=== PATIENT | male | born 1945 | race Two or more races ===

== ENCOUNTER → 2019-11-25 | Outpatient (CLI) | payer MEDICARE ==
[2019-11-25 12:03] LABS: Appearance,Urine Clear (Clear); Basophils # (A) 0.1 k/uL (0-0.2); Basophils % (A) 1 %; Bilirubin,Urine Negative (Negative); Blood,Urine Negative (Negative); Color,Urine Yellow; Eosinophils # (A) 0.3 k/uL (0-0.7); Eosinophils % (A) 5 %; Glucose,Urine (UA) Negative (Negative); HCT 39.4 % (39.0-53.0); HGB 12.6 gm/dL (13.0-17.5); Ketones,Urine Negative (Negative); Leukocyte Esterase,Urine Negative (Negative); Lymphocytes # (A) 1.3 k/uL (1.0-4.8); Lymphocytes % (A) 19 %; MCH 31.3 pg (25.0-35.0); MCHC 32.1 g/dL (31.0-37.0); MCV 97.6 fL (80.0-100.0); Mean Platelet Volume 8.1; Monocytes # (A) 0.5 k/uL (0-1.0); Monocytes % (A) 7 %; Neutrophils # (A) 4.5 k/uL (1.3-7.7); Neutrophils % (A) 66 %; Nitrite,Urine Negative (Negative); PH, Urine 6.5 (5.0-8.0); Platelet Count 372 k/uL (150-450); Protein,Urine Trace (Negative); RBC 4.03 m/uL (4.30-5.90); RDW 13.2 % (11.5-15.5); Specific Gravity,Urine 1.016 (1.001-1.035); Urobilinogen,Urine <2.0 mg/dL (<2.0); WBC 6.8 k/uL (3.8-10.6)
[2019-11-25 12:23] LABS: Calcium 10.6 mg/dL (8.4-10.2); Potassium 4.6 mmol/L (3.5-5.1)
--- NOTE | 2019-11-25 13:36 | XR ---
EXAMINATION TYPE: XR chest 2V DATE OF EXAM: 11/25/2019 COMPARISON: NONE HISTORY: Preoperative evaluation. TECHNIQUE: Frontal and lateral views of the chest are obtained. FINDINGS: There is no focal air space opacity, pleural effusion, or pneumothorax seen. The cardiac silhouette size is within normal limits. The osseous structures are intact. Mild multilevel degener ative change of the spine. IMPRESSION: No acute cardiopulmonary process.
== END | disposition home or self-care (01) ==
LOC: LABWHC1 11:18
PROVIDERS: ATTEND Urology
DX: Z01.818 Encounter for other preprocedural examination (principal); Z01.812 Encounter for preprocedural laboratory examination; C64.9 Malignant neoplasm of unspecified kidney, except renal pelvis
CPT/HCPCS: 36415; 71046; 80048; 81003; 85025

== ENCOUNTER 2019-12-02 06:09 | Inpatient (IN) | payer MEDICARE ==
--- NOTE | 2019-12-01 20:03 | P.HPIHPCON ---
History of Present Illness H&P Date: 12/02/19 Chief Complaint: right sided renal mass Mr Arenas is 74 yo male with hx of 6.5 cm right sided renal mass. I Discussed with him the option of robotic radical nephrectomy and robotic partial nephrectomy. He wanted to proceed with robotic partial nephrectomy. He understood the risk of benefit of each approach. Discussed with him with robotic partial nephrectomy there is risk of bleeding, infection and injury to nearby organs. Discussed with him risk of injury to the liver, bowel, blood vessels. Discussed with him risk from anesthesia including heart attack, stroke, blood clot and even . I also discussed with him given the tumor size there is a risk of conversion to radical nephrectoomy. I discussed with him given his CKD there is potential he would require dialysis if we do convert to radical nephrecttomy. He understood all risks and agreed to proceed with surgery Consent for Procedure: I have explained the operation/procedure to the patient, including the risks, benefits, side effects, alternative therapies (including not receiving the proposed treatment or service), the likelihood of the patient achieving his/her goals, and potential recuperation problems for the procedure/sedation/analgesia, as well as any blood products, if indicated. I also explained to the patient the risks, benefits and side effects of the alternatives, as well as the risks related to not receiving the proposed procedure, care, treatment, or services. - Constitutional Constitutional: Denies chills, Denies fever - Cardiovascular Cardiovascular: Denies chest pain - Respiratory Respiratory: Denies cough, Denies dyspnea - Genitourinary (Female) Genitourinary: Denies flank pain, Denies hematuria Past Medical History Past Medical History: Coronary Artery Disease (CAD), Chest Pain / Angina, COPD, Diabetes Mellitus, Hearing Disorder / Deafness, Hyperlipidemia, Hypertension, Liver Disease, Musculoskeletal Disorder, Renal Disease Additional Past Medical History / Comment(s): hx migraine, vertigo, varicose vei ns, neuropathy, gout, "damaged kidneys-stage 3-from diabetes." Hx old injury Rt calf. Pos Rt kidney mass. History of Any Multi-Drug Resistant Organisms: None Reported Past Surgical History: Heart Catheterization With Stent, Tonsillectomy Additional Past Surgical History / Comment(s): Stent to LAD 06/07/16. Colonoscopies Past Anesthesia/Blood Transfusion Reactions: No Reported Reaction Date of Last Stent Placement:: 06/07/16 Smoking Status: Former smoker - Past Family History Father Family Medical History: Cancer Additional Family Medical History / Comment(s): Lung Medications and Allergies Home Medications Medication Instructions Recorded Confirmed Type Allopurinol [Zyloprim] 100 mg PO DAILY@1200,1800 05/19/16 11/26/19 History Aspirin [Adult Low Dose Aspirin EC] 81 mg PO HS 05/19/16 11/26/19 History Carvedilol [Coreg*] 12.5 mg PO 0800,1800 05/19/16 11/26/19 History Cholecalciferol [Vitamin D3 (25 1,000 unit PO DAILY 05/19/16 11/26/19 History Mcg = 1000 Iu)] Fenofibrate,Micronized 200 mg PO HS 05/19/16 11/26/19 History [Fenofibrate] Gabapentin [Neurontin] 300 mg PO BID 05/19/16 11/26/19 History Glimepiride [Amaryl] 1 mg PO AC-BRKFST 05/19/16 11/26/19 History Hydrochlorothiazide [Hydrodiuril] 50 mg PO DAILY 05/19/16 11/26/19 History Lisinopril [Prinivil] 30 mg PO 1200 05/19/16 11/26/19 History Simvastatin [Zocor] 20 mg PO PC-SUPPER 05/19/16 11/26/19 History Spironolactone [Aldactone] 50 mg PO DAILY 11/26/19 11/26/19 History Ubidecarenone [Co Q-10] 1,000 mg PO DAILY 11/26/19 11/26/19 History amLODIPine BESYLATE 10 mg PO DAILY 11/26/19 11/26/19 History metFORMIN HCL [Glucophage] 1,000 mg PO BID 11/26/19 11/26/19 History Allergies Allergy/AdvReac Type Severity Reaction Status Date / Time No Known Allergies Allergy Verified 11/26/19 15:47 Assessment and Plan Assessment: mr Arenas is 74 yo male with hx of right sided renal mass -OR for robotic partial nephrectomy possible radical nephrectomy
[~2019-12-02 06:09] MED LIST: HEPARIN SODIUM,PORCINE 5,000 UNIT/ML 1 ML VIAL SQ ONE
[2019-12-02] MEDS ORDERED: MIDAZOLAM 2 MG/2 ML VIAL IV PRN (06:16)
[2019-12-02] MEDS ORDERED: LACTATED RINGERS 1,000 ML IV SCH (06:16)
[2019-12-02] MEDS ORDERED: ONDANSETRON 4 MG/2 ML VIAL IVP ONE (06:16)
[2019-12-02] MEDS ORDERED: DEXAMETHASONE SOD PHOSPHATE 10 MG/ML 1 ML VIAL IV ONE (06:16)
[2019-12-02 06:41] LABS: Glucose,Whole Blood 188 mg/dL (75-99)
[2019-12-02] MEDS ORDERED: LIDOCAINE 1% (10MG/ML) FOR IV START INTRADERMA ONE (06:58)
[2019-12-02] MEDS ORDERED: MIDAZOLAM 2 MG/2 ML VIAL ONE (07:40)
[2019-12-02] MEDS ORDERED: PROPOFOL 10 MG/ML 20 ML VIAL IV ONE (07:40)
[2019-12-02] MEDS ORDERED: LIDOCAINE 1% INJ 10MG/ML (20 ML MDV) ONE (07:40)
[2019-12-02] MEDS ORDERED: ROCURONIUM BROMIDE 10 MG/ML 5 ML VIAL IV ONE (07:40)
[2019-12-02] MEDS ORDERED: fentaNYL (PF) 50 MCG/ML 2 ML AMP ONE (07:40)
[2019-12-02] MEDS ORDERED: GLYCOPYRROLATE 0.2 MG/ML 2 ML VIAL ONE (07:40)
[2019-12-02] MEDS ORDERED: NEOSTIGMINE 1 MG/ML 10 ML VIAL ONE (07:40)
[2019-12-02] MEDS ORDERED: SUCCINYLCHOLINE CHLORIDE 100 MG/5 ML SYR IV ONE (07:40)
[2019-12-02] MEDS ORDERED: ROPIVACAINE 5 MG/ML 30 ML VIAL ONE (07:40)
[2019-12-02] MEDS ORDERED: BUPIVACAINE (PF) 0.5% 30 ML VIAL SQ ONE ×2 (08:50)
--- NOTE | 2019-12-02 10:06 | P.ANPRN ---
Procedure Note - Anesthesia - Nerve Block Performed Right Transversus Abdominis Single Date of Procedure: 12/02/19 Procedure Start Time: 07:41 Procedure Stop Time: 07:50 Location of Patient: PreOp Indication: Acute Post-Operative Pain Specifically requested for management of pain by DrAugusta: Bao Jean Sedation Type: Sedate with meaningful contact maintained Preparation: Sterile Prep Position: Supine Catheter: None Needle Types: Pajunk Needle Gauge: 20 Ultrasound used to visualize needle placement: Yes Ultrasound used to observe medication spread: Yes Injectate: 0.5% Ropivacaine (see comment for volume) (30cc) Blood Aspirated: No Pain Paresthesia on Injection Noted: No Resistance on Injection: Normal Image Stored and Saved: Yes Events: Uneventful and Well Tolerated
[2019-12-02] MEDS ORDERED: LACTATED RINGERS 1,000 ML IV ONE (10:36)
[2019-12-02] MEDS: HYDROmorphone 0.5 MG/0.5 ML SYRINGE IVP PRN ×4 (11:09→12:02)
--- NOTE | 2019-12-02 11:27 | P.NPCON ---
History of Present Illness - Reason for Consult chronic renal failure - History of Present Illness Reason for consultation: Chronic kidney disease History of present illness: Patient is a 74-year-old male seen in renal consultation for chronic kidney disease. Patient has chronic kidney disease stage III with baseline creatinine in the range of 1.4-1.8 secondary to diabetic kidney disease. Patient was diagnosed to renal mass and underwent right radical nephrectomy this morning. Patient is still recovering from anesthesia and is currently quite sleepy. Nurse present at bedside. Patient had about 150 mL of urine output so far today. No major bleeding couple occasions. Hemodynamically stable. Blood pressure is on the higher side at this time. No fever or chills. No edema. Currently has a Flores catheter. Vital signs are stable. General: The patient appeared well nourished and normally developed. HEENT: Head exam is unremarkable. Neck is without jugular venous distension. LUNGS: Lungs are clear to auscultation and percussion. Breath sounds decreased. HEART: Rate and Rhythm are regular. First and second heart sounds normal. No murmurs, rubs or gallops. ABDOMEN: Abdominal exam reveals normal bowel sounds. Non-tender and non- distended. No evidence of peritonitis. EXTREMITITES: No clubbing, cyanosis, or edema. 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 Pos Rt kidney mass. History of Any Multi-Drug Resistant Organisms: None Reported Past Surgical History: Heart Catheterization With Stent, Tonsillectomy Additional Past Surgical History / Comment(s): Stent to LAD 06/07/16. Colon oscopies Past Anesthesia/Blood Transfusion Reactions: No Reported Reaction Date of Last Stent Placement:: 06/07/16 Smoking Status: Former smoker - Past Family History Father Family Medical History: Cancer Additional Family Medical History / Comment(s): Lung Medications and Allergies Home Medications Medication Instructions Recorded Confirmed Type Allopurinol [Zyloprim] 100 mg PO DAILY@1200,1800 05/19/16 11/26/19 History Aspirin [Adult Low Dose Aspirin EC] 81 mg PO HS 05/19/16 11/26/19 History Carvedilol [Coreg*] 12.5 mg PO 0800,1800 05/19/16 11/26/19 History Cholecalciferol [Vitamin D3 (25 1,000 unit PO DAILY 05/19/16 11/26/19 History Mcg = 1000 Iu)] Fenofibrate,Micronized 200 mg PO HS 05/19/16 11/26/19 History [Fenofibrate] Gabapentin [Neurontin] 300 mg PO BID 05/19/16 11/26/19 History Glimepiride [Amaryl] 1 mg PO AC-BRKFST 05/19/16 11/26/19 History Hydrochlorothiazide [Hydrodiuril] 50 mg PO DAILY 05/19/16 11/26/19 History Lisinopril [Prinivil] 30 mg PO 1200 05/19/16 11/26/19 History Simvastatin [Zocor] 20 mg PO PC-SUPPER 05/19/16 11/26/19 History Spironolactone [Aldactone] 50 mg PO DAILY 11/26/19 11/26/19 History Ubidecarenone [Co Q-10] 1,000 mg PO DAILY 11/26/19 11/26/19 History amLODIPine BESYLATE 10 mg PO DAILY 11/26/19 11/26/19 History metFORMIN HCL [Glucophage] 1,000 mg PO BID 11/26/19 11/26/19 History Allergies Allergy/AdvReac Type Severity Reaction Status Date / Time No Known Allergies Allergy Verified 11/26/19 15:47 Physical Exam Vitals: Vital Signs Temp Pulse Resp BP Pulse Ox 12/02/19 11:15 78 16 178/81 93 L 12/02/19 11:00 80 16 182/78 100 12/02/19 10:58 98.5 F 82 17 194/88 98 12/02/19 07:41 69 18 158/79 98 12/02/19 06:25 97.8 F 69 18 173/64 98 Intake and Output 12/01/19 12/02/19 12/02/19 22:59 06:59 14:59 Intake Total 300 950 Output Total 350 Balance 300 600 Intake: IV 300 950 Output: Urine 150 Estimated Blood Loss 200 Other: Weight 103.6 kg Assessment and Plan Plan: Assessment: 1. Chronic kidney disease stage III secondary to diabetic kidney disease with baseline creatinine in the range of 1.4-1.8. GFR near baseline from November 25. 2. Diabetes mellitus. 3. Hypertension with chronic kidney disease. 4. Right renal mass status post right radical nephrectomy this morning. Plan: Start normal saline at 50 mL an hour. Continue to monitor renal function and urine output. Home blood pressure medications to be resumed today. Repeat electrolytes in the morning. Thank you for the consultation. I will continue to follow the patient with you during his hospital stay.
[2019-12-02] MEDS ORDERED: INSULIN ASPART (NovoLOG) 100 UNIT/ML VIAL SQ ONE (11:37)
[2019-12-02 11:39] LABS: Glucose,Whole Blood 295 mg/dL (75-99)
[2019-12-02] MEDS ORDERED: SODIUM CHLORIDE 0.9% 1,000 ML IV SCH (12:15)
[2019-12-02] MEDS: CARVEDILOL 12.5 MG TAB PO SCH ×2 (13:03→18:16)
[2019-12-02] MEDS: DEXTROSE 5%-0.45% NACL 1,000 ML IV SCH ×2 (13:03→14:57)
[2019-12-02] MEDS: CHOLECALCIFEROL 1,000 UNIT TAB PO SCH (13:29)
[2019-12-02] MEDS: METHOCARBAMOL 750 MG TAB PO SCH ×3 (13:29→21:00)
[2019-12-02] MEDS: SPIRONOLACTONE 25 MG TAB PO SCH (13:29)
[2019-12-02] MEDS: ALLOPURINOL 100 MG TAB PO SCH ×2 (13:29→18:16)
--- NOTE | 2019-12-02 14:57 | P.OP ---
Date of Procedure: 12/02/19 Preoperative Diagnosis: Right renal mass Postoperative Diagnosis: same Procedure(s) Performed: Robotic radical nephrectomy Anesthesia: DANIELA Surgeon: Desmond Bhatt Estimated Blood Loss (ml): 200 Pathology: other (right kidney) Condition: stable Disposition: PACU Indications for Procedure: Mr Arenas is 74 yo male with hx of 6.5 cm right sided renal mass. I Discussed with him the option of robotic radical nephrectomy and robotic partial nephrectomy. He wanted to proceed with robotic partial nephrectomy. He understood the risk of benefit of each approach. Discussed with him with robotic partial nephrectomy there is risk of bleeding, infection and injury to nearby organs. Discussed with him risk of injury to the liver, bowel, blood vessels. Discussed with him risk from anesthesia including heart attack, stroke, blood clot and even . I also discussed with him given the tumor size there is a risk of conversion to radical nephrectoomy. I discussed with him given his CKD there is potential he would require dialysis if we do convert to radical nephrecttomy. 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 General anesthesia was induced. He was prepped and draped in sterile fashion, and was placed in modified flank position . All pressure points were padded. The abdominal insufflation was achieved with the Veress needle. A 8 mm camera port was placed. Robotic trocars and undertaker assistant ports were placed under direct vision. a 5 mm liver retractor was placed. . The robot was docked into place. The patient had adhesions along the liver which were taken down robotically to exposed the upper edge of gerotas. Of note the gallbladder was not visualized, and appeared to be surgically absent/ The colon was mobilized medially by incising along the white line of Toldt. of note patient gerota was edematous and adhered to the mesentric fat. Next the duodenum was kocherized. At this time the vena cava was exposed. At this point tumor was visualized a long the lower pole of the kidney. Next the ureter was retracted anteriorly off the psoas muscle. Dissection proceeded cranially towards the renal hilum. The upper pole attachments were dissected. Care was taken to safely mobilize the kidney free of all visceral structures.The renal vessels were dissected. At this point the renal vessels were exposed. At this point attention was taken to dissect the tumor and prepare for partial nephrectomy. At this point the tumor was visualized along the upper pole. of note patient tumor was adhered to gerotas fat and there was no plane between the tumor and gerotas fat. 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 Additionally patient had significant parasitic vessel surrounding the tumor. When we attempted to mobilize the fat off of the kidney the parasitic vessels were encountered and there was significant difficulty controlling those vessels using cautery. Given the risk of significant blood loss and possibility of T3 disease decision was made to proceed with nephrectomy. The hilum was ligated using the vascular stapler. The adrenal gland was mobilized. Lateral and remaining kidney attachments were released. Of note the dissection was more challenging given the parasitic vessels. The ureter was dissected further distally. The ureter was ligated using the vascular stapler. The kidney was placed in an Endo Catch bag. The robot was then de-docked and the specimen was then removed by extending the undertaker assistant port. Fascia was closed with 2 layers using #1 Stratafix. Skin was closed with subcu ticular sutures and dermabond. The patient was awoken from general anesthesia in stable condition. Please refer to the final pathology report for final diagnosis
[2019-12-02] MEDS: ONDANSETRON 4 MG/2 ML VIAL IVP PRN (15:47)
[2019-12-02] MEDS: HEPARIN SODIUM,PORCINE 5,000 UNIT/ML 1 ML VIAL SQ SCH (15:48)
[2019-12-02 15:56] LABS: Glucose,Whole Blood 244 mg/dL (75-99)
[2019-12-02] MEDS: ATORVASTATIN 10 MG TAB PO SCH (18:16)
[2019-12-02] MEDS: HYDROmorphone 1 MG/ML 1 ML SYRINGE IVP PRN (20:47)
[2019-12-02] MEDS: GABAPENTIN 300 MG CAP PO SCH (20:49)
[2019-12-02] MEDS: metFORMIN 500 MG TAB PO SCH (20:49)
[2019-12-02 21:11] LABS: Glucose,Whole Blood 190 mg/dL (75-99)
[2019-12-02 21:52] LABS: Basophils # (A) 0.1 k/uL (0-0.2); Basophils % (A) 1 %; Eosinophils % (A) 0 %; HCT 35.8 % (39.0-53.0); HGB 11.5 gm/dL (13.0-17.5); Lymphocytes # (A) 0.4 k/uL (1.0-4.8); Lymphocytes % (A) 5 %; MCH 31.4 pg (25.0-35.0); MCHC 32.2 g/dL (31.0-37.0); MCV 97.6 fL (80.0-100.0); Mean Platelet Volume 8.4; Monocytes # (A) 0.7 k/uL (0-1.0); Monocytes % (A) 7 %; Neutrophils % (A) 87 %; Platelet Count 251 k/uL (150-450); RBC 3.67 m/uL (4.30-5.90); WBC 9.3 k/uL (3.8-10.6)
[2019-12-02 21:53] LABS: Calcium 9.7 mg/dL (8.4-10.2); Potassium 4.3 mmol/L (3.5-5.1)
[2019-12-02] MEDS: SODIUM CHLORIDE 0.9% 1,000 ML IV SCH (23:20)
[2019-12-03] MEDS: HEPARIN SODIUM,PORCINE 5,000 UNIT/ML 1 ML VIAL SQ SCH ×3 (01:41→15:02)
[2019-12-03] MEDS: HYDROmorphone 1 MG/ML 1 ML SYRINGE IVP PRN ×2 (02:09→07:05)
[2019-12-03 06:48] LABS: Glucose,Whole Blood 200 mg/dL (75-99)
[2019-12-03] MEDS: GLIMEPIRIDE 1 MG TAB PO SCH (07:05)
[2019-12-03 07:44] LABS: Calcium 9.3 mg/dL (8.4-10.2); Magnesium 1.5 mg/dL (1.6-2.3); Potassium 4.1 mmol/L (3.5-5.1)
[2019-12-03] MEDS: metFORMIN 500 MG TAB PO SCH (08:19)
[2019-12-03] MEDS: CARVEDILOL 12.5 MG TAB PO SCH ×2 (08:19→17:00)
[2019-12-03] MEDS: CHOLECALCIFEROL 1,000 UNIT TAB PO SCH (08:19)
[2019-12-03] MEDS: GABAPENTIN 300 MG CAP PO SCH ×2 (08:19→21:10)
[2019-12-03] MEDS: SPIRONOLACTONE 25 MG TAB PO SCH (08:19)
[2019-12-03] MEDS: METHOCARBAMOL 750 MG TAB PO SCH ×4 (08:20→21:10)
--- NOTE | 2019-12-03 09:51 | P.PN ---
Subjective Patient is seen in follow-up for acute kidney injury on chronic kidney disease. Patient has chronic kidney disease stage III with baseline creatinine in the range of 1.4-1.8 secondary to diabetic kidney disease. Patient underwent right radical nephrectomy on 12/02/2019. Currently awake and alert. No chest pain or shortness of breath. Nonoliguric. Has a Flores catheter. Vital signs are stable. General: The patient appeared well nourished and normally developed. HEENT: Head exam is unremarkable. Neck is without jugular venous distension. LUNGS: Lungs are clear to auscultation and percussion. Breath sounds decreased. HEART: Rate and Rhythm are regular. First and second heart sounds normal. No murmurs, rubs or gallops. ABDOMEN: Abdominal exam reveals normal bowel sounds. Non-tender and non- distended. No evidence of peritonitis. EXTREMITITES: No clubbing, cyanosis, or edema. Objective - Vital Signs Vital signs: Vital Signs Temp 98.2 F 12/03/19 07:00 Pulse 75 12/03/19 07:00 Resp 18 12/03/19 07:00 BP 139/77 12/03/19 07:00 Pulse Ox 91 L 12/03/19 07:00 Intake & Output 12/02/19 12/03/19 12/03/19 18:59 06:59 18:59 Intake Total 950 470 Output Total 350 600 Balance 600 -130 Weight 103.6 kg Intake: IV 950 Intake, IV Titration 350 Amount Sodium Chloride 0.9% 1, 350 000 ml @ 50 mls/hr IV . Q20H [facility] Rx#:[id number] Oral 120 Output: Urine 150 600 Estimated Blood Loss 200 Other: Voiding Method Indwelling Catheter Indwelling Catheter Indwelling Catheter - Labs CBC & Chem 7: 12/02/19 20:58 12/03/19 07:08 Labs: Abnormal Lab Results - Last 24 Hours (Table) 12/02/19 12/02/19 12/02/19 Range/Units 11:33 15:53 20:58 RBC 3.67 L (4.30-5.90) m/uL Hgb 11.5 L (13.0-17.5) gm/dL Hct 35.8 L (39.0-53.0) % Neutrophils # 8.0 H (1.3-7.7) k/uL Lymphocytes # 0.4 L (1.0-4.8) k/uL BUN (9-20) mg/dL Creatinine (0.66-1.25) mg/dL Glucose (74-99) mg/dL POC Glucose (mg/dL) 295 H 244 H (75-99) mg/dL Magnesium (1.6-2.3) mg/dL 12/02/19 12/02/19 12/03/19 Range/Units 20:58 21:09 06:46 RBC (4.30-5.90) m/uL Hgb (13.0-17.5) gm/dL Hct (39.0-53.0) % Neutrophils # (1.3-7.7) k/uL Lymphocytes # (1.0-4.8) k/uL BUN 33 H (9-20) mg/dL Creatinine 2.21 H (0.66-1.25) mg/dL Glucose 185 H (74-99) mg/dL POC Glucose (mg/dL) 190 H 200 H (75-99) mg/dL Magnesium (1.6-2.3) mg/dL 12/03/19 Range/Units 07:08 RBC (4.30-5.90) m/uL Hgb (13.0-17.5) gm/dL Hct (39.0-53.0) % Neutrophils # (1.3-7.7) k/uL Lymphocytes # (1.0-4.8) k/uL BUN 32 H (9-20) mg/dL Creatinine 2.50 H (0.66-1.25) mg/dL Glucose 195 H (74-99) mg/dL POC Glucose (mg/dL) (75-99) mg/dL Magnesium 1.5 L (1.6-2.3) mg/dL Assessment and Plan Plan: Assessment: 1. Chronic kidney disease stage III secondary to diabetic kidney disease with baseline creatinine in the range of 1.4-1.8. GFR near baseline from November 25. However need to establish new baseline renal function as patient underwent right-sided nephrectomy on December 02. 2. Diabetes mellitus. 3. Hypertension with chronic kidney disease. Controlled. 4. Right renal mass status post right radical nephrectomy. 5. Hypomagnesemia from poor oral intake. Plan: Maintain normal saline at 50 mL an hour. Replace magnesium. 2 g IV today. Continue to monitor renal function and urine output.
[2019-12-03] MEDS: MAGNESIUM SULFATE-D5W PMX 1 GM in DEXTROSE/WATER 1 100ML.BAG IVPB SCH ×2 (10:01→11:34)
[2019-12-03 11:20] LABS: Amorphous Sediment,Urine Rare /hpf; Appearance,Urine Cloudy (Clear); Bacteria,Urine Occasional /hpf; Bilirubin,Urine Negative (Negative); Blood,Urine Moderate (Negative); Color,Urine Yellow; Glucose,Urine (UA) 2+ (Negative); Ketones,Urine Negative (Negative); Leukocyte Esterase,Urine Moderate (Negative); Mucus,Urine Rare /hpf; Nitrite,Urine Negative (Negative); PH, Urine 5.5 (5.0-8.0); Protein,Urine 1+ (Negative); RBC,Urine 4 /hpf (0-5); Specific Gravity,Urine 1.017 (1.001-1.035); Squamous Epithelial Cell,Urine <1 /hpf (0-4); Urobilinogen,Urine <2.0 mg/dL (<2.0); WBC,Urine 23 /hpf (0-5)
[2019-12-03 11:23] LABS: Glucose,Whole Blood 243 mg/dL (75-99)
[2019-12-03] MEDS: INSULIN ASPART (NovoLOG) 100 UNIT/ML VIAL SQ SCH ×3 (11:34→21:10)
[2019-12-03] MEDS: ALLOPURINOL 100 MG TAB PO SCH ×2 (12:44→17:00)
[2019-12-03] MEDS: traMADol 50 MG TAB PO PRN (15:02)
[2019-12-03] MEDS: SODIUM CHLORIDE 0.9% 1,000 ML IV SCH (15:03)
[2019-12-03 16:52] LABS: Glucose,Whole Blood 173 mg/dL (75-99)
[2019-12-03] MEDS: ATORVASTATIN 10 MG TAB PO SCH (17:00)
[2019-12-03] MEDS: ACETAMINOPHEN TAB 325 MG TAB PO PRN (17:00)
[2019-12-03 21:02] LABS: Glucose,Whole Blood 200 mg/dL (75-99)
--- NOTE | 2019-12-03 22:33 | P.PN ---
Subjective Progress Note Date: 12/03/19 Principal diagnosis: right sided renal mass POD #1 S/P right sided radical nephrectomy No acute overnight event, has not ambulated yet. Still having some pain Objective - Vital Signs Vital signs: Vital Signs Temp 98.9 F 12/03/19 19:12 Pulse 80 12/03/19 19:12 Resp 17 12/03/19 19:12 BP 136/71 12/03/19 19:12 Pulse Ox 92 L 12/03/19 19:12 Intake & Output 12/03/19 12/03/19 12/04/19 06:59 18:59 06:59 Intake Total 470 540 Output Total 600 Balance -130 540 Intake: Intake, IV Titration 350 Amount Sodium Chloride 0.9% 1, 350 000 ml @ 50 mls/hr IV . Q20H [facility] Rx#:[id number] Oral 120 540 Output: Urine 600 Other: Voiding Method Indwelling Catheter Indwelling Catheter Indwelling Catheter - Constitutional General appearance: Present: no acute distress - Gastrointestinal General gastrointestinal: Present: soft. Absent: distended - Integumentary Integumentary Comment(s): Incision; CDI - Labs CBC & Chem 7: 12/02/19 20:58 12/03/19 07:08 Labs: Abnormal Lab Results - Last 24 Hours (Table) 12/03/19 12/03/19 12/03/19 Range/Units 06:46 07:08 10:40 BUN 32 H (9-20) mg/dL Creatinine 2.50 H (0.66-1.25) mg/dL Glucose 195 H (74-99) mg/dL POC Glucose (mg/dL) 200 H (75-99) mg/dL Magnesium 1.5 L (1.6-2.3) mg/dL Urine Protein 1+ H (Negative) Urine Glucose (UA) 2+ H (Negative) Urine Blood Moderate H (Negative) Ur Leukocyte Esterase Moderate H (Negative) Urine WBC 23 H (0-5) /hpf Amorphous Sediment Rare H (None) /hpf Urine Bacteria Occasional H (None) /hpf Urine Mucus Rare H (None) /hpf 12/03/19 12/03/19 12/03/19 Range/Units 11:21 16:50 21:00 BUN (9-20) mg/dL Creatinine (0.66-1.25) mg/dL Glucose (74-99) mg/dL POC Glucose (mg/dL) 243 H 173 H 200 H (75-99) mg/dL Magnesium (1.6-2.3) mg/dL Urine Protein (Negative) Urine Glucose (UA) (Negative) Urine Blood (Negative) Ur Leukocyte Esterase (Negative) Urine WBC (0-5) /hpf Amorphous Sediment (None) /hpf Urine Bacteria (None) /hpf Urine Mucus (None) /hpf Assessment and Plan Assessment: S/P right sided radical nephrectomy Plan: -ambulate -Pain control -Repeat am labs -Potential discharge home tomorrow
[2019-12-04] MEDS: traMADol 50 MG TAB PO PRN ×2 (00:05→14:26)
[2019-12-04] MEDS: HEPARIN SODIUM,PORCINE 5,000 UNIT/ML 1 ML VIAL SQ SCH ×3 (00:05→18:17)
[2019-12-04] MEDS: HYDROmorphone 1 MG/ML 1 ML SYRINGE IVP PRN (01:00)
[2019-12-04] MEDS: ONDANSETRON 4 MG/2 ML VIAL IVP PRN ×2 (06:19→22:46)
[2019-12-04 06:52] LABS: Glucose,Whole Blood 213 mg/dL (75-99)
[2019-12-04 07:51] LABS: Potassium 4.2 mmol/L (3.5-5.1)
[2019-12-04] MEDS: GLIMEPIRIDE 1 MG TAB PO SCH (08:03)
[2019-12-04] MEDS: METHOCARBAMOL 750 MG TAB PO SCH ×4 (08:03→21:08)
[2019-12-04] MEDS: GABAPENTIN 300 MG CAP PO SCH ×2 (08:05→21:08)
[2019-12-04] MEDS: CHOLECALCIFEROL 1,000 UNIT TAB PO SCH (08:05)
[2019-12-04] MEDS: SPIRONOLACTONE 25 MG TAB PO SCH (08:05)
[2019-12-04] MEDS: CARVEDILOL 12.5 MG TAB PO SCH ×2 (08:06→18:18)
[2019-12-04] MEDS: INSULIN ASPART (NovoLOG) 100 UNIT/ML VIAL SQ SCH ×4 (08:06→21:08)
--- NOTE | 2019-12-04 09:46 | P.PN ---
Subjective Patient is seen in follow-up for acute kidney injury on chronic kidney disease. Patient has chronic kidney disease stage III with baseline creatinine in the range of 1.4-1.8 secondary to diabetic kidney disease. Patient underwent right radical nephrectomy on 12/02/2019. Currently awake and alert. No chest pain or shortness of breath. Nonoliguric. Has a Flores catheter. Feels nauseated. No vomiting but has been dry heaving. Vital signs are stable. General: The patient appeared well nourished and normally developed. HEENT: Head exam is unremarkable. Neck is without jugular venous distension. LUNGS: Lungs are clear to auscultation and percussion. Breath sounds decreased. HEART: Rate and Rhythm are regular. First and second heart sounds normal. No murmurs, rubs or gallops. ABDOMEN: Abdominal exam reveals normal bowel sounds. Non-tender and non- distended. No evidence of peritonitis. EXTREMITITES: No clubbing, cyanosis, or edema. Objective - Vital Signs Vital signs: Vital Signs Temp 98.4 F 12/04/19 07:00 Pulse 115 H 12/04/19 07:00 Resp 17 12/04/19 07:00 BP 131/77 12/04/19 07:00 Pulse Ox 91 L 12/04/19 07:00 Intake & Output 12/03/19 12/04/19 12/04/19 18:59 06:59 18:59 Intake Total 540 400 Output Total 350 Balance 540 50 Intake: Intake, IV Titration 400 Amount Sodium Chloride 0.9% 1, 400 000 ml @ 50 mls/hr IV . Q20H [facility] Rx#:[id number] Oral 540 Output: Urine 350 Other: Voiding Method Indwelling Catheter Indwelling Catheter Indwelling Catheter - Labs CBC & Chem 7: 12/02/19 20:58 12/04/19 07:12 Labs: Abnormal Lab Results - Last 24 Hours (Table) 12/03/19 12/03/19 12/03/19 Range/Units 10:40 11:21 16:50 BUN (9-20) mg/dL Creatinine (0.66-1.25) mg/dL Glucose (74-99) mg/dL POC Glucose (mg/dL) 243 H 173 H (75-99) mg/dL Urine Protein 1+ H (Negative) Urine Glucose (UA) 2+ H (Negative) Urine Blood Moderate H (Negative) Ur Leukocyte Esterase Moderate H (Negative) Urine WBC 23 H (0-5) /hpf Amorphous Sediment Rare H (None) /hpf Urine Bacteria Occasional H (None) /hpf Urine Mucus Rare H (None) /hpf 12/03/19 12/04/19 12/04/19 Range/Units 21:00 06:50 07:12 BUN 39 H (9-20) mg/dL Creatinine 3.20 H (0.66-1.25) mg/dL Glucose 208 H (74-99) mg/dL POC Glucose (mg/dL) 200 H 213 H (75-99) mg/dL Urine Protein (Negative) Urine Glucose (UA) (Negative) Urine Blood (Negative) Ur Leukocyte Esterase (Negative) Urine WBC (0-5) /hpf Amorphous Sediment (None) /hpf Urine Bacteria (None) /hpf Urine Mucus (None) /hpf Assessment and Plan Plan: Assessment: 1. Chronic kidney disease stage III secondary to diabetic kidney disease with baseline creatinine in the range of 1.4-1.8. GFR near baseline from November 25. However need to establish new baseline renal function as patient underwent right-sided nephrectomy on December 02. Creatinine 3.2 today. 2. Diabetes mellitus. 3. Hypertension with chronic kidney disease. Controlled. 4. Right renal mass status post right radical nephrectomy. 5. Hypomagnesemia from poor oral intake. Better post replacement. Plan: Maintain normal saline at 50 mL an hour. Continue to monitor renal function and urine output.
[2019-12-04 11:43] LABS: Glucose,Whole Blood 176 mg/dL (75-99)
[2019-12-04 14:23] LABS: Glucose,Whole Blood 191 mg/dL (75-99)
[2019-12-04] MEDS: SENNOSIDES 8.6 MG TAB PO SCH ×2 (14:25→21:08)
[2019-12-04] MEDS: ALLOPURINOL 100 MG TAB PO SCH ×2 (14:25→18:18)
--- NOTE | 2019-12-04 17:12 | P.PN ---
Subjective Progress Note Date: 12/04/19 Principal diagnosis: right sided renal mass POD #2 S/P right sided radical nephrectomy No acute overnight event,has ambulated . Still having some pain. Creat continues to trend up Objective - Vital Signs Vital signs: Vital Signs Temp 98.6 F 12/04/19 15:00 Pulse 73 12/04/19 15:00 Resp 17 12/04/19 15:00 BP 120/73 12/04/19 15:00 Pulse Ox 90 L 12/04/19 15:00 Intake & Output 12/03/19 12/04/19 12/04/19 18:59 06:59 18:59 Intake Total 540 400 Output Total 350 Balance 540 50 Intake: Intake, IV Titration 400 Amount Sodium Chloride 0.9% 1, 400 000 ml @ 50 mls/hr IV . Q20H [facility] Rx#:[id number] Oral 540 Output: Urine 350 Other: Voiding Method Indwelling Catheter Indwelling Catheter Indwelling Catheter - Constitutional General appearance: Present: no acute distress - Gastrointestinal General gastrointestinal: Present: soft. Absent: distended, rigid - Psychiatric Psychiatric: Present: A&O x's 3 - Labs CBC & Chem 7: 12/02/19 20:58 12/04/19 07:12 Labs: Abnormal Lab Results - Last 24 Hours (Table) 12/03/19 12/04/19 12/04/19 Range/Units 21:00 06:50 07:12 BUN 39 H (9-20) mg/dL Creatinine 3.20 H (0.66-1.25) mg/dL Glucose 208 H (74-99) mg/dL POC Glucose (mg/dL) 200 H 213 H (75-99) mg/dL 12/04/19 12/04/19 Range/Units 11:41 14:21 BUN (9-20) mg/dL Creatinine (0.66-1.25) mg/dL Glucose (74-99) mg/dL POC Glucose (mg/dL) 176 H 191 H (75-99) mg/dL Assessment and Plan Assessment: S/P right sided radical nephrectomy Plan: -ambulate -Bowel regimen -Pain control -Repeat am labs -Potential discharge home tomorrow
[2019-12-04 17:34] LABS: Glucose,Whole Blood 177 mg/dL (75-99)
[2019-12-04] MEDS: ATORVASTATIN 10 MG TAB PO SCH (18:18)
[2019-12-04] MEDS: SODIUM CHLORIDE 0.9% 1,000 ML IV SCH (18:26)
[2019-12-04 20:57] LABS: Glucose,Whole Blood 150 mg/dL (75-99)
[2019-12-05] MEDS: HEPARIN SODIUM,PORCINE 5,000 UNIT/ML 1 ML VIAL SQ SCH ×4 (01:05→23:28)
[2019-12-05] MEDS: traMADol 50 MG TAB PO PRN ×2 (01:26→09:59)
[2019-12-05] MEDS: ACETAMINOPHEN TAB 325 MG TAB PO PRN ×2 (06:04→17:30)
[2019-12-05 07:40] LABS: Glucose,Whole Blood 211 mg/dL (75-99)
[2019-12-05 09:03] LABS: Calcium 9.4 mg/dL (8.4-10.2); Magnesium 2.2 mg/dL (1.6-2.3); Potassium 4.8 mmol/L (3.5-5.1)
[2019-12-05] MEDS: INSULIN ASPART (NovoLOG) 100 UNIT/ML VIAL SQ SCH ×4 (09:52→21:40)
[2019-12-05] MEDS: SPIRONOLACTONE 25 MG TAB PO SCH (09:52)
[2019-12-05] MEDS: GABAPENTIN 300 MG CAP PO SCH ×2 (09:52→21:40)
[2019-12-05] MEDS: CHOLECALCIFEROL 1,000 UNIT TAB PO SCH (09:52)
[2019-12-05] MEDS: CARVEDILOL 12.5 MG TAB PO SCH ×2 (09:52→17:31)
[2019-12-05] MEDS: GLIMEPIRIDE 1 MG TAB PO SCH (09:52)
[2019-12-05] MEDS: METHOCARBAMOL 750 MG TAB PO SCH ×2 (09:53→14:21)
[2019-12-05] MEDS: SENNOSIDES 8.6 MG TAB PO SCH ×2 (09:53→21:40)
[2019-12-05 11:33] LABS: Glucose,Whole Blood 215 mg/dL (75-99)
--- NOTE | 2019-12-05 11:47 | P.PN ---
Subjective Patient is seen in follow-up for acute kidney injury on chronic kidney disease. Patient has chronic kidney disease stage III with baseline creatinine in the range of 1.4-1.8 secondary to diabetic kidney disease. Patient underwent right radical nephrectomy on 12/02/2019. Currently awake and alert. No chest pain or shortness of breath. Urine output 300 mL overnight. Has a Flores catheter. Her renal function is significantly worse. Creatinine 4.86 today. Vital signs are stable. General: The patient appeared well nourished and normally developed. HEENT: Head exam is unremarkable. Neck is without jugular venous distension. LUNGS: Lungs are clear to auscultation and percussion. Breath sounds decreased. HEART: Rate and Rhythm are regular. First and second heart sounds normal. No murmurs, rubs or gallops. ABDOMEN: Abdominal exam reveals normal bowel sounds. Non-tender and non- distended. No evidence of peritonitis. EXTREMITITES: No clubbing, cyanosis, or edema. Objective - Vital Signs Vital signs: Vital Signs Temp 97.8 F 12/05/19 07:48 Pulse 70 12/05/19 07:48 Resp 20 12/05/19 07:48 BP 124/74 12/05/19 07:48 Pulse Ox 93 L 12/05/19 07:48 Intake & Output 12/04/19 12/05/19 12/05/19 18:59 06:59 18:59 Intake Total 400 Output Total 300 Balance 100 Intake: Intake, IV Titration 400 Amount Sodium Chloride 0.9% 1, 400 000 ml @ 50 mls/hr IV . Q20H [facility] Rx#:[id number] Output: Urine 300 Other: Voiding Method Indwelling Catheter Indwelling Catheter Indwelling Catheter # Voids 200 - Labs CBC & Chem 7: 12/02/19 20:58 12/05/19 07:36 Labs: Abnormal Lab Results - Last 24 Hours (Table) 12/04/19 12/04/19 12/04/19 Range/Units 11:41 14:21 17:33 Carbon Dioxide (22-30) mmol/L BUN (9-20) mg/dL Creatinine (0.66-1.25) mg/dL Glucose (74-99) mg/dL POC Glucose (mg/dL) 176 H 191 H 177 H (75-99) mg/dL 12/04/19 12/05/1920 Range/Units 20:55 07:36 07:38 Carbon Dioxide 19 L (22-30) mmol/L BUN 52 H (9-20) mg/dL Creatinine 4.86 H (0.66-1.25) mg/dL Glucose 190 H (74-99) mg/dL POC Glucose (mg/dL) 150 H 211 H (75-99) mg/dL 12/05/19 Range/Units 11:32 Carbon Dioxide (22-30) mmol/L BUN (9-20) mg/dL Creatinine (0.66-1.25) mg/dL Glucose (74-99) mg/dL POC Glucose (mg/dL) 215 H (75-99) mg/dL Assessment and Plan Plan: Assessment: 1. Chronic kidney disease stage III secondary to diabetic kidney disease with baseline creatinine in the range of 1.4-1.8. GFR near baseline from November 25. However need to establish new baseline renal function as patient underwent right-sided nephrectomy on December 02. Creatinine 4.86 today. 2. Diabetes mellitus. 3. Hypertension with chronic kidney disease. Controlled. 4. Right renal mass status post right radical nephrectomy. 5. Hypomagnesemia from poor oral intake. Better post replacement. 6. Metabolic acidosis secondary to acute kidney injury. Plan: Maintain normal saline at 50 mL an hour. Add oral sodium bicarbonate. I discussed with the patient and his family present at bedside in detail that after the nephrectomy his renal function is expected to decline and possibly req uire renal replacement therapy. I discussed with him that his renal function has significantly dropped and dialysis may need to be started this admission. Patient states he wants to wait another day and will then decide. I spoke with the family caseworker to set him up for hemodialysis at [facility] if dialysis is started this admission. Patient and family are agreeable.
[2019-12-05] MEDS: ONDANSETRON 4 MG/2 ML VIAL IVP PRN ×2 (12:42→21:40)
[2019-12-05] MEDS: ALLOPURINOL 100 MG TAB PO SCH ×2 (13:18→17:31)
[2019-12-05] MEDS: SODIUM BICARBONATE TAB 650 MG TAB PO SCH ×2 (13:19→21:40)
--- NOTE | 2019-12-05 15:36 | US ---
EXAMINATION TYPE: US kidneys/renal and bladder DATE OF EXAM: 12/05/2019 COMPARISON: NONE CLINICAL HISTORY: Hematuria. EXAM MEASUREMENTS: Right Kidney: nephrectomy 12/02/19 Left Kidney: 10.4 x 5.5 x 6.7 cm Right Kidney: Surgically absent Left Kidney: No hydronephrosis, cyst measuring 2.4 x 1.8 x 1.9cm Bladder: swanson, non distended IMPRESSION: 1. Right renal bed appears unremarkable. 2. Left kidney as a simple cyst on the cortex but is otherwise unremarkable.
--- NOTE | 2019-12-05 16:16 | P.PN ---
Subjective Progress Note Date: 12/05/19 Principal diagnosis: right sided renal mass POD #3 S/P right sided radical nephrectomy No acute overnight event,has ambulated . Still having pain . Creat continues to trend up Objective - Vital Signs Vital signs: Vital Signs Temp 97.8 F 12/05/19 07:48 Pulse 70 12/05/19 07:48 Resp 20 12/05/19 07:48 BP 124/74 12/05/19 07:48 Pulse Ox 93 L 12/05/19 07:48 Intake & Output 12/04/19 12/05/19 12/05/19 18:59 06:59 18:59 Intake Total 400 Output Total 300 Balance 100 Intake: Intake, IV Titration 400 Amount Sodium Chloride 0.9% 1, 400 000 ml @ 50 mls/hr IV . Q20H [facility] Rx#:[id number] Output: Urine 300 Other: Voiding Method Indwelling Catheter Indwelling Catheter Indwelling Catheter # Voids 200 - Constitutional General appearance: Present: mild distress - Gastrointestinal General gastrointestinal: Present: distended, soft. Absent: tenderness - Psychiatric Psychiatric: Present: A&O x's 3 - Labs CBC & Chem 7: 12/02/19 20:58 12/05/19 07:36 Labs: Abnormal Lab Results - Last 24 Hours (Table) 12/04/19 12/04/19 12/05/19 Range/Units 17:33 20:55 07:36 Carbon Dioxide 19 L (22-30) mmol/L BUN 52 H (9-20) mg/dL Creatinine 4.86 H (0.66-1.25) mg/dL Glucose 190 H (74-99) mg/dL POC Glucose (mg/dL) 177 H 150 H (75-99) mg/dL 12/05/19 12/05/19 Range/Units 07:38 11:32 Carbon Dioxide (22-30) mmol/L BUN (9-20) mg/dL Creatinine (0.66-1.25) mg/dL Glucose (74-99) mg/dL POC Glucose (mg/dL) 211 H 215 H (75-99) mg/dL Assessment and Plan Assessment: S/P right sided radical nephrectomy Plan: -ambulate -Bowel regimen -Pain control -Repeat am labs
[2019-12-05] MEDS ORDERED: BISACODYL 10 MG SUPP RECTAL STA (16:17)
[2019-12-05] MEDS ORDERED: SODIUM CHLORIDE 0.9% 500 ML 500 ML IV ONE (16:33)
[2019-12-05] MEDS ORDERED: PANTOPRAZOLE 40 MG TABLET PO STA (16:35)
[2019-12-05] MEDS: SODIUM CHLORIDE 0.9% 1,000 ML IV SCH (16:41)
[2019-12-05 16:44] LABS: Glucose,Whole Blood 175 mg/dL (75-99)
[2019-12-05] MEDS: ATORVASTATIN 10 MG TAB PO SCH (17:31)
[2019-12-05 20:37] LABS: Glucose,Whole Blood 205 mg/dL (75-99)
[2019-12-06] MEDS: SODIUM CHLORIDE 0.9% 1,000 ML IV SCH (05:46)
[2019-12-06 06:56] LABS: Glucose,Whole Blood 147 mg/dL (75-99)
[2019-12-06] MEDS: HEPARIN SODIUM,PORCINE 5,000 UNIT/ML 1 ML VIAL SQ SCH ×2 (08:32→17:59)
[2019-12-06] MEDS: INSULIN ASPART (NovoLOG) 100 UNIT/ML VIAL SQ SCH ×4 (08:32→22:10)
[2019-12-06] MEDS: SODIUM BICARBONATE TAB 650 MG TAB PO SCH ×2 (08:33→22:09)
[2019-12-06] MEDS: GLIMEPIRIDE 1 MG TAB PO SCH (08:33)
[2019-12-06] MEDS: GABAPENTIN 300 MG CAP PO SCH ×2 (08:34→22:08)
[2019-12-06] MEDS: CARVEDILOL 12.5 MG TAB PO SCH ×2 (08:34→17:59)
[2019-12-06] MEDS: SPIRONOLACTONE 25 MG TAB PO SCH (08:34)
[2019-12-06] MEDS: CHOLECALCIFEROL 1,000 UNIT TAB PO SCH (08:34)
[2019-12-06] MEDS: SENNOSIDES 8.6 MG TAB PO SCH ×2 (08:34→22:09)
[2019-12-06] MEDS: ACETAMINOPHEN TAB 325 MG TAB PO PRN ×3 (11:00→22:08)
[2019-12-06] MEDS ORDERED: BISACODYL 10 MG SUPP RECTAL STA (11:41)
[2019-12-06 12:03] LABS: Glucose,Whole Blood 161 mg/dL (75-99)
--- NOTE | 2019-12-06 12:08 | P.PN ---
Subjective Progress Note Date: 12/06/19 Follow-up for acute kidney injury. Still oliguric. No nausea vomiting diarrhea. Decreased urine output. No labs today. Objective - Vital Signs Vital signs: Vital Signs Temp 97.4 F L 12/06/19 07:00 Pulse 75 12/06/19 07:00 Resp 16 12/06/19 07:00 BP 160/80 12/06/19 07:00 Pulse Ox 90 L 12/06/19 07:00 Intake & Output 12/05/19 12/06/19 12/06/19 18:59 06:59 18:59 Intake Total 2500 1490 Output Total 200 Balance 2500 1290 Intake: IV 2500 800 Sodium Chloride 0.9% 1, 2500 800 000 ml @ 50 mls/hr IV . Q20H [facility] Rx#:[id number] Oral 690 Output: Urine 200 Other: Voiding Method Indwelling Catheter Indwelling Catheter Indwelling Catheter # Bowel Movements 1 - Exam No acute distress S1-S2 heard Lungs clear Abdomen distended Flores catheter Edema - Labs CBC & Chem 7: 12/02/19 20:58 12/05/19 07:36 Labs: Abnormal Lab Results - Last 24 Hours (Table) 12/05/19 12/05/19 12/06/19 Range/Units 16:43 20:35 06:54 POC Glucose (mg/dL) 175 H 205 H 147 H (75-99) mg/dL 12/06/19 Range/Units 12:02 POC Glucose (mg/dL) 161 H (75-99) mg/dL Assessment and Plan Assessment: #1 oliguric acute kidney injury suspect ischemic ATN. Creatinine rising but no labs today. #2 chronic kidney disease stage III secondary to diabetic nephropathy with a baseline creatinine of 1.4-1.8 MG per DL. #3 right nephrectomy secondary to renal mass #4 hypertension with chronic kidney disease #5 metabolic acidosis #6 volume overload Plan: #1 stop Aldactone and IV fluids #2 start Lasix 60 mg IV twice a day #3 follow-up on the labs #4 based on the labs plan dialysis today or tomorrow, no uremic signs and symptoms at this time.
[2019-12-06 12:17] LABS: Calcium 8.8 mg/dL (8.4-10.2); Potassium 4.5 mmol/L (3.5-5.1)
[2019-12-06] MEDS: FUROSEMIDE 10 MG/ML 10 ML VIAL IV SCH ×2 (12:25→22:09)
[2019-12-06] MEDS: ALLOPURINOL 100 MG TAB PO SCH ×2 (12:36→17:59)
[2019-12-06] MEDS: PANTOPRAZOLE 40 MG TABLET PO SCH (12:37)
--- NOTE | 2019-12-06 12:53 | P.PN ---
Subjective Progress Note Date: 12/06/19 Principal diagnosis: right sided renal mass POD #4 S/P right sided radical nephrectomy No acute overnight event. Is passing flatus. Tolerating diet W/O N/V. Still having abdominal distension. Objective - Vital Signs Vital signs: Vital Signs Temp 97.4 F L 12/06/19 07:00 Pulse 75 12/06/19 07:00 Resp 16 12/06/19 07:00 BP 160/80 12/06/19 07:00 Pulse Ox 90 L 12/06/19 07:00 Intake & Output 12/05/19 12/06/19 12/06/19 18:59 06:59 18:59 Intake Total 2500 1490 Output Total 200 Balance 2500 1290 Intake: IV 2500 800 Sodium Chloride 0.9% 1, 2500 800 000 ml @ 50 mls/hr IV . Q20H [facility] Rx#:[id number] Oral 690 Output: Urine 200 Other: Voiding Method Indwelling Catheter Indwelling Catheter Indwelling Catheter # Bowel Movements 1 - Constitutional General appearance: Present: no acute distress - Gastrointestinal General gastrointestinal: Present: distended, soft, tenderness (Diffuse ). Absent: rigid - Psychiatric Psychiatric: Present: A&O x's 3 - Labs CBC & Chem 7: 12/02/19 20:58 12/06/19 11:51 Labs: Abnormal Lab Results - Last 24 Hours (Table) 12/05/19 12/05/19 12/06/19 Range/Units 16:43 20:35 06:54 Sodium (137-145) mmol/L Carbon Dioxide (22-30) mmol/L BUN (9-20) mg/dL Creatinine (0.66-1.25) mg/dL Glucose (74-99) mg/dL POC Glucose (mg/dL) 175 H 205 H 147 H (75-99) mg/dL 12/06/19 12/06/19 Range/Units 11:51 12:02 Sodium 134 L (137-145) mmol/L Carbon Dioxide 20 L (22-30) mmol/L BUN 68 H (9-20) mg/dL Creatinine 6.47 H (0.66-1.25) mg/dL Glucose 160 H (74-99) mg/dL POC Glucose (mg/dL) 161 H (75-99) mg/dL Assessment and Plan Assessment: S/P right sided radical nephrectomy Plan: -ambulate -Bowel regimen -Pain control -Repeat am labs -F/U on Nephrology Recs for HD
[2019-12-06 16:55] LABS: Glucose,Whole Blood 155 mg/dL (75-99)
[2019-12-06] MEDS: ATORVASTATIN 10 MG TAB PO SCH (18:00)
[2019-12-06 22:08] LABS: Glucose,Whole Blood 117 mg/dL (75-99)
[2019-12-07] MEDS: HEPARIN SODIUM,PORCINE 5,000 UNIT/ML 1 ML VIAL SQ SCH ×3 (01:47→15:56)
[2019-12-07 07:00] LABS: Glucose,Whole Blood 109 mg/dL (75-99)
[2019-12-07 08:07] LABS: Calcium 9.4 mg/dL (8.4-10.2); Potassium 4.6 mmol/L (3.5-5.1)
[2019-12-07] MEDS: FUROSEMIDE 10 MG/ML 10 ML VIAL IV SCH ×2 (09:13→22:46)
[2019-12-07] MEDS: GLIMEPIRIDE 1 MG TAB PO SCH (09:14)
[2019-12-07] MEDS: SENNOSIDES 8.6 MG TAB PO SCH ×2 (09:14→22:46)
[2019-12-07] MEDS: CARVEDILOL 12.5 MG TAB PO SCH ×2 (09:14→18:43)
[2019-12-07] MEDS: GABAPENTIN 300 MG CAP PO SCH ×2 (09:14→22:46)
[2019-12-07] MEDS: SODIUM BICARBONATE TAB 650 MG TAB PO SCH ×2 (09:14→22:46)
[2019-12-07] MEDS: PANTOPRAZOLE 40 MG TABLET PO SCH (09:14)
[2019-12-07] MEDS: INSULIN ASPART (NovoLOG) 100 UNIT/ML VIAL SQ SCH ×4 (09:15→22:48)
[2019-12-07] MEDS: BISACODYL 10 MG SUPP RECTAL SCH (11:23)
--- NOTE | 2019-12-07 11:30 | P.PN ---
Subjective Progress Note Date: 12/07/19 Follow-up for acute kidney injury. Still oliguric. Renal function worsening and not feeling good today. Objective - Vital Signs Vital signs: Vital Signs Temp 98.1 F 12/07/19 07:00 Pulse 68 12/07/19 07:00 Resp 16 12/07/19 07:00 BP 147/79 12/07/19 07:00 Pulse Ox 90 L 12/07/19 07:00 Intake & Output 12/06/19 12/07/19 12/07/19 18:59 06:59 18:59 Intake Total 200 220 Output Total 210 350 Balance -210 -150 220 Intake: IV 200 Sodium Chloride 0.9% 1, 200 000 ml @ 50 mls/hr IV . Q20H [facility] Rx#:[id number] Oral 220 Output: Urine 210 350 Other: Voiding Method Indwelling Catheter Toilet Indwelling Catheter # Voids 1 - Exam No acute distress S1-S2 heard Lungs clear Abdomen distended Flores catheter Edema - Labs CBC & Chem 7: 12/02/19 20:58 12/07/19 07:11 Labs: Abnormal Lab Results - Last 24 Hours (Table) 12/06/19 12/06/19 12/06/19 Range/Units 11:51 12:02 16:50 Sodium 134 L (137-145) mmol/L Carbon Dioxide 20 L (22-30) mmol/L BUN 68 H (9-20) mg/dL Creatinine 6.47 H (0.66-1.25) mg/dL Glucose 160 H (74-99) mg/dL POC Glucose (mg/dL) 161 H 155 H (75-99) mg/dL 12/06/19 12/07/19 12/07/19 Range/Units 22:06 06:58 07:11 Sodium 135 L (137-145) mmol/L Carbon Dioxide 19 L (22-30) mmol/L BUN 79 H (9-20) mg/dL Creatinine 8.43 H* (0.66-1.25) mg/dL Glucose 114 H (74-99) mg/dL POC Glucose (mg/dL) 117 H 109 H (75-99) mg/dL Assessment and Plan Assessment: #1 oliguric acute kidney injury suspect ischemic ATN. Creatinine rising. #2 chronic kidney disease stage III secondary to diabetic nephropathy with a baseline creatinine of 1.4-1.8 MG per DL. #3 right nephrectomy secondary to renal mass #4 hypertension with chronic kidney disease #5 metabolic acidosis #6 volume overload Plan: #1 vascular surgery consult for a Thomas catheter and start hemodialysis today. #2 continue with Lasix 60 mg IV twice a day #3 discussed with the family agreeable for dialysis. #4 avoid nephrotoxic agents and hypotensive episodes
[2019-12-07 11:46] LABS: Glucose,Whole Blood 179 mg/dL (75-99)
--- NOTE | 2019-12-07 12:41 | P.PN ---
Subjective Progress Note Date: 12/07/19 Principal diagnosis: right sided renal mass POD #5 S/P right sided radical nephrectomy This am complaining of discomfort from the swanson catheter and dysuria . Is passing flatus. Tolerating diet W/O N/V. Still having abdominal distension. Objective - Vital Signs Vital signs: Vital Signs Temp 98.1 F 12/07/19 07:00 Pulse 68 12/07/19 07:00 Resp 16 12/07/19 07:00 BP 147/79 12/07/19 07:00 Pulse Ox 90 L 12/07/19 07:00 Intake & Output 12/06/19 12/07/19 12/07/19 18:59 06:59 18:59 Intake Total 200 220 Output Total 210 350 Balance -210 -150 220 Intake: IV 200 Sodium Chloride 0.9% 1, 200 000 ml @ 50 mls/hr IV . Q20H [facility] Rx#:[id number] Oral 220 Output: Urine 210 350 Other: Voiding Method Indwelling Catheter Toilet Indwelling Catheter # Voids 1 - Constitutional General appearance: Present: no acute distress - Gastrointestinal General gastrointestinal: Present: distended, soft, tenderness (LQ) - Psychiatric Psychiatric: Present: A&O x's 3 - Labs CBC & Chem 7: 12/02/19 20:58 12/07/19 07:11 Labs: Abnormal Lab Results - Last 24 Hours (Table) 12/06/19 12/06/19 12/07/19 Range/Units 16:50 22:06 06:58 Sodium (137-145) mmol/L Carbon Dioxide (22-30) mmol/L BUN (9-20) mg/dL Creatinine (0.66-1.25) mg/dL Glucose (74-99) mg/dL POC Glucose (mg/dL) 155 H 117 H 109 H (75-99) mg/dL 12/07/19 12/07/19 Range/Units 07:11 11:44 Sodium 135 L (137-145) mmol/L Carbon Dioxide 19 L (22-30) mmol/L BUN 79 H (9-20) mg/dL Creatinine 8.43 H* (0.66-1.25) mg/dL Glucose 114 H (74-99) mg/dL POC Glucose (mg/dL) 179 H (75-99) mg/dL Assessment and Plan Assessment: S/P right sided radical nephrectomy Plan: -ambulate -Bowel regimen -Pain control -Repeat am labs -F/U on Nephrology Recs for HD -Remove swanson, will obtain a UA given his dysuria
[2019-12-07] MEDS ORDERED: LIDOCAINE 1% INJ 10MG/ML (20 ML MDV) SQ ONE (14:40)
[2019-12-07] MEDS ORDERED: MIDAZOLAM 2 MG/2 ML VIAL IV ONE (14:55)
[2019-12-07] MEDS ORDERED: SODIUM CHLORIDE 0.9% 250 ML IV ONE (14:55)
[2019-12-07] MEDS: CHOLECALCIFEROL 1,000 UNIT TAB PO SCH (15:11)
[2019-12-07] MEDS: ALLOPURINOL 100 MG TAB PO SCH ×2 (15:11→18:43)
[2019-12-07] MEDS ORDERED: HEPARIN SODIUM 1,000 UN/ML (10ML VL) MISCELLANE ONE (15:14)
--- NOTE | 2019-12-07 15:54 | XR ---
EXAMINATION TYPE: XR chest 1V portable DATE OF EXAM: 12/07/2019 COMPARISON: 11/25/2019 HISTORY: Dialysis port placement TECHNIQUE: Single frontal view of the chest is obtained. FINDINGS: Right-sided hemodialysis port has been placed terminating in the cavoatrial junction. Ther e is strand-like bibasilar atelectasis. No pleural effusion or pneumothorax seen. The cardiac silhou ette size is within normal limits. The osseous structures are intact. IMPRESSION: Right-sided dual-lumen hemodialysis catheter appropriately placed in the cavoatrial junc tion. No postprocedural pneumothorax. Strand-like bibasilar atelectasis.
[2019-12-07 16:57] LABS: Glucose,Whole Blood 110 mg/dL (75-99)
[2019-12-07] MEDS: ATORVASTATIN 10 MG TAB PO SCH (18:43)
[2019-12-07 20:03] LABS: Amorphous Sediment,Urine Occasional /hpf; Appearance,Urine Cloudy (Clear); Bacteria,Urine Occasional /hpf; Bilirubin,Urine Negative (Negative); Blood,Urine Large (Negative); Color,Urine Light Red; Glucose,Urine (UA) Negative (Negative); Ketones,Urine Negative (Negative); Leukocyte Esterase,Urine Small (Negative); Nitrite,Urine Negative (Negative); Protein,Urine 1+ (Negative); RBC,Urine >182 /hpf (0-5); Specific Gravity,Urine 1.013 (1.001-1.035); Squamous Epithelial Cell,Urine 1 /hpf (0-4); Urobilinogen,Urine <2.0 mg/dL (<2.0); WBC,Urine 38 /hpf (0-5)
[2019-12-07 22:03] LABS: Glucose,Whole Blood 137 mg/dL (75-99)
--- NOTE | 2019-12-07 23:16 | CONS ---
DATE OF CONSULTATION: 12-07-2019 The patient is a 74-year-old gentleman I was consulted for placement of urgent dialysis catheter. The patient's kidney function is deteriorating. His BUN is 68, creatinine 6.47 with oliguria. PAST MEDICAL HISTORY: Coronary artery disease, history of COPD, history of diabetes mellitus, history of hypertension, history of liver disease. The patient had a right renal mass and had a radical nephrectomy done. PHYSICAL EXAMINATION: Patient was seen in his room. The patient's head exam is unremarkable. Neck: No bruit appreciated. Lungs: Crackles bilateral. Regular rhythm. Abdomen is distended. Femoral pulses are present. PLAN: Placement of the dialysis catheter. Risks and complications of bleeding, infection, thrombosis has been discussed. MMODL / IJN: [id number] / MTDD
[2019-12-08] MEDS: HEPARIN SODIUM,PORCINE 5,000 UNIT/ML 1 ML VIAL SQ SCH ×3 (00:44→18:19)
[2019-12-08 07:13] LABS: Glucose,Whole Blood 162 mg/dL (75-99)
--- NOTE | 2019-12-08 07:44 | PCN ---
PROCEDURE NOTE PREOPERATIVE DIAGNOSIS: Acute on chronic renal failure. PROCEDURES: 1. Placement of the dialysis catheter ultrasound-guided 19 cm right jugular approach. 2. Placement of a triple-lumen central venous line catheter. 3. Sedation time is 35 minutes. DESCRIPTION OF PROCEDURE: This patient was brought to the dental laboratory assistant. This patient had peripheral lines. They were all occluded and could not get the peripheral line in the arms. The right groin was prepped and draped in the usual sterile manner and right side of the chest and neck was prepped and draped in usual sterile manner. Ultrasound-guided micropuncture introduced right femoral vein and then we passed a regular guidewire. Then, triple-lumen central line catheter was placed. Flushed with heparin saline and secured with 3-0 nylon. Right groin with local anesthesia was used with IV sedation. Ultrasound-guided micropuncture introduced right jugular vein micropuncture guidewire was passed, a 4-Welsh dilator advanced on top of the guidewire then we passed a regular guidewire which was parked at the inferior vena cava. After that, a tunnel was created. Through the tunnel we brought a 19 cm dialysis catheter in the neck area. After that, the dilator and sheath were advanced on the top of the guidewire. Through the sheath, placed a dialysis catheter which was junction of the superior vena cava and atrium, flushed with heparin saline and hep-locked. Dressing applied. Secured with 3-0 nylon and Vicryl. The patient tolerated the procedure well and transferred to the recovery room in satisfactory condition. MMODL / IJN: [id number] /
[2019-12-08] MEDS: INSULIN ASPART (NovoLOG) 100 UNIT/ML VIAL SQ SCH ×4 (07:56→21:01)
[2019-12-08] MEDS: CHOLECALCIFEROL 1,000 UNIT TAB PO SCH (07:57)
[2019-12-08] MEDS: SODIUM BICARBONATE TAB 650 MG TAB PO SCH ×2 (07:57→20:51)
[2019-12-08] MEDS: SENNOSIDES 8.6 MG TAB PO SCH ×2 (07:57→20:51)
[2019-12-08] MEDS: PANTOPRAZOLE 40 MG TABLET PO SCH (07:57)
[2019-12-08] MEDS: GABAPENTIN 300 MG CAP PO SCH ×2 (07:57→20:51)
[2019-12-08] MEDS: CARVEDILOL 12.5 MG TAB PO SCH ×2 (07:57→18:19)
[2019-12-08] MEDS: FUROSEMIDE 10 MG/ML 10 ML VIAL IV SCH (07:57)
[2019-12-08] MEDS: GLIMEPIRIDE 1 MG TAB PO SCH (07:57)
[2019-12-08] MEDS: BISACODYL 10 MG SUPP RECTAL SCH (07:58)
--- NOTE | 2019-12-08 08:20 | IR ---
EXAMINATION TYPE: IR cvc insert central tunneled DATE OF EXAM: 12/07/2019 COMPARISON: NONE HISTORY: Fluoroscopy time. Fluoroscopy was provided to the referring clinician.
[2019-12-08 11:22] LABS: Hepatitis B Surface Antibody Reactive (Non-Reactive); Hepatitis B Surface Antigen Non-Reactive (Non-Reactive)
[2019-12-08 12:01] LABS: Glucose,Whole Blood 162 mg/dL (75-99)
[2019-12-08] MEDS: ALLOPURINOL 100 MG TAB PO SCH ×2 (12:34→18:19)
[2019-12-08] MEDS: ONDANSETRON 4 MG/2 ML VIAL IVP PRN (13:46)
[2019-12-08 14:20] LABS: Calcium 9.2 mg/dL (8.4-10.2); Potassium 4.6 mmol/L (3.5-5.1)
--- NOTE | 2019-12-08 14:53 | XR ---
EXAMINATION TYPE: XR abdomen acute w cxr DATE OF EXAM: 12/08/2019 COMPARISON: 12/07/2019 HISTORY: Abdominal distention TECHNIQUE: Single frontal view of the chest and 2 views of the abdomen were obtained FINDINGS: Dual-lumen right-sided hemodialysis catheter is seen. Lungs are well aerated. Cardiomediastinal silho uette is within normal limits. No acute osseous pathology. There are dilated loops of small bowel throughout the abdomen measuring up to 6.7 cm. Paucity of carlos l gas in the low pelvis. Air-fluid levels seen on upright view. No pneumoperitoneum identified. No ness spicious calcification in the abdomen or pelvis. Moderate degenerative change of the spine. Right fem oral central venous catheter present. IMPRESSION: 1. Findings concerning for small bowel obstruction. Small bowel follow-through or CT with oral contra st could be considered. 2. No acute cardiopulmonary pathology.
[2019-12-08] MEDS: IOPAMIDOL CONTRAST (ORAL USE) VIAL PO PRN (15:30)
--- NOTE | 2019-12-08 16:52 | PN ---
PROGRESS NOTE Patient is seen for follow up for acute kidney injury. He has had two treatments of hemodialysis for severe advanced renal failure. Serum creatinine had increased to 8.4 mg/dL yesterday. The patient continues to feel weak. He has an indwelling Flores catheter with 24-hour urine output of about 1 liter. The patient has a unilateral kidney. He had right nephrectomy on 12/02/2019. PHYSICAL EXAMINATION: On examination today, blood pressure was 127/73, heart rate 67 per minute, he is afebrile. EXAMINATION OF THE HEART: S1 and S2. EXAMINATION OF THE LUNGS: Decreased breath sounds at the bases. ABDOMEN: Abdomen is soft, nontender. Examination of the lower extremities shows no evidence of edema. [employer]ARD CR[employer]ATOR examination is grossly intact. LABORATORY DATA: Laboratory show sodium 137, potassium 4.6, chloride 100, BUN 57, serum 6.2. ASSESSMENT: 1. Acute kidney injury, most likely ischemic ATN. No evidence of obstruction noted on ultrasound postnephrectomy. Status post hemodialysis times two. We will plan for hemodialysis again in the a.m. as creatinine remains significantly elevated. The patient is not on any nephrotoxic medications. He may need to maintain hemodialysis as an outpatient and we will continue to monitor for recovery of renal function as outpatient. 2. Metabolic acidosis, maintained on oral sodium bicarb. Expect further improvement with ongoing dialysis. 3. Hematuria postoperatively. 4. Nausea, most likely associated with uremia. Expect improvement with ongoing renal replacement therapy. 5. Volume overload, currently improved. The patient maintained on intravenous Lasix which I will change to oral. PLAN: Repeat hemodialysis in a.m. Continue to avoid nephrotoxic agents. Repeat laboratories in a.m. MMODL / IJN: [id number] /
[2019-12-08 17:07] LABS: Glucose,Whole Blood 161 mg/dL (75-99)
[2019-12-08 17:16] LABS: Basophils # (A) 0.3 k/uL (0-0.2); Basophils % (A) 3 %; Eosinophils # (A) 0.2 k/uL (0-0.7); Eosinophils % (A) 2 %; HGB 12.6 gm/dL (13.0-17.5); Lymphocytes # (A) 0.3 k/uL (1.0-4.8); Lymphocytes % (A) 3 %; MCH 31.5 pg (25.0-35.0); MCHC 31.6 g/dL (31.0-37.0); MCV 99.8 fL (80.0-100.0); Mean Platelet Volume 9.2; Monocytes # (A) 0.7 k/uL (0-1.0); Monocytes % (A) 8 %; Neutrophils # (A) 7.4 k/uL (1.3-7.7); Neutrophils % (A) 82 %; Platelet Count 349 k/uL (150-450); WBC 8.9 k/uL (3.8-10.6)
[2019-12-08 17:30] LABS: Albumin 3.6 g/dL (3.5-5.0); Calcium 9.2 mg/dL (8.4-10.2); Potassium 4.9 mmol/L (3.5-5.1); Total Bilirubin 0.8 mg/dL (0.2-1.3); Total Protein 6.7 g/dL (6.3-8.2)
[2019-12-08] MEDS: FUROSEMIDE 20 MG TAB PO SCH (17:39)
--- NOTE | 2019-12-08 17:52 | P.PN ---
Subjective Progress Note Date: 12/08/19 Principal diagnosis: right sided renal mass POD #6 S/P right sided radical nephrectomy Still having abdominal distension and LUQ abdominal pain. Has not passed flatus . Objective - Vital Signs Vital signs: Vital Signs Temp 97.6 F 12/08/19 15:00 Pulse 68 12/08/19 15:00 Resp 16 12/08/19 15:00 BP 126/68 12/08/19 15:00 Pulse Ox 97 12/08/19 15:00 Intake & Output 12/07/19 12/08/19 12/08/19 18:59 06:59 18:59 Intake Total 740 347 720 Output Total 2250 125 1200 Balance -1510 222 -480 Intake: IV 20 Oral 220 347 720 Hemodialysis 500 Output: Urine 750 125 200 Uretheral (Flores) 100 Hemodialysis 1500 1000 Other: Voiding Method Indwelling Catheter Indwelling Catheter Urinal # Voids 1 # Bowel Movements 0 - Constitutional General appearance: Present: morbidly obese - Gastrointestinal General gastrointestinal: Present: distended, soft, tenderness (Left quadrant ). Absent: rigid - Psychiatric Psychiatric: Present: A&O x's 3 - Labs CBC & Chem 7: 12/08/19 16:56 12/08/19 16:56 Labs: Abnormal Lab Results - Last 24 Hours (Table) 12/07/19 12/07/19 12/07/19 Range/Units 07:11 19:00 22:02 RBC (4.30-5.90) m/uL Hgb (13.0-17.5) gm/dL Lymphocytes # (1.0-4.8) k/uL Basophils # (0-0.2) k/uL Carbon Dioxide (22-30) mmol/L BUN (9-20) mg/dL Creatinine (0.66-1.25) mg/dL Glucose (74-99) mg/dL POC Glucose (mg/dL) 137 H (75-99) mg/dL AST (17-59) U/L ALT (4-49) U/L Urine Protein 1+ H (Negative) Urine Blood Large H (Negative) Ur Leukocyte Esterase Small H (Negative) Urine RBC >182 H (0-5) /hpf Urine WBC 38 H (0-5) /hpf Urine WBC Clumps Few H (None) /hpf Amorphous Sediment Occasional H (None) /hpf Urine Bacteria Occasional H (None) /hpf Hep Bs Antibody Reactive H (Non-Reactive) 12/08/19 12/08/19 12/08/19 Range/Units 07:11 11:59 13:48 RBC (4.30-5.90) m/uL Hgb (13.0-17.5) gm/dL Lymphocytes # (1.0-4.8) k/uL Basophils # (0-0.2) k/uL Carbon Dioxide 20 L (22-30) mmol/L BUN 57 H (9-20) mg/dL Creatinine 6.22 H (0.66-1.25) mg/dL Glucose 172 H (74-99) mg/dL POC Glucose (mg/dL) 162 H 162 H (75-99) mg/dL AST (17-59) U/L ALT (4-49) U/L Urine Protein (Negative) Urine Blood (Negative) Ur Leukocyte Esterase (Negative) Urine RBC (0-5) /hpf Urine WBC (0-5) /hpf Urine WBC Clumps (None) /hpf Amorphous Sediment (None) /hpf Urine Bacteria (None) /hpf Hep Bs Antibody (Non-Reactive) 12/08/19 12/08/19 12/08/19 Range/Units 16:56 16:56 17:01 RBC 4.00 L (4.30-5.90) m/uL Hgb 12.6 L (13.0-17.5) gm/dL Lymphocytes # 0.3 L (1.0-4.8) k/uL Basophils # 0.3 H (0-0.2) k/uL Carbon Dioxide 19 L (22-30) mmol/L BUN 60 H (9-20) mg/dL Creatinine 6.42 H (0.66-1.25) mg/dL Glucose 173 H (74-99) mg/dL POC Glucose (mg/dL) 161 H (75-99) mg/dL AST 68 H (17-59) U/L ALT 86 H (4-49) U/L Urine Protein (Negative) Urine Blood (Negative) Ur Leukocyte Esterase (Negative) Urine RBC (0-5) /hpf Urine WBC (0-5) /hpf Urine WBC Clumps (None) /hpf Amorphous Sediment (None) /hpf Urine Bacteria (None) /hpf Hep Bs Antibody (Non-Reactive) Assessment and Plan Assessment: S/P right sided radical nephrectomy Plan: -ambulate -Bowel regimen -Pain control -F/U on Nephrology Recs for HD -Acute abdominal series, possible CT abd/pelvis w/po contrast based on Acute abdominal series results
--- NOTE | 2019-12-08 18:11 | CT ---
EXAMINATION TYPE: CT abdomen pelvis wo con DATE OF EXAM: 12/08/2019 COMPARISON: None HISTORY: Left nephrectomy [address] DLP: 1168.4 mGycm Examination of the solid and hollow viscera is limited given the lack of contrast. FINDINGS: LUNG BASES: No evidence for nodule. No evidence for infiltrate. LIVER/GB: Cholelithiasis is noted. No space-occupying hepatic lesion. PANCREAS: No pancreatic mass identified. No inflammatory process seen. SPLEEN: No evidence for splenomegaly. No intrasplenic lesions seen. ADRENALS: No adrenal nodules identified. No evidence for thickening. KIDNEYS: Postoperative changes of right-sided nephrectomy. Fluid collection at the right nephrectomy site measuring 6.2 x 8.6 x 14 cm may reflect seroma or hematoma. Infected collection not excluded. No air is identified within this collection at this time. Subcutaneous air from a recent surgical inter vention. 2 cm cystic lesion mid pole left kidney. BOWEL: NG tube is in place. Dilated small bowel with multiple air-fluid levels noted measuring up to 4.8 cm. Right lower quadrant transition zone suggested. Lymph nodes: No evidence for adenopathy greater than 1 cm. Abdominal aorta: Atheromatous changes seen. No evidence for aneurysm. Genital organs: No significant abnormality. Other: No significant abnormality. IMPRESSION: 1. Dilated small bowel multiple air-fluid levels seen and transition zone identified within the right lower quadrant. Distal small bowel obstruction is suspected. 2. Fluid collection at the right nephrectomy site which may reflect seroma or hematoma. Infected bonnie ection is not excluded. 3. Cholelithiasis. 4 subcutaneous air overlying the right anterior abdominal wall from postoperative change.
[2019-12-08] MEDS: ATORVASTATIN 10 MG TAB PO SCH (18:19)
[2019-12-08 20:54] LABS: Glucose,Whole Blood 160 mg/dL (75-99)
[2019-12-08] MEDS: METOCLOPRAMIDE 5 MG/ML 2 ML VIAL IVP SCH (20:59)
[2019-12-09] MEDS: HEPARIN SODIUM,PORCINE 5,000 UNIT/ML 1 ML VIAL SQ SCH ×3 (00:20→17:11)
[2019-12-09] MEDS: METOCLOPRAMIDE 5 MG/ML 2 ML VIAL IVP SCH ×4 (00:21→17:59)
[2019-12-09 07:41] LABS: Glucose,Whole Blood 165 mg/dL (75-99)
--- NOTE | 2019-12-09 08:12 | P.PN ---
Subjective Progress Note Date: 12/09/19 Principal diagnosis: Renal/small bowel obstruction CT yesterday showed small bowel obstruction. He feels less distended this am, abdominal pain is improving. He indicated that he passed gas this am Objective - Vital Signs Vital signs: Vital Signs Temp 98.2 F 12/09/19 07:18 Pulse 71 12/09/19 07:18 Resp 16 12/09/19 07:18 BP 109/61 12/09/19 07:18 Pulse Ox 93 L 12/09/19 07:18 Intake & Output 12/08/19 12/09/19 12/09/19 18:59 06:59 18:59 Intake Total 720 150 Output Total 1200 700 Balance -480 -550 Intake: IV 150 Sodium Chloride 0.9% 1, 150 000 ml @ 50 mls/hr IV . Q20H LEILA Rx#:[id number] Oral 720 Output: Gastric Drainage 700 Urine 200 Hemodialysis 1000 Other: Voiding Method Urinal Urinal # Voids 1 # Bowel Movements 0 - Constitutional General appearance: Present: mild distress - Gastrointestinal General gastrointestinal: Present: distended, soft, tenderness (LUQ) - Psychiatric Psychiatric: Present: A&O x's 3 - Labs CBC & Chem 7: 12/08/19 16:56 12/08/19 16:56 Labs: Abnormal Lab Results - Last 24 Hours (Table) 12/07/19 12/08/19 12/08/19 Range/Units 07:11 11:59 13:48 RBC (4.30-5.90) m/uL Hgb (13.0-17.5) gm/dL Lymphocytes # (1.0-4.8) k/uL Basophils # (0-0.2) k/uL Carbon Dioxide 20 L (22-30) mmol/L BUN 57 H (9-20) mg/dL Creatinine 6.22 H (0.66-1.25) mg/dL Glucose 172 H (74-99) mg/dL POC Glucose (mg/dL) 162 H (75-99) mg/dL AST (17-59) U/L ALT (4-49) U/L Hep Bs Antibody Reactive H (Non-Reactive) 12/08/19 12/08/19 12/08/19 Range/Units 16:56 16:56 17:01 RBC 4.00 L (4.30-5.90) m/uL Hgb 12.6 L (13.0-17.5) gm/dL Lymphocytes # 0.3 L (1.0-4.8) k/uL Basophils # 0.3 H (0-0.2) k/uL Carbon Dioxide 19 L (22-30) mmol/L BUN 60 H (9-20) mg/dL Creatinine 6.42 H (0.66-1.25) mg/dL Glucose 173 H (74-99) mg/dL POC Glucose (mg/dL) 161 H (75-99) mg/dL AST 68 H (17-59) U/L ALT 86 H (4-49) U/L Hep Bs Antibody (Non-Reactive) 12/08/19 12/09/19 Range/Units 20:53 07:40 RBC (4.30-5.90) m/uL Hgb (13.0-17.5) gm/dL Lymphocytes # (1.0-4.8) k/uL Basophils # (0-0.2) k/uL Carbon Dioxide (22-30) mmol/L BUN (9-20) mg/dL Creatinine (0.66-1.25) mg/dL Glucose (74-99) mg/dL POC Glucose (mg/dL) 160 H 165 H (75-99) mg/dL AST (17-59) U/L ALT (4-49) U/L Hep Bs Antibody (Non-Reactive) Assessment and Plan Assessment: S/P right sided radical nephrectomy. Post operative course complicated by BELLA an d small bowel obstruction Plan: -ambulate -Bowel regimen -Pain control -F/U on Nephrology Recs for HD -Keep NGT in place -Keep NPO -General surgery recs
[2019-12-09] MEDS: INSULIN ASPART (NovoLOG) 100 UNIT/ML VIAL SQ SCH ×4 (08:19→21:35)
[2019-12-09] MEDS: GLIMEPIRIDE 1 MG TAB PO SCH (08:19)
[2019-12-09] MEDS: FUROSEMIDE 20 MG TAB PO SCH ×2 (08:20→17:25)
[2019-12-09] MEDS: GABAPENTIN 300 MG CAP PO SCH ×2 (08:20→21:35)
[2019-12-09] MEDS: CHOLECALCIFEROL 1,000 UNIT TAB PO SCH (08:20)
[2019-12-09] MEDS: BISACODYL 10 MG SUPP RECTAL SCH (08:20)
[2019-12-09] MEDS: CARVEDILOL 12.5 MG TAB PO SCH ×2 (08:20→17:31)
[2019-12-09] MEDS: SENNOSIDES 8.6 MG TAB PO SCH ×2 (08:21→21:35)
[2019-12-09] MEDS: SODIUM BICARBONATE TAB 650 MG TAB PO SCH ×2 (08:21→21:35)
[2019-12-09] MEDS: PANTOPRAZOLE 40 MG TABLET PO SCH (09:02)
[2019-12-09] MEDS: PANTOPRAZOLE 40 MG/10 ML VIAL IVP SCH (09:53)
[2019-12-09 11:31] LABS: Glucose,Whole Blood 124 mg/dL (75-99)
[2019-12-09] MEDS: ALLOPURINOL 100 MG TAB PO SCH ×2 (11:52→17:31)
[2019-12-09] MEDS ORDERED: IOPAMIDOL CONTRAST (ORAL USE) VIAL PO PRN (12:20)
[2019-12-09] MEDS: IOPAMIDOL CONTRAST (ORAL USE) VIAL PO PRN (12:59)
--- NOTE | 2019-12-09 13:27 | P.GSCN ---
History of Present Illness Consult date: 12/09/19 Reason for Consult: SBO Requesting physician: Desmond Bhatt History of present illness: CHIEF COMPLAINT: small bowel obstruction HISTORY OF PRESENT ILLNESS: 74-year-old male who underwent robotic radical right nephrectomy secondary to right renal mass with Dr. Bhatt on 12/02/2019. Patient apparently developed abdominal pain a few days after surgery, nausea, vomiting, and decreased oral intake. He had a CT scan completed revealing SBO. NG tube was placed. He was made NPO. Patient reports last BM was . He is passing flatus this morning. PAST MEDICAL HISTORY: See list. PAST SURGICAL HISTORY: See list. SOCIAL HISTORY: No illicit drug use. REVIEW OF SYSTEMS: CONSTITUTIONAL: Denies fever or chills. HEENT: Denies blurred vision, vision changes, or eye pain. Denies hemoptysis CARDIOVASCULAR: Denies chest pain or pressure. RESPIRATORY: No shortness of breath. GASTROINTESTINAL: Refer to HPI for pertinent findings HEMATOLOGIC: Denies bleeding disorders. GENITOURINARY: Denies any blood in urine. SKIN: Denies pruitis. Denies rash. PHYSICAL EXAM: VITAL SIGNS: Reviewed. GENERAL: Well-developed in no acute distress. HEENT: No sclera icterus. Extraocular movements grossly intact. Moist buccal mucosa. Head is atraumatic, normocephalic. ABDOMEN: Soft. mildly distended. vertical incision to right side of abdomen clean dry and intact. Tenderness on palpation of left upper and lower quadrants. NEUROLOGIC: Alert and oriented. Cranial nerves II through XII grossly intact. LABORATORY DATA: WBC 8.9. Hemoglobin 12.6. Platelet count 349. Sodium 138. Potassium 4.9. BUN 60. Creatinine 6.42. IMAGING: CT abdomen pelvis: Dilated small bowel multiple air-fluid levels seen and transition zone identified within the right lower quadrant. Distal small bowel obstruction suspected. ASSESSMENT: 1. Small bowel obstruction 2. Recent right nephrectomy PLAN: Patient examined at the bedside with Dr. Rico. Continue NG to LIS. Continue NPO. Repeat CT scan with oral contrast only to confirm SBO (versus postoperative ileus) Further recommendations pending repeat CT results Nurse practitioner note has been reviewed by physician. Signing provider agrees with the documented findings, assessment, and plan of care. 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 Pos Rt kidney mass. History of Any Multi-Drug Resistant Organisms: None Reported Past Surgical History: Heart Catheterization With Stent, Tonsillectomy Additional Past Surgical History / Comment(s): Stent to LAD 06/07/16. Colono scopies Past Anesthesia/Blood Transfusion Reactions: No Reported Reaction Date of Last Stent Placement:: 06/07/16 Smoking Status: Former smoker - Past Family History Father Family Medical History: Cancer Additional Family Medical History / Comment(s): Lung Medications and Allergies Home Medications Medication Instructions Recorded Confirmed Type Allopurinol [Zyloprim] 100 mg PO DAILY@1200,1800 05/19/16 11/26/19 History Aspirin [Adult Low Dose Aspirin EC] 81 mg PO HS 05/19/16 11/26/19 History Carvedilol [Coreg*] 12.5 mg PO 0800,1800 05/19/16 11/26/19 History Cholecalciferol [Vitamin D3 (25 1,000 unit PO DAILY 05/19/16 11/26/19 History Mcg = 1000 Iu)] Fenofibrate,Micronized 200 mg PO HS 05/19/16 11/26/19 History [Fenofibrate] Gabapentin [Neurontin] 300 mg PO BID 05/19/16 11/26/19 History Glimepiride [Amaryl] 1 mg PO AC-BRKFST 05/19/16 11/26/19 History Hydrochlorothiazide [Hydrodiuril] 50 mg PO DAILY 05/19/16 11/26/19 History Lisinopril [Prinivil] 30 mg PO 1200 05/19/16 11/26/19 History Simvastatin [Zocor] 20 mg PO PC-SUPPER 05/19/16 11/26/19 History Spironolactone [Aldactone] 50 mg PO DAILY 11/26/19 11/26/19 History Ubidecarenone [Co Q-10] 1,000 mg PO DAILY 11/26/19 11/26/19 History amLODIPine BESYLATE 10 mg PO DAILY 11/26/19 11/26/19 History metFORMIN HCL [Glucophage] 1,000 mg PO BID 11/26/19 11/26/19 History Allergies Allergy/AdvReac Type Severity Reaction Status Date / Time No Known Allergies Allergy Verified 11/26/19 15:47 Surgical - Exam Vital Signs Temp Pulse Resp BP Pulse Ox 97.8 F 69 18 173/64 98 12/02/19 06:25 12/02/19 06:25 12/02/19 06:25 12/02/19 06:25 12/02/19 06:25 Results - Labs 12/08/19 16:56 12/08/19 16:56 Abnormal Lab Results - Last 24 Hours (Table) 12/08/19 12/08/19 12/08/19 Range/Units 13:48 16:56 16:56 RBC 4.00 L (4.30-5.90) m/uL Hgb 12.6 L (13.0-17.5) gm/dL Lymphocytes # 0.3 L (1.0-4.8) k/uL Basophils # 0.3 H (0-0.2) k/uL Carbon Dioxide 20 L 19 L (22-30) mmol/L BUN 57 H 60 H (9-20) mg/dL Creatinine 6.22 H 6.42 H (0.66-1.25) mg/dL Glucose 172 H 173 H (74-99) mg/dL POC Glucose (mg/dL) (75-99) mg/dL AST 68 H (17-59) U/L ALT 86 H (4-49) U/L 12/08/19 12/08/19 12/09/19 Range/Units 17:01 20:53 07:40 RBC (4.30-5.90) m/uL Hgb (13.0-17.5) gm/dL Lymphocytes # (1.0-4.8) k/uL Basophils # (0-0.2) k/uL Carbon Dioxide (22-30) mmol/L BUN (9-20) mg/dL Creatinine (0.66-1.25) mg/dL Glucose (74-99) mg/dL POC Glucose (mg/dL) 161 H 160 H 165 H (75-99) mg/dL AST (17-59) U/L ALT (4-49) U/L 12/09/19 Range/Units 11:29 RBC (4.30-5.90) m/uL Hgb (13.0-17.5) gm/dL Lymphocytes # (1.0-4.8) k/uL Basophils # (0-0.2) k/uL Carbon Dioxide (22-30) mmol/L BUN (9-20) mg/dL Creatinine (0.66-1.25) mg/dL Glucose (74-99) mg/dL POC Glucose (mg/dL) 124 H (75-99) mg/dL AST (17-59) U/L ALT (4-49) U/L Diabetes panel 12/08/19 12/08/19 Range/Units 13:48 16:56 Sodium 137 138 (137-145) mmol/L Potassium 4.6 4.9 (3.5-5.1) mmol/L Chloride 100 101 (98-107) mmol/L Carbon Dioxide 20 L 19 L (22-30) mmol/L BUN 57 H 60 H (9-20) mg/dL Creatinine 6.22 H 6.42 H (0.66-1.25) mg/dL Glucose 172 H 173 H (74-99) mg/dL Calcium 9.2 9.2 (8.4-10.2) mg/dL AST 68 H (17-59) U/L ALT 86 H (4-49) U/L Alkaline Phosphatase 75 (38-126) U/L Total Protein 6.7 (6.3-8.2) g/dL Albumin 3.6 (3.5-5.0) g/dL Calcium panel 12/08/19 12/08/19 Range/Units 13:48 16:56 Calcium 9.2 9.2 (8.4-10.2) mg/dL Albumin 3.6 (3.5-5.0) g/dL Pituitary panel 12/08/19 12/08/19 Range/Units 13:48 16:56 Sodium 137 138 (137-145) mmol/L Potassium 4.6 4.9 (3.5-5.1) mmol/L Chloride 100 101 (98-107) mmol/L Carbon Dioxide 20 L 19 L (22-30) mmol/L BUN 57 H 60 H (9-20) mg/dL Creatinine 6.22 H 6.42 H (0.66-1.25) mg/dL Glucose 172 H 173 H (74-99) mg/dL Calcium 9.2 9.2 (8.4-10.2) mg/dL Adrenal panel 12/08/19 12/08/19 Range/Units 13:48 16:56 Sodium 137 138 (137-145) mmol/L Potassium 4.6 4.9 (3.5-5.1) mmol/L Chloride 100 101 (98-107) mmol/L Carbon Dioxide 20 L 19 L (22-30) mmol/L BUN 57 H 60 H (9-20) mg/dL Creatinine 6.22 H 6.42 H (0.66-1.25) mg/dL Glucose 172 H 173 H (74-99) mg/dL Calcium 9.2 9.2 (8.4-10.2) mg/dL Total Bilirubin 0.8 (0.2-1.3) mg/dL AST 68 H (17-59) U/L ALT 86 H (4-49) U/L Alkaline Phosphatase 75 (38-126) U/L Total Protein 6.7 (6.3-8.2) g/dL Albumin 3.6 (3.5-5.0) g/dL
--- NOTE | 2019-12-09 15:17 | CT ---
"EXAMINATION TYPE: CT abdomen pelvis wo con DATE OF EXAM: 12/09/2019 COMPARISON: 12/08/2019 HISTORY: Kidney cancer. Small bowel obstruction. CT DLP: 1152.4 mGycm Automated exposure control for dose reduction was used. TECHNIQUE: Helical acquisition of images was performed from the lung bases through the pelvis. FINDINGS: LUNG BASES: Multiple right basilar pulmonary nodules are seen that appear new from the prior of 2019 and therefore likely infectious. Minimal bibasilar atelectasis is also seen of the lung bases wi th very trace pleural effusions. Coronary artery stent or significant calcifications. Enteric tube wi thin the stomach. LIVER/GB: Probable hypoattenuation of the liver and is subtle but present measuring up to 1.1 cm in g reatest thickness anteriorly and 1.6 cm in greatest thickness superiorly. This could represent hepati c contusion, laceration or less likely subcapsular hematoma has appeared within the liver parenchyma. Cholelithiasis is seen. PANCREAS: Scattered pancreatic calcifications are indicative of chronic pancreatitis. SPLEEN: No significant abnormality is seen. ADRENALS: No significant abnormality is seen. KIDNEYS: Patient is status post right-sided nephrectomy. Fluid collection as detailed in the bowel se ction is redemonstrated. Unremarkable unenhanced morphology of the left kidney with a 1.5 cm exophyti c left renal cyst. FREE AIR: Few punctate foci of free air are noted. ADENOPATHY: No greater than 1 cm short axis lymph node is seen in the abdomen or pelvis. OSSEOUS STRUCTURES: Degenerative changes of the thoracolumbar junction. BOWEL: Oral contrast has been inserted through the enteric tube and is seen within some dilated loop s of midline and left-sided small bowel. Small bowel measures up to 4.3 cm. Diluted contrast is also seen within bowel loops in the right lower quadrant however contrast does not extend into the colon. There are matted loops of small bowel in the posterior right lower quadrant adjacent to some mesenter ic tethering on image 51, possible adhesions. Slightly increased adjacent small volume ascites was se en on the prior and is again seen measuring simple fluid however there is peripheral hypoattenuation of the liver and is subtle but present measuring up to 1.1 cm in greatest thickness anteriorly and 1. 6 cm in greatest thickness superiorly. There is subcutaneous emphysema and fat stranding of the right flank and anterior abdominal wall. OTHER: Displaced curvilinear calcifications of the infrarenal abdominal aorta relate to chronic disse ction. No aneurysmal dilatation. Extensive atheromatous change. IMPRESSION: 1. THERE IS SUBTLE CRESCENTIC HYPOATTENUATION ALONG THE SUBCAPSULAR PORTION OF THE INFERIOR RIGHT HEP ATIC LOBE. THIS COULD REPRESENT A HEPATIC LACERATION, HEPATIC CONTUSION OR LESS LIKELY SUBCAPSULAR HE MATOMA. 2. SLIGHT INCREASE AMOUNT OF FLUID ADJACENT TO THE LIVER IN THE NEPHRECTOMY BED. ALTHOUGH THIS COULD BE SEQUELA OF THE HEPATIC TRAUMA IT IS CURRENTLY MEASURES SIMPLE FREE FLUID ATTENUATION. 3. DILATED LOOPS OF SMALL BOWEL ARE SEEN. CONTRAST DOES NOT YET EXTEND INTO THE COLON AND DECOMPRESSE D LOOPS OF SMALL BOWEL ADJACENT POSSIBLE ADHESIONS IN THE RIGHT LOWER QUADRANT FEVER SMALL BOWEL OBST RUCTION. SERIAL FOLLOW-UP SHORT-TERM RADIOGRAPHS OF THE ABDOMEN TO ASSESS FOR PROGRESSION OF CONTRAST INTO THE COLON. 4. PUNCTATE FOCI OF PNEUMOPERITONEUM, POSTSURGICAL AND SUBCUTANEOUS FAT STRANDING WELL INTRAMUS CULAR EDEMA AND SUBCUTANEOUS EDEMA OF THE RIGHT FLANK AND ANTERIOR ABDOMINAL WALL, POSTSURGICAL. 5. CHRONIC CALCIFIED ABDOMINAL AORTIC DISSECTION WITHOUT ANEURYSM. A [place] level critical message alert has been initiated for Sung Flores MD~[id number] via the [employer] deshawn 360 | Critical Results System on 12/09/2019 3:15 PM. This message alert has been sent to Sung braxton MD~[id number] via the preferences provided by the clinician for the receipt of Radiology Critical F indings. Message ID [id number]."
[2019-12-09 16:44] LABS: Glucose,Whole Blood 140 mg/dL (75-99)
[2019-12-09] MEDS: ATORVASTATIN 10 MG TAB PO SCH (17:31)
--- NOTE | 2019-12-09 18:28 | XR ---
EXAMINATION TYPE: XR abdomen 2V DATE OF EXAM: 12/09/2019 COMPARISON: Yesterday HISTORY: Pain. TECHNIQUE: 5 views with supine and upright position FINDINGS: There are multiple dilated gas-filled loops of small bowel throughout the abdomen. There is no sign of free air. There is nasogastric tube. There is some fecal material in the right colon. The re is right-sided femoral catheter noted. IMPRESSION: Dilated small bowel suggestive of distal mechanical small bowel obstruction. No change compared to . No free air. IMPRESSION:
--- NOTE | 2019-12-09 19:33 | PN ---
PROGRESS NOTE Patient is seen for followup for acute kidney injury. He has had 2 dialysis treatments. Patient was dialyzed again this morning. He also was found to have small bowel obstruction and currently has an NG tube in place. We did not remove much fluid. PHYSICAL EXAMINATION: On examination, blood pressure this morning was 109/61, heart rate 71 per minute. He is afebrile. EXAMINATION OF THE HEART: S1 and S2. EXAMINATION OF LUNGS: Bilateral breath sounds are heard. Decreased breath sounds at bases. ABDOMEN: Soft. Mild tenderness, mainly in the mid abdomen. Examination of lower extremities shows no evidence of edema. [employer] exam is grossly intact. LABS: Sodium 138, potassium 4.9, chloride 101. BUN of 60, serum creatinine 6.42, hemoglobin 12.6 g/dL. ASSESSMENT: 1. Acute kidney injury, status post right nephrectomy with acute tubular necrosis in the left kidney, currently hemodialysis-dependent. Serum creatinine remains significantly elevated. Patient will be dialyzed again today. 2. Volume overload, now improved. 3. Small bowel obstruction, currently with NG tube in place, somewhat improved. 4. Metabolic acidosis, now improved. Patient is maintained on sodium bicarb. PLAN: Repeat hemodialysis today. Continue to encourage increased oral intake. Continue sodium bicarb. Decrease Lasix in a.m. MMODL / IJN: [id number] /
[2019-12-09 20:21] LABS: Glucose,Whole Blood 134 mg/dL (75-99)
[2019-12-10] MEDS: METOCLOPRAMIDE 5 MG/ML 2 ML VIAL IVP SCH ×5 (00:04→23:05)
[2019-12-10] MEDS: HEPARIN SODIUM,PORCINE 5,000 UNIT/ML 1 ML VIAL SQ SCH ×4 (00:04→23:05)
[2019-12-10] MEDS: ONDANSETRON 4 MG/2 ML VIAL IVP PRN (05:58)
[2019-12-10 07:04] LABS: Glucose,Whole Blood 106 mg/dL (75-99)
[2019-12-10] MEDS: GLIMEPIRIDE 1 MG TAB PO SCH (07:59)
[2019-12-10] MEDS: SENNOSIDES 8.6 MG TAB PO SCH ×3 (07:59→21:52)
[2019-12-10] MEDS: CARVEDILOL 12.5 MG TAB PO SCH ×2 (07:59→17:31)
[2019-12-10] MEDS: CHOLECALCIFEROL 1,000 UNIT TAB PO SCH (07:59)
[2019-12-10] MEDS: GABAPENTIN 300 MG CAP PO SCH ×3 (07:59→21:51)
[2019-12-10] MEDS: INSULIN ASPART (NovoLOG) 100 UNIT/ML VIAL SQ SCH ×4 (07:59→21:19)
[2019-12-10] MEDS: FUROSEMIDE 20 MG TAB PO SCH ×2 (07:59→17:32)
[2019-12-10 08:00] LABS: Calcium 7.9 mg/dL (8.4-10.2); Magnesium 2.2 mg/dL (1.6-2.3); Potassium 4.4 mmol/L (3.5-5.1)
[2019-12-10] MEDS: SODIUM BICARBONATE TAB 650 MG TAB PO SCH ×3 (08:00→21:52)
[2019-12-10 08:01] LABS: Basophils # (A) 0.2 k/uL (0-0.2); Basophils % (A) 2 %; Eosinophils # (A) 0.2 k/uL (0-0.7); Eosinophils % (A) 2 %; HCT 36.2 % (39.0-53.0); HGB 11.2 gm/dL (13.0-17.5); Lymphocytes # (A) 0.8 k/uL (1.0-4.8); Lymphocytes % (A) 7 %; MCH 30.5 pg (25.0-35.0); MCHC 30.8 g/dL (31.0-37.0); MCV 99.1 fL (80.0-100.0); Mean Platelet Volume 9.2; Monocytes # (A) 0.9 k/uL (0-1.0); Monocytes % (A) 9 %; Neutrophils # (A) 7.9 k/uL (1.3-7.7); Neutrophils % (A) 78 %; Platelet Count 314 k/uL (150-450); RBC 3.65 m/uL (4.30-5.90); RDW 13.1 % (11.5-15.5); WBC 10.1 k/uL (3.8-10.6)
[2019-12-10] MEDS: PANTOPRAZOLE 40 MG/10 ML VIAL IVP SCH (08:04)
[2019-12-10] MEDS: BISACODYL 10 MG SUPP RECTAL SCH (08:08)
--- NOTE | 2019-12-10 09:25 | CDI ---
Documentation Clarification Form Date: 12/10/2019 09:11:48 AM From: Natacha Stevenson CCS, CCDS Admit Date: 12/04/2019 08:55:00 AM Patient Name: Kj Arenas Visit Number: [id number] Discharge Date: ATTENTION: The Clinical Documentation Specialists (CDI) and [facility] Coding Staff appreciate your assistance in clarifying documentation. Please respond to the clarification below the line at the bottom and electronically sign. The CDI & [facility] Coding staff will review the response and follow-up if needed. Please note: Queries are made part of the Legal Health Record. If you have any questions, please contact the author of this message via ITS. Dr. Desmond Bhatt: Per the 12/09 Urology Progress Note: "S/P right sided radical nephrectomy. Post operative course complicated by BELLA and small bowel obstruction." Patients Admitting Diagnosis: Right renal mass Post-Operative Diagnosis: Same. 12/02 Procedure performed: Robotic radical nephrectomy History/Risk Factors: CAD, COPD, DM II, Hyperlipidemia, CKD III from diabetes, Neuropathy. Clinical Indicators: Presented 12/04 for elective right radical nephrectomy. Found to have a SBO postoperatively per CT Abdomen/Pelvis on 12/08. 12/[address] Abdomen/Pelvis: Inferior right hepatic lobe could represent a hepatic laceration, hepatic contusion or less likely sub-capsular hematoma. Dilated loops of small bowel are seen. Possible adhesion in right lower quadrant or small bowel obstruction. Abdominal aortic dissection without aneurysm. Treatment 12/02: IV Cefazolin, Heparin sq, IV Decadron, IV Dilaudid, IV Zofran. 12/08: IV Reglan, IV Protonix. General surgery consulted. In order to accurately reflect this patients severity of illness, please clarify if the post-operative diagnosis is: An expected post-procedural or post-surgical condition An unexpected post-procedural or post-surgical condition related to surgical care (a complication of care) An unexpected post-procedural or post-surgical condition, related to the patients underlying medical comorbidities Other, please specify ____ Unable to determine The SBO is An unexpected post-procedural or post-surgical condition, related to the patients underlying medical comorbidities The BELLA An unexpected post-procedural or post-surgical condition, related to the patients underlying medical comorbidities (Last Revision: January 2019) MTDD
[2019-12-10] MEDS ORDERED: ACETAMINOPHEN IV (For NPO) 1,000 MG in EMPTY BAG 1 BAG IVPB STA (09:31)
[2019-12-10 11:34] LABS: Glucose,Whole Blood 139 mg/dL (75-99)
[2019-12-10] MEDS: ALLOPURINOL 100 MG TAB PO SCH ×2 (12:44→17:35)
[2019-12-10] MEDS ORDERED: ACETAMINOPHEN IV (For NPO) 1,000 MG in EMPTY BAG 1 BAG IVPB SCH (16:00)
[2019-12-10] MEDS ORDERED: SODIUM CHLORIDE 0.9% 500 ML 500 ML IV ONE (16:29)
[2019-12-10] MEDS: SODIUM CHLORIDE 0.9% 1,000 ML IV SCH ×2 (16:30→22:34)
[2019-12-10 16:52] LABS: Glucose,Whole Blood 121 mg/dL (75-99)
[2019-12-10] MEDS: ATORVASTATIN 10 MG TAB PO SCH (17:35)
[2019-12-10] MEDS: ACETAMINOPHEN IV (For NPO) 1,000 MG in EMPTY BAG 1 BAG IVPB PRN ×2 (18:04→23:02)
--- NOTE | 2019-12-10 19:26 | P.PN ---
Subjective Progress Note Date: 12/10/19 Principal diagnosis: Renal/small bowel obstruction Had BM and passed flatus last night, Indicated his abdominal pain is stable Objective - Vital Signs Vital signs: Vital Signs Temp 97.5 F L 12/10/19 15:00 Pulse 69 12/10/19 15:00 Resp 16 12/10/19 15:00 BP 137/74 12/10/19 15:00 Pulse Ox 93 L 12/10/19 15:00 Intake & Output 12/10/19 12/10/19 12/11/19 06:59 18:59 06:59 Intake Total 160 Output Total 1101 Balance -941 Intake: IV 160 0.9 160 Output: Gastric Drainage 100 Urine 1000 Uretheral (Flores) 500 Urine/Stool Mix 1 Other: Voiding Method Urinal # Bowel Movements 1 2 - Constitutional General appearance: Present: no acute distress - Gastrointestinal General gastrointestinal: Present: distended, soft, tenderness (LLQ). Absent: rigid - Psychiatric Psychiatric: Present: A&O x's 3 - Labs CBC & Chem 7: 12/10/19 07:19 12/10/19 07:19 Labs: Abnormal Lab Results - Last 24 Hours (Table) 12/09/19 12/10/19 12/10/19 Range/Units 20:19 07:03 07:19 RBC 3.65 L (4.30-5.90) m/uL Hgb 11.2 L (13.0-17.5) gm/dL Hct 36.2 L (39.0-53.0) % MCHC 30.8 L (31.0-37.0) g/dL Neutrophils # 7.9 H (1.3-7.7) k/uL Lymphocytes # 0.8 L (1.0-4.8) k/uL Sodium (137-145) mmol/L Carbon Dioxide (22-30) mmol/L BUN (9-20) mg/dL Creatinine (0.66-1.25) mg/dL Glucose (74-99) mg/dL POC Glucose (mg/dL) 134 H 106 H (75-99) mg/dL Calcium (8.4-10.2) mg/dL 12/10/19 12/10/19 12/10/19 Range/Units 07:19 11:33 16:52 RBC (4.30-5.90) m/uL Hgb (13.0-17.5) gm/dL Hct (39.0-53.0) % MCHC (31.0-37.0) g/dL Neutrophils # (1.3-7.7) k/uL Lymphocytes # (1.0-4.8) k/uL Sodium 136 L (137-145) mmol/L Carbon Dioxide 19 L (22-30) mmol/L BUN 69 H (9-20) mg/dL Creatinine 6.60 H (0.66-1.25) mg/dL Glucose 115 H (74-99) mg/dL POC Glucose (mg/dL) 139 H 121 H (75-99) mg/dL Calcium 7.9 L (8.4-10.2) mg/dL Assessment and Plan Assessment: S/P right sided radical nephrectomy. Post operative course complicated by BELLA and small bowel obstruction Plan: -ambulate -Bowel regimen -Pain control -F/U on Nephrology Recs for HD -Keep NGT in place -Keep NPO -General surgery recs
--- NOTE | 2019-12-10 20:43 | PN ---
PROGRESS NOTE Patient is seen for followup for acute kidney injury post right nephrectomy. Urine output remains low. Patient remains hemodialysis-dependent. His creatinine is elevated around 6. He has had 3 hemodialysis treatments and patient is scheduled for hemodialysis for tomorrow. He also has underlying bowel obstruction and is currently with an NG tube in place. Overall patient states he is feeling weak. His abdominal pain has improved. PHYSICAL EXAMINATION: This morning blood pressure was 146/75, heart rate 67 per minute. He is afebrile. EXAMINATION OF THE HEART: S1 and S2. EXAMINATION OF LUNGS: Decreased breath sounds at bases. ABDOMEN: Soft, non-tender. Examination of lower extremities shows no evidence of edema. DATA TECHNICIAN exam is grossly intact. LABS: Sodium 136, potassium 4.4, chloride 101. CO2 is 19. BUN 69, serum creatinine 6.6. ASSESSMENT: 1. Acute kidney injury post right nephrectomy with acute tubular necrosis in the left kidney, currently oliguric and hemodialysis-dependent with significantly elevated creatinine. Patient will be dialyzed again tomorrow. He will need to continue outpatient dialysis. He will be set up at the [facility]. 2. Bowel obstruction, currently with NG tube in place, being followed by Surgery. Some improvement in abdominal pain. 3. Status post right radical nephrectomy for renal cancer. 4. Volume overload, currently improved. 5. Metabolic acidosis, maintained on oral sodium bicarb. Expect further improvement with ongoing regular dialysis. PLAN: Hemodialysis in a.m. Check phosphorus levels in a.m. Set up for outpatient dialysis at the [facility]. MMODL / IJN: [id number] /
[2019-12-10 20:46] LABS: Glucose,Whole Blood 119 mg/dL (75-99)
[2019-12-11] MEDS: ACETAMINOPHEN IV (For NPO) 1,000 MG in EMPTY BAG 1 BAG IVPB PRN (04:31)
[2019-12-11] MEDS: METOCLOPRAMIDE 5 MG/ML 2 ML VIAL IVP SCH ×3 (06:10→17:46)
[2019-12-11 07:03] LABS: Glucose,Whole Blood 121 mg/dL (75-99)
[2019-12-11] MEDS: INSULIN ASPART (NovoLOG) 100 UNIT/ML VIAL SQ SCH ×4 (07:14→21:10)
--- NOTE | 2019-12-11 07:44 | P.PN ---
Subjective Progress Note Date: 12/10/19 CHIEF COMPLAINT: small bowel obstruction HISTORY OF PRESENT ILLNESS: Patient examined at the bedside. Patient reports abdominal pain that is about the same as yesterday. NG to LIS. Reports passing flatus. Large bowel movement overnight. PHYSICAL EXAM: VITAL SIGNS: Reviewed. GENERAL: Well-developed in no acute distress. HEENT: No sclera icterus. Extraocular movements grossly intact. Moist buccal mucosa. Head is atraumatic, normocephalic. ABDOMEN: Soft. Distended. vertical incision to right side of abdomen clean dry and intact. Tenderness on palpation of left upper and lower quadrants. NEUROLOGIC: Alert and oriented. Cranial nerves II through XII grossly intact. ASSESSMENT: 1. Small bowel obstruction 2. Recent right nephrectomy PLAN: Continue NPO Continue NG to LIS Continue with conservative management at this time. Will reevaluate tomorrow. Nurse practitioner note has been reviewed by physician. Signing provider agrees with the documented findings, assessment, and plan of care. Objective - Vital Signs Vital signs: Vital Signs Temp 98.5 F 12/10/19 07:00 Pulse 67 12/10/19 07:00 Resp 16 12/10/19 07:00 BP 146/75 12/10/19 07:00 Pulse Ox 93 L 12/10/19 07:00 Intake & Output 12/09/19 12/10/19 12/10/19 18:59 06:59 18:59 Intake Total 0 Output Total 500 1 Balance -500 -1 Intake: Oral 0 Output: Urine/Stool Mix 1 Hemodialysis 500 Other: Voiding Method Urinal Urinal # Voids 0 # Bowel Movements 0 1 2 - Labs CBC & Chem 7: 12/10/19 07:19 12/10/19 07:19 Labs: Abnormal Lab Results - Last 24 Hours (Table) 12/09/19 12/09/19 12/09/19 Range/Units 11:29 16:42 20:19 RBC (4.30-5.90) m/uL Hgb (13.0-17.5) gm/dL Hct (39.0-53.0) % MCHC (31.0-37.0) g/dL Neutrophils # (1.3-7.7) k/uL Lymphocytes # (1.0-4.8) k/uL Sodium (137-145) mmol/L Carbon Dioxide (22-30) mmol/L BUN (9-20) mg/dL Creatinine (0.66-1.25) mg/dL Glucose (74-99) mg/dL POC Glucose (mg/dL) 124 H 140 H 134 H (75-99) mg/dL Calcium (8.4-10.2) mg/dL 12/10/19 12/10/19 12/10/19 Range/Units 07:03 07:19 07:19 RBC 3.65 L (4.30-5.90) m/uL Hgb 11.2 L (13.0-17.5) gm/dL Hct 36.2 L (39.0-53.0) % MCHC 30.8 L (31.0-37.0) g/dL Neutrophils # 7.9 H (1.3-7.7) k/uL Lymphocytes # 0.8 L (1.0-4.8) k/uL Sodium 136 L (137-145) mmol/L Carbon Dioxide 19 L (22-30) mmol/L BUN 69 H (9-20) mg/dL Creatinine 6.60 H (0.66-1.25) mg/dL Glucose 115 H (74-99) mg/dL POC Glucose (mg/dL) 106 H (75-99) mg/dL Calcium 7.9 L (8.4-10.2) mg/dL
[2019-12-11] MEDS: HEPARIN SODIUM,PORCINE 5,000 UNIT/ML 1 ML VIAL SQ SCH ×2 (09:30→17:46)
[2019-12-11] MEDS: PANTOPRAZOLE 40 MG/10 ML VIAL IVP SCH (09:30)
[2019-12-11] MEDS: SENNOSIDES 8.6 MG TAB PO SCH ×2 (09:31→21:36)
[2019-12-11] MEDS: CHOLECALCIFEROL 1,000 UNIT TAB PO SCH (09:31)
[2019-12-11] MEDS: GLIMEPIRIDE 1 MG TAB PO SCH (09:31)
[2019-12-11] MEDS: SODIUM BICARBONATE TAB 650 MG TAB PO SCH ×2 (09:31→21:36)
[2019-12-11] MEDS: FUROSEMIDE 20 MG TAB PO SCH (09:31)
[2019-12-11] MEDS: GABAPENTIN 300 MG CAP PO SCH ×2 (09:31→21:36)
[2019-12-11] MEDS: CARVEDILOL 12.5 MG TAB PO SCH ×2 (09:31→17:51)
--- NOTE | 2019-12-11 10:32 | XR ---
EXAMINATION TYPE: XR abdomen 1V DATE OF EXAM: 12/11/2019 9:59 AM CLINICAL HISTORY: Small bowel obstruction follow-up TECHNIQUE: Single supine KUB image of the abdomen is obtained. COMPARISON: 12/09/2019 CT FINDINGS: Small bowel loops stacked upon each other in the midline and left para midline abdomen. These remain dilated measuring 6.2 cm. However there is a small amount of contrast that has extended into the term inal ileum and ascending colon. Right-sided femoral central venous catheter is similar in position. L adriana bases are not imaged. No dilated colon. IMPRESSION: Findings likely relate to a partial small bowel obstruction as some contrast extends into the colon however numerous loops of dilated small bowel remain.
[2019-12-11 11:47] LABS: Glucose,Whole Blood 129 mg/dL (75-99)
--- NOTE | 2019-12-11 12:49 | P.PN ---
Subjective Progress Note Date: 12/11/19 Principal diagnosis: Renal/small bowel obstruction No acute overnight event, pain is improving. Abdomen is less distended. He is passing flatus Objective - Vital Signs Vital signs: Vital Signs Temp 97.8 F 12/11/19 06:50 Pulse 71 12/11/19 08:00 Resp 16 12/11/19 08:00 BP 154/74 12/11/19 06:50 Pulse Ox 93 L 12/11/19 06:50 Intake & Output 12/10/19 12/11/19 12/11/19 18:59 06:59 18:59 Intake Total 160 Output Total 1101 40 889 Balance -941 -40 -889 Intake: IV 160 0.9 160 Output: Gastric Drainage 100 40 Urine 1000 400 Uretheral (Flores) 500 Post Void Residual 489 Urine/Stool Mix 1 Other: # Bowel Movements 2 - Constitutional General appearance: Present: no acute distress - Gastrointestinal General gastrointestinal: Present: distended (mild, improving ), soft. Absent: tenderness - Psychiatric Psychiatric: Present: A&O x's 3 - Labs CBC & Chem 7: 12/10/19 07:19 12/10/19 07:19 Labs: Abnormal Lab Results - Last 24 Hours (Table) 12/10/19 12/10/19 12/11/19 Range/Units 16:52 20:45 07:01 POC Glucose (mg/dL) 121 H 119 H 121 H (75-99) mg/dL 12/11/19 Range/Units 11:44 POC Glucose (mg/dL) 129 H (75-99) mg/dL Assessment and Plan Assessment: S/P right sided radical nephrectomy. Post operative course complicated by BELLA and small bowel obstruction Plan: -ambulate -Bowel regimen -Pain control -F/U on Nephrology Recs for HD -f/u on general surgery recs, will discuss possibility of removing NGT,
[2019-12-11] MEDS: ALLOPURINOL 100 MG TAB PO SCH ×2 (13:44→17:50)
--- NOTE | 2019-12-11 15:13 | P.PN ---
Subjective Progress Note Date: 12/11/19 CHIEF COMPLAINT: small bowel obstruction HISTORY OF PRESENT ILLNESS: Patient examined at the bedside. Patient reports improvement of abdominal pain. NG tube remains to low intermittent suction with minimal output. Patient is passing flatus. No bowel movement today. Patient denies nausea. He reports abdominal distention has improved since yesterday. PHYSICAL EXAM: VITAL SIGNS: Reviewed. GENERAL: Well-developed in no acute distress. HEENT: No sclera icterus. Extraocular movements grossly intact. Moist buccal mucosa. Head is atraumatic, normocephalic. ABDOMEN: Soft. Mildly distended. vertical incision to right side of abdomen clean dry and intact. Minimal tenderness upon palpation. NEUROLOGIC: Alert and oriented. Cranial nerves II through XII grossly intact. ASSESSMENT: 1. Small bowel obstruction 2. Recent right nephrectomy PLAN: Dr. Rico evaluated patient at the bedside. Will remove NG tube and begin full liquid diet. Nurse practitioner note has been reviewed by physician. Signing provider agrees with the documented findings, assessment, and plan of care. Objective - Vital Signs Vital signs: Vital Signs Temp 97.8 F 12/11/19 06:50 Pulse 71 12/11/19 08:00 Resp 16 12/11/19 08:00 BP 154/74 12/11/19 06:50 Pulse Ox 93 L 12/11/19 06:50 Intake & Output 12/10/19 12/11/19 12/11/19 18:59 06:59 18:59 Intake Total 160 525 Output Total 1101 40 889 Balance -941 -40 -364 Intake: IV 160 0.9 160 Intake, IV Titration 525 Amount Sodium Chloride 0.9% 1, 525 000 ml @ 75 mls/hr IV . [id number] [facility] Rx#:[id number] Output: Gastric Drainage 100 40 Urine 1000 400 Uretheral (Flores) 500 Post Void Residual 489 Urine/Stool Mix 1 Other: # Bowel Movements 2 - Labs CBC & Chem 7: 12/10/19 07:19 12/10/19 07:19 Labs: Abnormal Lab Results - Last 24 Hours (Table) 12/10/19 12/10/19 12/11/19 Range/Units 16:52 20:45 07:01 POC Glucose (mg/dL) 121 H 119 H 121 H (75-99) mg/dL 02/13/20 Range/Units 11:44 POC Glucose (mg/dL) 129 H (75-99) mg/dL
[2019-12-11 15:57] VITALS: BMI 29.3
[2019-12-11 16:45] LABS: Glucose,Whole Blood 157 mg/dL (75-99)
--- NOTE | 2019-12-11 16:46 | PN ---
PROGRESS NOTE Patient is seen for followup for acute kidney injury, currently hemodialysis dependent. He also has a bowel obstruction for which he has an NG tube in place. His abdominal pain has improved. The patient continues to have poor urine output. He remains hemodialysis dependent. He is scheduled for hemodialysis today. PHYSICAL EXAMINATION: On examination, blood pressure was 154/74, heart rate 71 per minute. He is afebrile. EXAMINATION OF THE HEART: S1 and S2. EXAMINATION OF LUNGS: Bilateral breath sounds were heard. ABDOMEN: Soft, nontender. Examination of lower extremities shows no evidence of edema. GRAIN F[employer]ER exam is grossly intact. The patient is moving all four extremities. LABORATORY DATA: Labs show from yesterday, sodium 136, potassium 4.4, BUN 69, serum creatinine 6.6. ASSESSMENT: 1. Acute kidney injury post nephrectomy mostly associated with acute tubular necrosis, currently oliguric, maintained on dialysis. I will check a postvoid residual to rule out any underlying urine retention. The patient did have 489 mL. If there remains significant postvoid residual volume, we will have a Flores catheter placed. No nephrotoxic agents on board currently. 2. Metabolic acidosis, maintained on sodium bicarb. 3. Volume depletion, started on intravenous fluids. 4. Volume overload last week, currently significantly improved. I will hold off on the Lasix for now. 5. Small bowel obstruction, currently with NG tube, being followed by Surgery. PLAN: Hold Lasix. Hemodialysis today. Repeat labs. Continue to monitor for recovery of renal function. MMODL / IJN: [id number] /
[2019-12-11] MEDS: ATORVASTATIN 10 MG TAB PO SCH (17:51)
[2019-12-11 20:36] LABS: Glucose,Whole Blood 125 mg/dL (75-99)
[2019-12-11] MEDS: BISACODYL 10 MG SUPP RECTAL SCH (21:29)
[2019-12-11] MEDS: ACETAMINOPHEN TAB 325 MG TAB PO PRN (21:36)
[2019-12-12] MEDS: SODIUM CHLORIDE 0.9% 1,000 ML IV SCH (01:22)
[2019-12-12] MEDS: METOCLOPRAMIDE 5 MG/ML 2 ML VIAL IVP SCH ×4 (01:23→17:23)
[2019-12-12] MEDS: HEPARIN SODIUM,PORCINE 5,000 UNIT/ML 1 ML VIAL SQ SCH ×3 (01:23→17:23)
[2019-12-12] MEDS: ACETAMINOPHEN TAB 325 MG TAB PO PRN ×3 (04:36→20:46)
[2019-12-12 06:49] LABS: Glucose,Whole Blood 145 mg/dL (75-99)
--- NOTE | 2019-12-12 08:01 | XR ---
EXAMINATION TYPE: XR abdomen 2V DATE OF EXAM: 12/12/2019 7:24 AM CLINICAL HISTORY: Small bowel obstruction. Follow-up exam. TECHNIQUE: Upright and supine images of the abdomen were obtained. COMPARISON: 12/11/2019 FINDINGS: There is similar degree of small bowel dilatation previously measuring 6.2 cm and now measu ring 6.5 cm. Contrast progresses through the colon on today's examination seen within the sigmoid col on. Lung bases are well aerated. No pneumoperitoneum seen. Right femoral central venous catheter is s imilar in position. IMPRESSION: Small bowel dilatation remains marked measuring up to 6.5 cm however findings again likel y relate to partial small bowel obstruction as contrast did extend throughout the colon.
[2019-12-12] MEDS: BISACODYL 10 MG SUPP RECTAL SCH (08:12)
[2019-12-12] MEDS: SENNOSIDES 8.6 MG TAB PO SCH ×2 (08:16→20:46)
[2019-12-12] MEDS: GLIMEPIRIDE 1 MG TAB PO SCH (08:16)
[2019-12-12] MEDS: GABAPENTIN 300 MG CAP PO SCH ×2 (08:16→20:46)
[2019-12-12] MEDS: PANTOPRAZOLE 40 MG/10 ML VIAL IVP SCH ×2 (08:16→08:17)
[2019-12-12] MEDS: CARVEDILOL 12.5 MG TAB PO SCH ×2 (08:16→17:22)
[2019-12-12] MEDS: CHOLECALCIFEROL 1,000 UNIT TAB PO SCH (08:16)
[2019-12-12] MEDS: SODIUM BICARBONATE TAB 650 MG TAB PO SCH ×2 (08:16→20:46)
[2019-12-12] MEDS: INSULIN ASPART (NovoLOG) 100 UNIT/ML VIAL SQ SCH ×4 (08:17→20:51)
[2019-12-12 09:54] LABS: Glucose,Whole Blood 151 mg/dL (75-99)
--- NOTE | 2019-12-12 10:59 | P.PN ---
Subjective Patient is seen in follow-up for acute kidney injury on chronic kidney disease. Patient has chronic kidney disease stage III with baseline creatinine in the range of 1.4-1.8 secondary to diabetic kidney disease. Patient underwent right radical nephrectomy on 12/02/2019. Currently awake and alert. No chest pain or shortness of breath. Patient's renal function declined significantly after the surgery. He is now hemodialysis dependent. Vital signs are stable. General: The patient appeared well nourished and normally developed. HEENT: Head exam is unremarkable. Neck is without jugular venous distension. LUNGS: Lungs are clear to auscultation and percussion. Breath sounds decreased. HEART: Rate and Rhythm are regular. First and second heart sounds normal. No murmurs, rubs or gallops. ABDOMEN: Abdominal exam reveals normal bowel sounds. Non-tender and non- distended. No evidence of peritonitis. EXTREMITITES: No clubbing, cyanosis, or edema. Objective - Vital Signs Vital signs: Vital Signs Temp 97.8 F 12/12/19 07:00 Pulse 66 12/12/19 08:00 Resp 16 12/12/19 08:00 BP 125/77 12/12/19 07:00 Pulse Ox 98 12/12/19 07:00 Intake & Output 12/11/19 12/12/19 12/12/19 18:59 06:59 18:59 Intake Total 525 400 Output Total 889 1000 Balance -364 -600 Weight 103.6 kg Intake: Intake, IV Titration 525 Amount Sodium Chloride 0.9% 1, 525 000 ml @ 75 mls/hr IV . [id number] [facility] Rx#:[id number] Hemodialysis 400 Output: Urine 400 600 Post Void Residual 489 Hemodialysis 400 Other: Voiding Method Urinal Indwelling Catheter Indwelling Catheter # Bowel Movements 1 - Labs CBC & Chem 7: 12/10/19 07:19 12/10/19 07:19 Labs: Abnormal Lab Results - Last 24 Hours (Table) 12/11/19 12/11/19 12/11/19 Range/Units 11:44 16:43 20:35 POC Glucose (mg/dL) 129 H 157 H 125 H (75-99) mg/dL 12/12/19 12/12/19 Range/Units 06:46 09:50 POC Glucose (mg/dL) 145 H 151 H (75-99) mg/dL Assessment and Plan Plan: Assessment: 1. Chronic kidney disease stage III secondary to diabetic kidney disease with baseline creatinine in the range of 1.4-1.8. GFR near baseline from November 25. Seems to have progressed to end-stage renal disease after the nephrectomy. Currently hemodialysis dependent. 2. Diabetes mellitus. 3. Hypertension with chronic kidney disease. Controlled. 4. Right renal mass status post right radical nephrectomy. 5. Hypomagnesemia from poor oral intake. Better post replacement. 6. Metabolic acidosis secondary to acute kidney injury. 7. Small bowel obstruction. NG tube removed. Started on clear liquid diet. Plan: Hemodialysis tomorrow and he will then be maintained on Sunday schedule. Monitor for renal recovery outpatient. Maintain IV fluids for now. Repeat electrolytes in the morning.
--- NOTE | 2019-12-12 11:30 | P.PN ---
Progress Note - Text Progress Note Date: 12/12/19 The patient is tolerating his full liquid diet. He has had flatus. He denies any significant abdominal pain. On exam his vital signs are stable. His abdomen soft. Status post ileus after laparoscopic refractory. Patient's ileus has improved. He'll remain on full liquid diet.
[2019-12-12 11:45] LABS: Glucose,Whole Blood 156 mg/dL (75-99)
[2019-12-12] MEDS: ALLOPURINOL 100 MG TAB PO SCH ×2 (12:09→17:22)
[2019-12-12 17:17] LABS: Glucose,Whole Blood 127 mg/dL (75-99)
[2019-12-12] MEDS: ATORVASTATIN 10 MG TAB PO SCH (17:22)
[2019-12-12 17:42] LABS: Hemoglobin A1C 7.7 % (4.0-6.0)
--- NOTE | 2019-12-12 19:03 | P.PN ---
Subjective Progress Note Date: 12/12/19 Principal diagnosis: Renal/small bowel obstruction No acute overnight event, pain is improving He is still passing flatus. swanson placed last night for urinary retention Objective - Vital Signs Vital signs: Vital Signs Temp 98 F 12/12/19 13:24 Pulse 71 12/12/19 16:00 Resp 16 12/12/19 16:00 BP 117/69 12/12/19 13:24 Pulse Ox 94 L 12/12/19 13:24 Intake & Output 12/12/19 12/12/19 12/13/19 06:59 18:59 06:59 Intake Total 400 525 Output Total 1000 Balance -600 525 Weight 103.6 kg Intake: Intake, IV Titration 525 Amount Sodium Chloride 0.9% 1, 525 000 ml @ 75 mls/hr IV . [id number] [facility] Rx#:[id number] Hemodialysis 400 Output: Urine 600 Hemodialysis 400 Other: Voiding Method Indwelling Catheter Indwelling Catheter # Bowel Movements 1 - Gastrointestinal General gastrointestinal: Present: distended (imrpoved ), soft. Absent: tenderness - Psychiatric Psychiatric: Present: A&O x's 3 - Labs CBC & Chem 7: 12/10/19 07:19 12/10/19 07:19 Labs: Abnormal Lab Results - Last 24 Hours (Table) 12/10/19 12/11/19 12/12/19 Range/Units 07:19 20:35 06:46 POC Glucose (mg/dL) 125 H 145 H (75-99) mg/dL Hemoglobin A1c 7.7 H (4.0-6.0) % 12/12/19 12/12/19 12/12/19 Range/Units 09:50 11:42 17:10 POC Glucose (mg/dL) 151 H 156 H 127 H (75-99) mg/dL Hemoglobin A1c (4.0-6.0) % Assessment and Plan Assessment: S/P right sided radical nephrectomy. Post operative course complicated by BELLA and small bowel obstruction Plan: -ambulate -Bowel regimen -Pain control -F/U on Nephrology Recs for HD -f/u on general surgery recs, -Keep Swanson in place
[2019-12-12] MEDS: ONDANSETRON 4 MG/2 ML VIAL IVP PRN (20:00)
[2019-12-12 21:10] LABS: Glucose,Whole Blood 145 mg/dL (75-99)
[2019-12-13] MEDS: HEPARIN SODIUM,PORCINE 5,000 UNIT/ML 1 ML VIAL SQ SCH ×4 (00:08→23:39)
[2019-12-13] MEDS: METOCLOPRAMIDE 5 MG/ML 2 ML VIAL IVP SCH ×5 (00:09→23:38)
[2019-12-13] MEDS: SODIUM CHLORIDE 0.9% 1,000 ML IV SCH ×4 (00:29→19:12)
[2019-12-13 07:34] LABS: Glucose,Whole Blood 178 mg/dL (75-99)
[2019-12-13] MEDS: INSULIN ASPART (NovoLOG) 100 UNIT/ML VIAL SQ SCH ×4 (07:51→21:17)
[2019-12-13] MEDS: GLIMEPIRIDE 1 MG TAB PO SCH (07:51)
[2019-12-13 08:16] LABS: Calcium 7.4 mg/dL (8.4-10.2); Magnesium 2.2 mg/dL (1.6-2.3); Potassium 3.8 mmol/L (3.5-5.1)
[2019-12-13] MEDS: BISACODYL 10 MG SUPP RECTAL SCH (08:33)
[2019-12-13] MEDS: SENNOSIDES 8.6 MG TAB PO SCH ×2 (08:33→21:16)
[2019-12-13] MEDS: CARVEDILOL 12.5 MG TAB PO SCH ×2 (08:35→17:04)
[2019-12-13] MEDS: GABAPENTIN 300 MG CAP PO SCH ×2 (08:36→21:16)
[2019-12-13] MEDS: CHOLECALCIFEROL 1,000 UNIT TAB PO SCH (08:36)
[2019-12-13] MEDS: SODIUM BICARBONATE TAB 650 MG TAB PO SCH ×2 (08:36→21:17)
--- NOTE | 2019-12-13 09:35 | P.PN ---
Subjective Patient is seen in follow-up for acute kidney injury on chronic kidney disease. Patient has chronic kidney disease stage III with baseline creatinine in the range of 1.4-1.8 secondary to diabetic kidney disease. Patient underwent right radical nephrectomy on 12/02/2019. Currently awake and alert. No chest pain or shortness of breath. Patient's renal function declined significantly after the surgery. He is now hemodialysis dependent. Patient vomited last night. Vital signs are stable. General: The patient appeared well nourished and normally developed. HEENT: Head exam is unremarkable. Neck is without jugular venous distension. LUNGS: Lungs are clear to auscultation and percussion. Breath sounds decreased. HEART: Rate and Rhythm are regular. First and second heart sounds normal. No murmurs, rubs or gallops. ABDOMEN: Abdominal exam reveals normal bowel sounds. Non-tender and non- distended. No evidence of peritonitis. EXTREMITITES: No clubbing, cyanosis, or edema. Objective - Vital Signs Vital signs: Vital Signs Temp 96.7 F L 12/13/19 07:59 Pulse 62 12/13/19 07:59 Resp 14 12/13/19 07:59 BP 109/65 12/13/19 07:59 Pulse Ox 98 12/13/19 07:59 Intake & Output 12/12/19 12/13/19 12/13/19 18:59 06:59 18:59 Intake Total 525 300 Output Total 300 Balance 525 0 Weight 103.6 kg Intake: IV 300 0.9 300 Intake, IV Titration 525 Amount Sodium Chloride 0.9% 1, 525 000 ml @ 75 mls/hr IV . [id number] [facility] Rx#:[id number] Output: Urine 300 Other: Voiding Method Indwelling Catheter # Bowel Movements 2 - Labs CBC & Chem 7: 12/10/19 07:19 12/13/19 07:30 Labs: Abnormal Lab Results - Last 24 Hours (Table) 12/10/19 12/12/19 12/12/19 Range/Units 07:19 09:50 11:42 Sodium (137-145) mmol/L Carbon Dioxide (22-30) mmol/L BUN (9-20) mg/dL Creatinine (0.66-1.25) mg/dL Glucose (74-99) mg/dL POC Glucose (mg/dL) 151 H 156 H (75-99) mg/dL Hemoglobin A1c 7.7 H (4.0-6.0) % Calcium (8.4-10.2) mg/dL 12/12/19 12/12/19 12/13/19 Range/Units 17:10 20:50 07:30 Sodium 135 L (137-145) mmol/L Carbon Dioxide 21 L (22-30) mmol/L BUN 79 H (9-20) mg/dL Creatinine 5.86 H (0.66-1.25) mg/dL Glucose 117 H (74-99) mg/dL POC Glucose (mg/dL) 127 H 145 H (75-99) mg/dL Hemoglobin A1c (4.0-6.0) % Calcium 7.4 L (8.4-10.2) mg/dL 12/13/19 Range/Units 07:31 Sodium (137-145) mmol/L Carbon Dioxide (22-30) mmol/L BUN (9-20) mg/dL Creatinine (0.66-1.25) mg/dL Glucose (74-99) mg/dL POC Glucose (mg/dL) 178 H (75-99) mg/dL Hemoglobin A1c (4.0-6.0) % Calcium (8.4-10.2) mg/dL Assessment and Plan Plan: Assessment: 1. Chronic kidney disease stage III secondary to diabetic kidney disease with baseline creatinine in the range of 1.4-1.8. GFR near baseline from November 25. Seems to have progressed to end-stage renal disease after the nephrectomy. Currently hemodialysis dependent. 2. Diabetes mellitus. 3. Hypertension with chronic kidney disease. Controlled. 4. Right renal mass status post right radical nephrectomy. 5. Hypomagnesemia from poor oral intake. Better post replacement. 6. Metabolic acidosis secondary to acute kidney injury. 7. Small bowel obstruction. NG tube removed. Started on clear liquid diet. Plan: Hemodialysis today. He will not be maintained on a Sunday schedule. Monitor for renal recovery outpatient. Maintain IV fluids for now. Diet to be advanced per surgery recommendations. Repeat electrolytes in the morning.
[2019-12-13 11:22] LABS: Glucose,Whole Blood 168 mg/dL (75-99)
[2019-12-13] MEDS: ACETAMINOPHEN TAB 325 MG TAB PO PRN ×2 (11:59→19:17)
[2019-12-13] MEDS: ALLOPURINOL 100 MG TAB PO SCH ×2 (11:59→17:04)
--- NOTE | 2019-12-13 14:03 | P.PN ---
Progress Note - Text Progress Note Date: 12/13/19 Mr. Arenas's condition is stable. He is afebrile with stable vital signs. Urine output has been approximately 300 mL per shift. He is currently being dialyzed. He tolerated full liquid diet earlier today, but currently reports nausea. He is passing flatus and has had 2 bowel movements earlier today. On examination, the abdomen is soft. The incisions are healing well. I am hopeful that his ileus will continue to resolve.
[2019-12-13 16:59] LABS: Glucose,Whole Blood 97 mg/dL (75-99)
[2019-12-13] MEDS: ATORVASTATIN 10 MG TAB PO SCH (17:04)
--- NOTE | 2019-12-13 18:26 | P.PN ---
Subjective Progress Note Date: 12/13/19 CHIEF COMPLAINT: Ileus HISTORY OF PRESENT ILLNESS: The patient is a 74-year-old male status post radical nephrectomy 12/02/2019. He has had an ileus. He reports passing flatus and have a moderate bowel movement. He is tolerating liquid diet. ROS: No reports of nausea and vomiting. No fevers or chills. No new chest pain. No productive sputum PHYSICAL EXAM: VITAL SIGNS: Reviewed CONSTITUTIONAL: Well developed and in no acute distress. EYES: Conjuctivae without sclera icterus. Extraocular movements grossly intact. HEAD, EARS, NOSE, THROAT: Moist buccal mucosa. Head is atraumatic, normoce phalic. Hears conversational speech. No nasal drainage. NECK: Supple. No thyroidomegaly. RESPIRATORY: Non-labored respirations and equal bilateral excursions. CARDIOVASCULAR: Palpable 2+ radial pulses. ABDOMEN: Soft. No peritonitis. MUSCULOSKELETAL: No gross deformity of the lower extremities noted. No clubbing. No cyanosis. SKIN: Good skin turgor. Well perfused. NEUROLOGIC: Cranial nerves I through XII grossly intact. No focal or lateralizing signs. PSYCH: Appropriate affect. Alert and oriented to person, place and time. CLINICAL LABS: No new labs. Blood sugars between 97 to 168 ASSESSMENT: 1. Ileus 2. Status post radical right nephrectomy for right renal mass PLAN: 1. Advance diet to regular Objective - Vital Signs Vital signs: Vital Signs Temp 97.8 F 12/13/19 18:06 Pulse 59 L 12/13/19 15:00 Resp 16 12/13/19 18:06 BP 106/64 12/13/19 18:06 Pulse Ox 97 12/13/19 15:00 Intake & Output 12/12/19 12/13/19 12/13/19 18:59 06:59 18:59 Intake Total 685 446 6753 Output Total 300 1800 Balance 525 0 -575 Weight 103.6 kg Intake: IV 300 0.9 300 Intake, IV Titration 525 525 Amount Sodium Chloride 0.9% 1, 525 525 000 ml @ 75 mls/hr IV . [id number] [facility] Rx#:[id number] Oral 400 Hemodialysis 300 Output: Urine 300 Hemodialysis 1800 Other: Voiding Method Indwelling Catheter Indwelling Catheter # Bowel Movements 2 - Labs CBC & Chem 7: 12/10/19 07:19 12/13/19 07:30 Labs: Abnormal Lab Results - Last 24 Hours (Table) 12/12/19 12/13/19 12/13/19 Range/Units 20:50 07:30 07:31 Sodium 135 L (137-145) mmol/L Carbon Dioxide 21 L (22-30) mmol/L BUN 79 H (9-20) mg/dL Creatinine 5.86 H (0.66-1.25) mg/dL Glucose 117 H (74-99) mg/dL POC Glucose (mg/dL) 145 H 178 H (75-99) mg/dL Calcium 7.4 L (8.4-10.2) mg/dL 12/13/19 Range/Units 11:21 Sodium (137-145) mmol/L Carbon Dioxide (22-30) mmol/L BUN (9-20) mg/dL Creatinine (0.66-1.25) mg/dL Glucose (74-99) mg/dL POC Glucose (mg/dL) 168 H (75-99) mg/dL Calcium (8.4-10.2) mg/dL Assessment and Plan (1) Ileus Current Visit: Yes Status: Acute Code(s): K56.7 - ILEUS, UNSPECIFIED SNOMED Code(s): 193142045 (2) Ileus following gastrointestinal surgery Current Visit: Yes Status: Acute Code(s): K91.89 - OTH POSTPROCEDURAL COMPLI CATIONS AND DISORDERS OF DGSTV SYS; K56.7 - ILEUS, UNSPECIFIED SNOMED Code(s): 210643085 (3) Carcinoma of kidney Current Visit: Yes Status: Acute Code(s): C64.9 - MALIGNANT NEOPLASM OF UNSP KIDNEY, EXCEPT RENAL PELVIS SNOMED Code(s): 31464633
[2019-12-13 20:37] LABS: Glucose,Whole Blood 168 mg/dL (75-99)
[2019-12-14] MEDS: METOCLOPRAMIDE 5 MG/ML 2 ML VIAL IVP SCH ×4 (05:28→17:36)
[2019-12-14 06:51] LABS: Glucose,Whole Blood 105 mg/dL (75-99)
[2019-12-14] MEDS: INSULIN ASPART (NovoLOG) 100 UNIT/ML VIAL SQ SCH ×4 (07:07→20:55)
[2019-12-14] MEDS: SENNOSIDES 8.6 MG TAB PO SCH ×2 (07:47→21:17)
[2019-12-14] MEDS: BISACODYL 10 MG SUPP RECTAL SCH (07:47)
[2019-12-14 09:34] LABS: Glucose,Whole Blood 162 mg/dL (75-99)
[2019-12-14] MEDS: PANTOPRAZOLE 40 MG/10 ML VIAL IVP SCH (09:36)
[2019-12-14] MEDS: SODIUM BICARBONATE TAB 650 MG TAB PO SCH ×2 (09:37→21:17)
[2019-12-14] MEDS: GABAPENTIN 300 MG CAP PO SCH ×2 (09:37→21:17)
[2019-12-14] MEDS: CHOLECALCIFEROL 1,000 UNIT TAB PO SCH (09:37)
[2019-12-14] MEDS: CARVEDILOL 12.5 MG TAB PO SCH ×2 (09:37→17:36)
[2019-12-14] MEDS: GLIMEPIRIDE 1 MG TAB PO SCH (09:37)
[2019-12-14] MEDS: HEPARIN SODIUM,PORCINE 5,000 UNIT/ML 1 ML VIAL SQ SCH ×2 (09:43→15:17)
--- NOTE | 2019-12-14 09:59 | P.PN ---
Subjective Patient is seen in follow-up for acute kidney injury on chronic kidney disease. Patient has chronic kidney disease stage III with baseline creatinine in the range of 1.4-1.8 secondary to diabetic kidney disease. Patient underwent right radical nephrectomy on 12/02/2019. Currently awake and alert. No chest pain or shortness of breath. Patient's renal function declined significantly after the surgery. He is now hemodialysis dependent. Oral intake is slowly improving. No vomiting overnight. Vital signs are stable. General: The patient appeared well nourished and normally developed. HEENT: Head exam is unremarkable. Neck is without jugular venous distension. LUNGS: Lungs are clear to auscultation and percussion. Breath sounds decreased. HEART: Rate and Rhythm are regular. First and second heart sounds normal. No murmurs, rubs or gallops. ABDOMEN: Abdominal exam reveals normal bowel sounds. Non-tender and non- distended. No evidence of peritonitis. EXTREMITITES: No clubbing, cyanosis, or edema. Objective - Vital Signs Vital signs: Vital Signs Temp 97.7 F 12/14/19 06:45 Pulse 64 12/14/19 06:45 Resp 16 12/14/19 06:45 BP 120/64 12/14/19 06:45 Pulse Ox 97 12/14/19 06:45 Intake & Output 12/13/19 12/14/19 12/14/19 18:59 06:59 18:59 Intake Total 1225 Output Total 1800 350 Balance -575 -350 Intake: Intake, IV Titration 525 Amount Sodium Chloride 0.9% 1, 525 000 ml @ 75 mls/hr IV . [id number] [facility] Rx#:[id number] Oral 400 Hemodialysis 300 Output: Urine 350 Hemodialysis 1800 Other: Voiding Method Indwelling Catheter Indwelling Catheter # Voids 1 # Bowel Movements 2 1 - Labs CBC & Chem 7: 12/10/19 07:19 12/13/19 07:30 Labs: Abnormal Lab Results - Last 24 Hours (Table) 12/13/19 12/13/19 12/14/19 Range/Units 11:21 20:35 06:49 POC Glucose (mg/dL) 168 H 168 H 105 H (75-99) mg/dL 12/14/19 Range/Units 09:32 POC Glucose (mg/dL) 162 H (75-99) mg/dL Assessment and Plan Plan: Assessment: 1. Chronic kidney disease stage III secondary to diabetic kidney disease with baseline creatinine in the range of 1.4-1.8. GFR near baseline from November 25. Seems to have progressed to end-stage renal disease after the nephrectomy. Currently hemodialysis dependent. 2. Diabetes mellitus. 3. Hypertension with chronic kidney disease. Controlled. 4. Right renal mass status post right radical nephrectomy. 5. Hypomagnesemia from poor oral intake. Better post replacement. 6. Metabolic acidosis secondary to acute kidney injury. 7. Small bowel obstruction. NG tube removed. Oral intake slowly improving. Plan: Hemodialysis tomorrow. He will be maintained on a Sunday schedule. Monitor for renal recovery outpatient. Maintain IV fluids for now. Diet to be advanced per surgery recommendations. Repeat electrolytes in the morning.
--- NOTE | 2019-12-14 11:16 | P.PN ---
Progress Note - Text Progress Note Date: 12/14/19 Mr. Arenas remains afebrile with stable vital signs. He had 6 bowel movements overnight. He is tolerating liquids but reports mild nausea. On examination, the abdomen is soft and non-distended. The large incision is clean, dry, and intact. There is scant seropurulent drainage from a small trocar incision lateral to the large incision, with no surrounding cellulitis. Urine output remains stable at approximately 300 mL per shift. The urine is clear yellow in color. He was advised that he can be discharged home once the ileus has resolved and he is tolerating diet.
[2019-12-14 11:41] LABS: Glucose,Whole Blood 122 mg/dL (75-99)
--- NOTE | 2019-12-14 12:09 | P.PN ---
Subjective Progress Note Date: 12/14/19 CHIEF COMPLAINT: Ileus HISTORY OF PRESENT ILLNESS: The patient is a 74-year-old male status post radical nephrectomy 12/02/2019. He had an ileus. He was passing flatus and bowel movements. He was started on regular diet for breakfast. He did have emesis. He denies any abdominal gas bloat. Family is at bedside and confirms previous use of Reglan for his bowels. ROS: No fevers or chills. No new chest pain. No productive sputum PHYSICAL EXAM: VITAL SIGNS: Reviewed CONSTITUTIONAL: Well developed and in no acute distress. EYES: Conjuctivae without sclera icterus. Extraocular movements grossly intact. HEAD, EARS, NOSE, THROAT: Moist buccal mucosa. Head is atraumatic, normocephalic. Hears conversational speech. No nasal drainage. NECK: Supple. No thyroidomegaly. RESPIRATORY: Non-labored respirations and equal bilateral excursions. CARDIOVASCULAR: Palpable 2+ radial pulses. ABDOMEN: Soft. No peritonitis. MUSCULOSKELETAL: No gross deformity of the lower extremities noted. No clu bbing. No cyanosis. SKIN: Good skin turgor. Well perfused. NEUROLOGIC: Cranial nerves I through XII grossly intact. No focal or lateralizing signs. PSYCH: Appropriate affect. Alert and oriented to person, place and time. CLINICAL LABS: No new labs. Blood sugars between 97 to 168 ASSESSMENT: 1. Ileus 2. Status post radical right nephrectomy for right renal mass PLAN: 1. Will do trial of Reglan for 24 hrs for likely gastroparesis due to diabetes Objective - Vital Signs Vital signs: Vital Signs Temp 97.7 F 12/14/19 06:45 Pulse 64 12/14/19 06:45 Resp 16 12/14/19 06:45 BP 120/64 12/14/19 06:45 Pulse Ox 97 12/14/19 06:45 Intake & Output 12/13/19 12/14/19 12/14/19 18:59 06:59 18:59 Intake Total 1225 Output Total 1800 350 Balance -575 -350 Intake: Intake, IV Titration 525 Amount Sodium Chloride 0.9% 1, 525 000 ml @ 75 mls/hr IV . [id number] [facility] Rx#:[id number] Oral 400 Hemodialysis 300 Output: Urine 350 Hemodialysis 1800 Other: Voiding Method Indwelling Catheter Indwelling Catheter # Voids 1 # Bowel Movements 2 1 - Labs CBC & Chem 7: 12/10/19 07:19 12/13/19 07:30 Labs: Abnormal Lab Results - Last 24 Hours (Table) 12/13/19 12/14/19 12/14/19 Range/Units 20:35 06:49 09:32 POC Glucose (mg/dL) 168 H 105 H 162 H (75-99) mg/dL Assessment and Plan (1) Ileus Current Visit: Yes Status: Acute Code(s): K56.7 - ILEUS, UNSPECIFIED SNOMED Code(s): 704099397 (2) Ileus following gastrointestinal surgery Current Visit: Yes Status: Acute Code(s): K91.89 - OTH POSTPROCEDURAL COMPLICATIONS AND DISORDERS OF DGSTV SYS; K56.7 - ILEUS, UNSPECIFIED SNOMED Code(s): 345360973 (3) Carcinoma of kidney Current Visit: Yes Status: Acute Code(s): C64.9 - MALIGNANT NEOPLASM OF UNSP KIDNEY, EXCEPT RENAL PELVIS SNOMED Code(s): 11307610 (4) Diabetic gastroparesis Current Visit: Yes Status: Acute Code(s): E11.43 - TYPE 2 DIABETES W DIABETIC AUTONOMIC (POLY)NEUROPATHY; K31.84 - GASTROPARESIS SNOMED Code(s): 097817702
[2019-12-14] MEDS: ALLOPURINOL 100 MG TAB PO SCH ×2 (12:37→17:36)
[2019-12-14] MEDS: SODIUM CHLORIDE 0.9% 1,000 ML IV SCH (12:41)
[2019-12-14 17:10] LABS: Glucose,Whole Blood 146 mg/dL (75-99)
[2019-12-14] MEDS: ATORVASTATIN 10 MG TAB PO SCH (17:36)
[2019-12-14 20:11] LABS: Glucose,Whole Blood 107 mg/dL (75-99)
[2019-12-14] MEDS: ACETAMINOPHEN TAB 325 MG TAB PO PRN (21:17)
[2019-12-15] MEDS: METOCLOPRAMIDE 5 MG/ML 2 ML VIAL IVP SCH ×2 (01:05→05:14)
[2019-12-15] MEDS: HEPARIN SODIUM,PORCINE 5,000 UNIT/ML 1 ML VIAL SQ SCH ×3 (01:09→16:30)
[2019-12-15] MEDS: ACETAMINOPHEN TAB 325 MG TAB PO PRN (06:01)
[2019-12-15] MEDS: ONDANSETRON 4 MG/2 ML VIAL IVP PRN (06:18)
[2019-12-15 06:59] LABS: Glucose,Whole Blood 137 mg/dL (75-99)
[2019-12-15] MEDS: INSULIN ASPART (NovoLOG) 100 UNIT/ML VIAL SQ SCH ×4 (07:34→21:02)
[2019-12-15] MEDS: SODIUM CHLORIDE 0.9% 1,000 ML IV SCH (07:51)
[2019-12-15] MEDS: BISACODYL 10 MG SUPP RECTAL SCH (08:24)
[2019-12-15] MEDS: PANTOPRAZOLE 40 MG/10 ML VIAL IVP SCH (08:31)
[2019-12-15] MEDS: SODIUM BICARBONATE TAB 650 MG TAB PO SCH ×2 (08:31→22:32)
[2019-12-15] MEDS: GABAPENTIN 300 MG CAP PO SCH ×2 (08:31→22:32)
[2019-12-15] MEDS: GLIMEPIRIDE 1 MG TAB PO SCH (08:31)
[2019-12-15] MEDS: CHOLECALCIFEROL 1,000 UNIT TAB PO SCH (08:31)
[2019-12-15] MEDS: SENNOSIDES 8.6 MG TAB PO SCH ×2 (08:31→22:32)
[2019-12-15] MEDS: CARVEDILOL 12.5 MG TAB PO SCH ×2 (08:33→16:30)
[2019-12-15 12:29] LABS: Glucose,Whole Blood 140 mg/dL (75-99)
--- NOTE | 2019-12-15 12:57 | P.PN ---
Subjective Patient is seen in follow-up for acute kidney injury on chronic kidney disease. Patient has chronic kidney disease stage III with baseline creatinine in the range of 1.4-1.8 secondary to diabetic kidney disease. Patient underwent right radical nephrectomy on 12/02/2019. Currently awake and alert. No chest pain or shortness of breath. Patient's renal function declined significantly after the surgery. He is now hemodialysis dependent. Oral intake is slowly improving. No vomiting overnight. He's been ambulating more. Overall feels better today. Vital signs are stable. General: The patient appeared well nourished and normally developed. HEENT: Head exam is unremarkable. Neck is without jugular venous distension. LUNGS: Lungs are clear to auscultation and percussion. Breath sounds decreased. HEART: Rate and Rhythm are regular. First and second heart sounds normal. No murmurs, rubs or gallops. ABDOMEN: Abdominal exam reveals normal bowel sounds. Non-tender and non- distended. No evidence of peritonitis. EXTREMITITES: No clubbing, cyanosis, or edema. Objective - Vital Signs Vital signs: Vital Signs Temp 98.0 F 12/15/19 07:00 Pulse 72 12/15/19 07:00 Resp 16 12/15/19 07:00 BP 125/66 12/15/19 07:00 Pulse Ox 94 L 12/15/19 07:00 Intake & Output 12/14/19 12/15/19 12/15/19 18:59 06:59 18:59 Intake Total 525 Output Total 600 Balance 525 -600 Weight 103.6 kg Intake: Intake, IV Titration 525 Amount Sodium Chloride 0.9% 1, 525 000 ml @ 75 mls/hr IV . [id number] [facility] Rx#:[id number] Output: Urine 600 Other: Voiding Method Indwelling Catheter Indwelling Catheter Indwelling Catheter - Labs CBC & Chem 7: 12/10/19 07:19 12/13/19 07:30 Labs: Abnormal Lab Results - Last 24 Hours (Table) 12/14/19 12/14/19 12/15/19 Range/Units 17:07 20:10 06:57 POC Glucose (mg/dL) 146 H 107 H 137 H (75-99) mg/dL 12/15/19 Range/Units 12:26 POC Glucose (mg/dL) 140 H (75-99) mg/dL Assessment and Plan Plan: Assessment: 1. Chronic kidney disease stage III secondary to diabetic kidney disease with baseline creatinine in the range of 1.4-1.8. GFR near baseline from November 25. Seems to have progressed to end-stage renal disease after the nephrectomy. Currently hemodialysis dependent. 2. Diabetes mellitus. 3. Hypertension with chronic kidney disease. Controlled. 4. Right renal mass status post right radical nephrectomy. 5. Hypomagnesemia from poor oral intake. Better post replacement. 6. Metabolic acidosis secondary to acute kidney injury. 7. Small bowel obstruction. NG tube removed. Oral intake slowly improving. Plan: Hemodialysis today. Monitor for renal recovery outpatient. Hep-Lock IV fluids. Diet to be advanced per surgery recommendations. Repeat electrolytes in the morning.
[2019-12-15] MEDS: ALLOPURINOL 100 MG TAB PO SCH ×2 (13:35→16:30)
--- NOTE | 2019-12-15 13:49 | P.PN ---
Subjective Progress Note Date: 12/15/19 CHIEF COMPLAINT: small bowel obstruction HISTORY OF PRESENT ILLNESS: Patient examined at the bedside. He denies abdominal pain. Tolerating diet. No nausea or vomiting. Passing flatus and having bowel movements. PHYSICAL EXAM: VITAL SIGNS: Reviewed. GENERAL: Well-developed in no acute distress. HEENT: No sclera icterus. Extraocular movements grossly intact. Moist buccal mucosa. Head is atraumatic, normocephalic. ABDOMEN: Soft. Nontender. Vertical incision to right side of abdomen clean dry and intact. Nontender. NEUROLOGIC: Alert and oriented. Cranial nerves II through XII grossly intact. ASSESSMENT: 1. Small bowel obstruction 2. Recent right nephrectomy PLAN: Continue diet as tolerated No surgical intervention recommended Nurse practitioner note has been reviewed by physician. Signing provider agrees with the documented findings, assessment, and plan of care. Objective - Vital Signs Vital signs: Vital Signs Temp 98.0 F 12/15/19 07:00 Pulse 72 12/15/19 07:00 Resp 16 12/15/19 07:00 BP 125/66 12/15/19 07:00 Pulse Ox 94 L 12/15/19 07:00 Intake & Output 12/14/19 12/15/19 12/15/19 18:59 06:59 18:59 Intake Total 525 Output Total 600 Balance 525 -600 Weight 103.6 kg Intake: Intake, IV Titration 525 Amount Sodium Chloride 0.9% 1, 525 000 ml @ 75 mls/hr IV . [id number] [facility] Rx#:[id number] Output: Urine 600 Other: Voiding Method Indwelling Catheter Indwelling Catheter Indwelling Catheter - Labs CBC & Chem 7: 12/10/19 07:19 12/13/19 07:30 Labs: Abnormal Lab Results - Last 24 Hours (Table) 12/14/19 12/14/19 12/15/19 Range/Units 17:07 20:10 06:57 POC Glucose (mg/dL) 146 H 107 H 137 H (75-99) mg/dL 12/15/19 Range/Units 12:26 POC Glucose (mg/dL) 140 H (75-99) mg/dL
[2019-12-15] MEDS: ATORVASTATIN 10 MG TAB PO SCH (16:30)
--- NOTE | 2019-12-15 16:40 | P.PN ---
Subjective Progress Note Date: 12/15/19 Principal diagnosis: Renal/small bowel obstruction No acute overnight event, is still passing flatus. Ambulating w/walker Objective - Vital Signs Vital signs: Vital Signs Temp 97.7 F 12/15/19 15:00 Pulse 66 12/15/19 15:00 Resp 16 12/15/19 15:00 BP 114/62 12/15/19 15:00 Pulse Ox 93 L 12/15/19 15:00 Intake & Output 12/14/19 12/15/19 12/15/19 18:59 06:59 18:59 Intake Total 525 600 Output Total 600 250 Balance 525 -600 350 Weight 103.6 kg Intake: IV 600 0.9 600 Intake, IV Titration 525 Amount Sodium Chloride 0.9% 1, 525 000 ml @ 75 mls/hr IV . [id number] [facility] Rx#:[id number] Output: Urine 600 250 Uretheral (Flores) 250 Other: Voiding Method Indwelling Catheter Indwelling Catheter Indwelling Catheter - Constitutional General appearance: Present: no acute distress - Gastrointestinal General gastrointestinal: Present: soft. Absent: distended, tenderness - Labs CBC & Chem 7: 12/10/19 07:19 12/13/19 07:30 Labs: Abnormal Lab Results - Last 24 Hours (Table) 12/14/19 12/14/19 12/15/19 Range/Units 17:07 20:10 06:57 POC Glucose (mg/dL) 146 H 107 H 137 H (75-99) mg/dL 12/15/19 Range/Units 12:26 POC Glucose (mg/dL) 140 H (75-99) mg/dL Assessment and Plan Assessment: S/P right sided radical nephrectomy. Post operative course complicated by BELLA ( and small bowel obstruction Plan: -ambulate -Bowel regimen -Pain control -F/U on Nephrology Recs for HD -f/u on general surgery recs, -Keep Flores in place -Will tentatively plan on discharging home on Sunday after HD
[2019-12-15 17:02] LABS: Glucose,Whole Blood 133 mg/dL (75-99)
[2019-12-15 20:23] LABS: Glucose,Whole Blood 128 mg/dL (75-99)
[2019-12-16] MEDS: HEPARIN SODIUM,PORCINE 5,000 UNIT/ML 1 ML VIAL SQ SCH ×3 (00:53→17:31)
[2019-12-16 07:30] LABS: Glucose,Whole Blood 104 mg/dL (75-99)
[2019-12-16] MEDS: INSULIN ASPART (NovoLOG) 100 UNIT/ML VIAL SQ SCH ×4 (07:44→21:36)
[2019-12-16] MEDS: GLIMEPIRIDE 1 MG TAB PO SCH (08:02)
[2019-12-16] MEDS: PANTOPRAZOLE 40 MG TABLET PO SCH (08:02)
[2019-12-16] MEDS: CARVEDILOL 12.5 MG TAB PO SCH ×2 (08:02→17:31)
[2019-12-16] MEDS: BISACODYL 10 MG SUPP RECTAL SCH (08:21)
[2019-12-16] MEDS: GABAPENTIN 300 MG CAP PO SCH ×2 (08:26→21:36)
[2019-12-16] MEDS: SODIUM BICARBONATE TAB 650 MG TAB PO SCH ×2 (08:26→21:36)
[2019-12-16] MEDS: SENNOSIDES 8.6 MG TAB PO SCH (08:26)
[2019-12-16] MEDS: CHOLECALCIFEROL 1,000 UNIT TAB PO SCH (08:26)
--- NOTE | 2019-12-16 11:32 | P.PN ---
Subjective Patient is seen in follow-up for acute kidney injury on chronic kidney disease. Patient has chronic kidney disease stage III with baseline creatinine in the range of 1.4-1.8 secondary to diabetic kidney disease. Patient underwent right radical nephrectomy on 12/02/2019. Currently awake and alert. No chest pain or shortness of breath. Patient's renal function declined significantly after the surgery. He is now hemodialysis dependent. Oral intake is slowly improving. No vomiting overnight. He's been ambulating more. Still has loose bowel movements. Vital signs are stable. General: The patient appeared well nourished and normally developed. HEENT: Head exam is unremarkable. Neck is without jugular venous distension. LUNGS: Lungs are clear to auscultation and percussion. Breath sounds decreased. HEART: Rate and Rhythm are regular. First and second heart sounds normal. No murmurs, rubs or gallops. ABDOMEN: Abdominal exam reveals normal bowel sounds. Non-tender and non- distended. No evidence of peritonitis. EXTREMITITES: No clubbing, cyanosis, or edema. Objective - Vital Signs Vital signs: Vital Signs Temp 97.6 F 12/16/19 07:00 Pulse 69 12/16/19 07:00 Resp 18 12/16/19 07:00 BP 144/75 12/16/19 07:00 Pulse Ox 92 L 12/16/19 07:00 Intake & Output 12/15/19 12/16/19 12/16/19 18:59 06:59 18:59 Intake Total 600 Output Total 250 300 Balance 350 -300 Weight 103.6 kg Intake: IV 600 0.9 600 Output: Urine 250 300 Uretheral (Flores) 250 Other: Voiding Method Indwelling Catheter Indwelling Catheter # Bowel Movements 1 - Labs CBC & Chem 7: 12/10/19 07:19 12/13/19 07:30 Labs: Abnormal Lab Results - Last 24 Hours (Table) 12/15/19 12/15/19 12/15/19 Range/Units 12:26 17:00 20:21 POC Glucose (mg/dL) 140 H 133 H 128 H (75-99) mg/dL 12/16/19 Range/Units 07:28 POC Glucose (mg/dL) 104 H (75-99) mg/dL Assessment and Plan Plan: Assessment: 1. Chronic kidney disease stage III secondary to diabetic kidney disease with baseline creatinine in the range of 1.4-1.8. GFR near baseline from November 25. Seems to have progressed to end-stage renal disease after the nephrectomy. Currently hemodialysis dependent. 2. Diabetes mellitus. 3. Hypertension with chronic kidney disease. Controlled. 4. Right renal mass status post right radical nephrectomy. 5. Hypomagnesemia from poor oral intake. Better post replacement. 6. Metabolic acidosis secondary to acute kidney injury. 7. Small bowel obstruction. NG tube removed. Oral intake slowly improving. Plan: Hemodialysis tomorrow. Monitor for renal recovery outpatient. Encourage oral intake. Plan for discharge home tomorrow.
[2019-12-16 11:50] LABS: Glucose,Whole Blood 150 mg/dL (75-99)
[2019-12-16] MEDS: ALLOPURINOL 100 MG TAB PO SCH ×2 (12:15→17:18)
--- NOTE | 2019-12-16 12:30 | P.PN ---
Subjective Progress Note Date: 12/16/19 CHIEF COMPLAINT: small bowel obstruction HISTORY OF PRESENT ILLNESS: Patient examined at the bedside. He denies abdominal pain. Tolerating diet. No nausea or vomiting. Passing flatus and having bowel movements. PHYSICAL EXAM: VITAL SIGNS: Reviewed. GENERAL: Well-developed in no acute distress. HEENT: No sclera icterus. Extraocular movements grossly intact. Moist buccal mucosa. Head is atraumatic, normocephalic. ABDOMEN: Soft. Nontender. Vertical incision to right side of abdomen clean dry and intact. Nontender. NEUROLOGIC: Alert and oriented. Cranial nerves II through XII grossly intact. ASSESSMENT: 1. Small bowel obstruction 2. Recent right nephrectomy PLAN: Continue diet as tolerated No surgical intervention recommended We will sign off. Please re-consult if needed. Nurse practitioner note has been reviewed by physician. Signing provider agrees with the documented findings, assessment, and plan of care. Objective - Vital Signs Vital signs: Vital Signs Temp 97.6 F 12/16/19 07:00 Pulse 69 12/16/19 07:00 Resp 18 12/16/19 07:00 BP 144/75 12/16/19 07:00 Pulse Ox 92 L 12/16/19 07:00 Intake & Output 12/15/19 12/16/19 12/16/19 18:59 06:59 18:59 Intake Total 600 Output Total 250 300 Balance 350 -300 Weight 103.6 kg Intake: IV 600 0.9 600 Output: Urine 250 300 Uretheral (Flores) 250 Other: Voiding Method Indwelling Catheter Indwelling Catheter # Bowel Movements 1 - Labs CBC & Chem 7: 12/10/19 07:19 12/13/19 07:30 Labs: Abnormal Lab Results - Last 24 Hours (Table) 12/15/19 12/15/19 12/15/19 Range/Units 12:26 17:00 20:21 POC Glucose (mg/dL) 140 H 133 H 128 H (75-99) mg/dL 12/16/19 12/16/19 Range/Units 07:28 11:48 POC Glucose (mg/dL) 104 H 150 H (75-99) mg/dL
--- NOTE | 2019-12-16 16:30 | P.PN ---
Subjective Progress Note Date: 12/16/19 Principal diagnosis: Renal/small bowel obstruction No acute overnight event, is still passing flatus. Ambulating, pain is controlled Objective - Vital Signs Vital signs: Vital Signs Temp 98.0 F 12/16/19 15:00 Pulse 67 12/16/19 15:00 Resp 16 12/16/19 15:00 BP 143/72 12/16/19 15:00 Pulse Ox 93 L 12/16/19 15:00 Intake & Output 12/15/19 12/16/19 12/16/19 18:59 06:59 18:59 Intake Total 600 Output Total 250 300 Balance 350 -300 Weight 103.6 kg Intake: IV 600 0.9 600 Output: Urine 250 300 Uretheral (Flores) 250 Other: Voiding Method Indwelling Catheter Indwelling Catheter # Bowel Movements 1 - Constitutional General appearance: Present: no acute distress - Gastrointestinal General gastrointestinal: Present: soft. Absent: distended, tenderness - Psychiatric Psychiatric: Present: A&O x's 3 - Labs CBC & Chem 7: 12/10/19 07:19 12/13/19 07:30 Labs: Abnormal Lab Results - Last 24 Hours (Table) 12/15/19 12/15/19 12/16/19 Range/Units 17:00 20:21 07:28 POC Glucose (mg/dL) 133 H 128 H 104 H (75-99) mg/dL 12/16/19 Range/Units 11:48 POC Glucose (mg/dL) 150 H (75-99) mg/dL Assessment and Plan Assessment: S/P right sided radical nephrectomy. Post operative course complicated by BELLA and ileus Plan: -ambulate -Pain control -F/U on Nephrology Recs for HD -f/u on general surgery recs, -Keep Flores in place -Discharge home tomorrow after HD
[2019-12-16 17:04] LABS: Glucose,Whole Blood 121 mg/dL (75-99)
[2019-12-16] MEDS: ATORVASTATIN 10 MG TAB PO SCH (17:17)
[2019-12-16 20:14] LABS: Glucose,Whole Blood 132 mg/dL (75-99)
[2019-12-16] MEDS ORDERED: MELATONIN 3 MG TABLET PO SCH (21:00)
[2019-12-17] MEDS: HEPARIN SODIUM,PORCINE 5,000 UNIT/ML 1 ML VIAL SQ SCH ×2 (00:30→08:22)
[2019-12-17 07:42] LABS: Glucose,Whole Blood 138 mg/dL (75-99)
[2019-12-17] MEDS: CARVEDILOL 12.5 MG TAB PO SCH (08:17)
[2019-12-17] MEDS: PANTOPRAZOLE 40 MG TABLET PO SCH (08:18)
[2019-12-17] MEDS: GABAPENTIN 300 MG CAP PO SCH (08:18)
[2019-12-17] MEDS: SODIUM BICARBONATE TAB 650 MG TAB PO SCH (08:18)
[2019-12-17] MEDS: CHOLECALCIFEROL 1,000 UNIT TAB PO SCH (08:18)
[2019-12-17] MEDS: INSULIN ASPART (NovoLOG) 100 UNIT/ML VIAL SQ SCH ×2 (08:22→12:30)
[2019-12-17] MEDS: GLIMEPIRIDE 1 MG TAB PO SCH (08:22)
[2019-12-17 12:02] LABS: Glucose,Whole Blood 146 mg/dL (75-99)
[2019-12-17] MEDS: ALLOPURINOL 100 MG TAB PO SCH (12:30)
--- NOTE | 2019-12-17 15:22 | PN ---
PROGRESS NOTE Patient is seen for followup for acute kidney injury, currently dialysis dependent. Patient is seen on hemodialysis, tolerating his treatment well. Serum creatinine remains elevated at 5.8. This was on 12/13/2019. PHYSICAL EXAMINATION: On examination, blood pressure 127/67, heart rate 67 per minute, patient is afebrile. Examination of the heart S1, S2. Examination of the lungs, bilateral breath sounds are heard. Abdomen is soft, nontender. Examination of the lower extremities shows no evidence of edema. ASSESSMENT: 1. Acute kidney injury, hemodialysis dependent. 2. Bowel obstruction, now improved. 3. Status post right radical nephrectomy. 4. Chronic kidney disease stage III diabetic kidney disease, baseline creatinine 1.4- 1.8 mg/dL. PLAN: Follow up as outpatient for dialysis on Sunday at the [facility]. MMODL / IJN: [id number] /
[2019-12-17 15:44] VITALS: BP 137/63; PULSE 60; RESP 18; TEMP 98.4
--- NOTE | 2019-12-17 20:27 | P.DS ---
Providers Date of admission: 12/04/19 08:55 Attending physician: Desmond Bhatt MD Consults: General surgery Nephrology Primary care physician: [facility] Hospital Course: Mr Arenas is 74 yo male with hx of 6.5 cm right sided renal tumor. He underwent attempted robotic assisted partial nephrectomy converted to radical nephrectomy on 12/02. Please see op noted dated 12/02 for full surgery details. Patient was admitted to the surgical GPU post operatively. Post operatively patient was oliguric and had rising creatinine. Nephrology was consulted during the hospital admission. Of note patient had baseline CKD with creat baseline of 1.4-1.8. Due to patient rising creat a HD access catheter was placed on 12/07/19 and he was subsequently started on HD. He had worsening abdominal distension and he underwent a CT which showed SBO on 12/08, An NGT was placed. General surgery was consulted on 12/09/19. He underwent a repeat CT on 12/09 which also showed SBO. Patient SBO resolved with conservative management. Patient developed urinary re tention and swanson was placed on 12/11. Patient NGT was removed on 12/11, and he was started on diet. Patient bowel function improved and he was discharged home on 12/17. At time of discharge he was tolerating diet, ambulating, passing flatus and pain well controlled. He was discharged home with swanson and he will f/u for TOV and post op visit on 12/23. At time of discharge he will continue HD as an ou tpatient. Plan - Discharge Summary Discharge Rx Participant: No New Discharge Prescriptions: No Action Simvastatin [Zocor] 20 mg PO PC-SUPPER Hydrochlorothiazide [Hydrodiuril] 50 mg PO DAILY Glimepiride [Amaryl] 1 mg PO AC-BRKFST Aspirin [Adult Low Dose Aspirin EC] 81 mg PO HS Lisinopril [Prinivil] 30 mg PO 1200 Cholecalciferol [Vitamin D3 (25 Mcg = 1000 Iu)] 1,000 unit PO DAILY Carvedilol [Coreg*] 12.5 mg PO 0800,1800 Gabapentin [Neurontin] 300 mg PO BID Fenofibrate,Micronized [Fenofibrate] 200 mg PO HS Allopurinol [Zyloprim] 100 mg PO DAILY@1200,1800 metFORMIN HCL [Glucophage] 1,000 mg PO BID amLODIPine BESYLATE 10 mg PO DAILY Spironolactone [Aldactone] 50 mg PO DAILY Ubidecarenone [Co Q-10] 1,000 mg PO DAILY Discharge Medication List Allopurinol [Zyloprim] 100 mg PO DAILY@1200,1800 05/19/16 [History] Aspirin [Adult Low Dose Aspirin EC] 81 mg PO HS 05/19/16 [History] Carvedilol [Coreg*] 12.5 mg PO 0800,1800 05/19/16 [History] Cholecalciferol [Vitamin D3 (25 Mcg = 1000 Iu)] 1,000 unit PO DAILY 05/19/16 [History] Fenofibrate,Micronized [Fenofibrate] 200 mg PO HS 05/19/16 [History] Gabapentin [Neurontin] 300 mg PO BID 05/19/16 [History] Glimepiride [Amaryl] 1 mg PO AC-BRKFST 05/19/16 [History] Hydrochlorothiazide [Hydrodiuril] 50 mg PO DAILY 05/19/16 [History] Lisinopril [Prinivil] 30 mg PO 1200 05/19/16 [History] Simvastatin [Zocor] 20 mg PO PC-SUPPER 05/19/16 [History] Spironolactone [Aldactone] 50 mg PO DAILY 11/26/19 [History] Ubidecarenone [Co Q-10] 1,000 mg PO DAILY 11/26/19 [History] amLODIPine BESYLATE 10 mg PO DAILY 11/26/19 [History] metFORMIN HCL [Glucophage] 1,000 mg PO BID 11/26/19 [History] Follow up Appointment(s)/Referral(s): [facility], [NON-STAFF] - As Needed Desmond Bhatt MD [STAFF PHYSICIAN] - 12/23/19 8:20 am Patient Instructions/Handouts: Percutaneous Nephrolithotomy (DC) Activity/Diet/Wound Care/Special Instructions: Hemodialysis scheduled at [facility] ([phone].) Chair time of 2:30pm on //. Please arrive to first appointment at 2:15pm to complete paperwork No heavy lifting or straining for 4 weeks . Discharge Disposition: HOME SELF-CARE
--- NOTE | 2019-12-24 23:57 | CDI ---
Documentation Clarification Form Date: 12/25/2019 From: Rome Lindquist. Phone: If you have a question about this query, please contact Marilou Washburn Order Entry at [phone] between 8am and 5pm. Admit Date: 12/04/2019 Discharge Date: 12/17/2019 Patient Name: Kj Arenas Visit Number: [id number] ATTENTION: The Clinical Documentation Specialists (CDI) and [facility] Coding Staff appreciate your assistance in clarifying documentation. Please respond to the clarification below the line at the bottom and electronically sign. The CDI & [facility] Coding staff will review the response and follow-up if needed. Please note: Queries are made part of the Legal Health Record. If you have any questions, please contact the author of this message via ITS. Dear Desmond Loera., Patient was admitted with 6.5 cm right sided renal mass and underwent right radical nephrectomy. History/Risk Factors: Renal mass, ATN, hypertension. Current BUN/CR/GFR: BUN 79 H (9-20) mg/dL / GFR 7, 8, 9 Treatment: IVF, Placement of Dialysis catheter and hemodialysis. In 12/14, 12/15, 12/16 Dr. Linda Fajardo notes mentioned "Chronic kidney disease stage III secondary to diabetic kidney disease with baseline creatinine in the range of 1.4-1.8.GFR near baseline from November 25. Seems to have progressed to end-stage renal disease after the nephrectomy. In 12/[address] Christina Berg mentioned "Chronic kidney disease stage III diabetic kidney disease, baseline creatinine 1.4- 1.8 mg/dL". In order to capture the severity of condition, please clarify if the condition signifies: CKD Stage 1 (GFR > 90) CKD Stage 2 (GFR 60-89) CKD Stage 3 (GFR 30-59) CKD Stage 4 (GFR 15-29) CKD Stage 5 (GFR <15) ESRD Other, please specify Unable to determine At this time it's still considered CKD stage III, His current baseline will be better be assessed in 3 months following surgery whether he is still CKD stage 3 or ESRD. DENISE
== END 2019-12-17 16:19 | disposition home health service (06) | DRG 656 ==
LOC: OR 06:09 → 4SSUR 10:43 → OR 12-04 08:55 → 4SSUR 12-04 08:55
PROVIDERS: ADMIT Urology; ATTEND Urology
DX: D30.01 Benign neoplasm of right kidney (principal); N17.0 Acute kidney failure with tubular necrosis; E87.2 Acidosis; K56.699 Other intestinal obstruction unspecified as to partial versus complete obstruction; E78.5 Hyperlipidemia, unspecified; E87.70 Fluid overload, unspecified; E11.43 Type 2 diabetes mellitus with diabetic autonomic (poly)neuropathy; E11.42 Type 2 diabetes mellitus with diabetic polyneuropathy; I12.9 Hypertensive chronic kidney disease with stage 1 through stage 4 chronic kidney disease, or unspecified chronic kidney disease; E11.22 Type 2 diabetes mellitus with diabetic chronic kidney disease; R33.9 Retention of urine, unspecified; E83.42 Hypomagnesemia; E86.9 Volume depletion, unspecified; H91.90 Unspecified hearing loss, unspecified ear; N18.3 Chronic kidney disease, stage 3 (moderate); I25.10 Atherosclerotic heart disease of native coronary artery without angina pectoris; J44.9 Chronic obstructive pulmonary disease, unspecified; K31.84 Gastroparesis; Z79.82 Long term (current) use of aspirin; Z79.84 Long term (current) use of oral hypoglycemic drugs; Z79.899 Other long term (current) drug therapy; Z87.891 Personal history of nicotine dependence; Z90.5 Acquired absence of kidney; Z99.2 Dependence on renal dialysis; Z85.528 Personal history of other malignant neoplasm of kidney; Z95.5 Presence of coronary angioplasty implant and graft; Z90.49 Acquired absence of other specified parts of digestive tract; Z80.1 Family history of malignant neoplasm of trachea, bronchus and lung
CPT/HCPCS: 36558; 64486; 71045; 74018; 74019; 74022; 74176; 76770; 76937; 77001; 80048; 80053; 81001; 83036; 83735; 84484; 85025; 86706; 86850; 86900; 86901; 87340; 88305; 88307; 88341; 88342; 90935

== ENCOUNTER 2021-07-28 08:46 | Day surgery (SDC) | payer MEDICARE ==
[2021-07-28 09:49] LABS: Mean Platelet Volume 8.4; Platelet Count 276 k/uL (150-450)
[2021-07-28 09:54] LABS: Prothrombin Time 10.7 sec (9.0-12.0)
[2021-07-28 10:20] VITALS: RESP 18; TEMP 98.1
[2021-07-28 11:31] VITALS: BP 143/52; PULSE 66
--- NOTE | 2021-07-28 11:54 | XR ---
EXAMINATION TYPE: XR chest 1V DATE OF EXAM: 07/28/2021 COMPARISON: Chest x-ray 12/07/2019 HISTORY: Status post left thoracentesis TECHNIQUE: Single frontal view of the chest is obtained. FINDINGS: Some minimal blunting of the left costophrenic angle and patchy basilar densities persist at the left lung base. There is no evident pneumothorax. Aorta is dense. Cardiac mediastinal silhouet te within normal limits. Central venous catheters been removed. Right lung is clear. Bone mineralizat ion is stable. IMPRESSION: No evident complication status post left thoracentesis
--- NOTE | 2021-07-28 12:11 | US ---
EXAMINATION TYPE: US thoracentesis DATE OF EXAM: 07/28/2021 COMPARISON: NONE HISTORY: Pleural effusion and a left. FINDINGS: Maximal barrier technique was utilized. The skin overlying a suitable pocket of fluid was localized and the overlying skin prepped and draped. Lidocaine was used for local anesthesia. Ultras ound was used with sterile technique. A 5 Bulgarian catheter over a guide needle was advanced into the pleural fluid collection using ultrasound guidance and the catheter advanced, needle removed. Approx imately 0.8 liter(s) of serous fluid was removed. Catheter was withdrawn and hemostasis achieved. T here is no immediate complication. The patient discharged in stable condition without complication. IMPRESSION: STATUS POST ULTRASOUND GUIDED THORACENTESIS, POST PROCEDURE CHEST X-RAY PENDING. THIS [place] OCEDURE WAS PERFORMED BY THE UNDERSIGNED. Specimen sent for laboratory analysis.
[2021-07-28 15:30] LABS: Appearance,BF Cloudy; Nucleated Cells, Body Fluid 1000 /uL; RBC, Body Fluid 1900 /uL
[2021-07-28 16:04] LABS: Mononuclear WBC,Body Fluid 90 %; Total Cells Counted,Body Fluid 100
[2021-07-31 17:09] LABS: Glucose, BF Source Pleural Fluid; Glucose, Body Fluid 248 mg/dL; LDH, Body Fluid Source Pleural Fluid; Total Protein, Body Fluid 4730 mg/dL
== END 2021-07-28 11:20 | disposition home or self-care (01) ==
LOC: RADPROMAIN 08:46
PROVIDERS: ATTEND Internal Medicine
DX: J90 Pleural effusion, not elsewhere classified (principal); C64.9 Malignant neoplasm of unspecified kidney, except renal pelvis; Z98.890 Other specified postprocedural states
CPT/HCPCS: 32555; 36415; 71045; 82945; 82947; 83615; 84157; 85049; 85610; 87070; 87075; 87116; 87205; 87206; 88108; 88305; 89050

== ENCOUNTER 2022-01-17 09:36 | Inpatient (IN) | payer MEDICARE ==
[2022-01-17] MEDS ORDERED: SODIUM CHLORIDE 0.9% 500 ML 500 ML IV STA (10:15)
[2022-01-17 10:36] LABS: Basophils % (A) 0 %; Eosinophils # (A) 0.1 k/uL (0-0.7); Eosinophils % (A) 1 %; HCT 41.5 % (39.0-53.0); HGB 13.3 gm/dL (13.0-17.5); Lymphocytes # (A) 0.8 k/uL (1.0-4.8); Lymphocytes % (A) 6 %; MCV 103.2 fL (80.0-100.0); Macrocytosis Slight; Mean Platelet Volume 9.8; Monocytes # (A) 0.7 k/uL (0-1.0); Monocytes % (A) 5 %; Neutrophils # (A) 11.3 k/uL (1.3-7.7); Neutrophils % (A) 86 %; Platelet Count 289 k/uL (150-450); RBC 4.02 m/uL (4.30-5.90); RDW 14.2 % (11.5-15.5); WBC 13.1 k/uL (3.8-10.6)
--- NOTE | 2022-01-17 10:39 | XR ---
EXAMINATION TYPE: XR chest 2V DATE OF EXAM: 01/17/2022 COMPARISON: Chest x-ray July 28, 2021. More recent outside x-ray October 11, 2021. HISTORY: Lower chest pain and vomiting. History of thoracentesis July 28, 2021. TECHNIQUE: Frontal and lateral views of the chest are obtained. FINDINGS: Cardiac silhouette size stable and upper limits of normal. There is new [id number] size left pleural effusion and associated left basilar opacity favoring atelectasis. Tiny right pleur al effusion or pleural thickening is stable The osseous structures are intact. IMPRESSION: Recurrent small to moderate size left pleural effusion.
[2022-01-17 10:45] LABS: ALT 248 U/L (4-49); AST 520 U/L (17-59); African American GFR (CKD) 10 (>60 ml/min/1.73 sqM); Albumin 4.2 g/dL (3.5-5.0); Alkaline Phosphatase 97 U/L (38-126); Anion Gap 12 mmol/L; Blood Urea Nitrogen 46 mg/dL (9-20); Calcium 9.4 mg/dL (8.4-10.2); Carbon Dioxide 31 mmol/L (22-30); Chloride 97 mmol/L (98-107); Glucose 214 mg/dL (74-99); Non-African American GFR(CKD) 8 (>60 ml/min/1.73 sqM); Potassium 5.2 mmol/L (3.5-5.1); Sodium 140 mmol/L (137-145); Total Bilirubin 2.9 mg/dL (0.2-1.3); Total Protein 8.1 g/dL (6.3-8.2)
[2022-01-17 10:48] LABS: Partial Thromboplastin Time 24.3 sec (22.0-30.0); Prothrombin Time 10.9 sec (9.0-12.0)
--- NOTE | 2022-01-17 10:59 | ED ---
General Adult HPI - General Chief complaint: Nausea/Vomiting/Diarrhea Stated complaint: Nausea vomiting Time Seen by Provider: 01/17/22 10:01 Source: patient, EMS Mode of arrival: EMS Limitations: no limitations - History of Present Illness Initial comments: This 76-year-old male past history of CKD who is on dialysis presents emergency Department with vomiting and diarrhea. Patient states last Sunday he had 2-3 episodes of vomiting today carried into Sunday before his primary care doctor gave him Zofran which she has been taking until 3 days ago when he stopped taking the Zofran. Patient states this morning around 3 AM he began to vomit again. Patient states that he has had 5-6 episodes of vomiting since 3 AM. Patient states he does have sweats and chills but denies having a fever. Patient states his vomit was dark brown and does have a bag with him that has vomiting that does not seem to be tarry black or bloody in appearance. Patient states he does have some abdominal pain in his left lower side. Patient states they did give him Zofran in the EMS which seemed to slightly relieved his nausea. Patient states he is on is soft day of dialysis and is post receiving dialysis again tomorrow. Patient denies any chest pain, shortness of breath, hematochezia, cough, back pain, neck pain, lightheadedness, dizziness, headache, change in vision. - Related Data Home Medications Medication Instructions Recorded Confirmed Allopurinol [Zyloprim] 100 mg PO BID-W/MEALS 05/19/16 01/17/22 Fenofibrate,Micronized 200 mg PO HS 05/19/16 01/17/22 [Fenofibrate] Gabapentin [Neurontin] 300 mg PO DAILY 05/19/16 01/17/22 Glimepiride [Amaryl] 1 mg PO AC-BRKFST 05/19/16 01/17/22 Simvastatin [Zocor] 20 mg PO W/SUPPER 05/19/16 01/17/22 carvediloL [Coreg*] 12.5 mg PO BID@1200,1800 05/19/16 01/17/22 Ubidecarenone [Co Q-10] 100 mg PO DAILY 11/26/19 01/17/22 Apixaban [Eliquis] 5 mg PO BID@1200,2100 01/17/22 01/17/22 Cholecalciferol [Vitamin D3 (25 50 mcg PO W/LUNCH 01/17/22 01/17/22 Mcg = 1000 Iu)] Furosemide [Lasix] 40 mg PO W/LUNCH 01/17/22 01/17/22 amLODIPine [Norvasc] 2.5 mg PO HS 01/17/22 01/17/22 lisinopriL 40 mg PO W/LUNCH 01/17/22 01/17/22 sitaGLIPtin PHOSPHATE [Januvia] 25 mg PO W/LUNCH 01/17/22 01/17/22 Allergies Allergy/AdvReac Type Severity Reaction Status Date / Time No Known Allergies Allergy Verified 01/17/22 11:43 Review of Systems ROS Statement: Those systems with pertinent positive or pertinent negative responses have been documented in the HPI. ROS Other: All systems not noted in ROS Statement are negative. Past Medical History Past Medical History: Coronary Artery Disease (CAD), Chest Pain / Angina, Di abetes Mellitus, Dialysis, Hyperlipidemia, Hypertension Additional Past Medical History / Comment(s): hx migraine, varicose veins, neuropathy, gout, "damaged kidneys-stage 3-from diabetes" kidney removed - right- benign History of Any Multi-Drug Resistant Organisms: None Reported Past Surgical History: Heart Catheterization Additional Past Surgical History / Comment(s): Stent to LAD 06/07/16, tons ilitis, right kidney, dialysis shunt - left arm Past Anesthesia/Blood Transfusion Reactions: No Reported Reaction Date of Last Stent Placement:: 06/07/16 Past Psychological History: No Psychological Hx Reported Smoking Status: Former smoker Past Alcohol Use History: Rare Past Drug Use History: None Reported - Past Family History Father Family Medical History: Cancer Additional Family Medical History / Comment(s): Lung General Exam Limitations: no limitations General appearance: alert, in no apparent distress Head exam: Present: atraumatic, normocephalic, normal inspection Eye exam: Present: normal appearance, PERRL, EOMI. Absent: scleral icterus, conjunctival injection, periorbital swelling ENT exam: Present: normal exam, mucous membranes moist Neck exam: Present: normal inspection, full ROM. Absent: tenderness, meningismus, lymphadenopathy Respiratory exam: Present: normal lung sounds bilaterally. Absent: respiratory distress, wheezes, rales, rhonchi, stridor, chest wall tenderness Cardiovascular Exam: Present: regular rate, normal rhythm, normal heart sounds. Absent: systolic murmur, diastolic murmur, rubs, gallop, clicks GI/Abdominal exam: Present: soft, normal bowel sounds. Absent: distended, tenderness, guarding, rebound, rigid Extremities exam: Present: full ROM. Absent: tenderness, calf tenderness Back exam: Present: normal inspection, full ROM. Absent: CVA tenderness (R), CVA tenderness (L), paraspinal tenderness Neurological exam: Present: alert, oriented X3, CN II-XII intact Psychiatric exam: Present: normal affect, normal mood Skin exam: Present: warm, dry, intact, normal color. Absent: rash Course Vital Signs 01/17/22 01/17/22 09:53 12:21 Temperature 97.6 F Pulse Rate 58 L 56 L Respiratory 18 16 Rate Blood Pressure 98/55 118/59 O2 Sat by Pulse 98 96 Oximetry Medical Decision Making - Medical Decision Making This 76-year-old male presents emergency Department with nausea and vomiting 1 day. Labs with 13.1 and white blood cells, lipase 20,000, AST 520, ALT 248. Patient is due for dialysis tomorrow. Chest x-ray with recurrent small to moderate-sized left pleural effusion. CT abdomen and pelvis without contrast with bilateral fat-containing inguinal hernias. Cholelithiasis without convincing evidence of acute cholecystitis. Left pleural effusion with adjacent pleural thickening and subsegmental atelectasis, empyema cannot be excluded. Patient without cough, shortness of breath or chest pain. Ultrasound gallbladder impression of gallstones without secondary ultrasound evidence for acute cholecystitis. Consider HIDA scan follow-up. I did discuss case with who agreed to admit patient to his services with nephrology and surgery consulted. I did discuss case with who agreed to evaluate and see patient. Patient verbally agreed to stay in hospital for further evaluation, workup and treatment. Patient is nothing by mouth and receiving 100mls/hr normal saline which was requested by admitting physician. Discussed case in detail with the attending, . - Lab Data Result diagrams: 01/17/22 10:19 01/17/22 10:19 Lab Results 01/17/22 01/17/22 01/17/22 Range/Units 10:19 10:19 10:19 WBC 13.1 H (3.8-10.6) k/uL RBC 4.02 L (4.30-5.90) m/uL Hgb 13.3 (13.0-17.5) gm/dL Hct 41.5 (39.0-53.0) % MCV 103.2 H (80.0-100.0) fL MCH 33.0 (25.0-35.0) pg MCHC 32.0 (31.0-37.0) g/dL RDW 14.2 (11.5-15.5) % Plt Count 289 (150-450) k/uL MPV 9.8 Neutrophils % 86 % Lymphocytes % 6 % Monocytes % 5 % Eosinophils % 1 % Basophils % 0 % Neutrophils # 11.3 H (1.3-7.7) k/uL Lymphocytes # 0.8 L (1.0-4.8) k/uL Monocytes # 0.7 (0-1.0) k/uL Eosinophils # 0.1 (0-0.7) k/uL Basophils # 0.0 (0-0.2) k/uL Macrocytosis Slight PT 10.9 (9.0-12.0) sec INR 1.0 (<1.2) APTT 24.3 (22.0-30.0) sec Sodium 140 (137-145) mmol/L Potassium 5.2 H (3.5-5.1) mmol/L Chloride 97 L (98-107) mmol/L Carbon Dioxide 31 H (22-30) mmol/L Anion Gap 12 mmol/L BUN 46 H (9-20) mg/dL Creatinine 5.94 H (0.66-1.25) mg/dL Est GFR (CKD-EPI)AfAm 10 (>60 ml/min/1.73 sqM) Est GFR (CKD-EPI)NonAf 8 (>60 ml/min/1.73 sqM) Glucose 214 H (74-99) mg/dL Plasma Lactic Acid Matthew (0.7-2.0) mmol/L Calcium 9.4 (8.4-10.2) mg/dL Total Bilirubin 2.9 H (0.2-1.3) mg/dL AST 520 H (17-59) U/L ALT 248 H (4-49) U/L Alkaline Phosphatase 97 (38-126) U/L Total Protein 8.1 (6.3-8.2) g/dL Albumin 4.2 (3.5-5.0) g/dL Lipase >28806 H (23-300) U/L 01/17/22 Range/Units 10:19 WBC (3.8-10.6) k/uL RBC (4.30-5.90) m/uL Hgb (13.0-17.5) gm/dL Hct (39.0-53.0) % MCV (80.0-100.0) fL MCH (25.0-35.0) pg MCHC (31.0-37.0) g/dL RDW (11.5-15.5) % Plt Count (150-450) k/uL MPV Neutrophils % % Lymphocytes % % Monocytes % % Eosinophils % % Basophils % % Neutrophils # (1.3-7.7) k/uL Lymphocytes # (1.0-4.8) k/uL Monocytes # (0-1.0) k/uL Eosinophils # (0-0.7) k/uL Basophils # (0-0.2) k/uL Macrocytosis PT (9.0-12.0) sec INR (<1.2) APTT (22.0-30.0) sec Sodium (137-145) mmol/L Potassium (3.5-5.1) mmol/L Chloride (98-107) mmol/L Carbon Dioxide (22-30) mmol/L Anion Gap mmol/L BUN (9-20) mg/dL Creatinine (0.66-1.25) mg/dL Est GFR (CKD-EPI)AfAm (>60 ml/min/1.73 sqM) Est GFR (CKD-EPI)NonAf (>60 ml/min/1.73 sqM) Glucose (74-99) mg/dL Plasma Lactic Acid Matthew 1.6 (0.7-2.0) mmol/L Calcium (8.4-10.2) mg/dL Total Bilirubin (0.2-1.3) mg/dL AST (17-59) U/L ALT (4-49) U/L Alkaline Phosphatase (38-126) U/L Total Protein (6.3-8.2) g/dL Albumin (3.5-5.0) g/dL Lipase (23-300) U/L - Radiology Data Radiology results: report reviewed, image reviewed Disposition Clinical Impression: Pancreatitis, Nausea and vomiting, Pleural effusion, left, Cholelithiasis Disposition: ADMITTED IP TO THIS [facility] Condition: Serious
[2022-01-17 11:25] LABS: Lipase >20000 U/L (23-300)
--- NOTE | 2022-01-17 12:00 | CT ---
EXAMINATION TYPE: CT abdomen pelvis wo con DATE OF EXAM: 01/17/2022 COMPARISON: CT dated 12/09/2019 HISTORY: LLQ pain, Nausea and vomiting CT DLP: 759.9 mGycm Automated exposure control for dose reduction was used. TECHNIQUE: Helical acquisition of images was performed from the lung bases through the pelvis. No IV contrast administration. FINDINGS: LUNG BASES: Moderate left pleural effusion with adjacent pleural thickening, empyema can't be exclude d. Adjacent subsegmental pulmonary atelectasis. Coronary arterial atherosclerotic calcifications. LIVER/GB: 3 mm right hepatic lobe calcification, appreciated previously. No other definite hepatic fo yue lesion identified by this nonenhanced CT scan. Cholelithiasis without convincing evidence of acut e cholecystitis. PANCREAS: Tiny pancreatic calcifications, stable. SPLEEN: No significant abnormality is seen. ADRENALS: No significant abnormality is seen. KIDNEYS: Previous right nephrectomy. Bowel loops are seen at the nephrectomy bed with suspected adhes ions. Left renal cysts without suspicious feature. No left-sided hydroureter or hydronephrosis. FREE AIR: No free air is visualized RETROPERITONEAL ADENOPATHY: None visualized REPRODUCTIVE ORGANS: Enlarged prostate, please correlate with PSA level. Unremarkable seminal vesicle s. URINARY BLADDER: Not completely distended. PELVIC ADENOPATHY: None visualized. OSSEOUS STRUCTURES: No gross aggressive bone lesion. BOWEL: Unremarkable nondistended stomach and duodenum. Suspected previous small bowel resection and anastomosis in the right side of the abdomen, otherwise unremarkable small bowel. No gross colonic ab normality. OTHER: Arterial atherosclerotic calcification with infrarenal abdominal aortic ectasia measuring up t o 2.9 cm. No sizable ascites. Bilateral fat-containing inguinal hernias. IMPRESSION: No definite acute abnormality seen in the abdomen or the pelvis. Bilateral fat-containing inguinal he rnias. Cholelithiasis without convincing evidence of acute cholecystitis. Left pleural effusion with adjacent pleural thickening and subsegmental atelectasis, empyema cannot b e excluded, please correlate clinically. Other incidental findings as detailed above.
[2022-01-17] MEDS ORDERED: MORPHINE SULFATE 2 MG/ML SYRINGE IVP STA (12:28)
--- NOTE | 2022-01-17 13:46 | US ---
EXAMINATION TYPE: US gallbladder DATE OF EXAM: 01/17/2022 COMPARISON: CT today CLINICAL HISTORY: Cholelithiasis. 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 Evidence for sonographic Heredia's sign: yes CBD: wnl Visualized pancreas is slightly heterogeneous in appearance without worrisome mass or ductal dilatati on. Visualized portion of liver is heterogeneously hyperechoic without mass or ductal dilatation. Gal lbladder shows mobile shadowing gallstones . Sonographic Heredia's sign positive. No abnormal gallblad meera wall thickening or surrounding fluid. Right kidney is surgically absent. IMPRESSION: Gallstones without secondary ultrasound evidence for acute cholecystitis however in patie nt with sonographic Heredia sign cannot be entirely excluded. Consider HIDA scan follow-up based on cl inical correlation.
[2022-01-17] MEDS ORDERED: NALOXONE 0.4 MG/ML 1 ML VIAL IV PRN (16:07)
[2022-01-17] MEDS ORDERED: MORPHINE SULFATE 4 MG/ML SYRINGE IV PRN (16:07)
[2022-01-17] MEDS ORDERED: MELATONIN 3 MG TABLET PO PRN (16:39)
[2022-01-17] MEDS ORDERED: CALCIUM CARBONATE 500 MG CHEWABLE PO PRN (16:39)
[2022-01-17] MEDS ORDERED: LACTULOSE 20 GM/30 ML CUP PO PRN (16:39)
[2022-01-17] MEDS ORDERED: LORazepam 0.5 MG TAB PO PRN (16:39)
--- NOTE | 2022-01-17 16:50 | P.HPIM ---
History of Present Illness H&P Date: 01/17/22 Chief Complaint: Abdominal pain This is a pleasant 76-year-old patient of Dr. Kj Jiang. 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 Patient is accompanied by his in the ER. Has been having abdominal pain on and off. Today had a flareup of upper abdominal pain. Vomiting several times. No fever no chills. Presented to ER no change in bowel pattern. Found an acute pancreatitis and gallstones. No CBD dilatation. Review of systems: GEN.: Tired EYES: None HEENT: None NECK: None RESPIRATORY: None CARDIOVASCULAR: None GASTROINTESTINAL: As above GENITOURINARY: None MUSCULOSKELETAL: None LYMPHATICS: None HEMATOLOGICAL: None PSYCHIATRY: None NEUROLOGICAL: None Past medical history to include: CAD with stent to LAD in 2016, diabetes, end-stage kidney disease on he modialysis left upper extremity AV fistula, hyperlipidemia, hypertension, migraines, varicose veins, peripheral neuropathy, gout, right kidney removed, Social history: Patient smoked for 30 years stopped 22 years ago. Smoked 2 packs a day. Alcohol rarely. . Family history Lung cancer Physical examination: VITAL SIGNS: 97.6, 58, 18, 98/55, 98% room air GENERAL: BMI 25.3, laying in bed, awake, tired. EYES: Pupils equal. Conjunctiva normal. HEENT: External appearance of nose and ears normal, oral cavity grossly normal. NECK: JVD not raised; masses not palpable. HEART: First and second heart sounds are normal; no edema. LUNGS: Respiratory rate normal; clear to auscultation. ABDOMEN: Soft, upper abdominal tenderness, no guarding rigidity, liver spleen not palpable, no masses palpable. EXTREMITIES: Left upper extremity AV fistula PSYCH: Alert and oriented x3; mood and affect normal. MUSCULOSKELETAL:No Clubbing/cyanosis;muscles-grossly intact NEUROLOGICAL: Cranial nerves grossly intact; no facial asymmetry, power and sensation grossly intact. LYMPHATICS: No lymph nodes palpable in the axilla and neck INVESTIGATIONS, reviewed in the clinical context: White count 13.1 hemoglobin 13.3 platelets 29 potassium 5.2 BUN 46 creatinine 5.94 Total bilirubin 2.9 AST 528 5248 lipase greater than 20,000 Computed tomography scan abdomen and pelvis without contrast: Moderate left pleural effusion. Atelectasis. Some coronary calcification. Gallstones. Previous right nephrectomy. Ultrasound gallbladder: Multiple mobile stones. CBD within normal limits. Assessment and plan: -Acute gallstone pancreatitis the patient's had abdominal pain on and off for about a month. This presentation is rather acute with vomiting for less than 24 hours. Note data CBD is not dilated. Keep nothing by mouth except for ice chips and medications. GI services not available in the hospital. General surgery consulted. -Gallstones with CBD being normal. Some point down the road patient will need cholecystectomy. -CAD with stent to LAD in 2016 Coreg 12.5 mg by mouth twice a day -Diabetes mellitus type 2 on oral hypoglycemic General via 25 minutes with lunch Amaryl 1 mg with breakfast -End-stage kidney disease on hemodialysis with left upper extremity AV fistula Consult nephrology for dialysis -Hyperlipidemia Zocor 20 mg daily at bedtime -Essential hypertension Lisinopril 40 mg with lunch Norvasc 2.5 mg daily at bedtime Coreg 12.5 mg by mouth twice a day -Diabetic peripheral neuropathy Neurontin 300 mg a day -Chronic gout -Right nephrectomy Patient is on the dry side with having vomited several times. Not able to eat. We will hold off patient's Norvasc and lisinopril. IV fluids. Consult nephrology for dialysis. Nothing by mouth except for ice chips and oral medications. Consult general surgery. GI services not available in the hospital. Hold oral hypoglycemic. Follow Accu-Cheks. Care was discussed with the patient at the bedside. Past Medical History Past Medical History: Coronary Artery Disease (CAD), Chest Pain / Angina, Diabetes Mellitus, Dialysis, Hyperlipidemia, Hypertension Additional Past Medical History / Comment(s): hx migraine, varicose veins, neuropathy, gout, "damaged kidneys-stage 3-from diabetes" kidney removed - right- benign History of Any Multi-Drug Resistant Organisms: None Reported Past Surgical History: Heart Catheterization Additional Past Surgical History / Comment(s): Stent to LAD 06/07/16, tonsilitis, right kidney, dialysis shunt - left arm Past Anesthesia/Blood Transfusion Reactions: No Reported Reaction Date of Last Stent Placement:: 06/07/16 Past Psychological History: No Psychological Hx Reported Smoking Status: Former smoker Past Alcohol Use History: Rare Past Drug Use History: None Reported - Past Family History Father Family Medical History: Cancer Additional Family Medical History / Comment(s): Lung Medications and Allergies Home Medications Medication Instructions Recorded Confirmed Type Allopurinol [Zyloprim] 100 mg PO BID-W/MEALS 05/19/16 01/17/22 History Fenofibrate,Micronized 200 mg PO HS 05/19/16 01/17/22 History [Fenofibrate] Gabapentin [Neurontin] 300 mg PO DAILY 05/19/16 01/17/22 History Glimepiride [Amaryl] 1 mg PO AC-BRKFST 05/19/16 01/17/22 History Simvastatin [Zocor] 20 mg PO W/SUPPER 05/19/16 01/17/22 History carvediloL [Coreg*] 12.5 mg PO BID@1200,1800 05/19/16 01/17/22 History Ubidecarenone [Co Q-10] 100 mg PO DAILY 11/26/19 01/17/22 History Apixaban [Eliquis] 5 mg PO BID@1200,2100 01/17/22 01/17/22 History Cholecalciferol [Vitamin D3 (25 50 mcg PO W/LUNCH 01/17/22 01/17/22 History Mcg = 1000 Iu)] Furosemide [Lasix] 40 mg PO W/LUNCH 01/17/22 01/17/22 History amLODIPine [Norvasc] 2.5 mg PO HS 01/17/22 01/17/22 History lisinopriL 40 mg PO W/LUNCH 01/17/22 01/17/22 History sitaGLIPtin PHOSPHATE [Januvia] 25 mg PO W/LUNCH 01/17/22 01/17/22 History Allergies Allergy/AdvReac Type Severity Reaction Status Date / Time No Known Allergies Allergy Verified 01/17/22 11:43 Physical Exam Vitals: Vital Signs Temp Pulse Resp BP Pulse Ox 01/17/22 12:21 56 L 16 118/59 96 01/17/22 09:53 97.6 F 58 L 18 98/55 98 Intake and Output 01/17/22 01/17/22 01/17/22 06:59 14:59 22:59 Other: Weight 89.358 kg Results CBC & Chem 7: 01/17/22 10:19 01/17/22 10:19 Labs: Abnormal Lab Results - Last 24 Hours (Table) 01/17/22 01/17/22 Range/Units 10:19 10:19 WBC 13.1 H (3.8-10.6) k/uL RBC 4.02 L (4.30-5.90) m/uL MCV 103.2 H (80.0-100.0) fL Neutrophils # 11.3 H (1.3-7.7) k/uL Lymphocytes # 0.8 L (1.0-4.8) k/uL Potassium 5.2 H (3.5-5.1) mmol/L Chloride 97 L (98-107) mmol/L Carbon Dioxide 31 H (22-30) mmol/L BUN 46 H (9-20) mg/dL Creatinine 5.94 H (0.66-1.25) mg/dL Glucose 214 H (74-99) mg/dL Total Bilirubin 2.9 H (0.2-1.3) mg/dL AST 520 H (17-59) U/L ALT 248 H (4-49) U/L Lipase >13138 H (23-300) U/L
[2022-01-17 17:12] LABS: Glucose,Whole Blood 89 mg/dL (75-99)
[2022-01-17] MEDS: carvediloL 12.5 MG TAB PO SCH (17:20)
[2022-01-17] MEDS: allopurinoL 100 MG TAB PO SCH (17:20)
[2022-01-17] MEDS: ATORVASTATIN 10 MG TAB PO SCH (17:20)
[2022-01-17] MEDS: INSULIN ASPART (NovoLOG) 100 UNIT/ML VIAL SQ SCH (17:21)
[2022-01-17] MEDS: SODIUM CHLORIDE 0.9% 1,000 ML IV SCH (19:13)
[2022-01-17] MEDS ORDERED: amLODIPine 2.5 MG TAB PO SCH (21:00)
[2022-01-17] MEDS ORDERED: APIXABAN 5 MG TAB PO SCH (21:00)
[2022-01-17] MEDS: ONDANSETRON 4 MG/2 ML VIAL IVP PRN (22:34)
[2022-01-18 00:48] LABS: Glucose,Whole Blood 84 mg/dL (75-99)
[2022-01-18] MEDS: FENOFIBRATE 160 MG TAB PO SCH ×2 (01:06→20:09)
[2022-01-18 06:02] LABS: Glucose,Whole Blood 75 mg/dL (75-99)
[2022-01-18] MEDS: ONDANSETRON 4 MG/2 ML VIAL IVP PRN (06:12)
[2022-01-18 06:23] LABS: Lipase 1763 U/L (23-300)
[2022-01-18 06:32] LABS: Amylase 617 U/L (30-110)
[2022-01-18 07:03] LABS: Glucose,Whole Blood 84 mg/dL (75-99)
[2022-01-18] MEDS: GABAPENTIN 300 MG CAP PO SCH (08:00)
[2022-01-18] MEDS: allopurinoL 100 MG TAB PO SCH ×2 (08:00→17:22)
[2022-01-18 08:55] LABS: Basophils # (A) 0.1 k/uL (0-0.2); Basophils % (A) 1 %; Eosinophils # (A) 0.2 k/uL (0-0.7); Eosinophils % (A) 2 %; HGB 11.8 gm/dL (13.0-17.5); Lymphocytes # (A) 1.2 k/uL (1.0-4.8); Lymphocytes % (A) 13 %; MCH 31.9 pg (25.0-35.0); MCHC 30.3 g/dL (31.0-37.0); MCV 105.3 fL (80.0-100.0); Macrocytosis Moderate; Mean Platelet Volume 9.6; Monocytes # (A) 0.6 k/uL (0-1.0); Monocytes % (A) 7 %; Neutrophils # (A) 6.8 k/uL (1.3-7.7); Neutrophils % (A) 76 %; Platelet Count 260 k/uL (150-450); RDW 13.9 % (11.5-15.5)
[2022-01-18 09:30] LABS: ALT 163 U/L (4-49); AST 167 U/L (17-59); African American GFR (CKD) 8 (>60 ml/min/1.73 sqM); Albumin 3.6 g/dL (3.5-5.0); Albumin/Globulin Ratio 1.2; Alkaline Phosphatase 67 U/L (38-126); Anion Gap 16 mmol/L; Blood Urea Nitrogen 64 mg/dL (9-20); Calcium 9.2 mg/dL (8.4-10.2); Carbon Dioxide 26 mmol/L (22-30); Chloride 102 mmol/L (98-107); Globulin 3.1 g/dL; Glucose 68 mg/dL (74-99); Non-African American GFR(CKD) 7 (>60 ml/min/1.73 sqM); Potassium 4.4 mmol/L (3.5-5.1); Sodium 144 mmol/L (137-145); Total Bilirubin 1.3 mg/dL (0.2-1.3); Total Protein 6.7 g/dL (6.3-8.2)
[2022-01-18] MEDS: INSULIN ASPART (NovoLOG) 100 UNIT/ML VIAL SQ SCH ×3 (10:34→17:10)
[2022-01-18 10:36] LABS: Glucose,Whole Blood 82 mg/dL (75-99)
[2022-01-18 11:28] LABS: Glucose,Whole Blood 78 mg/dL (75-99)
--- NOTE | 2022-01-18 11:47 | P.NPCON ---
History of Present Illness - Reason for Consult end stage renal disease - History of Present Illness Patient is a 76-year-old male with end-stage renal disease on hemodialysis on a Sunday schedule at the [facility] [[email or web address] Patient is admitted to the hospital with complaints of nausea and vomiting and upper abdominal pain. Patient has been compliant with his treatments as outpatient. 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 History of Any Multi-Drug Resistant Organisms: None Reported Past Surgical History: Heart Catheterization With Stent Additional Past Surgical History / Comment(s): Stent to LAD 06/07/16, tonsilitis, right kidney, dialysis fistula- left upper arm Past Anesthesia/Blood Transfusion Reactions: No Reported Reaction Date of Last Stent Placement:: 2015 Past Psychological History: No Psychological Hx Reported Additional Psychological History / Comment(s): R/T family deaths Smoking Status: Former smoker Past Alcohol Use History: Rare Additional Past Alcohol Use History / Comment(s): smoked for 20-30 yrs, quit 22 yrs ago, smoked 2 PPD Past Drug Use History: None Reported - Past Family History Father Family Medical History: Cancer Additional Family Medical History / Comment(s): Lung Medications and Allergies Home Medications Medication Instructions Recorded Confirmed Type Allopurinol [Zyloprim] 100 mg PO BID-W/MEALS 05/19/16 01/17/22 History Fenofibrate,Micronized 200 mg PO HS 05/19/16 01/17/22 History [Fenofibrate] Gabapentin [Neurontin] 300 mg PO DAILY 05/19/16 01/17/22 History Glimepiride [Amaryl] 1 mg PO AC-BRKFST 05/19/16 01/17/22 History Simvastatin [Zocor] 20 mg PO W/SUPPER 05/19/16 01/17/22 History carvediloL [Coreg*] 12.5 mg PO BID@1200,1800 05/19/16 01/17/22 History Ubidecarenone [Co Q-10] 100 mg PO DAILY 11/26/19 01/17/22 History Apixaban [Eliquis] 5 mg PO BID@1200,2100 01/17/22 01/17/22 History Cholecalciferol [Vitamin D3 (25 50 mcg PO W/LUNCH 01/17/22 01/17/22 History Mcg = 1000 Iu)] Furosemide [Lasix] 40 mg PO W/LUNCH 01/17/22 01/17/22 History amLODIPine [Norvasc] 2.5 mg PO HS 01/17/22 01/17/22 History lisinopriL 40 mg PO W/LUNCH 01/17/22 01/17/22 History sitaGLIPtin PHOSPHATE [Januvia] 25 mg PO W/LUNCH 01/17/22 01/17/22 History Allergies Allergy/AdvReac Type Severity Reaction Status Date / Time No Known Allergies Allergy Verified 01/17/22 11:43 Physical Exam Vitals: Vital Signs Temp Pulse Pulse Resp BP BP Pulse Ox 01/18/22 08:20 55 L 17 01/18/22 08:03 98.7 F 55 L 17 131/64 01/18/22 05:49 97.7 F 55 L 16 125/67 95 01/17/22 22:00 98.1 F 52 L 16 131/65 96 01/17/22 21:14 57 L 18 141/89 96 01/17/22 20:00 52 L 16 01/17/22 19:47 62 18 133/59 97 01/17/22 18:47 57 L 16 118/63 94 L 01/17/22 12:21 56 L 16 118/59 96 Intake and Output 01/17/22 01/18/22 01/18/22 22:59 06:59 14:59 Intake Total 590 Balance 590 Intake: Oral 590 Other: Voiding Method Urinal Weight 89.358 kg Patient is comfortable awake. Not in any acute distress. Alert and oriented 3 Examination of the heart S1 and S2 Examination lungs bilateral breath sounds are heard Abdomen is soft tenderness noted in the upper abdomen on the right side Examination of lower extremity shows no edema TEST EVALUATOR exam grossly intact Results - Lab Results Most recent lab results Calcium 9.2 mg/dL (8.4-10.2) 01/18/22 05:54 01/18/22 05:54 01/18/22 05:54 Assessment and Plan Assessment: 1. End-stage renal disease on hemodialysis on a Sunday s chedule 2. Abdominal pain and nausea and vomiting associated with cholelithiasis possible acute cholecystitis 3. CK D mineral bone disorder 4. Volume depletion 5. 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 Hypertension with CK D stage V Plan: Hemodialysis today No ultrafiltration Decrease IV fluids Add phosphate binders once eating.
[2022-01-18] MEDS: carvediloL 12.5 MG TAB PO SCH ×2 (12:20→17:22)
[2022-01-18] MEDS: CHOLECALCIFEROL 25 MCG (1000 IU) TABLET PO SCH (12:20)
[2022-01-18] MEDS ORDERED: lisinopriL 20 MG TAB PO SCH (12:30)
--- NOTE | 2022-01-18 12:53 | P.GSCN ---
History of Present Illness Consult date: 01/18/22 History of present illness: CHIEF COMPLAINT: Nausea and vomiting HISTORY OF PRESENT ILLNESS: This is a 76-year-old male who presented to hospital with nausea and vomiting and unable to keep anything down. He reports that he has been dealing with nausea and vomiting intermittently for about one month. Also experiences right upper quadrant and epigastric pain at times. The nausea and vomiting occurs after eating. He reports over the last couple days the vomiting has become worse. He is also been experiencing abdominal pain. He reports having diarrhea type stools. He does have a history of atrial fibrillation in which she is anticoagulated with L at [facility] as well as chronic kidney disease on hemodialysis and coronary disease cardiac stents. Patient denies any fever chills or sweats. Prior surgical history includes appendectomy and a right nephrectomy for a benign tumor. PAST MEDICAL HISTORY: diabetes, hyperlipidemia, hypertension PAST SURGICAL HISTORY: See list. MEDICATIONS: See list. ALLERGIES: See list. SOCIAL HISTORY: No illicit drug use. REVIEW OF SYSTEMS: CONSTITUTIONAL: Denies fever or chills. HEENT: Denies blurred vision, vision changes, or eye pain. Denies hemoptysis CARDIOVASCULAR: Denies chest pain or pressure. RESPIRATORY: No shortness of breath. GASTROINTESTINAL: See HPI for pertinent findings HEMATOLOGIC: Denies bleeding disorders. GENITOURINARY: Denies any blood in urine or increased urinary frequency. SKIN: Denies pruitis. Denies rash. PHYSICAL EXAM: VITAL SIGNS: Reviewed GENERAL: Well-developed in no acute distress. HEENT: No sclera icterus. Extraocular movements grossly intact. Moist buccal mucosa. Head is atraumatic, normocephalic. No nasal drainage. ABDOMEN: Soft. Nondistended. Tenderness with palpation in the epigastric and right upper quadrant area NEUROLOGIC: Alert and oriented. Cranial nerves II through XII grossly intact. LABORATORY DATA: WBC 13.1 down to 9.0 hemoglobin 13.3 down to 11.8 platelets 260 Sodium 144 potassium 4.4 creatinine 7.07 Total bilirubin 2.9 down to 1.3 AST 520 down to 167 ALT 248 down to 163 Amylase 617 Lipase 20,000 down to 1763 IMAGING: Computed tomography scan abdomen and pelvis no definite acute abnormality seen in the abdomen or pelvis. Bilateral fat-containing inguinal hernias. Cholelithiasis without evidence of acute cholecystitis. Left pleural effusion with adjacent pleural thickening and subsegmental atelectasis, empyema cannot be excluded. Abdominal ultrasound gallstones without secondary ultrasound evidence for acute cholecystitis however sonographic Heredia sign positive. ASSESSMENT: 1. Acute gallstone pancreatitis 2. Bilateral fat-containing inguinal hernias 3. Atrial fibrillation anticoagulated with Eliquis 4. Chronic kidney disease on hemodialysis PLAN: -Patient scheduled for laparoscopic cholecystectomy on 01/20/2022 -ok for clear liquids -Continue IV fluids -Continue to monitor LFTs and lipase Physician Blow Mold Technician note has been reviewed by physician. Signing provider agrees with the documented findings, assessment, and plan of care. 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 History of Any Multi-Drug Resistant Organisms: None Reported Past Surgical History: Heart Catheterization With Stent Additional Past Surgical History / Comment(s): Stent to LAD 06/07/16, to nsilitis, right kidney, dialysis fistula- left upper arm Past Anesthesia/Blood Transfusion Reactions: No Reported Reaction Date of Last Stent Placement:: 2015 Past Psychological History: No Psychological Hx Reported Additional Psychological History / Comment(s): R/T family deaths Smoking Status: Former smoker Past Alcohol Use History: Rare Additional Past Alcohol Use History / Comment(s): smoked for 20-30 yrs, quit 22 yrs ago, smoked 2 PPD Past Drug Use History: None Reported - Past Family History Father Family Medical History: Cancer Additional Family Medical History / Comment(s): Lung Medications and Allergies Home Medications Medication Instructions Recorded Confirmed Type Allopurinol [Zyloprim] 100 mg PO BID-W/MEALS 05/19/16 01/17/22 History Fenofibrate,Micronized 200 mg PO HS 05/19/16 01/17/22 History [Fenofibrate] Gabapentin [Neurontin] 300 mg PO DAILY 05/19/16 01/17/22 History Glimepiride [Amaryl] 1 mg PO AC-BRKFST 05/19/16 01/17/22 History Simvastatin [Zocor] 20 mg PO W/SUPPER 05/19/16 01/17/22 History carvediloL [Coreg*] 12.5 mg PO BID@1200,1800 05/19/16 01/17/22 History Ubidecarenone [Co Q-10] 100 mg PO DAILY 11/26/19 01/17/22 History Apixaban [Eliquis] 5 mg PO BID@1200,2100 01/17/22 01/17/22 History Cholecalciferol [Vitamin D3 (25 50 mcg PO W/LUNCH 01/17/22 01/17/22 History Mcg = 1000 Iu)] Furosemide [Lasix] 40 mg PO W/LUNCH 01/17/22 01/17/22 History amLODIPine [Norvasc] 2.5 mg PO HS 01/17/22 01/17/22 History lisinopriL 40 mg PO W/LUNCH 01/17/22 01/17/22 History sitaGLIPtin PHOSPHATE [Januvia] 25 mg PO W/LUNCH 01/17/22 01/17/22 History Allergies Allergy/AdvReac Type Severity Reaction Status Date / Time No Known Allergies Allergy Verified 01/17/22 11:43 Surgical - Exam Vital Signs Temp Pulse Resp BP Pulse Ox 97.6 F 58 L 18 98/55 98 01/17/22 09:53 01/17/22 09:53 01/17/22 09:53 01/17/22 09:53 01/17/22 09:53 Results - Labs 01/18/22 05:54 01/18/22 05:54 Abnormal Lab Results - Last 24 Hours (Table) 01/18/22 01/18/22 01/18/22 Range/Units 05:54 05:54 05:54 RBC 3.70 L (4.30-5.90) m/uL Hgb 11.8 L (13.0-17.5) gm/dL MCV 105.3 H (80.0-100.0) fL MCHC 30.3 L (31.0-37.0) g/dL BUN 64 H (9-20) mg/dL Creatinine 7.07 H* (0.66-1.25) mg/dL Glucose 68 L (74-99) mg/dL AST 167 H (17-59) U/L ALT 163 H (4-49) U/L Amylase 617 H* (30-110) U/L Lipase 1763 H (23-300) U/L Diabetes panel 01/18/22 Range/Units 05:54 Sodium 144 (137-145) mmol/L Potassium 4.4 (3.5-5.1) mmol/L Chloride 102 (98-107) mmol/L Carbon Dioxide 26 (22-30) mmol/L BUN 64 H (9-20) mg/dL Creatinine 7.07 H* (0.66-1.25) mg/dL Glucose 68 L (74-99) mg/dL Calcium 9.2 (8.4-10.2) mg/dL AST 167 H (17-59) U/L ALT 163 H (4-49) U/L Alkaline Phosphatase 67 (38-126) U/L Total Protein 6.7 (6.3-8.2) g/dL Albumin 3.6 (3.5-5.0) g/dL Calcium panel 01/18/22 Range/Units 05:54 Calcium 9.2 (8.4-10.2) mg/dL Albumin 3.6 (3.5-5.0) g/dL Pituitary panel 01/18/22 Range/Units 05:54 Sodium 144 (137-145) mmol/L Potassium 4.4 (3.5-5.1) mmol/L Chloride 102 (98-107) mmol/L Carbon Dioxide 26 (22-30) mmol/L BUN 64 H (9-20) mg/dL Creatinine 7.07 H* (0.66-1.25) mg/dL Glucose 68 L (74-99) mg/dL Calcium 9.2 (8.4-10.2) mg/dL Adrenal panel 01/18/22 Range/Units 05:54 Sodium 144 (137-145) mmol/L Potassium 4.4 (3.5-5.1) mmol/L Chloride 102 (98-107) mmol/L Carbon Dioxide 26 (22-30) mmol/L BUN 64 H (9-20) mg/dL Creatinine 7.07 H* (0.66-1.25) mg/dL Glucose 68 L (74-99) mg/dL Calcium 9.2 (8.4-10.2) mg/dL Total Bilirubin 1.3 (0.2-1.3) mg/dL AST 167 H (17-59) U/L ALT 163 H (4-49) U/L Alkaline Phosphatase 67 (38-126) U/L Total Protein 6.7 (6.3-8.2) g/dL Albumin 3.6 (3.5-5.0) g/dL
[2022-01-18] MEDS: SODIUM CHLORIDE 0.9% 1,000 ML IV SCH ×3 (12:56→20:09)
[2022-01-18 13:19] LABS: Appearance,Urine Clear (Clear); Bilirubin,Urine Negative (Negative); Blood,Urine Negative (Negative); Color,Urine Yellow; Glucose,Urine (UA) Negative (Negative); Ketones,Urine Negative (Negative); Leukocyte Esterase,Urine Trace (Negative); Mucus,Urine Rare /hpf; Nitrite,Urine Negative (Negative); Protein,Urine 1+ (Negative); RBC,Urine 1 /hpf (0-5); Specific Gravity,Urine 1.018 (1.001-1.035); Squamous Epithelial Cell,Urine <1 /hpf (0-4); WBC,Urine 7 /hpf (0-5)
[2022-01-18] MEDS: DEXTROSE 5%-0.9% NACL 1,000 ML IV SCH (13:24)
--- NOTE | 2022-01-18 16:10 | P.PN ---
Progress Note - Text Progress Note Date: 01/18/22 Chief Complaint: Abdominal pain This is a pleasant 76-year-old patient of Dr. Kj Jiang. 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 Patient is accompanied by his in the ER. Has been having abdominal pain on and off. Today had a flareup of upper abdominal pain. Vomiting several times. No fever no chills. Presented to ER no change in bowel pattern. Found an acute pancreatitis and gallstones. No CBD dilatation. Admitted with acute gallstone pancreatitis. January 18: Feeling tired rundown. Decreased abdominal pain. No nausea vomiting. Change diet to clear liquids. Cholecystectomy being planned for Sunday Active Medications Acetaminophen (Acetaminophen Tab 325 Mg Tab) 650 mg PO Q6HR PRN PRN Reason: Mild Pain or Fever > 100.5 Allopurinol (Allopurinol 100 Mg Tab) 100 mg PO BID-W/MEALS [facility] Last Admin: 01/18/22 08:00 Dose: 100 mg Documented by: Atorvastatin Calcium (Atorvastatin 10 Mg Tab) 10 mg PO W/SUPPER [facility] Last Admin: 01/17/22 17:20 Dose: 10 mg Documented by: Calcium Carbonate/Glycine (Calcium Carbonate 500 Mg Chewable) 1,000 mg PO Q4HR PRN PRN Reason: Dyspepsia Carvedilol (Carvedilol 12.5 Mg Tab) 12.5 mg PO BID@1200,1800 [facility] Last Admin: 01/18/22 12:20 Dose: Not Given Documented by: Cholecalciferol (Cholecalciferol 25 Mcg (1000 Iu) Tablet) 50 mcg PO W/LUNCH [facility] Last Admin: 01/18/22 12:20 Dose: Not Given Documented by: Fenofibrate (Fenofibrate 160 Mg Tab) 160 mg PO HS [facility] Last Admin: 01/18/22 01:06 Dose: Not Given Documented by: Gabapentin (Gabapentin 300 Mg Cap) 300 mg PO DAILY [facility] Last Admin: 01/18/22 08:00 Dose: 300 mg Documented by: Sodium Chloride (Saline 0.9%) 1,000 mls @ 100 mls/hr IV .Q10H [facility] Last Admin: 01/18/22 12:57 Dose: Not Given Documented by: Dextrose/Sodium Chloride (Dextrose 5%-Ns Iv Soln) 1,000 mls @ 70 mls/hr IV .[id number] [facility] Last Admin: 01/18/22 13:24 Dose: 70 mls/hr Documented by: Insulin Aspart (Insulin Aspart (Novolog) 100 Unit/Ml Vial) 0 unit SQ AC-TID [facility]; Protocol Last Admin: 01/18/22 12:39 Dose: Not Given Documented by: Lactulose (Lactulose 20 Gm/30 Ml Cup) 20 gm PO DAILY PRN PRN Reason: Constipation Lorazepam (Lorazepam 0.5 Mg Tab) 0.5 mg PO Q6HR PRN PRN Reason: Anxiety Melatonin (Melatonin 3 Mg Tablet) 3 mg PO HS PRN PRN Reason: Insomnia Morphine Sulfate (Morphine Sulfate 4 Mg/Ml Syringe) 4 mg IV Q4HR PRN PRN Reason: Severe Pain Last Admin: 01/17/22 22:37 Dose: 4 mg Documented by: Naloxone HCl (Naloxone 0.4 Mg/Ml 1 Ml Vial) 0.2 mg IV Q2M PRN PRN Reason: Opioid Reversal Ondansetron HCl (Ondansetron 4 Mg/2 Ml Vial) 4 mg IVP Q8HR PRN PRN Reason: Nausea And Vomiting Last Admin: 01/18/22 06:12 Dose: 4 mg Documented by: Past medical history to include: CAD with stent to LAD in 2016, diabetes, end-stage kidney 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 Smoked 2 packs a day. Alcohol rarely. . Family history Lung cancer Physical examination: VITAL SIGNS: 98.4, 55, 16, 145/67, 96% room air GENERAL: , laying in bed, awake, tired. EYES: Pupils equal. Conjunctiva normal. HEENT: External appearance of nose and ears normal, oral cavity grossly normal. NECK: JVD not raised; masses not palpable. HEART: First and second heart sounds are normal; no edema. LUNGS: Respiratory rate normal; clear to auscultation. ABDOMEN: Soft, decreased upper abdominal tenderness, no guarding rigidity, liver spleen not palpable, no masses palpable. EXTREMITIES: Left upper extremity AV fistula PSYCH: Alert and oriented x3; mood and affect normal. MUSCULOSKELETAL:No Clubbing/cyanosis;muscles-grossly intact INVESTIGATIONS, reviewed in the clinical context: January 18: White count 9 hemoglobin 11.8 potassium 4.4 crit and 7.07 AST 167 ALT 163 total bilirubin 1.3 amylase 617 lipase 1763 White count 13.1 hemoglobin 13.3 platelets 29 potassium 5.2 BUN 46 creatinine 5.94 Total bilirubin 2.9 AST 528 5248 lipase greater than 20,000 Computed tomography scan abdomen and pelvis without contrast: Moderate left pleural effusion. Atelectasis. Some coronary calcification. Gallstones. Previous right nephrectomy. Ultrasound gallbladder: Multiple mobile stones. CBD within normal limits. Assessment and plan: -Acute gallstone pancreatitis the patient's had abdominal pain on and off for about a month. This presentation is rather acute with vomiting for less than 24 hours.: Some improvement Note data CBD is not dilated. Clear liquids. GI services not available in the hospital. General surgery con sulted. -Gallstones with CBD being normal. Seen by surgery for cholecystectomy. This Sunday -CAD with stent to LAD in 2015 Coreg 12.5 mg by mouth twice a day -Diabetes mellitus type 2 on oral hypoglycemic Follow Accu-Cheks Amaryl 1 mg with breakfast -End-stage kidney disease on hemodialysis with left upper extremity AV fistula nephrology for dialysis -Hyperlipidemia Zocor 20 mg daily at bedtime -Essential hypertension Hold [Lisinopril 40 mg with lunch Norvasc 2.5 mg daily at bedtime]. Coreg 12.5 mg by mouth twice a day -Diabetic peripheral neuropathy Neurontin 300 mg a day -Chronic gout -Right nephrectomy Clear liquid diet. Follow labs. Hemodialysis today. Discussed with patient.
[2022-01-18 17:03] LABS: Glucose,Whole Blood 71 mg/dL (75-99)
[2022-01-18] MEDS: ATORVASTATIN 10 MG TAB PO SCH (17:22)
[2022-01-18 20:09] LABS: Glucose,Whole Blood 86 mg/dL (75-99)
[2022-01-19] MEDS: DEXTROSE 5%-0.9% NACL 1,000 ML IV SCH ×2 (02:16→15:48)
[2022-01-19] MEDS: ONDANSETRON 4 MG/2 ML VIAL IVP PRN (04:15)
[2022-01-19 07:24] LABS: Glucose,Whole Blood 82 mg/dL (75-99)
[2022-01-19] MEDS: INSULIN ASPART (NovoLOG) 100 UNIT/ML VIAL SQ SCH ×3 (07:35→17:12)
[2022-01-19] MEDS: SODIUM CHLORIDE 0.9% 1,000 ML IV SCH ×2 (07:36→19:28)
[2022-01-19] MEDS: GABAPENTIN 300 MG CAP PO SCH (08:10)
[2022-01-19] MEDS: allopurinoL 100 MG TAB PO SCH ×2 (08:10→17:34)
[2022-01-19 10:09] LABS: Basophils # (A) 0.05 X 10*3/uL (0.00-0.10); Basophils % (A) 0.6 %; Eosinophils % (A) 2.4 %; HCT 34.4 % (39.6-50.0); HGB 10.9 g/dL (13.0-17.0); Immature Grans, Automated 0.4 %; Lymphocytes # (A) 1.24 X 10*3/uL (0.90-5.00); Lymphocytes % (A) 15.1 %; MCH 32.4 pg (27.0-32.0); MCHC 31.7 g/dL (32.0-37.0); MCV 102.4 fL (80.0-97.0); Mean Platelet Volume 12.8 fL (9.5-12.2); Monocytes # (A) 0.86 X 10*3/uL (0.20-1.00); Monocytes % (A) 10.5 %; NRBC Per 100 WBC 0 /100 WBCS (0.0-0.0); Neutrophils # (A) 5.84 X 10*3/uL (1.80-7.70); Platelet Count 241 X 10*3/uL (140-440); RBC 3.36 X 10*6/uL (4.40-5.60); RDW 14.2 % (11.5-14.5); WBC 8.22 X 10*3/uL (4.50-10.00)
[2022-01-19 10:19] LABS: African American GFR (CKD) 11.9 (60.0-200.0); Albumin 3.4 g/dL (3.8-4.9); Albumin/Globulin Ratio 1.21 (1.60-3.17); Anion Gap 12.7 mmol/L (10.00-18.00); BUN/Creat Ratio 8.7 Ratio (12.00-20.00); Blood Urea Nitrogen 43.5 mg/dL (9.0-27.0); Calcium 8.8 mg/dL (8.7-10.3); Carbon Dioxide 23.3 mmol/L (20.0-27.5); Globulin 2.8 g/dL (1.6-3.3); Non-African American GFR(CKD) 10.3 (60.0-200.0); Total Bilirubin 0.8 mg/dL (0.30-1.20); Total Protein 6.2 g/dL (6.2-8.2)
--- NOTE | 2022-01-19 10:59 | P.PN ---
Subjective Progress Note Date: 01/19/22 CHIEF COMPLAINT: Nausea and vomiting HISTORY OF PRESENT ILLNESS: Patient with evidence of gallstone pancreatitis. He reports that he is tolerating the clear liquid diet. He denies any abdominal pain. No vomiting. He did have some nausea yesterday. Afebrile. WBC is 8.22 hemoglobin 10.9 units to 41 sodium 137 potassium is 4.0 creatinine 5.0 LFTs trending downwards. AST 83 ALT 110 total bilirubin normal at 0.8 lipase trending down from 1763-114 PHYSICAL EXAM: VITAL SIGNS: Reviewed. GENERAL: Well-developed in no acute distress. HEENT: No sclera icterus. Extraocular movements grossly intact. Moist buccal mucosa. Head is atraumatic, normocephalic. ABDOMEN: Soft. Mild epigastric and right upper quadrant tenderness on exam NEUROLOGIC: Alert and oriented. Cranial nerves II through XII grossly intact. ASSESSMENT: 1. Acute gallstone pancreatitis 2. Bilateral fat-containing inguinal hernias 3. Atrial fibrillation anticoagulated with Eliquis 4. Chronic kidney disease on hemodialysis PLAN: -Patient scheduled for laparoscopic cholecystectomy on 01/20/[address] Rico -Nothing by mouth after midnight -Continue to hold Eliquis -Continue IV fluids -Repeat labs in a.m. Physician Mill Platform Supervisor note has been reviewed by physician. Signing provider agrees with the documented findings, assessment, and plan of care. Objective - Vital Signs Vital signs: Vital Signs Temp 97.9 F 01/19/22 07:54 Pulse 51 L 01/19/22 07:56 Resp 18 01/19/22 07:56 BP 125/57 01/19/22 07:54 Pulse Ox 96 01/19/22 07:54 Intake & Output 01/18/22 01/19/22 01/19/22 18:59 06:59 18:59 Intake Total 420 850 Output Total 300 Balance 120 850 Intake: Intake, IV Titration 850 Amount Dextrose 5%-0.9% NaCl 1, 850 000 ml @ 70 mls/hr IV . [id number] [facility] Rx#:[id number] Oral 120 Hemodialysis 300 Output: Hemodialysis 300 Other: Voiding Method Urinal Urinal Urinal # Voids 2 - Labs CBC & Chem 7: 01/19/22 07:42 01/19/22 07:42 Labs: Abnormal Lab Results - Last 24 Hours (Table) 01/18/22 01/18/22 01/19/22 Range/Units 10:50 17:02 07:42 RBC 3.36 L (4.40-5.60) X 10*6/uL Hgb 10.9 L (13.0-17.0) g/dL Hct 34.4 L (39.6-50.0) % MCV 102.4 H (80.0-97.0) fL MCH 32.4 H (27.0-32.0) pg MCHC 31.7 L (32.0-37.0) g/dL MPV 12.8 H (9.5-12.2) fL BUN (9.0-27.0) mg/dL Creatinine (0.6-1.5) mg/dL Est GFR (CKD-EPI)AfAm (60.0-200.0) Est GFR (CKD-EPI)NonAf (60.0-200.0) BUN/Creatinine Ratio (12.00-20.00) Ratio POC Glucose (mg/dL) 71 L (75-99) mg/dL AST (14-35) U/L ALT (10-49) U/L Albumin (3.8-4.9) g/dL Albumin/Globulin Ratio (1.60-3.17) g/dL Lipase (14-60) U/L Urine Protein 1+ H (Negative) Ur Leukocyte Esterase Trace H (Negative) Urine WBC 7 H (0-5) /hpf Urine Mucus Rare H (None) /hpf 01/19/22 Range/Units 07:42 RBC (4.40-5.60) X 10*6/uL Hgb (13.0-17.0) g/dL Hct (39.6-50.0) % MCV (80.0-97.0) fL MCH (27.0-32.0) pg MCHC (32.0-37.0) g/dL MPV (9.5-12.2) fL BUN 43.5 H (9.0-27.0) mg/dL Creatinine 5.0 H (0.6-1.5) mg/dL Est GFR (CKD-EPI)AfAm 11.9 L (60.0-200.0) Est GFR (CKD-EPI)NonAf 10.3 L (60.0-200.0) BUN/Creatinine Ratio 8.70 L (12.00-20.00) Ratio POC Glucose (mg/dL) (75-99) mg/dL AST 83 H (14-35) U/L ALT 110 H (10-49) U/L Albumin 3.4 L (3.8-4.9) g/dL Albumin/Globulin Ratio 1.21 L (1.60-3.17) g/dL Lipase 114 H (14-60) U/L Urine Protein (Negative) Ur Leukocyte Esterase (Negative) Urine WBC (0-5) /hpf Urine Mucus (None) /hpf
[2022-01-19 11:19] LABS: Glucose,Whole Blood 88 mg/dL (75-99)
--- NOTE | 2022-01-19 11:56 | P.PN ---
Subjective Patient is seen for follow-up for end-stage renal disease, patient is currently comfortable, his nausea is slightly better. He tolerated his dialysis fairly well yesterday. Currently maintained on IV fluids at 75 mL an hour. No ultrafiltration with dialysis yesterday. Objective - Vital Signs Vital signs: Vital Signs Temp 97.9 F 01/19/22 07:54 Pulse 51 L 01/19/22 07:56 Resp 18 01/19/22 07:56 BP 125/57 01/19/22 07:54 Pulse Ox 96 01/19/22 07:54 Intake & Output 01/18/22 01/19/22 01/19/22 18:59 06:59 18:59 Intake Total 420 850 Output Total 300 Balance 120 850 Intake: Intake, IV Titration 850 Amount Dextrose 5%-0.9% NaCl 1, 850 000 ml @ 70 mls/hr IV . [id number] [facility] Rx#:[id number] Oral 120 Hemodialysis 300 Output: Hemodialysis 300 Other: Voiding Method Urinal Urinal Urinal # Voids 2 - Exam Patient is comfortable awake alert oriented 3 Examination of the heart S1 and S2 Examination lungs bilateral breath sounds are heard Abdomen is soft nontender Examination lower extremity shows no evidence of edema MAGAZINE EDITOR exam grossly intact - Labs CBC & Chem 7: 01/19/22 07:42 01/19/22 07:42 Labs: Abnormal Lab Results - Last 24 Hours (Table) 01/18/22 01/18/22 01/19/22 Range/Units 10:50 17:02 07:42 RBC 3.36 L (4.40-5.60) X 10*6/uL Hgb 10.9 L (13.0-17.0) g/dL Hct 34.4 L (39.6-50.0) % MCV 102.4 H (80.0-97.0) fL MCH 32.4 H (27.0-32.0) pg MCHC 31.7 L (32.0-37.0) g/dL MPV 12.8 H (9.5-12.2) fL BUN (9.0-27.0) mg/dL Creatinine (0.6-1.5) mg/dL Est GFR (CKD-EPI)AfAm (60.0-200.0) Est GFR (CKD-EPI)NonAf (60.0-200.0) BUN/Creatinine Ratio (12.00-20.00) Ratio POC Glucose (mg/dL) 71 L (75-99) mg/dL AST (14-35) U/L ALT (10-49) U/L Albumin (3.8-4.9) g/dL Albumin/Globulin Ratio (1.60-3.17) g/dL Lipase (14-60) U/L Urine Protein 1+ H (Negative) Ur Leukocyte Esterase Trace H (Negative) Urine WBC 7 H (0-5) /hpf Urine Mucus Rare H (None) /hpf 01/19/22 Range/Units 07:42 RBC (4.40-5.60) X 10*6/uL Hgb (13.0-17.0) g/dL Hct (39.6-50.0) % MCV (80.0-97.0) fL MCH (27.0-32.0) pg MCHC (32.0-37.0) g/dL MPV (9.5-12.2) fL BUN 43.5 H (9.0-27.0) mg/dL Creatinine 5.0 H (0.6-1.5) mg/dL Est GFR (CKD-EPI)AfAm 11.9 L (60.0-200.0) Est GFR (CKD-EPI)NonAf 10.3 L (60.0-200.0) BUN/Creatinine Ratio 8.70 L (12.00-20.00) Ratio POC Glucose (mg/dL) (75-99) mg/dL AST 83 H (14-35) U/L ALT 110 H (10-49) U/L Albumin 3.4 L (3.8-4.9) g/dL Albumin/Globulin Ratio 1.21 L (1.60-3.17) g/dL Lipase 114 H (14-60) U/L Urine Protein (Negative) Ur Leukocyte Esterase (Negative) Urine WBC (0-5) /hpf Urine Mucus (None) /hpf Assessment and Plan Assessment: 1. End-stage renal disease on hemodialysis on a Sunday schedule 2. Abdominal pain and nausea and vomiting associated with cholelithiasis possible acute cholecystitis 3. CK D mineral bone disorder 4. Volume depletion 5. 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 Hypertension with CK D stage V Plan: Hemodialysis in a.m. Decrease IV fluids to 50 mL an hour.
[2022-01-19] MEDS: carvediloL 12.5 MG TAB PO SCH ×2 (11:58→17:34)
[2022-01-19] MEDS: CHOLECALCIFEROL 25 MCG (1000 IU) TABLET PO SCH (11:58)
[2022-01-19 17:04] LABS: Glucose,Whole Blood 74 mg/dL (75-99)
[2022-01-19] MEDS: ATORVASTATIN 10 MG TAB PO SCH (17:34)
--- NOTE | 2022-01-19 17:48 | P.PN ---
Progress Note - Text Progress Note Date: 01/19/22 Chief Complaint: Abdominal pain This is a pleasant 76-year-old patient of Dr. Kj Jiang. 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 Patient is accompanied by his in the ER. Has been having abdominal pain on and off. Today had a flareup of upper abdominal pain. Vomiting several times. No fever no chills. Presented to ER no change in bowel pattern. Found an acute pancreatitis and gallstones. No CBD dilatation. Admitted with acute gallstone pancreatitis. January 18: Feeling tired rundown. Decreased abdominal pain. No nausea vomiting. Change diet to clear liquids. Cholecystectomy being planned for SundayJanuary 19: On liquid diet. No abdominal pain. No nausea vomiting. Surgery planned for Sunday. Out of bed. Active Medications Acetaminophen (Acetaminophen Tab 325 Mg Tab) 650 mg PO Q6HR PRN PRN Reason: Mild Pain or Fever > 100.5 Allopurinol (Allopurinol 100 Mg Tab) 100 mg PO BID-W/MEALS [facility] Last Admin: 01/19/22 17:34 Dose: 100 mg Documented by: Atorvastatin Calcium (Atorvastatin 10 Mg Tab) 10 mg PO W/SUPPER [facility] Last Admin: 01/19/22 17:34 Dose: 10 mg Documented by: Calcium Carbonate/Glycine (Calcium Carbonate 500 Mg Chewable) 1,000 mg PO Q4HR PRN PRN Reason: Dyspepsia Carvedilol (Carvedilol 12.5 Mg Tab) 12.5 mg PO BID@1200,1800 [facility] Last Admin: 01/19/22 17:34 Dose: 12.5 mg Documented by: Cholecalciferol (Cholecalciferol 25 Mcg (1000 Iu) Tablet) 50 mcg PO W/LUNCH [facility] Last Admin: 01/19/22 11:58 Dose: 50 mcg Documented by: Fenofibrate (Fenofibrate 160 Mg Tab) 160 mg PO HS [facility] Last Admin: 01/18/22 20:09 Dose: 160 mg Documented by: Gabapentin (Gabapentin 300 Mg Cap) 300 mg PO DAILY [facility] Last Admin: 01/19/22 08:10 Dose: 300 mg Documented by: Sodium Chloride (Saline 0.9%) 1,000 mls @ 100 mls/hr IV .Q10H [facility] Last Admin: 01/19/22 07:36 Dose: Not Given Documented by: Dextrose/Sodium Chloride (Dextrose 5%-Ns Iv Soln) 1,000 mls @ 70 mls/hr IV .[id number] [facility] Last Admin: 01/19/22 15:48 Dose: 70 mls/hr Documented by: Insulin Aspart (Insulin Aspart (Novolog) 100 Unit/Ml Vial) 0 unit SQ AC-TID [facility]; Protocol Last Admin: 01/19/22 17:12 Dose: Not Given Documented by: Lactulose (Lactulose 20 Gm/30 Ml Cup) 20 gm PO DAILY PRN PRN Reason: Constipation Lorazepam (Lorazepam 0.5 Mg Tab) 0.5 mg PO Q6HR PRN PRN Reason: Anxiety Melatonin (Melatonin 3 Mg Tablet) 3 mg PO HS PRN PRN Reason: Insomnia Morphine Sulfate (Morphine Sulfate 4 Mg/Ml Syringe) 4 mg IV Q4HR PRN PRN Reason: Severe Pain Last Admin: 01/17/22 22:37 Dose: 4 mg Documented by: Naloxone HCl (Naloxone 0.4 Mg/Ml 1 Ml Vial) 0.2 mg IV Q2M PRN PRN Reason: Opioid Reversal Ondansetron HCl (Ondansetron 4 Mg/2 Ml Vial) 4 mg IVP Q8HR PRN PRN Reason: Nausea And Vomiting Last Admin: 01/19/22 04:15 Dose: 4 mg Documented by: Past medical history to include: CAD with stent to LAD in 2016, diabetes, end-stage kidney 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 Smoked 2 packs a day. Alcohol rarely. . Family history Lung cancer Physical examination: VITAL SIGNS: 97.9, 52, 18, 122/63, 95% room air GENERAL: , laying in bed, awake, comfortable EYES: Pupils equal. Conjunctiva normal. HEENT: External appearance of nose and ears normal, oral cavity grossly normal. NECK: JVD not raised; masses not palpable. HEART: First and second heart sounds are normal; no edema. LUNGS: Respiratory rate normal; clear to auscultation. ABDOMEN: Soft, no abdominal tenderness, no guarding rigidity, liver spleen not palpable, no masses palpable. EXTREMITIES: Left upper extremity AV fistula PSYCH: Alert and oriented x3; mood and affect normal. MUSCULOSKELETAL:No Clubbing/cyanosis;muscles-grossly intact INVESTIGATIONS, reviewed in the clinical context: January 19: White count 8.2 hemoglobin 10.9 potassium 4 AST 83 ALT 110 lipase 114 January 18: White count 9 hemoglobin 11.8 potassium 4.4 crit and 7.07 AST 167 ALT 163 total bilirubin 1.3 amylase 617 lipase 1763 White count 13.1 hemoglobin 13.3 platelets 29 potassium 5.2 BUN 46 creatinine 5.94 Total bilirubin 2.9 AST 528 5248 lipase greater than 20,000 Computed tomography scan abdomen and pelvis without contrast: Moderate left pleural effusion. Atelectasis. Some coronary calcification. Gallstones. Previous right nephrectomy. Ultrasound gallbladder: Multiple mobile stones. CBD within normal limits. Assessment and plan: -Acute gallstone pancreatitis the patient's had abdominal pain on and off for about a month. This presentation is rather acute with vomiting for less than 24 hours.: Some improvement Note data CBD is not dilated. Clear liquids. GI services not available in the hospital. General surgery consulted. -Gallstones with CBD being normal. Seen by surgery for cholecystectomy. This Sunday -CAD with stent to LAD in 2016 Coreg 12.5 mg by mouth twice a day -Diabetes mellitus type 2 on oral hypoglycemic, uncontrolled with hypoglycemia Follow Accu-Cheks hold Amaryl -End-stage kidney disease on hemodialysis with left upper extremity AV fistula nephrology for dialysis -Hyperlipidemia Zocor 20 mg daily at bedtime -Essential hypertension Hold [Lisinopril 40 mg with lunch Norvasc 2.5 mg daily at bedtime]. Coreg 12.5 mg by mouth twice a day -Diabetic peripheral neuropathy Neurontin 300 mg a day -Chronic gout -Right nephrectomy Clear liquid diet. IV fluids changed to D5 0.45. Amaryl discontinued. Other medications to continue. Follow Accu-Cheks. Increase activity. Surgery scheduled for Sunday.
[2022-01-19 19:51] LABS: Glucose,Whole Blood 91 mg/dL (75-99)
[2022-01-19] MEDS: FENOFIBRATE 160 MG TAB PO SCH (20:27)
[2022-01-20] MEDS: SODIUM CHLORIDE 0.9% 1,000 ML IV SCH ×3 (01:11→22:00)
[2022-01-20 06:17] LABS: Glucose,Whole Blood 91 mg/dL (75-99)
[2022-01-20 06:18] LABS: Basophils # (A) 0.1 k/uL (0-0.2); Basophils % (A) 1 %; Eosinophils # (A) 0.3 k/uL (0-0.7); Eosinophils % (A) 4 %; HCT 35.8 % (39.0-53.0); HGB 11.1 gm/dL (13.0-17.5); Hypochromasia Slight; Lymphocytes # (A) 1.1 k/uL (1.0-4.8); Lymphocytes % (A) 15 %; MCH 32.6 pg (25.0-35.0); MCHC 30.9 g/dL (31.0-37.0); MCV 105.3 fL (80.0-100.0); Macrocytosis Moderate; Mean Platelet Volume 9.1; Monocytes # (A) 0.5 k/uL (0-1.0); Monocytes % (A) 8 %; Neutrophils # (A) 5.1 k/uL (1.3-7.7); Neutrophils % (A) 71 %; Platelet Count 222 k/uL (150-450); RDW 13.7 % (11.5-15.5); WBC 7.1 k/uL (3.8-10.6)
[2022-01-20] MEDS ORDERED: LIDOCAINE 1% (10MG/ML) FOR IV START INTRADERMA PRN (06:41)
[2022-01-20] MEDS ORDERED: MIDAZOLAM 2 MG/2 ML VIAL IV PRN (06:41)
[2022-01-20 06:42] LABS: ALT 81 U/L (4-49); AST 65 U/L (17-59); African American GFR (CKD) 10 (>60 ml/min/1.73 sqM); Albumin 3.1 g/dL (3.5-5.0); Alkaline Phosphatase 47 U/L (38-126); Anion Gap 10 mmol/L; Blood Urea Nitrogen 56 mg/dL (9-20); Calcium 8.5 mg/dL (8.4-10.2); Carbon Dioxide 21 mmol/L (22-30); Chloride 106 mmol/L (98-107); Globulin 3.2 g/dL; Glucose 87 mg/dL (74-99); Lipase 276 U/L (23-300); Non-African American GFR(CKD) 9 (>60 ml/min/1.73 sqM); Potassium 3.9 mmol/L (3.5-5.1); Sodium 137 mmol/L (137-145); Total Bilirubin 1.1 mg/dL (0.2-1.3); Total Protein 6.3 g/dL (6.3-8.2)
[2022-01-20] MEDS ORDERED: DEXAMETHASONE SOD PHOSPHATE 4 MG/ML 1 ML VIAL IV ONE (07:00)
[2022-01-20] MEDS ORDERED: IV FLUID CONTINUATION 900 ML IV ONE (07:00)
[2022-01-20] MEDS ORDERED: ONDANSETRON 4 MG/2 ML VIAL IVP ONE (07:00)
[2022-01-20] MEDS ORDERED: BUPIVACAIN-EPI 0.25%-1:200,000 30 ML VIAL SQ ONE ×2 (07:22→08:15)
[2022-01-20] MEDS ORDERED: ePHEDrine 50 MG/ML 1 ML VIAL ONE (07:49)
[2022-01-20] MEDS ORDERED: PROPOFOL 10 MG/ML 20 ML VIAL IV ONE (07:49)
[2022-01-20] MEDS ORDERED: NEOSTIGMINE 1 MG/ML 10 ML VIAL ONE (07:49)
[2022-01-20] MEDS ORDERED: KETAMINE 10 MG/ML 20 ML VIAL ONE (07:49)
[2022-01-20] MEDS ORDERED: LIDOCAINE 1% INJ 10MG/ML (20 ML MDV) ONE (07:49)
[2022-01-20] MEDS ORDERED: GLYCOPYRROLATE 0.2 MG/ML 2 ML VIAL ONE (07:49)
[2022-01-20] MEDS ORDERED: ROCURONIUM 10 MG/ML (5 ML VIAL) IV ONE (07:49)
[2022-01-20] MEDS ORDERED: fentaNYL (PF) 50 MCG/ML 2 ML AMP ONE (07:49)
[2022-01-20] MEDS ORDERED: SUCCINYLCHOLINE CHLORIDE 100 MG/5 ML SYR IV ONE (07:49)
[2022-01-20] MEDS ORDERED: MIDAZOLAM 2 MG/2 ML VIAL ONE (07:49)
[2022-01-20] MEDS ORDERED: SODIUM CHLORIDE 0.9% 50 ML with ceFAZolin 2,000 MG IV ONE ×2 (07:54)
[2022-01-20] MEDS: HYDROmorphone 0.5 MG/0.5 ML SYRINGE IVP PRN ×3 (08:56→09:15)
--- NOTE | 2022-01-20 08:56 | P.OP ---
Date of Procedure: 01/20/22 Preoperative Diagnosis: Gallstone pancreatitis Cholelithiasis Postoperative Diagnosis: Gallstone pancreatitis Cholelithiasis Procedure(s) Performed: Laparoscopic cholecystectomy Anesthesia: BIRGIT Surgeon: Werner Rico Estimated Blood Loss (ml): 5 Pathology: other (Gallbladder) Condition: stable Disposition: PACU Description of Procedure: The patient was placed on the operating table. The patient received a general endotracheal tube anesthesia. The patients abdomen was prepped and draped in the usual sterile fashion. Through an infraumbilical stab incision, the fascia of the anterior abdominal wall was grasped with a pair of Kochers and then the Veress needle was placed in the peritoneal cavity. Position of the Veress needle was confirmed with positive drop test. The abdomen was then insufflated. After adequate insufflation, the 10 mm trocar was placed in the peritoneal cavity. Following this the laparoscope was placed in the peritoneal cavity. The patient was placed in the head-up, right side up position and then a 5 mm trocar was placed in the right lateral and right subcostal position under direct visualization. A 8 mm trocar was placed in the epigastric position. The gallbladder was grasped in the fundus and infundibulum. Traction on the gallbladder was placed in the lateral and the cephalad positions. The triangle of Calot was visualized.. The cystic duct was bluntly dissected until the union of the cystic duct and common bile duct was seen. A critical view of safety was achieved. The cystic duct was then divided and sealed with the Harmonic scissors. A PDS Endoloop was then placed throughout the cystic duct stump. The cystic artery divided and sealed with the Harmonic scissors. The gallbladder was then removed from the liver bed using Harmonic scissors. The gallbladder was then extracted through the epigastric port site. Operative field was checked for any bleeding spots and Harmonic scissors was used to coagulate the liver bed. The abdomen was irrigated. The trocars were removed. The skin was closed using interrupted 3-0 Vicryl suture. Dermabond dressing were applied. The patient tolerated the procedure well.
[2022-01-20] MEDS: INSULIN ASPART (NovoLOG) 100 UNIT/ML VIAL SQ SCH ×3 (09:06→17:15)
[2022-01-20] MEDS: DEXTROSE 5%-0.9% NACL 1,000 ML IV SCH ×2 (10:22→17:31)
[2022-01-20 10:24] VITALS: BMI 25.3
[2022-01-20] MEDS: GABAPENTIN 300 MG CAP PO SCH (10:28)
[2022-01-20] MEDS: allopurinoL 100 MG TAB PO SCH ×2 (10:28→17:59)
[2022-01-20] MEDS: LACTATED RINGERS 1,000 ML IV SCH ×2 (10:29→22:01)
[2022-01-20 11:26] LABS: Glucose,Whole Blood 132 mg/dL (75-99)
[2022-01-20] MEDS: CHOLECALCIFEROL 25 MCG (1000 IU) TABLET PO SCH (13:10)
[2022-01-20] MEDS: carvediloL 12.5 MG TAB PO SCH ×2 (13:10→17:59)
[2022-01-20] MEDS: ACETAMINOPHEN TAB 325 MG TAB PO PRN ×2 (13:14→20:13)
--- NOTE | 2022-01-20 15:16 | P.PN ---
Progress Note - Text Progress Note Date: 01/20/22 Chief Complaint: Abdominal pain This is a pleasant 76-year-old patient of Dr. Kj Jiang. 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 Patient is accompanied by his in the ER. Has been having abdominal pain on and off. Today had a flareup of upper abdominal pain. Vomiting several times. No fever no chills. Presented to ER no change in bowel pattern. Found an acute pancreatitis and gallstones. No CBD dilatation. Admitted with acute gallstone pancreatitis. January 18: Feeling tired rundown. Decreased abdominal pain. No nausea vomiting. Change diet to clear liquids. Cholecystectomy being planned for SundayJanuary 19: On liquid diet. No abdominal pain. No nausea vomiting. Surgery planned for Sunday. Out of bed. January 20: Underwent cholecystectomy today. Postprocedure somewhat tired. at the bedside. No nausea vomiting. Diet per surgery. Active Medications Acetaminophen (Acetaminophen Tab 325 Mg Tab) 650 mg PO Q6HR PRN PRN Reason: Mild Pain or Fever > 100.5 Last Admin: 01/20/22 13:14 Dose: 650 mg Documented by: Allopurinol (Allopurinol 100 Mg Tab) 100 mg PO BID-W/MEALS [facility] Last Admin: 01/20/22 10:28 Dose: 100 mg Documented by: Atorvastatin Calcium (Atorvastatin 10 Mg Tab) 10 mg PO W/SUPPER [facility] Last Admin: 01/19/22 17:34 Dose: 10 mg Documented by: Calcium Carbonate/Glycine (Calcium Carbonate 500 Mg Chewable) 1,000 mg PO Q4HR PRN PRN Reason: Dyspepsia Carvedilol (Carvedilol 12.5 Mg Tab) 12.5 mg PO BID@1200,1800 [facility] Last Admin: 01/20/22 13:10 Dose: 12.5 mg Documented by: Cholecalciferol (Cholecalciferol 25 Mcg (1000 Iu) Tablet) 50 mcg PO W/LUNCH [facility] Last Admin: 01/20/22 13:10 Dose: 50 mcg Documented by: Fenofibrate (Fenofibrate 160 Mg Tab) 160 mg PO HS [facility] Last Admin: 01/19/22 20:27 Dose: 160 mg Documented by: Gabapentin (Gabapentin 300 Mg Cap) 300 mg PO DAILY [facility] Last Admin: 01/20/22 10:28 Dose: 300 mg Documented by: Hydromorphone HCl (Hydromorphone 0.5 Mg/0.5 Ml Syringe) 0.5 mg IVP Q5M PRN PRN Reason: Phase 1 or 2 - Pain Control Stop: 01/20/22 23:00 Last Admin: 01/20/22 09:15 Dose: 0.5 mg Documented by: Sodium Chloride (Saline 0.9%) 1,000 mls @ 100 mls/hr IV .Q10H [facility] Last Admin: 01/20/22 01:11 Dose: Not Given Documented by: Dextrose/Sodium Chloride (Dextrose 5%-Ns Iv Soln) 1,000 mls @ 70 mls/hr IV .[id number] [facility] Last Admin: 01/20/22 10:22 Dose: Not Given Documented by: Lactated Ringer's (Lactated Ringers) 1,000 mls @ 20 mls/hr IV .Q24H [facility] Last Admin: 01/20/22 10:29 Dose: Not Given Documented by: Insulin Aspart (Insulin Aspart (Novolog) 100 Unit/Ml Vial) 0 unit SQ AC-TID [facility]; Protocol Last Admin: 01/20/22 11:27 Dose: Not Given Documented by: Lactulose (Lactulose 20 Gm/30 Ml Cup) 20 gm PO DAILY PRN PRN Reason: Constipation Lidocaine HCl (Lidocaine 1% (10mg/Ml) For Iv Start) 0.1 ml INTRADERMA PER PROTOCOL PRN PRN Reason: IV Start Lorazepam (Lorazepam 0.5 Mg Tab) 0.5 mg PO Q6HR PRN PRN Reason: Anxiety Melatonin (Melatonin 3 Mg Tablet) 3 mg PO HS PRN PRN Reason: Insomnia Midazolam HCl (Midazolam 2 Mg/2 Ml Vial) 2 mg IV ONCE PRN PRN Reason: Pre-Op Anxiety Stop: 01/20/22 23:00 Morphine Sulfate (Morphine Sulfate 4 Mg/Ml Syringe) 4 mg IV Q4HR PRN PRN Reason: Severe Pain Last Admin: 01/17/22 22:37 Dose: 4 mg Documented by: Naloxone HCl (Naloxone 0.4 Mg/Ml 1 Ml Vial) 0.2 mg IV Q2M PRN PRN Reason: Opioid Reversal Ondansetron HCl (Ondansetron 4 Mg/2 Ml Vial) 4 mg IVP Q8HR PRN PRN Reason: Nausea And Vomiting Last Admin: 01/19/22 04:15 Dose: 4 mg Documented by: Past medical history to include: CAD with stent to LAD in 2016, diabetes, end-stage kidney 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 Smoked 2 packs a day. Alcohol rarely. . Family history Lung cancer Physical examination: VITAL SIGNS: 97.8, 63, 18, 1:30/64, 99% room air GENERAL: , laying in bed, awake, tired EYES: Pupils equal. Conjunctiva normal. HEENT: External appearance of nose and ears normal, oral cavity grossly normal. NECK: JVD not raised; masses not palpable. HEART: First and second heart sounds are normal; no edema. LUNGS: Respiratory rate normal; clear to auscultation. ABDOMEN: Soft, mild abdominal tenderness, no guarding rigidity, liver spleen not palpable, no masses palpable. EXTREMITIES: Left upper extremity AV fistula PSYCH: Alert and oriented x3; mood and affect normal. MUSCULOSKELETAL:No Clubbing/cyanosis;muscles-grossly intact INVESTIGATIONS, reviewed in the clinical context: January 20: White count 7.1 hemoglobin 11.1 platelets 222 potassium 3.9 creatinine 5.84 lipase 276 AST 65 ALT 81 total bilirubin 1.1 January 19: White count 8.2 hemoglobin 10.9 potassium 4 AST 83 ALT 110 lipase 114 January 18: White count 9 hemoglobin 11.8 potassium 4.4 crit and 7.07 AST 167 ALT 163 total bilirubin 1.3 amylase 617 lipase 1763 White count 13.1 hemoglobin 13.3 platelets 29 potassium 5.2 BUN 46 creatinine 5.94 Total bilirubin 2.9 AST 528 5248 lipase greater than 20,000 Computed tomography scan abdomen and pelvis without contrast: Moderate left pleural effusion. Atelectasis. Some coronary calcification. Gallstones. Previous right nephrectomy. Ultrasound gallbladder: Multiple mobile stones. CBD within normal limits. Assessment and plan: -Acute gallstone pancreatitis the patient's had abdominal pain on and off for about a month. This presentation is rather acute with vomiting for less than 24 hours.: Clinically much better Note data CBD is not dilated. . GI services not available in the hospital. -Gallstones with CBD being normal. January 20: Laparoscopic cholecystectomy by Dr. Rico.. Advise diet per surgery. -CAD with stent to LAD in 2016 Coreg 12.5 mg by mouth twice a day -Diabetes mellitus type 2 on oral hypoglycemic, uncontrolled with hypoglycemia Follow Accu-Cheks hold Amaryl -End-stage kidney disease on hemodialysis with left upper extremity AV fistula nephrology for dialysis -Hyperlipidemia Zocor 20 mg daily at bedtime -Essential hypertension Hold [Lisinopril 40 mg with lunch Norvasc 2.5 mg daily at bedtime]. Coreg 12.5 mg by mouth twice a day -Diabetic peripheral neuropathy Neurontin 300 mg a day -Chronic gout -Right nephrectomy Diet per surgery.. Activity as tolerated. Other medications to continue. Follow Accu-Cheks. Discussed with the patient and at the bedside.
[2022-01-20 17:08] LABS: Glucose,Whole Blood 98 mg/dL (75-99)
[2022-01-20] MEDS: ATORVASTATIN 10 MG TAB PO SCH (17:59)
--- NOTE | 2022-01-20 18:04 | P.PN ---
Subjective Patient is seen for follow-up for end-stage renal disease. He is maintained on a Sunday schedule. Patient was admitted to the hospital with nausea and found to have Colace lithiasis Status post laparoscopic cholecystectomy this morning. Complaining of pain and some nausea. No chest pains or shortness of breath Objective - Vital Signs Vital signs: Vital Signs Temp 97.8 F 01/20/22 10:31 Pulse 47 L 01/20/22 12:46 Resp 18 01/20/22 11:01 BP 128/57 01/20/22 12:46 Pulse Ox 100 01/20/22 12:46 Intake & Output 01/19/22 01/20/22 01/20/22 18:59 06:59 18:59 Intake Total 259 871 1890 Output Total 5 Balance 551 969 4713 Weight 89.6 kg 89.6 kg Intake: IV 500 Intake, IV Titration 840 850 840 Amount Dextrose 5%-0.9% NaCl 1, 840 850 840 000 ml @ 70 mls/hr IV . [id number] [facility] Rx#:[id number] Output: Estimated Blood Loss 5 Other: Voiding Method Urinal Urinal # Voids 2 2 - Exam Patient is comfortable awake alert oriented 3 Examination of the heart S1 and S2 Examination lungs bilateral breath sounds are heard Abdomen is soft , tender from surgery Examination lower extremity shows no evidence of edema HEAD OF [employer] exam grossly intact - Labs CBC & Chem 7: 01/20/22 05:57 01/20/22 05:57 Labs: Abnormal Lab Results - Last 24 Hours (Table) 01/20/22 01/20/22 01/20/22 Range/Units 05:57 05:57 11:22 RBC 3.40 L (4.30-5.90) m/uL Hgb 11.1 L (13.0-17.5) gm/dL Hct 35.8 L (39.0-53.0) % MCV 105.3 H (80.0-100.0) fL MCHC 30.9 L (31.0-37.0) g/dL Carbon Dioxide 21 L (22-30) mmol/L BUN 56 H (9-20) mg/dL Creatinine 5.84 H (0.66-1.25) mg/dL POC Glucose (mg/dL) 132 H (75-99) mg/dL AST 65 H (17-59) U/L ALT 81 H (4-49) U/L Albumin 3.1 L (3.5-5.0) g/dL Assessment and Plan Assessment: 1. End-stage renal disease on hemodialysis on a Sunday schedule 2. Abdominal pain and nausea and vomiting associated with cholelithiasis and gallstone pancreatitis Status post laparoscopic cholecystectomy today 3. CK D mineral bone disorder 4. Volume depletion 5. 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 Hypertension with CK D stage V Plan: Hemodialysis today No significant ultrafiltration. Patient has been maintained on IV fluids. DC IV fluids if patient is able to tolerate oral intake.
[2022-01-20 19:57] VITALS: RESP 20
[2022-01-20] MEDS: FENOFIBRATE 160 MG TAB PO SCH (20:14)
[2022-01-20 20:43] LABS: Glucose,Whole Blood 124 mg/dL (75-99)
[2022-01-21 06:07] VITALS: TEMP 97.6
[2022-01-21 07:05] LABS: Glucose,Whole Blood 98 mg/dL (75-99)
[2022-01-21] MEDS: INSULIN ASPART (NovoLOG) 100 UNIT/ML VIAL SQ SCH (07:28)
[2022-01-21] MEDS: allopurinoL 100 MG TAB PO SCH (07:42)
[2022-01-21] MEDS: DEXTROSE 5%-0.9% NACL 1,000 ML IV SCH (07:46)
[2022-01-21 08:06] VITALS: BP 134/68; PULSE 55
[2022-01-21] MEDS: GABAPENTIN 300 MG CAP PO SCH (09:07)
[2022-01-21] MEDS: ACETAMINOPHEN TAB 325 MG TAB PO PRN (11:31)
[2022-01-21 11:35] LABS: Glucose,Whole Blood 243 mg/dL (75-99)
--- NOTE | 2022-01-22 15:41 | P.DS ---
Providers Date of admission: 01/17/22 16:21 Expected date of discharge: 01/21/22 Attending physician: Ricardo Freeman Consults: 01/17/22 16:08 Consult Physician Routine Consulting Provider: Werner Rico Consult Reason/Comments: Pancreatitis, cholelithiasis, nausea and vomiting, leukocytosis, CKD Do you want consulting provider notified?: Yes 01/17/22 16:10 Consult Physician Routine Consulting Provider: Christina Berg Consult Reason/Comments: CKD- dialysis Sunday, Sunday, Sunday Do you want consulting provider notified?: Yes Primary care physician: [facility] Course: Chief Complaint: Abdominal pain This is a pleasant 76-year-old patient of Dr. Kj Jiang. Chronic stable medical conditions include CAD, diabetes, end-stage kidney disease on hemodialysis the left upper extremity AV fistula, hypertension, hyperlipidemia, peripheral neuropathy, gout right nephrectomy,'s stent to LAD in 2015. Patient is accompanied by his in the ER. Has been having abdominal pain on and off. Today had a flareup of upper abdominal pain. Vomiting several times. No fever no chills. Presented to ER no change in bowel pattern. Found an acute pancreatitis and gallstones. No CBD dilatation. Admitted with acute gallstone pancreatitis. January 20 underwent cholecystectomy. Pancreatitis resolved. January 21: Doing well. at the bedside. Oral intake good. Has been out of bed. No need for antibiotics. Care was discussed the patient and . Questions answered. Cleared by surgery. Discussed with patient about resuming Amaryl and blood pressure medications with blood pressure parameters given to the patient and . Discussion and discharge planning more than 35 minutes Past medical history to include: CAD with stent to LAD in 2016, diabetes, end-stage kidney 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 Smoked 2 packs a day. Alcohol rarely. . Family history Lung cancer Physical examination: VITAL SIGNS: 97.6, 58, 20, 150/74, 97% room air GENERAL: , Reclining in bed, doing better EYES: Pupils equal. Conjunctiva normal. HEENT: External appearance of nose and ears normal, oral cavity grossly normal. NECK: JVD not raised; masses not palpable. HEART: First and second heart sounds are normal; no edema. LUNGS: Respiratory rate normal; clear to auscultation. ABDOMEN: Soft, mild abdominal tenderness, no guarding rigidity, liver spleen not palpable, no masses palpable. EXTREMITIES: Left upper extremity AV fistula PSYCH: Alert and oriented x3; mood and affect normal. MUSCULOSKELETAL:No Clubbing/cyanosis;muscles-grossly intact INVESTIGATIONS, reviewed in the clinical context: January 20: White count 7.1 hemoglobin 11.1 platelets 222 potassium 3.9 creatinine 5.84 lipase 276 AST 65 ALT 81 total bilirubin 1.1 January 19: White count 8.2 hemoglobin 10.9 potassium 4 AST 83 ALT 110 lipase 114 January 18: White count 9 hemoglobin 11.8 potassium 4.4 crit and 7.07 AST 167 ALT 163 total bilirubin 1.3 amylase 617 lipase 1763 White count 13.1 hemoglobin 13.3 platelets 29 potassium 5.2 BUN 46 creatinine 5.94 Total bilirubin 2.9 AST 528 5248 lipase greater than 20,000 Computed tomography scan abdomen and pelvis without contrast: Moderate left pleural effusion. Atelectasis. Some coronary calcification. Gallstones. Previous right nephrectomy. Ultrasound gallbladder: Multiple mobile stones. CBD within normal limits. Assessment and plan: -Acute gallstone pancreatitis the patient's had abdominal pain on and off for about a month. This presentation is rather acute with vomiting for less than 24 hours.: Clinically much better Note data CBD is not dilated. -Gallstones with CBD being normal. January 20: Laparoscopic cholecystectomy by Dr. Rico.. Tolerating diet -CAD with stent to LAD in 2016 Coreg 12.5 mg by mouth twice a day -Diabetes mellitus type 2 on oral hypoglycemic, uncontrolled with hypoglycemia Follow Accu-Cheks resume Amaryl with following Accu-Cheks. Discussed with patient. -End-stage kidney disease on hemodialysis with left upper extremity AV fistula nephrology for dialysis -Hyperlipidemia Zocor 20 mg daily at bedtime -Essential hypertension Hold [Lisinopril 40 mg with lunch Norvasc 2.5 mg daily at bedtime]. Coreg 12.5 mg by mouth twice a day -Diabetic peripheral neuropathy Neurontin 300 mg a day -Chronic gout -Right nephrectomy Disposition: Home Plan - Discharge Summary New Discharge Prescriptions: New oxyCODONE HCL [OxyIR] 5 mg PO Q6H PRN 3 Days #10 tab PRN Reason: Pain Continue Simvastatin [Zocor] 20 mg PO W/SUPPER Glimepiride [Amaryl] 1 mg PO AC-BRKFST carvediloL [Coreg*] 12.5 mg PO BID@1200,1800 Gabapentin [Neurontin] 300 mg PO DAILY Fenofibrate,Micronized [Fenofibrate] 200 mg PO HS Allopurinol [Zyloprim] 100 mg PO BID-W/MEALS Ubidecarenone [Co Q-10] 100 mg PO DAILY Apixaban [Eliquis] 5 mg PO BID@1200,2100 Cholecalciferol [Vitamin D3 (25 Mcg = 1000 Iu)] 50 mcg PO W/LUNCH lisinopriL 40 mg PO W/LUNCH amLODIPine [Norvasc] 2.5 mg PO HS sitaGLIPtin PHOSPHATE [Januvia] 25 mg PO W/LUNCH No Action Furosemide [Lasix] 40 mg PO W/LUNCH Discharge Medication List Allopurinol [Zyloprim] 100 mg PO BID-W/MEALS 05/19/16 [History] Fenofibrate,Micronized [Fenofibrate] 200 mg PO HS 05/19/16 [History] Gabapentin [Neurontin] 300 mg PO DAILY 05/19/16 [History] Glimepiride [Amaryl] 1 mg PO AC-BRKFST 05/19/16 [History] Simvastatin [Zocor] 20 mg PO W/SUPPER 05/19/16 [History] carvediloL [Coreg*] 12.5 mg PO BID@1200,1800 05/19/16 [History] Ubidecarenone [Co Q-10] 100 mg PO DAILY 11/26/19 [History] Apixaban [Eliquis] 5 mg PO BID@1200,2100 01/17/22 [History] Cholecalciferol [Vitamin D3 (25 Mcg = 1000 Iu)] 50 mcg PO W/LUNCH 01/17/22 [History] Furosemide [Lasix] 40 mg PO W/LUNCH 01/17/22 [History] amLODIPine [Norvasc] 2.5 mg PO HS 01/17/22 [History] lisinopriL 40 mg PO W/LUNCH 01/17/22 [History] sitaGLIPtin PHOSPHATE [Januvia] 25 mg PO W/LUNCH 01/17/22 [History] oxyCODONE HCL [OxyIR] 5 mg PO Q6H PRN 3 Days #10 tab 01/20/22 [Rx] Follow up Appointment(s)/Referral(s): Kj Jiang MD [Primary Care Provider] - 1-2 days Werner Rico MD [STAFF PHYSICIAN] - 1 Week Patient Instructions/Handouts: *Surgery [facility] - Laparoscopic Cholecystectomy Discharge Instructions, Pancreatitis (DC) Discharge Disposition: HOME SELF-CARE
== END 2022-01-21 12:35 | disposition home or self-care (01) | DRG 417 ==
LOC: EC 09:36 → 4SSUR 16:21 → 5NMEDONC 19:00 → 4SSUR 20:28 → 5NMEDONC 20:28
PROVIDERS: ADMIT Hospitalist; ATTEND Hospitalist
PROC: 0FT44ZZ Resection of Gallbladder, Percutaneous Endoscopic Approach (ICD-10-PCS; principal; 2022-01-20 07:40)
DX: K85.10 Biliary acute pancreatitis without necrosis or infection (principal); N18.6 End stage renal disease; I12.0 Hypertensive chronic kidney disease with stage 5 chronic kidney disease or end stage renal disease; J90 Pleural effusion, not elsewhere classified; K80.00 Calculus of gallbladder with acute cholecystitis without obstruction; E11.22 Type 2 diabetes mellitus with diabetic chronic kidney disease; E11.42 Type 2 diabetes mellitus with diabetic polyneuropathy; E11.649 Type 2 diabetes mellitus with hypoglycemia without coma; E78.5 Hyperlipidemia, unspecified; E86.9 Volume depletion, unspecified; F41.9 Anxiety disorder, unspecified; G47.00 Insomnia, unspecified; I25.10 Atherosclerotic heart disease of native coronary artery without angina pectoris; I48.91 Unspecified atrial fibrillation; K40.20 Bilateral inguinal hernia, without obstruction or gangrene, not specified as recurrent; K59.00 Constipation, unspecified; M1A.9XX0 Chronic gout, unspecified, without tophus (tophi); M89.9 Disorder of bone, unspecified; Z79.01 Long term (current) use of anticoagulants; Z79.84 Long term (current) use of oral hypoglycemic drugs; Z79.899 Other long term (current) drug therapy; Z80.1 Family history of malignant neoplasm of trachea, bronchus and lung; Z85.118 Personal history of other malignant neoplasm of bronchus and lung; Z87.891 Personal history of nicotine dependence; Z90.5 Acquired absence of kidney; Z95.5 Presence of coronary angioplasty implant and graft; Z99.2 Dependence on renal dialysis; G43.909 Migraine, unspecified, not intractable, without status migrainosus
CPT/HCPCS: 36415; 71046; 74176; 76705; 80053; 81001; 82150; 83605; 83690; 85025; 85610; 85730; 88304; 90935; 96361; 96374; 96376; 99285

== ENCOUNTER 2022-03-23 15:11 | Emergency (ER) | payer MEDICARE ==
--- NOTE | 2022-03-23 18:11 | CT ---
EXAMINATION TYPE: CT brain wo con CT DLP: 1188 mGycm, Automated exposure control for dose reduction was used. DATE OF EXAM: 03/23/2022 5:44 PM COMPARISON: None. CLINICAL INDICATION:Male, 76 years old with history of Fell hit top of head, TECHNIQUE: Brain: Multiple axial CT images of the brain were obtained without IV contrast. FINDINGS: Brain: Extra-axial spaces: No abnormal extra-axial fluid collections. Ventricular system: Within normal limits Cerebral parenchyma: No acute intraparenchymal hemorrhage or mass effect. The cruz-white junction is well differentiated. Scattered hypoattenuating areas are seen within the white matter. Cerebellum: Unremarkable. Mass effect: No evidence of midline shift. Intracranial vasculature: unremarkable Soft tissues: Normal. Calvarium/osseous structures: No depressed skull fracture. Paranasal sinuses and mastoid air cells: Mild scattered paranasal sinus disease. Visualized orbits: Bilateral aphakia IMPRESSION: 1. No acute intracranial process. 2. Nonspecific white matter changes, likely secondary to chronic small vessel ischemic disease.
--- NOTE | 2022-03-23 18:59 | XR ---
EXAMINATION TYPE: XR chest 2V DATE OF EXAM: 03/23/2022 6:34 PM COMPARISON: Chest radiographs from 01/17/2022 TECHNIQUE: XR chest 2V Frontal and lateral views of the chest. CLINICAL INDICATION:Male, 76 years old with history of Pleural effusion; FINDINGS: Lungs/Pleura: Blunting of the left costophrenic angle increased from prior. There is no evidence of f ocal consolidation, or pneumothorax. Pulmonary vascularity: Unremarkable. Heart/mediastinum: Cardiomediastinal silhouette is unremarkable. Musculoskeletal: No acute osseous pathology. IMPRESSION: Small left pleural effusion.
--- NOTE | 2022-03-23 22:59 | ED ---
Syncope HPI - General Stated Complaint: Syncope, Fall, head injury Time Seen by Provider: 03/23/22 22:27 - History of Present Illness Initial Comments: This patient is a 76-year-old man with history of end-stage renal disease who states he has postural hypotension. He states that he has long-standing orthostasis when he gets up too quick. He states that today he had a episode in which she passed out. He states that he had gotten up quickly and he didn't wait for walking. He states that he felt he was getting lightheaded but there was nothing to hold onto on the deck that he was on. Patient passed out falling and hitting the back of his head. This was around 2 PM. Patient states that he initially had some posterior headache but that has resolved. He states that he feels back at his baseline. Currently no headache. No neck pain. No other symptoms. MD Complaint: loss of consciousness, collapsed Onset/Timin -: hour(s) Prodromal Symptoms: lightheaded -: second(s) Witnessed: yes - by bystander Injuries Sustained Associated with Event: Head Current Symptoms: back to baseline Context: standing up Treatments Prior to Arrival: none - Related Data Home Medications Medication Instructions Recorded Confirmed Allopurinol [Zyloprim] 100 mg PO BID-W/MEALS 05/19/16 01/17/22 Fenofibrate,Micronized 200 mg PO HS 05/19/16 01/17/22 [Fenofibrate] Gabapentin [Neurontin] 300 mg PO DAILY 05/19/16 01/17/22 Glimepiride [Amaryl] 1 mg PO AC-BRKFST 05/19/16 01/17/22 Simvastatin [Zocor] 20 mg PO W/SUPPER 05/19/16 01/17/22 carvediloL [Coreg*] 12.5 mg PO BID@1200,1800 05/19/16 01/17/22 Ubidecarenone [Co Q-10] 100 mg PO DAILY 11/26/19 01/17/22 Apixaban [Eliquis] 5 mg PO BID@1200,2100 01/17/22 01/17/22 Cholecalciferol [Vitamin D3 (25 50 mcg PO W/LUNCH 01/17/22 01/17/22 Mcg = 1000 Iu)] Furosemide [Lasix] 40 mg PO W/LUNCH 01/17/22 01/17/22 amLODIPine [Norvasc] 2.5 mg PO HS 01/17/22 01/17/22 lisinopriL 40 mg PO W/LUNCH 01/17/22 01/17/22 sitaGLIPtin PHOSPHATE [Januvia] 25 mg PO W/LUNCH 01/17/22 01/17/22 Previous Rx's Medication Instructions Recorded oxyCODONE HCL [OxyIR] 5 mg PO Q6H PRN 3 Days #10 tab 01/20/22 Allergies Allergy/AdvReac Type Severity Reaction Status Date / Time No Known Allergies Allergy Verified 01/17/22 11:43 Review of Systems ROS Statement: Those systems with pertinent positive or pertinent negative responses have been documented in the HPI. ROS Other: All systems not noted in ROS Statement are negative. Constitutional: Denies: fever, chills, weakness Eyes: Denies: eye pain, vision change ENT: Denies: epistaxis, congestion Respiratory: Denies: cough, dyspnea Cardiovascular: Reports: syncope. 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 History of Any Multi-Drug Resistant Organisms: None Reported Past Surgical History: Heart Catheterization With Stent Additional Past Surgical History / Comment(s): Stent to LAD 06/07/16, tonsilitis, right kidney, dialysis fistula- left upper arm Past Anesthesia/Blood Transfusion Reactions: No Reported Reaction Date of Last Stent Placement:: 2015 Past Psychological History: No Psychological Hx Reported Additional Psychological History / Comment(s): R/T family deaths Smoking Status: Former smoker Past Alcohol Use History: Rare Additional Past Alcohol Use History / Comment(s): smoked for 20-30 yrs, quit 22 yrs ago, smoked 2 PPD Past Drug Use History: None Reported - Past Family History Father Family Medical History: Cancer Additional Family Medical History / Comment(s): Lung General Exam General appearance: alert, in no apparent distress Head exam: Present: normocephalic, other (Small contusion to the right of the occiput) Eye exam: Present: normal appearance, PERRL, EOMI. Absent: scleral icterus, conjunctival injection, nystagmus Neck exam: Present: normal inspection, full ROM. Absent: tenderness, meningismus Respiratory exam: Present: normal lung sounds bilaterally. Absent: respiratory distress, wheezes, rales, rhonchi, stridor, chest wall tenderness Cardiovascular Exam: Present: regular rate, normal rhythm, normal heart sounds. Absent: systolic murmur, diastolic murmur, rubs, gallop GI/Abdominal exam: Present: soft. Absent: distended, tenderness, guarding, rebound, rigid, mass Extremities exam: Present: normal inspection, normal capillary refill. Absent: pedal edema, calf tenderness Back exam: Present: normal inspection. Absent: vertebral tenderness Neurological exam: Present: alert, oriented X3, CN II-XII intact. Absent: motor sensory deficit Skin exam: Present: warm, dry, intact, normal color. Absent: rash EKG Findings - EKG Results: EKG: interpreted by ERMD, sinus rhythm (Rate 63 bpm), normal axis, normal QRS, normal ST/T, no acute changes - [place], Pacemaker, Normal: Normal tracing: normal tracing Disposition Clinical Impression: Syncope Disposition: HOME SELF-CARE Condition: Good Instructions (If sedation given, give patient instructions): Syncope (DC) Is patient prescribed a controlled substance at d/c from ED?: No Referrals: Kj Jiang MD [Primary Care Provider] - 1-2 days
[2022-03-24 00:24] VITALS: BP 124/64; PULSE 61; RESP 18
== END 2022-03-24 00:23 | disposition home or self-care (01) ==
LOC: EC 15:11
DX: R55 Syncope and collapse (principal); I25.10 Atherosclerotic heart disease of native coronary artery without angina pectoris; E78.5 Hyperlipidemia, unspecified; I12.0 Hypertensive chronic kidney disease with stage 5 chronic kidney disease or end stage renal disease; E11.22 Type 2 diabetes mellitus with diabetic chronic kidney disease; E11.40 Type 2 diabetes mellitus with diabetic neuropathy, unspecified; N18.6 End stage renal disease; G43.909 Migraine, unspecified, not intractable, without status migrainosus; Z79.01 Long term (current) use of anticoagulants; Z87.891 Personal history of nicotine dependence; Z72.89 Other problems related to lifestyle; W01.198A Fall on same level from slipping, tripping and stumbling with subsequent striking against other object, initial encounter; Z79.84 Long term (current) use of oral hypoglycemic drugs; Z79.899 Other long term (current) drug therapy
CPT/HCPCS: 70450; 71046; 93005; 99285

== ENCOUNTER 2024-03-16 17:58 | Emergency (ER) | payer MEDICARE ==
--- NOTE | 2024-03-16 18:50 | ED ---
Abdominal Pain HPI - General Chief Complaint: Abdominal Pain Stated Complaint: Constipation, unable to urinate, on dialysis Time Seen by Provider: 03/16/24 18:21 Source: patient, RN notes reviewed, old records reviewed, Caregiver Mode of arrival: ambulatory Limitations: no limitations - History of Present Illness Initial Comments: This is an 78-year-old male with complaint of no bowel movements and no urinations. He states both issues been going on for 2 days. He is a dialysis patient who was unable to finish his dialysis on Sunday secondary to some pain and not feeling well. Patient is here today for decreased activity per the weakness and no bowel movement or urine output in 2 days, at baseline urine output is negative negligible, patient does have mild abdominal pain MD Complaint: abdominal pain -: days(s) (2) Radiation: suprapubic Migration to: suprapubic Quality: sharp Consistency: constant Improves With: nothing Worsens With: nothing Associated Symptoms: nausea, vomiting - Related Data Home Medications Medication Instructions Recorded Confirmed Fenofibrate,Micronized 200 mg PO HS 05/19/16 01/17/22 [Fenofibrate] Gabapentin [Neurontin] 300 mg PO DAILY 05/19/16 01/17/22 Glimepiride [Amaryl] 1 mg PO AC-BRKFST 05/19/16 01/17/22 Simvastatin [Zocor] 20 mg PO W/SUPPER 05/19/16 01/17/22 allopurinoL [Zyloprim] 100 mg PO BID-W/MEALS 05/19/16 01/17/22 carvediloL [Coreg*] 12.5 mg PO BID@1200,1800 05/19/16 01/17/22 Ubidecarenone [Co Q-10] 100 mg PO DAILY 11/26/19 01/17/22 Apixaban [Eliquis] 5 mg PO BID@1200,2100 01/17/22 01/17/22 Cholecalciferol [Vitamin D3 (25 50 mcg PO W/LUNCH 01/17/22 01/17/22 Mcg = 1000 Iu)] Furosemide [Lasix] 40 mg PO W/LUNCH 01/17/22 01/17/22 amLODIPine [Norvasc] 2.5 mg PO HS 01/17/22 01/17/22 lisinopriL 40 mg PO W/LUNCH 01/17/22 01/17/22 sitaGLIPtin PHOSPHATE [Januvia] 25 mg PO W/LUNCH 01/17/22 01/17/22 Previous Rx's Medication Instructions Recorded oxyCODONE HCL [OxyIR] 5 mg PO Q6H PRN 3 Days #10 tab 01/20/22 Allergies Allergy/AdvReac Type Severity Reaction Status Date / Time No Known Allergies Allergy Verified 03/16/24 18:19 Review of Systems ROS Statement: Those systems with pertinent positive or pertinent negative responses have been documented in the HPI. ROS Other: All systems not noted in ROS Statement are negative. 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 History of Any Multi-Drug Resistant Organisms: None Reported Past Surgical History: Heart Catheterization With Stent Additional Past Surgical History / Comment(s): Stent to LAD 06/07/16, tonsilitis, right kidney, dialysis fistula- left upper arm Past Anesthesia/Blood Transfusion Reactions: No Reported Reaction Date of Last Stent Placement:: 2015 Past Psychological History: No Psychological Hx Reported Smoking Status: Former smoker Past Alcohol Use History: Rare Past Drug Use History: None Reported - Past Family History Father Family Medical History: Cancer Additional Family Medical History / Comment(s): Lung General Exam Limitations: no limitations General appearance: alert, in no apparent distress Head exam: Present: atraumatic, normocephalic, normal inspection Eye exam: Present: normal appearance, PERRL, EOMI. Absent: scleral icterus, conjunctival injection, periorbital swelling ENT exam: Present: normal exam, mucous membranes moist Neck exam: Present: normal inspection. Absent: tenderness, meningismus, lymphadenopathy Respiratory exam: Present: normal lung sounds bilaterally. Absent: respiratory distress, wheezes, rales, rhonchi, stridor Cardiovascular Exam: Present: regular rate, normal rhythm, normal heart sounds. Absent: systolic murmur, diastolic murmur, rubs, gallop, clicks GI/Abdominal exam: Present: soft, normal bowel sounds. Absent: distended, tenderness, guarding, rebound, rigid Extremities exam: Present: normal inspection, full ROM, normal capillary refill. Absent: tenderness, pedal edema, joint swelling, calf tenderness Back exam: Present: normal inspection Neurological exam: Present: alert, oriented X3, CN II-XII intact Psychiatric exam: Present: normal affect, normal mood Skin exam: Present: warm, dry, intact, normal color. Absent: rash Course Vital Signs 03/16/24 03/16/24 18:16 21:29 Temperature 98.6 F Pulse Rate 78 71 Respiratory 18 18 Rate Blood Pressure 138/57 127/77 O2 Sat by Pulse 95 100 Oximetry - Reevaluation(s) Reevaluation #1: 03/16/24 18:49 Medical record is reviewed Reevaluation #2: 03/16/24 18:49 Patient symptoms unchanged Reevaluation #3: Patient informed of results and questions answered Reevaluation #4: Was pt. sent in by a medical professional or institution (, [facility], ARCHITECTURAL DRAFTSMAN, urgent care, hospital, or intermediate...) When possible be specific @ -no Did you speak to anyone other than the patient for history (EMS, parent, family, police, friend...)? What history was obtained from this source @ -no Did you review nursing and triage notes (agree or disagree)? Why? @ -agree Are old charts reviewed (outside hosp., previous admission, EMS record, old EKG, old radiological studies, urgent care reports/EKG's, intermediate records)? Report findings @ -yes Differential Diagnosis (chest pain, altered mental status, abdominal pain women, abdominal pain men, vaginal bleeding, weakness, fever, dyspnea, syncope, headache, dizziness, GI bleed, back pain, seizure, CVA, palpatations, mental health, musculoskeletal)? @ -prior EKG interpreted by me (3pts min.). @ -no X-rays interpreted by me (1pt min.). @ -no CT interpreted by me (1pt min.). @ -yes negative for acute disease U/S interpreted by me (1pt. min.). @ -no What testing was considered but not performed or refused? (CT, X-rays, U/S, labs)? Why? @ -none What meds were considered but not given or refused? Why? @ -none Did you discuss the management of the patient with other professionals (professionals i.e. , PA, ARCHITECTURAL DRAFTSMAN, lab, RT, psych nurse, social science instructor, branch chief, teacher, traffic police officer, case aide)? Give summary @ -no Was smoking cessation discussed for >3mins.? @ -no Was critical care preformed (if so, how long)? @ -no Were there social determinants of health that impacted care today? How? (Homelessness, low income, unemployed, alcoholism, drug addiction, transportation, low edu. Level, literacy, decrease access to med. care, group home, rehab)? @ -none Was there de-escalation of care discussed even if they declined (Discuss DNR or withdrawal of care, Hospice)? DNR status @ -no What co-morbidities impacted this encounter? (DM, HTN, Smoking, COPD, CAD, Cancer, CVA, ARF, Chemo, Hep., AIDS, mental health diagnosis, sleep apnea, morbid obesity)? @ -none Was patient admitted / discharged? Hospital course, mention meds given and route, prescriptions, significant lab abnormalities, going to OR and other pertinent info. @ -78 male with nonspecific abdominal pain here in the ER patient has adequate pain control here and can be discharged home Admitted Undiagnosed new problem with uncertain prognosis? @ -no Drug Therapy requiring intensive monitoring for toxicity (Heparin, Nitro, Insulin, Cardizem)? @ -no Were any procedures done? @ -no Diagnosis/symptom? @ -Abdominal pain Acute, or Chronic, or Acute on Chronic? @ -Acute Uncomplicated (without systemic symptoms) or Complicated (systemic symptoms)? @ -Complicated Side effects of treatment? @ -no Exacerbation, Progression, or Severe Exacerbation? @ -exacerbation Poses a threat to life or bodily function? How? (Chest pain, USA, PR, pneumonia, PE, COPD, DKA, ARF, appy, cholecystitis, CVA, Diverticulitis, Homicidal, Suicidal, threat to staff... and all critical care pts) @ -yes yes with extremes of age Reevaluation #5: Differential Abdominal Pain Men: Appendicitis, cholecystitis, diverticulosis, ischemic bowel, pancreatitis, hepatitis, UTI, gastroenteritis, AAA, incarcerated hernia, bowel obstruction, constipation, inflammatory bowel, hepatitis, peptic ulcer disease, splenic infarction, perforated viscus, testicular torsion, this is not meant to be an all-inclusive list Medical Decision Making - Medical Decision Making 78 male for nonspecific generalized abdominal pain here in the emergency room. Patient has no acute cause found for abdominal pain here in the ER feels well and can be discharged home - Lab Data Result diagrams: 03/16/24 18:52 03/16/24 18:52 Lab Results 03/16/24 03/16/24 Range/Units 18:52 18:52 WBC 10.2 (3.8-10.6) k/uL RBC 2.89 L (4.30-5.90) m/uL Hgb 10.0 L (13.0-17.5) gm/dL Hct 31.3 L (39.0-53.0) % MCV 108.3 H (80.0-100.0) fL MCH 34.5 (25.0-35.0) pg MCHC 31.9 (31.0-37.0) g/dL RDW 15.0 (11.5-15.5) % Plt Count 217 (150-450) k/uL MPV 9.5 Neutrophils % 80 % Lymphocytes % 8 % Monocytes % 8 % Eosinophils % 3 % Basophils % 1 % Neutrophils # 8.1 H (1.3-7.7) k/uL Lymphocytes # 0.8 L (1.0-4.8) k/uL Monocytes # 0.8 (0-1.0) k/uL Eosinophils # 0.3 (0-0.7) k/uL Basophils # 0.1 (0-0.2) k/uL Manual Slide Review Performed RBC Morphology Normal Macrocytosis Marked A Sodium 138 (137-145) mmol/L Potassium 5.2 H (3.5-5.1) mmol/L Chloride 101 (98-107) mmol/L Carbon Dioxide 23 (22-30) mmol/L Anion Gap 14 mmol/L BUN 82 H (9-20) mg/dL Creatinine 11.48 H* (0.66-1.25) mg/dL Est GFR (CKD-EPI)AfAm 4 (>60 ml/min/1.73 sqM) Est GFR (CKD-EPI)NonAf 4 (>60 ml/min/1.73 sqM) Glucose 169 H (74-99) mg/dL Calcium 9.5 (8.4-10.2) mg/dL Phosphorus 5.0 H (2.5-4.5) mg/dL Magnesium 2.4 H (1.6-2.3) mg/dL Total Bilirubin 0.6 (0.2-1.3) mg/dL AST 28 (17-59) U/L ALT 15 (4-49) U/L Alkaline Phosphatase 40 (38-126) U/L Total Protein 6.7 (6.3-8.2) g/dL Albumin 4.0 (3.5-5.0) g/dL Amylase 88 (30-110) U/L Lipase 288 (23-300) U/L - Radiology Data Radiology results: report reviewed (CT abdomen pelvis is negative for acute disease), image reviewed Disposition Clinical Impression: Abdominal pain Disposition: HOME SELF-CARE Condition: Good Instructions (If sedation given, give patient instructions): Abdominal Pain (ED) Is patient prescribed a controlled substance at d/c from ED?: No Referrals: Kj Jiang MD [Primary Care Provider] - 1-2 days Time of Disposition: 20:40
[2024-03-16 18:57] VITALS: RESP 18; TEMP 98.6
[2024-03-16] MEDS: SODIUM CHLORIDE 0.9% 500 ML 500 ML IV STA (19:05)
[2024-03-16 19:40] LABS: ALT 15 U/L (4-49); AST 28 U/L (17-59); African American GFR (CKD) 4 (>60 ml/min/1.73 sqM); Alkaline Phosphatase 40 U/L (38-126); Amylase 88 U/L (30-110); Anion Gap 14 mmol/L; Blood Urea Nitrogen 82 mg/dL (9-20); Calcium 9.5 mg/dL (8.4-10.2); Carbon Dioxide 23 mmol/L (22-30); Chloride 101 mmol/L (98-107); Glucose 169 mg/dL (74-99); Lipase 288 U/L (23-300); Magnesium 2.4 mg/dL (1.6-2.3); Non-African American GFR(CKD) 4 (>60 ml/min/1.73 sqM); Potassium 5.2 mmol/L (3.5-5.1); Sodium 138 mmol/L (137-145); Total Bilirubin 0.6 mg/dL (0.2-1.3); Total Protein 6.7 g/dL (6.3-8.2)
--- NOTE | 2024-03-16 19:44 | CT ---
EXAMINATION TYPE: CT abdomen pelvis wo con CT DLP: 928.6 mGycm, Automated exposure control for dose reduction was used. DATE OF EXAM: 03/16/2024 7:37 PM COMPARISON: CT abdomen pelvis most recent from 12/28/2021 CLINICAL INDICATION:Male, 78 years old with history of abdominal pain; abd pain, pressure, unable to urinate. TECHNIQUE: Axial CT abdomen pelvis wo con;Sagittal and coronal reformats were created on a separate workstation. Contrast used: mL of , (none if empty) Oral contrast used: without Oral Contrast (none if empty) FINDINGS: LOWER CHEST: Trace left pleural effusion with split pleural sign. ABDOMEN LIVER: Unremarkable GALLBLADDER AND BILE DUCTS: Gallbladder surgically absent. PANCREAS: Unremarkable. SPLEEN: Unremarkable. ADRENAL GLANDS: Unremarkable. KIDNEYS AND URETERS: Mild left hydronephrosis without evidence for obstructing calculus. There is fac et joint changes around the left kidney. The right kidney is surgically absent. PELVIS BLADDER: Unremarkable REPRODUCTIVE: Prostate is enlarged in size measuring 5.8 cm in transverse dimension. ABDOMEN & PELVIS STOMACH AND BOWEL: No evidence of bowel obstruction. Postsurgical changes to the cecum. Circumferenti al wall thickening of the rectum measuring up to 10 mm on sagittal imaging series 203 image 86 felt t o be due to underdistention. PERITONEUM/RETROPERITONEUM: No evidence of pneumoperitoneum or free fluid. VASCULATURE: No evidence of aortic aneurysm. MUSCULOSKELETAL: No acute osseous abnormalities LYMPH NODES: No gross evidence for lymphadenopathy. SOFT TISSUE/ABDOMINAL WALL: Fat-containing inguinal hernias. IMPRESSION: 1. Mild left hydronephrosis without obstructing calculus visualized. Given inflammation changes on t he left kidney correlate for pyelonephritis. 2. The right kidney surgically absent. 3. Prostatomegaly, correlate with serum PSA. 4. Trace left pleural effusion with split pleural sign. This has decreased in size from prior on 12/28.
[2024-03-16 19:59] LABS: Basophils # (A) 0.1 k/uL (0-0.2); Basophils % (A) 1 %; Eosinophils # (A) 0.3 k/uL (0-0.7); Eosinophils % (A) 3 %; HCT 31.3 % (39.0-53.0); Lymphocytes # (A) 0.8 k/uL (1.0-4.8); Lymphocytes % (A) 8 %; MCH 34.5 pg (25.0-35.0); MCHC 31.9 g/dL (31.0-37.0); MCV 108.3 fL (80.0-100.0); Macrocytosis Marked; Mean Platelet Volume 9.5; Monocytes # (A) 0.8 k/uL (0-1.0); Monocytes % (A) 8 %; Neutrophils # (A) 8.1 k/uL (1.3-7.7); Neutrophils % (A) 80 %; Platelet Count 217 k/uL (150-450); RBC 2.89 m/uL (4.30-5.90); WBC 10.2 k/uL (3.8-10.6)
[2024-03-16] MEDS ORDERED: SODIUM POLYSTYRENE SULFONATE 15 GM/60 ML BOTTLE PO STA (20:43)
[2024-03-16 21:18] LABS: RBC Morphology Normal
[2024-03-16] MEDS: SODIUM ZIRCONIUM CYCLOSILICATE 10 GM PACKET PO ONE (21:29)
[2024-03-17 00:04] VITALS: BP 127/77; PULSE 71
== END 2024-03-16 21:30 | disposition home or self-care (01) ==
LOC: EC 17:58
DX: R10.9 Unspecified abdominal pain (principal); Z87.891 Personal history of nicotine dependence
CPT/HCPCS: 36415; 74176; 80053; 82150; 83690; 83735; 84100; 85025; 99284

== ENCOUNTER 2024-03-18 16:48 | Emergency (ER) | payer MEDICARE ==
--- NOTE | 2024-03-18 17:41 | ED ---
Male Urogenital HPI - General Chief complaint: Urogenital Stated complaint: Abd pain, vomitting, trouble urinating Time Seen by Provider: 03/18/24 17:40 Source: patient, RN notes reviewed Mode of arrival: ambulatory Limitations: no limitations - History of Present Illness Initial comments: 86-year-old male with history of end-stage renal disease on dialysis presenting to the ER with no urinations for 5 days. Patient has hemodialysis Mondays, Wednesdays, and Fridays. He is also complaining of left lower quadrant tenderness. He was here in the ER 2 days ago for the same issue where they did a CT scan which showed some hydronephrosis on the left side with no stone. Patient was already taking a 10-day course of ciprofloxacin for a skin infection and was told by the ER provider to continue this to cover for urine infection. Patient reports he had an episode of vomiting today as well. States at baseline he urinates at least a cup a day. Denies any chest pain or leg swelling. - Related Data Home Medications Medication Instructions Recorded Confirmed Fenofibrate,Micronized 200 mg PO HS 05/19/16 01/17/22 [Fenofibrate] Gabapentin [Neurontin] 300 mg PO DAILY 05/19/16 01/17/22 Glimepiride [Amaryl] 1 mg PO AC-BRKFST 05/19/16 01/17/22 Simvastatin [Zocor] 20 mg PO W/SUPPER 05/19/16 01/17/22 allopurinoL [Zyloprim] 100 mg PO BID-W/MEALS 05/19/16 01/17/22 carvediloL [Coreg*] 12.5 mg PO BID@1200,1800 05/19/16 01/17/22 Ubidecarenone [Co Q-10] 100 mg PO DAILY 11/26/19 01/17/22 Apixaban [Eliquis] 5 mg PO BID@1200,2100 01/17/22 01/17/22 Cholecalciferol [Vitamin D3 (25 50 mcg PO W/LUNCH 01/17/22 01/17/22 Mcg = 1000 Iu)] Furosemide [Lasix] 40 mg PO W/LUNCH 01/17/22 01/17/22 amLODIPine [Norvasc] 2.5 mg PO HS 01/17/22 01/17/22 lisinopriL 40 mg PO W/LUNCH 01/17/22 01/17/22 sitaGLIPtin PHOSPHATE [Januvia] 25 mg PO W/LUNCH 01/17/22 01/17/22 Previous Rx's Medication Instructions Recorded oxyCODONE HCL [OxyIR] 5 mg PO Q6H PRN 3 Days #10 tab 01/20/22 Allergies Allergy/AdvReac Type Severity Reaction Status Date / Time No Known Allergies Allergy Verified 03/16/24 18:19 Review of Systems ROS Statement: Those systems with pertinent positive or pertinent negative responses have been documented in the HPI. ROS Other: All systems not noted in ROS Statement are negative. 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 History of Any Multi-Drug Resistant Organisms: None Reported Past Surgical History: Heart Catheterization With Stent Additional Past Surgical History / Comment(s): Stent to LAD 06/07/16, tonsiliti s, right kidney, dialysis fistula- left upper arm Past Anesthesia/Blood Transfusion Reactions: No Reported Reaction Date of Last Stent Placement:: 2015 Past Psychological History: No Psychological Hx Reported Smoking Status: Former smoker Past Alcohol Use History: Rare Past Drug Use History: None Reported - Past Family History Father Family Medical History: Cancer Additional Family Medical History / Comment(s): Lung General Exam Limitations: no limitations General appearance: alert, in no apparent distress Head exam: Present: atraumatic, normocephalic, normal inspection Eye exam: Present: normal appearance, PERRL, EOMI. Absent: scleral icterus, conjunctival injection, periorbital swelling ENT exam: Present: normal exam, mucous membranes moist Neck exam: Present: normal inspection. Absent: tenderness, meningismus, lymphadenopathy Respiratory exam: Present: normal lung sounds bilaterally. Absent: respiratory distress, wheezes, rales, rhonchi, stridor Cardiovascular Exam: Present: regular rate, normal rhythm, normal heart sounds. Absent: systolic murmur, diastolic murmur, rubs, gallop, clicks GI/Abdominal exam: Present: soft, tenderness (Mild left lower quadrant tenderness to palpation), normal bowel sounds. Absent: distended, guarding, rebound, rigid Extremities exam: Present: normal inspection, full ROM, normal capillary refill. Absent: tenderness, pedal edema, joint swelling, calf tenderness Neurological exam: Present: alert, oriented X3, CN II-XII intact Psychiatric exam: Present: normal affect, normal mood Skin exam: Present: warm, dry, intact, normal color. Absent: rash Course Vital Signs 03/18/24 17:08 Temperature 98.3 F Pulse Rate 77 Respiratory 16 Rate Blood Pressure 149/75 O2 Sat by Pulse 98 Oximetry Medical Decision Making - Medical Decision Making Was pt. sent in by a medical professional or institution (, PA, POWDER GUARD, urgent care, hospital, or alf...) When possible be specific @ -No Did you speak to anyone other than the patient for history (EMS, parent, family, police, friend...)? What history was obtained from this source @ -Patient's supplemented history Did you review nursing and triage notes (agree or disagree)? Why? @ -I reviewed and agree with nursing and triage notes Were old charts reviewed (outside hosp., previous admission, EMS record, old EKG, old radiological studies, urgent care reports/EKG's, alf records)? Report findings @ -Reviewed from [address] of abdomen/pelvis from 2 days ago revealed mild left hydronephrosis without obstructing calculus Differential Diagnosis (chest pain, altered mental status, abdominal pain women, abdominal pain men, vaginal bleeding, weakness, fever, dyspnea, syncope, heada cipriano, dizziness, GI bleed, back pain, seizure, CVA, palpatations, mental health, musculoskeletal)? @ -Differential Abdominal Pain Men: Appendicitis, cholecystitis, diverticulosis, ischemic bowel, pancreatitis, hepatitis, UTI, gastroenteritis, AAA, incarcerated hernia, bowel obstruction, constipation, inflammatory bowel, hepatitis, peptic ulcer disease, splenic infarction, perforated viscus, testicular torsion, this is not meant to be an all-inclusive list EKG interpreted by me (3pts min.). @ -None X-rays interpreted by me (1pt min.). @ -None done CT interpreted by me (1pt min.). @ -None done U/S interpreted by me (1pt. min.). @ -Ultrasound of bladder revealed no evidence for mass, limited exam due to empty bladder What testing was considered but not performed or refused? (CT, X-rays, U/S, labs)? Why? @ -CT not performed today due to CT was performed 2 days ago with no change in symptoms What meds were considered but not given or refused? Why? @ -None Did you discuss the management of the patient with other professionals (professionals i.e. , PA, POWDER GUARD, lab, RT, psych nurse, social service liaison, electronics research engineer, teacher, textile technical officer, outsole caser)? Give summary @ -No Was smoking cessation discussed for >3mins.? @ -No Was critical care preformed (if so, how long)? @ -No Were there social determinants of health that impacted care today? How? (Homelessness, low income, unemployed, alcoholism, drug addiction, transportation, low edu. Level, literacy, decrease access to med. care, skilled nursing, rehab)? @ -No Was there de-escalation of care discussed even if they declined (Discuss DNR or withdrawal of care, Hospice)? DNR status @ -No What co-morbidities impacted this encounter? (DM, HTN, Smoking, COPD, CAD, Cancer, CVA, ARF, Chemo, Hep., AIDS, mental health diagnosis, sleep apnea, morbid obesity)? @ -End-stage renal disease Was patient admitted / discharged? Hospital course, mention meds given and route, prescriptions, significant lab abnormalities, going to OR and other pertinent info. @ -Patient was discharged. Patient was seen and evaluated for decreased urine output x 5 days. Patient is on hemodialysis 3 times a week for end-stage renal disease. There are no alarm symptoms today. Physical examination is remarkable for mild tenderness in left lower quadrant of abdomen. Bladder scan revealed 11 mL of urine, therefore ultrasound of bladder was performed which revealed no evidence for mass, exam was limited due to empty bladder. Attempted to straight cath patient to obtain a urine sample however was unable due to empty bladder. Lab work was unchanged from 2 days ago, creatinine was 11.48 2 days ago and today is 9.65. Discussed with patient that patient is likely not making urine anymore due to end-stage renal disease. Advise close follow-up with her medical diagnostic radiographer and encouraged to attend dialysis tomorrow. Strict alarm/return symptoms discussed with patient and patient shows understanding and agrees. Patient discharged in stable condition. Case discussed with Dr. Metz. Undiagnosed new problem with uncertain prognosis? @ -No Drug Therapy requiring intensive monitoring for toxicity (Heparin, Nitro, Insulin, Cardizem)? @ -No Were any procedures done? @ -No Diagnosis/symptom? @ -End-stage renal disease Acute, or Chronic, or Acute on Chronic? @ -Chronic Uncomplicated (without systemic symptoms) or Complicated (systemic symptoms)? @ -Uncomplicated Side effects of treatment? @ -No Exacerbation, Progression, or Severe Exacerbation? @ -No Poses a threat to life or bodily function? How? (Chest pain, [place], [place], pneumonia, PE, COPD, DKA, ARF, appy, cholecystitis, CVA, Diverticulitis, Homicidal, Suicidal, threat to staff... and all critical care pts) @ -No - Lab Data Result diagrams: 03/18/24 17:40 03/18/24 17:40 Lab Results 03/18/24 03/18/24 03/18/24 Range/Units 17:40 17:40 17:40 WBC 9.3 (3.8-10.6) k/uL RBC 2.81 L (4.30-5.90) m/uL Hgb 9.8 L (13.0-17.5) gm/dL Hct 30.6 L (39.0-53.0) % MCV 108.9 H (80.0-100.0) fL MCH 35.0 (25.0-35.0) pg MCHC 32.1 (31.0-37.0) g/dL RDW 14.6 (11.5-15.5) % Plt Count 245 (150-450) k/uL MPV 9.1 Neutrophils % 83 % Lymphocytes % 6 % Monocytes % 8 % Eosinophils % 2 % Basophils % 0 % Neutrophils # 7.6 (1.3-7.7) k/uL Lymphocytes # 0.5 L (1.0-4.8) k/uL Monocytes # 0.8 (0-1.0) k/uL Eosinophils # 0.2 (0-0.7) k/uL Basophils # 0.0 (0-0.2) k/uL Manual Slide Review Performed Macrocytosis Marked A Sodium 137 (137-145) mmol/L Potassium 5.2 H (3.5-5.1) mmol/L Chloride 97 L (98-107) mmol/L Carbon Dioxide 30 (22-30) mmol/L Anion Gap 10 mmol/L BUN 58 H (9-20) mg/dL Creatinine 9.65 H* (0.66-1.25) mg/dL Est GFR (CKD-EPI)AfAm 5 (>60 ml/min/1.73 sqM) Est GFR (CKD-EPI)NonAf 5 (>60 ml/min/1.73 sqM) Glucose 153 H (74-99) mg/dL Plasma Lactic Acid Matthew 1.3 (0.7-2.0) mmol/L Calcium 9.3 (8.4-10.2) mg/dL Total Bilirubin 0.7 (0.2-1.3) mg/dL AST 39 (17-59) U/L ALT 20 (4-49) U/L Alkaline Phosphatase 33 L (38-126) U/L Total Protein 6.6 (6.3-8.2) g/dL Albumin 3.7 (3.5-5.0) g/dL Disposition Clinical Impression: ESRD (end stage renal disease) on dialysis Disposition: HOME SELF-CARE Condition: Stable Instructions (If sedation given, give patient instructions): End Stage Kidney Disease (ED) Additional Instructions: Please follow-up for dialysis tomorrow. Please return to the Emergency Department if symptoms worsen or any other concerns. Is patient prescribed a controlled substance at d/c from ED?: No Referrals: Kj Jiang MD [Primary Care Provider] - 1-2 days Time of Disposition: 19:39
[2024-03-18 18:49] LABS: ALT 20 U/L (4-49); AST 39 U/L (17-59); African American GFR (CKD) 5 (>60 ml/min/1.73 sqM); Albumin 3.7 g/dL (3.5-5.0); Alkaline Phosphatase 33 U/L (38-126); Anion Gap 10 mmol/L; Blood Urea Nitrogen 58 mg/dL (9-20); Calcium 9.3 mg/dL (8.4-10.2); Carbon Dioxide 30 mmol/L (22-30); Chloride 97 mmol/L (98-107); Glucose 153 mg/dL (74-99); Non-African American GFR(CKD) 5 (>60 ml/min/1.73 sqM); Potassium 5.2 mmol/L (3.5-5.1); Sodium 137 mmol/L (137-145); Total Bilirubin 0.7 mg/dL (0.2-1.3); Total Protein 6.6 g/dL (6.3-8.2)
--- NOTE | 2024-03-18 18:50 | US ---
EXAMINATION TYPE: US bladder DATE OF EXAM: 03/18/2024 COMPARISON: 12/05/2019 CLINICAL INDICATION: Male, 78 years old with history of urinary retention; Urinary retention. Dialysi s patient, states that he only can drink 32oz of water per day. He has trouble urinating, says that i t aches. TECHNIQUE: Multiple sonographic images of the bladder are obtained. FINDINGS: STRAP SEWER NOTES: Limited exam due to bladder not being full. Color Doppler performed to assess ureteral jets. Bilateral Jets seen: Not seen today IMPRESSION: Limited exam, ureteral jets not visualized. No evidence for mass.
[2024-03-18 19:00] LABS: Basophils % (A) 0 %; Eosinophils # (A) 0.2 k/uL (0-0.7); Eosinophils % (A) 2 %; HCT 30.6 % (39.0-53.0); HGB 9.8 gm/dL (13.0-17.5); Lymphocytes # (A) 0.5 k/uL (1.0-4.8); Lymphocytes % (A) 6 %; MCHC 32.1 g/dL (31.0-37.0); MCV 108.9 fL (80.0-100.0); Macrocytosis Marked; Mean Platelet Volume 9.1; Monocytes # (A) 0.8 k/uL (0-1.0); Monocytes % (A) 8 %; Neutrophils # (A) 7.6 k/uL (1.3-7.7); Neutrophils % (A) 83 %; Platelet Count 245 k/uL (150-450); RBC 2.81 m/uL (4.30-5.90); RDW 14.6 % (11.5-15.5); WBC 9.3 k/uL (3.8-10.6)
[2024-03-18 20:10] VITALS: BP 161/69; PULSE 71; RESP 18; TEMP 97.9
== END 2024-03-18 20:47 | disposition home or self-care (01) ==
LOC: EC 16:48
DX: I12.0 Hypertensive chronic kidney disease with stage 5 chronic kidney disease or end stage renal disease (principal); N18.6 End stage renal disease; Z99.2 Dependence on renal dialysis; Z87.891 Personal history of nicotine dependence
CPT/HCPCS: 36415; 76857; 80053; 83605; 85025; 99284

== ENCOUNTER 2024-07-02 09:05 | Inpatient (IN) | payer MEDICARE ==
[2024-07-02 09:47] LABS: Basophils # (A) 0.1 k/uL (0-0.2); Basophils % (A) 1 %; Eosinophils # (A) 0.4 k/uL (0-0.7); Eosinophils % (A) 5 %; HGB 11.6 gm/dL (13.0-17.5); Hypochromasia Slight; Lymphocytes # (A) 0.9 k/uL (1.0-4.8); Lymphocytes % (A) 10 %; MCH 32.2 pg (25.0-35.0); MCHC 30.5 g/dL (31.0-37.0); MCV 105.6 fL (80.0-100.0); Macrocytosis Moderate; Mean Platelet Volume 8.4; Monocytes # (A) 0.6 k/uL (0-1.0); Monocytes % (A) 6 %; Neutrophils # (A) 6.9 k/uL (1.3-7.7); Neutrophils % (A) 77 %; Platelet Count 263 k/uL (150-450); RBC 3.59 m/uL (4.30-5.90); RDW 14.8 % (11.5-15.5); WBC 8.9 k/uL (3.8-10.6)
[2024-07-02 10:00] LABS: ALT 21 U/L (4-49); AST 50 U/L (17-59); African American GFR (CKD) 18 (>60 ml/min/1.73 sqM); Albumin 4.2 g/dL (3.5-5.0); Alkaline Phosphatase 48 U/L (38-126); Anion Gap 7 mmol/L; Blood Urea Nitrogen 16 mg/dL (9-20); Calcium 9.7 mg/dL (8.4-10.2); Carbon Dioxide 35 mmol/L (22-30); Chloride 99 mmol/L (98-107); Glucose 109 mg/dL (74-99); Magnesium 2.3 mg/dL (1.6-2.3); Non-African American GFR(CKD) 16 (>60 ml/min/1.73 sqM); Potassium 4.2 mmol/L (3.5-5.1); Sodium 141 mmol/L (137-145); Total Bilirubin 0.7 mg/dL (0.2-1.3); Total Protein 7.2 g/dL (6.3-8.2)
--- NOTE | 2024-07-02 10:01 | ED ---
General Adult HPI - General Source: patient, RN notes reviewed, old records reviewed Mode of arrival: ambulatory Limitations: no limitations <Everardo Fuentes - Last Filed: 07/02/24 11:29> <Braden Metz - Last Filed: 07/03/24 03:33> - General Chief complaint: Arrhythmia/Palpitations Stated complaint: Heart Palpitations Time Seen by Provider: 07/02/24 09:10 - History of Present Illness Initial comments: 79-year-old male presenting with palpitations. Patient states that he was noted to be in atrial fibrillation when seen by his billboard mechanic approximately 1 week ago. He had a remote diagnosis of atrial fibrillation from 3 years ago but states that he had been in sinus rhythm since then. He states he had COVID a little over 2 weeks ago and believes that the recent recurrence of atrial fibrillation was related to coronavirus. He denies central chest pain but states he does have increased exertional dyspnea. He is on Eliquis and metoprolol. Patient's also on hemodialysis for end-stage renal disease and receives hemodialysis this morning. (Everardo Fuentes) - Related Data Home Medications Medication Instructions Recorded Confirmed Fenofibrate,Micronized 200 mg PO QAM 05/19/16 07/02/24 [Fenofibrate] Gabapentin [Neurontin] 300 mg PO DAILY 05/19/16 07/02/24 Glimepiride [Amaryl] 1 mg PO AC-BRKFST 05/19/16 07/02/24 allopurinoL [Zyloprim] 100 mg PO BID-W/MEALS 05/19/16 07/02/24 Cholecalciferol [Vitamin D3 (25 50 mcg PO W/LUNCH 01/17/22 07/02/24 Mcg = 1000 Iu)] sitaGLIPtin PHOSPHATE [Januvia] 25 mg PO W/LUNCH 01/17/22 07/02/24 Apixaban [Eliquis] 2.5 mg PO BID-W/MEALS 07/02/24 07/02/24 Cephalexin [Keflex] 500 mg PO TID-W/MEALS 07/02/24 07/02/24 Furosemide [Lasix] 20 mg PO W/SUPPER 07/02/24 07/02/24 Sevelamer [Renvela] 800 mg PO AC-TID 07/02/24 07/02/24 Allergies Allergy/AdvReac Type Severity Reaction Status Date / Time cefadroxil AdvReac Constipatio Verified 07/02/24 10:29 n clindamycin AdvReac Diarrhea Verified 07/02/24 10:29 Review of Systems ROS Other: All systems not noted in ROS Statement are negative. <Everardo Fuentes Giovani - Last Filed: 07/02/24 11:29> ROS Other: All systems not noted in ROS Statement are negative. <Braden Metz - Last Filed: 07/03/24 03:33> ROS Statement: Those systems with pertinent positive or pertinent negative responses have been documented in the HPI. 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 History of Any Multi-Drug Resistant Organisms: None Reported Past Surgical History: Heart Catheterization With Stent Additional Past Surgical History / Comment(s): Stent to LAD 06/07/16, tonsilitis, right kidney, dialysis fistula- left upper arm Past Anesthesia/Blood Transfusion Reactions: No Reported Reaction Date of Last Stent Placement:: 2015 Past Psychological History: No Psychological Hx Reported Smoking Status: Former smoker Past Alcohol Use History: Rare Past Drug Use History: None Reported - Past Family History Father Family Medical History: Cancer Additional Family Medical History / Comment(s): Lung <Everardo Fuentes Giovani - Last Filed: 07/02/24 11:29> General Exam Limitations: no limitations General appearance: alert, in no apparent distress Head exam: Present: atraumatic, normocephalic Eye exam: Present: normal appearance, PERRL ENT exam: Present: normal exam Neck exam: Present: normal inspection. Absent: meningismus Respiratory exam: Present: normal lung sounds bilaterally. Absent: respiratory distress, wheezes, rales Cardiovascular Exam: Present: regular rate, normal rhythm GI/Abdominal exam: Present: soft. Absent: distended, tenderness, guarding Extremities exam: Present: normal inspection, normal capillary refill. Absent: pedal edema, calf tenderness Neurological exam: Present: alert, oriented X3, CN II-XII intact. Absent: motor sensory deficit Psychiatric exam: Present: normal affect, normal mood Skin exam: Present: warm, dry, intact <Everardo Fuentes N - Last Filed: 07/02/24 11:29> General appearance: anxious Head exam: Present: atraumatic, normocephalic, normal inspection Eye exam: Present: normal appearance, PERRL, EOMI. Absent: scleral icterus, conjunctival injection, periorbital swelling ENT exam: Present: normal exam, mucous membranes moist Neck exam: Present: normal inspection. Absent: tenderness, meningismus, lymphadenopathy Respiratory exam: Present: normal lung sounds bilaterally. Absent: respiratory distress, wheezes, rales, rhonchi, stridor Cardiovascular Exam: Present: tachycardia, irregular rhythm, normal heart sounds. Absent: systolic murmur, diastolic murmur, rubs, gallop, clicks GI/Abdominal exam: Present: soft, normal bowel sounds. Absent: distended, tenderness, guarding, rebound, rigid Extremities exam: Present: normal inspection, full ROM, normal capillary refill. Absent: tenderness, pedal edema, joint swelling, calf tenderness Back exam: Present: normal inspection Neurological exam: Present: alert, oriented X3, CN II-XII intact Psychiatric exam: Present: normal affect, normal mood Skin exam: Present: warm, dry, intact, normal color. Absent: rash <Braden Metz B - Last Filed: 07/03/24 03:33> Course Vital Signs 07/02/24 07/02/24 07/02/24 09:06 09:10 09:42 Temperature 97.5 F L Pulse Rate 92 100 Pulse Rate [ 70 Councilor ] Respiratory 20 20 Rate Blood Pressure 168/83 137/74 O2 Sat by Pulse 98 98 Oximetry 07/02/24 07/02/24 07/02/24 10:10 12:00 12:44 Temperature Pulse Rate 92 92 92 Pulse Rate [ Councilor ] Respiratory 20 16 20 Rate Blood Pressure 152/82 146/80 154/81 O2 Sat by Pulse 98 96 98 Oximetry 07/02/24 07/02/24 07/02/24 14:00 14:47 16:00 Temperature 97.7 F Pulse Rate 68 90 68 Pulse Rate [ Councilor ] Respiratory 16 16 16 Rate Blood Pressure 140/60 163/68 145/68 O2 Sat by Pulse 98 98 98 Oximetry 07/02/24 07/02/24 07/02/24 17:00 18:00 21:28 Temperature 98.4 F Pulse Rate 90 64 73 Pulse Rate [ Councilor ] Respiratory 20 16 16 Rate Blood Pressure 169/92 179/95 176/97 O2 Sat by Pulse 98 98 96 Oximetry 07/02/24 23:00 Temperature Pulse Rate 107 H Pulse Rate [ Councilor ] Respiratory 16 Rate Blood Pressure 155/99 O2 Sat by Pulse 98 Oximetry Medical Decision Making - Lab Data Result diagrams: 07/02/24 09:34 07/02/24 09:34 <Everardo Fuentes - Last Filed: 07/02/24 11:29> - Lab Data Result diagrams: 07/02/24 09:34 07/02/24 09:34 <Braden Metz - Last Filed: 07/03/24 03:33> - Medical Decision Making Was pt. sent in by a medical professional or institution (, PA, CAD DETAILER, urgent care, hospital, or custodial...) When possible be specific @ -No Did you speak to anyone other than the patient for history (EMS, parent, family, police, friend...)? What history was obtained from this source @ -No Did you review nursing and triage notes (agree or disagree)? Why? @ -I reviewed and agree with nursing and triage notes Were old charts reviewed (outside hosp., previous admission, EMS record, old EKG, old radiological studies, urgent care reports/EKG's, custodial records)? Report findings @ -No old charts were reviewed Differential Palpitations Ventricular arrhythmias, atrial arrhythmias, myocardial infarction, anemia, thyrotoxicosis, electrolyte imbalance, hypokalemia, pulmonary embolism, pulmonary disease, drugs, alcohol, anxiety, stress.... This is not meant to be an all-inclusive list. EKG interpreted by me (3pts min.). @Sinus rhythm rate of 90, DE interval 196, QRS duration 116, QTc [address] segment elevation. X-rays interpreted by me (1pt min.). @ -Chest x-ray shows bilateral pleural effusion and pulmonary vascular congestion. CT interpreted by me (1pt min.). @ -None done U/S interpreted by me (1pt. min.). @ -None done What testing was considered but not performed or refused? (CT, X-rays, U/S, labs)? Why? @ -None What meds were considered but not given or refused? Why? @ -None Did you discuss the management of the patient with other professionals (srinivas hernandez i.e. , PA, CAD DETAILER, lab, RT, psych nurse, social research assistant, cocktail lounge manager, teacher, guest relations officer, outsole caser)? Give summary @ -No Was smoking cessation discussed for >3mins.? @ -No Was critical care preformed (if so, how long)? @ -No Were there social determinants of health that impacted care today? How? (Homelessness, low income, unemployed, alcoholism, drug addiction, transportation, low edu. Level, literacy, decrease access to med. care, retirement, rehab)? @ -No Was there de-escalation of care discussed even if they declined (Discuss DNR or withdrawal of care, Hospice)? DNR status @ -No What co-morbidities impacted this encounter? (DM, HTN, Smoking, COPD, CAD, Cancer, CVA, ARF, Chemo, Hep., AIDS, mental health diagnosis, sleep apnea, morbid obesity)? @ -End-stage renal disease, atrial fibrillation Was patient admitted / discharged? Hospital course, mention meds given and route, prescriptions, significant lab abnormalities, going to OR and other pertinent info. @ -79-year-old male presents with exertional dyspnea, palpitation. Patient is in sinus rhythm upon arrival but does have intermittent atrial fibrillation on telemetry. Chest x-ray shows fluid overload. Patient has chronic stable lab abnormalities and mild elevated troponin which I suspect is due to end-stage renal disease and fluid overload rather than acute CO. This level will be trended. Patient will be placed in observation for evaluation both by nephrology as well as cardiology. Undiagnosed new problem with uncertain prognosis? @ -No Drug Therapy requiring intensive monitoring for toxicity (Heparin, Nitro, Insulin, Cardizem)? @ -No Were any procedures done? @ -No Diagnosis/symptom? @ -Fluid overload, troponin elevation Acute, or Chronic, or Acute on Chronic? @ -Acute Uncomplicated (without systemic symptoms) or Complicated (systemic symptoms)? @ -Default Side effects of treatment? @ -No Exacerbation, Progression, or Severe Exacerbation? @ -No Poses a threat to life or bodily function? How? (Chest pain, USA, CO, pneumonia, PE, COPD, DKA, ARF, appy, cholecystitis, CVA, Diverticulitis, Homicidal, Suicidal, threat to staff... and all critical care pts) @ -Yes, end-stage renal disease, pulmonary edema, CHF (Everardo Fuentes) - Lab Data Lab Results 07/02/24 07/02/24 07/02/24 Range/Units 09:34 09:34 09:34 WBC 8.9 (3.8-10.6) k/uL RBC 3.59 L (4.30-5.90) m/uL Hgb 11.6 L (13.0-17.5) gm/dL Hct 38.0 L (39.0-53.0) % MCV 105.6 H (80.0-100.0) fL MCH 32.2 (25.0-35.0) pg MCHC 30.5 L (31.0-37.0) g/dL RDW 14.8 (11.5-15.5) % Plt Count 263 (150-450) k/uL MPV 8.4 Neutrophils % 77 % Lymphocytes % 10 % Monocytes % 6 % Eosinophils % 5 % Basophils % 1 % Neutrophils # 6.9 (1.3-7.7) k/uL Lymphocytes # 0.9 L (1.0-4.8) k/uL Monocytes # 0.6 (0-1.0) k/uL Eosinophils # 0.4 (0-0.7) k/uL Basophils # 0.1 (0-0.2) k/uL Hypochromasia Slight Macrocytosis Moderate PT 11.0 (10.0-12.5) sec INR 1.0 (<1.2) APTT 27.1 (22.0-30.0) sec Sodium 141 (137-145) mmol/L Potassium 4.2 (3.5-5.1) mmol/L Chloride 99 (98-107) mmol/L Carbon Dioxide 35 H (22-30) mmol/L Anion Gap 7 mmol/L BUN 16 (9-20) mg/dL Creatinine 3.42 H (0.66-1.25) mg/dL Est GFR (CKD-EPI)AfAm 18 (>60 ml/min/1.73 sqM) Est GFR (CKD-EPI)NonAf 16 (>60 ml/min/1.73 sqM) Glucose 109 H (74-99) mg/dL Calcium 9.7 (8.4-10.2) mg/dL Magnesium 2.3 (1.6-2.3) mg/dL Total Bilirubin 0.7 (0.2-1.3) mg/dL AST 50 (17-59) U/L ALT 21 (4-49) U/L Alkaline Phosphatase 48 (38-126) U/L Troponin I (0.000-0.034) ng/mL Total Protein 7.2 (6.3-8.2) g/dL Albumin 4.2 (3.5-5.0) g/dL 07/02/24 Range/Units 09:34 WBC (3.8-10.6) k/uL RBC (4.30-5.90) m/uL Hgb (13.0-17.5) gm/dL Hct (39.0-53.0) % MCV (80.0-100.0) fL MCH (25.0-35.0) pg MCHC (31.0-37.0) g/dL RDW (11.5-15.5) % Plt Count (150-450) k/uL MPV Neutrophils % % Lymphocytes % % Monocytes % % Eosinophils % % Basophils % % Neutrophils # (1.3-7.7) k/uL Lymphocytes # (1.0-4.8) k/uL Monocytes # (0-1.0) k/uL Eosinophils # (0-0.7) k/uL Basophils # (0-0.2) k/uL Hypochromasia Macrocytosis PT (10.0-12.5) sec INR (<1.2) APTT (22.0-30.0) sec Sodium (137-145) mmol/L Potassium (3.5-5.1) mmol/L Chloride (98-107) mmol/L Carbon Dioxide (22-30) mmol/L Anion Gap mmol/L BUN (9-20) mg/dL Creatinine (0.66-1.25) mg/dL Est GFR (CKD-EPI)AfAm (>60 ml/min/1.73 sqM) Est GFR (CKD-EPI)NonAf (>60 ml/min/1.73 sqM) Glucose (74-99) mg/dL Calcium (8.4-10.2) mg/dL Magnesium (1.6-2.3) mg/dL Total Bilirubin (0.2-1.3) mg/dL AST (17-59) U/L ALT (4-49) U/L Alkaline Phosphatase (38-126) U/L Troponin I 0.092 H* (0.000-0.034) ng/mL Total Protein (6.3-8.2) g/dL Albumin (3.5-5.0) g/dL Critical Care Time Critical Care Time: Yes Total Critical Care Time: 31 <Braden Metz - Last Filed: 07/03/24 03:33> Disposition Is patient prescribed a controlled substance at d/c from ED?: No Time of Disposition: 11:36 <Everardo Fuentes - Last Filed: 07/02/24 11:29> Is patient prescribed a controlled substance at d/c from ED?: No <Braden Metz - Last Filed: 07/03/24 03:33> Clinical Impression: Atrial fibrillation, CHF (congestive heart failure), Elevated troponin, Atrial fibrillation with rapid ventricular response, Nausea & vomiting Disposition: ADMITTED IP TO THIS HOSP Condition: Serious
--- NOTE | 2024-07-02 10:09 | XR ---
EXAMINATION TYPE: XR chest 2V DATE OF EXAM: 07/02/2024 9:45 AM CLINICAL INDICATION: Male, 79 years old with history of dysrhythmia; [facility] COMPARISON: Chest radiographs from 03/23/2022 TECHNIQUE: XR chest 2V Frontal view of the chest. FINDINGS: Lungs/Pleura: There is no evidence of pleural effusion, focal consolidation, or pneumothorax. Pulmonary vascularity: Pulmonary vascular congestion. Heart/mediastinum: Cardiomediastinal silhouette is prominent in size. Musculoskeletal: No acute osseous pathology. IMPRESSION: Cardiomegaly, pulmonary vascular congestion and bilateral pleural effusions. Correlate with BNP for c ongestive heart failure.
[2024-07-02 10:14] LABS: Partial Thromboplastin Time 27.1 sec (22.0-30.0)
[2024-07-02] MEDS ORDERED: ACETAMINOPHEN TAB 325 MG TAB PO PRN (11:26)
[2024-07-02] MEDS ORDERED: NALOXONE 0.4 MG/ML 1 ML VIAL IV PRN (11:26)
[2024-07-02] MEDS: FUROSEMIDE 10 MG/ML 4 ML VIAL IV STA (12:03)
[2024-07-02] MEDS: CEPHALEXIN 500 MG CAP PO SCH (12:42)
[2024-07-02] MEDS: LINAGLIPTIN 5 MG TABLET PO SCH (12:43)
[2024-07-02] MEDS: CHOLECALCIFEROL 25 MCG (1000 IU) TABLET PO SCH (12:43)
[2024-07-02] MEDS: SEVELAMER 800 MG TAB PO SCH (12:43)
[2024-07-02] MEDS: APIXABAN 2.5 MG TABLET PO SCH (17:02)
[2024-07-02] MEDS: FUROSEMIDE 20 MG TAB PO SCH (17:03)
[2024-07-02] MEDS: allopurinoL 100 MG TAB PO SCH (17:03)
--- NOTE | 2024-07-02 20:48 | P.HPIM ---
History of Present Illness H&P Date: 07/02/24 Chief Complaint: Palpitation tired pleasant 79-year-old patient of Dr. Kj Jiang. Chronic stable medical conditions include CAD with stent, diabetes, end-stage kidney disease on hemodialysis the left upper extremity AV fistula, hypertension, hyperlipidemia, peripheral neuropathy, gout right nephrectomy,' accompanied by his in the ER. Patient had COVID 4 weeks ago. Since then patient is having no energy. Very tired. Increasing shortness of breath. Even walking 15 feet gets very tired. Gets hemodialysis Sunday and Sunday. No edema. Has a left leg ceja wound from local trauma for which she is on Keflex. Also decreased appetite. Has been diagnosed with atrial fibrillation has been on Eliquis. Has not missed any dialysis. No cough no sputum. Review of systems: GEN.: Tired, decreased appetite EYES: None HEENT: None NECK: None RESPIRATORY: As above CARDIOVASCULAR: None GASTROINTESTINAL: As above GENITOURINARY: None MUSCULOSKELETAL: Joint pains LYMPHATICS: None HEMATOLOGICAL: None PSYCHIATRY: None NEUROLOGICAL: None Past medical history to include: CAD with stent to LAD, diabetes, end-stage kidney disease on hemodialysis left upper extremity AV fistula, hyperlipidemia, hypertension, migraines, varicose veins, peripheral neuropathy, gout, right nephrectomy Social history: smoked for 30 years stopped 25 years ago. Smoked 2 packs a day. Alcohol rarely. . Physical examination: VITAL SIGNS: 97.7, 68, 16, 145 x 68, 98% room air GENERAL: , Reclining in bed, tired EYES: Pupils equal. Conjunctiva normal. HEENT: External appearance of nose and ears normal, oral cavity grossly normal. NECK: JVD possibly t raised; masses not palpable. HEART: First and second heart sounds are normal; no edema. LUNGS: Respiratory rate and creased; decreased breath sounds. ABDOMEN: Soft, no tenderness, no guarding rigidity, liver spleen not palpable, no masses palpable. EXTREMITIES: Left upper extremity AV fistula PSYCH: Alert and oriented x3; mood and affect tired. MUSCULOSKELETAL:No Clubbing/cyanosis;muscles-grossly intact. Left leg lower one third upper 2 third junction ceja linear wound. Some surrounding redness. LYMPHATICS: No lymph node palpable neck axilla INVESTIGATIONS, reviewed in the clinical context: July 02, 2024: White count 8.9 hemoglobin 11.6 platelets 263 sodium 141 potassium 4.2 BUN 16 creatinine 3.42 Troponin I 0.092, 0.080, 0.0077 EKG tracing personally reviewed by me-normal sinus rhythm. Chest x-ray film personally reviewed by me-cardiomegaly. Venous prominence. Assessment and plan: -Acute congestive heart failure exacerbation from ischemic heart disease. EF not known. Patient had an echocardiogram at his flight operations engineer Dr. Cavazos's office 2 weeks ago. Will obtain the report. Fluid restriction. Consult cardiology. Hemodialysis. -CAD with stent to LAD in [address] Cavazos -Diabetes mellitus type 2 on oral hypoglycemic, Follow [facility]. Whit Mcguire -End-stage kidney disease on hemodialysis with left upper extremity AV fistula. Dialysis Sunday nephrology for dialysis -Hyperlipidemia Tricor -Left lower extremity, linear wound from local trauma. Continue home dose of Keflex. Topical antibiotic -Essential hypertension -Diabetic peripheral neuropathy Neurontin 300 mg a day -Chronic gout -Right nephrectomy -Full code Care was discussed with the patient and at the bedside. 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 History of Any Multi-Drug Resistant Organisms: None Reported Past Surgical History: Heart Catheterization With Stent Additional Past Surgical History / Comment(s): Stent to LAD 06/07/16, tonsilitis, right kidney, dialysis fistula- left upper arm Past Anesthesia/Blood Transfusion Reactions: No Reported Reaction Date of Last Stent Placement:: 2015 Past Psychological History: No Psychological Hx Reported Smoking Status: Former smoker Past Alcohol Use History: Rare Past Drug Use History: None Reported - Past Family History Father Family Medical History: Cancer Additional Family Medical History / Comment(s): Lung Medications and Allergies Home Medications Medication Instructions Recorded Confirmed Type Fenofibrate,Micronized 200 mg PO QAM 05/19/16 07/02/24 History [Fenofibrate] Gabapentin [Neurontin] 300 mg PO DAILY 05/19/16 07/02/24 History Glimepiride [Amaryl] 1 mg PO AC-BRKFST 05/19/16 07/02/24 History allopurinoL [Zyloprim] 100 mg PO BID-W/MEALS 05/19/16 07/02/24 History Cholecalciferol [Vitamin D3 (25 50 mcg PO W/LUNCH 01/17/22 07/02/24 History Mcg = 1000 Iu)] sitaGLIPtin PHOSPHATE [Januvia] 25 mg PO W/LUNCH 01/17/22 07/02/24 History Apixaban [Eliquis] 2.5 mg PO BID-W/MEALS 07/02/24 07/02/24 History Cephalexin [Keflex] 500 mg PO TID-W/MEALS 07/02/24 07/02/24 History Furosemide [Lasix] 20 mg PO W/SUPPER 07/02/24 07/02/24 History Sevelamer [Renvela] 800 mg PO AC-TID 07/02/24 07/02/24 History Allergies Allergy/AdvReac Type Severity Reaction Status Date / Time cefadroxil AdvReac Constipatio Verified 07/02/24 10:29 n clindamycin AdvReac Diarrhea Verified 07/02/24 10:29 Physical Exam Vitals: Vital Signs Temp Pulse Pulse Resp BP Pulse Ox 07/02/24 18:00 64 16 179/95 98 07/02/24 17:00 90 20 169/92 98 07/02/24 16:00 68 16 145/68 98 07/02/24 14:47 97.7 F 90 16 163/68 98 07/02/24 14:00 68 16 140/60 98 07/02/24 12:44 92 20 154/81 98 07/02/24 12:00 92 16 146/80 96 07/02/24 10:10 92 20 152/82 98 07/02/24 09:42 70 07/02/24 09:10 100 20 137/74 98 07/02/24 09:06 97.5 F L 92 20 168/83 98 Intake and Output 07/02/24 07/02/24 07/02/24 06:59 14:59 22:59 Other: Weight 92.533 kg Results CBC & Chem 7: 07/02/24 09:34 07/02/24 09:34 Labs: Abnormal Lab Results - Last 24 Hours (Table) 07/02/24 07/02/24 07/02/24 Range/Units 09:34 09:34 09:34 RBC 3.59 L (4.30-5.90) m/uL Hgb 11.6 L (13.0-17.5) gm/dL Hct 38.0 L (39.0-53.0) % MCV 105.6 H (80.0-100.0) fL MCHC 30.5 L (31.0-37.0) g/dL Lymphocytes # 0.9 L (1.0-4.8) k/uL Carbon Dioxide 35 H (22-30) mmol/L Creatinine 3.42 H (0.66-1.25) mg/dL Glucose 109 H (74-99) mg/dL Troponin I 0.092 H* (0.000-0.034) ng/mL 07/02/24 07/02/24 Range/Units 12:05 15:48 RBC (4.30-5.90) m/uL Hgb (13.0-17.5) gm/dL Hct (39.0-53.0) % MCV (80.0-100.0) fL MCHC (31.0-37.0) g/dL Lymphocytes # (1.0-4.8) k/uL Carbon Dioxide (22-30) mmol/L Creatinine (0.66-1.25) mg/dL Glucose (74-99) mg/dL Troponin I 0.080 H* 0.077 H* (0.000-0.034) ng/mL
[2024-07-03] MEDS ORDERED: ONDANSETRON 4 MG/2 ML VIAL IVP PRN (03:31)
[2024-07-03] MEDS: METOPROLOL TARTRATE 5 MG/5 ML VIAL IVP STA (03:34)
[2024-07-03] MEDS: ONDANSETRON 4 MG/2 ML VIAL IVP STA (03:34)
[2024-07-03] MEDS: DILTIAZEM 125 MG in SODIUM CHLORIDE 0.9% 100 ML IV SCH (03:38)
[2024-07-03] MEDS: DILTIAZEM DRIP BOLUS FROM BAG 1 MG SOLN IV ONE (03:39)
[2024-07-03] MEDS: GLIMEPIRIDE 1 MG TAB PO SCH (08:44)
[2024-07-03] MEDS: AMIODARONE 200 MG TAB PO SCH (08:45)
[2024-07-03] MEDS: GABAPENTIN 300 MG CAP PO SCH (08:45)
[2024-07-03] MEDS: FENOFIBRATE 160 MG TAB PO SCH (08:45)
--- NOTE | 2024-07-03 10:32 | P.CRDCN ---
History of Present Illness History of present illness: HISTORY OF PRESENT ILLNESS: This is a 79-year-old male with a past medical history significant for hypertension, hyperlipidemia, diabetes, end-stage renal disease on hemodialysis, coronary artery disease, and paroxysmal atrial fibrillation. Patient follows in the office with Dr. Arreaga. We have been asked to see the patient in consultation for A-fib with RVR. Patient examined at the bedside in the emergency room. Patient states he had COVID about 4 weeks ago. He states over the past week or 2 he has been feeling short of breath. Patient states he went to hemodialysis yesterday and began to have palpitations. He reports that shortness of breath is improving this morning. He denies chest pain or pressure. Patient was found to be in A-fib/atrial tachycardia and was started on IV Cardizem. IV Cardizem remains infusing at 5 mg an hour. He is maintaining sinus mechanism this morning. DIAGNOSTICS: - EKG reveals 2-1 atrial tachycardia - Chest xray cardiomegaly, pulmonary vascular congestion and bilateral pleural effusions. - Laboratory data: WBC 8.9. Hemoglobin 11.6. Platelet count 263. Sodium 141. Potassium 4.2. BUN 16. Creatinine 3.42. Troponin 0.092. 0.080. 0.077. TSH 1.720. - Current home cardiac medications include Eliquis 2.5 mg twice a day, fenofibra te 200 mg in the morning and Lasix 20 mg at night - Most recent echocardiogram obtained in 2018 revealing normal EF, mild MR -Patient underwent Lexiscan stress test in November 2022 which was negative for ischemia - Cardiac catheterization history: May 2016 with arthrectomy and stenting of the proximal LAD REVIEW OF SYSTEMS: At the time of my exam: CONSTITUTIONAL: Denies fever or chills. HEENT: Denies blurred vision, vision changes, or eye pain. Denies hemoptysis CARDIOVASCULAR: Denies chest pain. Denies orthopnea. Denies PND. Denies palpitations RESPIRATORY: Denies shortness of breath. GASTROINTESTINAL: Denies abdominal pain. Denies nausea or vomiting. HEMATOLOGIC: Denies bleeding disorders. GENITOURINARY: Denies any blood in urine. SKIN: Denies pruitis. Denies rash. PHYSICAL EXAM: VITAL SIGNS: Reviewed. GENERAL: Well-developed in no acute distress. HEENT: Head is normocephalic. Pupils are equal, round. Sclerae anicteric. Mucous membranes of the mouth are moist. Neck supple. No JVD or thyromegaly LUNGS: Respirations even and unlabored. Lungs essentially clear to auscultation bilaterally. HEART: Regular rate and rhythm. S1 and S2 heard. ABDOMEN: Soft. Nondistended. Nontender. EXTREMITIES: Normal range of motion. No clubbing or cyanosis. Peripheral pulses intact. No lower extremity edema NEUROLOGIC: Awake and alert. Oriented x 3. ASSESSMENT: Shortness of breath and palpitations Paroxysmal atrial fibrillation/2-1 atrial tachycardia Coronary artery disease with previous stenting of the LAD End-stage renal disease on hemodialysis Hypertension Hyperlipidemia Diabetes PLAN: Obtain 2D echo to assess cardiac structure and function Continue IV Cardizem for today Add oral amiodarone 400 mg 3 times a day Will add metoprolol tomorrow Continue telemetry monitoring Further recommendations pending patient course Nurse practitioner note has been reviewed by physician. Signing provider agrees with the documented findings, assessment, and plan of care documented by BUSINESS AREA DIRECTOR as a scribe. 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 History of Any Multi-Drug Resistant Organisms: None Reported Past Surgical History: Heart Catheterization With Stent Additional Past Surgical History / Comment(s): Stent to LAD 06/07/16, tonsilitis, right kidney, dialysis fistula- left upper arm Past Anesthesia/Blood Transfusion Reactions: No Reported Reaction Date of Last Stent Placement:: 2015 Past Psychological History: No Psychological Hx Reported Smoking Status: Former smoker Past Alcohol Use History: Rare Past Drug Use History: None Reported - Past Family History Father Family Medical History: Cancer Additional Family Medical History / Comment(s): Lung Medications and Allergies Home Medications Medication Instructions Recorded Confirmed Type Fenofibrate,Micronized 200 mg PO QAM 05/19/16 07/02/24 History [Fenofibrate] Gabapentin [Neurontin] 300 mg PO DAILY 05/19/16 07/02/24 History Glimepiride [Amaryl] 1 mg PO AC-BRKFST 05/19/16 07/02/24 History allopurinoL [Zyloprim] 100 mg PO BID-W/MEALS 05/19/16 07/02/24 History Cholecalciferol [Vitamin D3 (25 50 mcg PO W/LUNCH 01/17/22 07/02/24 History Mcg = 1000 Iu)] sitaGLIPtin PHOSPHATE [Januvia] 25 mg PO W/LUNCH 01/17/22 07/02/24 History Apixaban [Eliquis] 2.5 mg PO BID-W/MEALS 07/02/24 07/02/24 History Cephalexin [Keflex] 500 mg PO TID-W/MEALS 07/02/24 07/02/24 History Furosemide [Lasix] 20 mg PO W/SUPPER 07/02/24 07/02/24 History Sevelamer [Renvela] 800 mg PO AC-TID 07/02/24 07/02/24 History Allergies Allergy/AdvReac Type Severity Reaction Status Date / Time cefadroxil AdvReac Constipatio Verified 07/02/24 10:29 n clindamycin AdvReac Diarrhea Verified 07/02/24 10:29 Physical Exam Vitals: Vital Signs Temp Pulse Resp BP Pulse Ox 07/03/24 08:52 97.3 F L 99 16 164/88 97 07/03/24 08:28 101 H 90 L 07/03/24 06:50 92 20 162/92 98 07/03/24 03:35 168 H 26 H 181/112 98 07/02/24 23:00 107 H 16 155/99 98 07/02/24 21:28 98.4 F 73 16 176/97 96 07/02/24 18:00 64 16 179/95 98 07/02/24 17:00 90 20 169/92 98 07/02/24 16:00 68 16 145/68 98 07/02/24 14:47 97.7 F 90 16 163/68 98 07/02/24 14:00 68 16 140/60 98 07/02/24 12:44 92 20 154/81 98 07/02/24 12:00 92 16 146/80 96 07/02/24 10:10 92 20 152/82 98 Results 07/02/24 09:34 07/02/24 09:34 Cardiac Enzymes 07/02/24 07/02/24 07/02/24 Range/Units 09:34 12:05 15:48 Troponin I 0.092 H* 0.080 H* 0.077 H* (0.000-0.034) ng/mL Coagulation 07/02/24 Range/Units 09:34 PT 11.0 (10.0-12.5) sec APTT 27.1 (22.0-30.0) sec Current Medications Generic Name Dose Route Start Last Admin Trade Name Freq PRN Reason Stop Dose Admin Acetaminophen 650 mg 07/02/24 11:26 Acetaminophen Tab 325 Mg Tab PO Q6HR PRN Mild Pain or Fever > 100.5 Allopurinol 100 mg 07/02/24 17:30 07/03/24 08:45 Allopurinol 100 Mg Tab PO 100 mg BID-W/MEALS LEILA Administration Amiodarone HCl 400 mg 07/03/24 09:00 07/03/24 08:45 Amiodarone 200 Mg Tab PO 400 mg TID LEILA Administration Apixaban 2.5 mg 07/02/24 17:30 07/03/24 08:45 Apixaban 2.5 Mg Tablet PO 2.5 mg BID-W/MEALS LEILA Administration Protocol Cholecalciferol 50 mcg 07/02/24 12:30 07/02/24 12:43 Cholecalciferol 25 Mcg (1000 Iu) Tablet PO 50 mcg W/LUNCH LEILA Administration Fenofibrate 160 mg 07/03/24 09:00 07/03/24 08:45 Fenofibrate 160 Mg Tab PO 160 mg QAM LEILA Administration Furosemide 20 mg 07/02/24 17:30 07/02/24 17:03 Furosemide 20 Mg Tab PO 20 mg W/SUPPER LEILA Administration Gabapentin 300 mg 07/03/24 09:00 07/03/24 08:45 Gabapentin 300 Mg Cap PO 300 mg DAILY LEILA Administration Glimepiride 1 mg 07/03/24 07:30 07/03/24 08:44 Glimepiride 1 Mg Tab PO 1 mg AC-BRKFST LEILA Administration Diltiazem HCl 125 mg/ Sodium 125 mls @ 5 mls/hr 07/03/24 04:00 07/03/24 03:38 Chloride IV 5 mg/hr .Q24H LEILA 5 mls/hr Administration 5 MG/HR Linagliptin 5 mg 07/02/24 12:30 07/02/24 12:43 Linagliptin 5 Mg Tablet PO 5 mg W/LUNCH LEILA Administration Naloxone HCl 0.2 mg 07/02/24 11:26 Naloxone 0.4 Mg/Ml 1 Ml Vial IV Q2M PRN Opioid Reversal Ondansetron HCl 4 mg 07/03/24 03:31 Ondansetron 4 Mg/2 Ml Vial IVP Q8HR PRN Nausea And Vomiting Sevelamer Carbonate 800 mg 07/02/24 12:30 07/03/24 08:44 Sevelamer 800 Mg Tab PO 800 mg AC-TID LEILA Administration 07/02/24 09:34 07/02/24 09:34
--- NOTE | 2024-07-03 12:43 | P.NPCON ---
History of Present Illness - Reason for Consult end stage renal disease - History of Present Illness patient is an 79-year-old male with end-stage renal disease maintained on hemodialysis on Sunday witnessed a Sunday schedule via left arm AV fistula. Patient is admitted to the hospital with complaints of shortness of breath. He was noted to have A. fib with RVR with heart rate in the 160s. Currently m aintained on Cardizem drip. Heart rate is better controlled. No complaints of chest pain. Patient did have his hemodialysis treatment yesterday as outpatient. Shortness of breath has improved. Chest x-ray showed pulmonary vascular congestion. 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 History of Any Multi-Drug Resistant Organisms: None Reported Past Surgical History: Heart Catheterization With Stent Additional Past Surgical History / Comment(s): Stent to LAD 06/07/16, tons ilitis, right kidney, dialysis fistula- left upper arm Past Anesthesia/Blood Transfusion Reactions: No Reported Reaction Date of Last Stent Placement:: 2015 Past Psychological History: No Psychological Hx Reported Smoking Status: Former smoker Past Alcohol Use History: Rare Past Drug Use History: None Reported - Past Family History Father Family Medical History: Cancer Additional Family Medical History / Comment(s): Lung Medications and Allergies Home Medications Medication Instructions Recorded Confirmed Type Fenofibrate,Micronized 200 mg PO QAM 05/19/16 07/02/24 History [Fenofibrate] Gabapentin [Neurontin] 300 mg PO DAILY 05/19/16 07/02/24 History Glimepiride [Amaryl] 1 mg PO AC-BRKFST 05/19/16 07/02/24 History allopurinoL [Zyloprim] 100 mg PO BID-W/MEALS 05/19/16 07/02/24 History Cholecalciferol [Vitamin D3 (25 50 mcg PO W/LUNCH 01/17/22 07/02/24 History Mcg = 1000 Iu)] sitaGLIPtin PHOSPHATE [Januvia] 25 mg PO W/LUNCH 01/17/22 07/02/24 History Apixaban [Eliquis] 2.5 mg PO BID-W/MEALS 07/02/24 07/02/24 History Cephalexin [Keflex] 500 mg PO TID-W/MEALS 07/02/24 07/02/24 History Furosemide [Lasix] 20 mg PO W/SUPPER 07/02/24 07/02/24 History Sevelamer [Renvela] 800 mg PO AC-TID 07/02/24 07/02/24 History Allergies Allergy/AdvReac Type Severity Reaction Status Date / Time cefadroxil AdvReac Constipatio Verified 07/02/24 10:29 n clindamycin AdvReac Diarrhea Verified 07/02/24 10:29 Physical Exam Vitals: Vital Signs Temp Pulse Resp BP Pulse Ox 07/03/24 08:52 97.3 F L 99 16 164/88 97 07/03/24 08:28 101 H 90 L 07/03/24 06:50 92 20 162/92 98 07/03/24 03:35 168 H 26 H 181/112 98 07/02/24 23:00 107 H 16 155/99 98 07/02/24 21:28 98.4 F 73 16 176/97 96 07/02/24 18:00 64 16 179/95 98 07/02/24 17:00 90 20 169/92 98 07/02/24 16:00 68 16 145/68 98 07/02/24 14:47 97.7 F 90 16 163/68 98 07/02/24 14:00 68 16 140/60 98 07/02/24 12:44 92 20 154/81 98 patient is awake, comfortable, no acute distress. Examination of the heart S1 and S2 Examination of the lungs bilateral breath sounds are heard, Abdomen is soft nontender Examination of the lower extremitiesshows no significant edema ELECTRON GUN INSPECTOR exam grossly intact Results - Lab Results Most recent lab results Calcium 9.7 mg/dL (8.4-10.2) 07/02/24 09:34 Magnesium 2.3 mg/dL (1.6-2.3) 07/02/24 09:34 07/02/24 09:34 07/02/24 09:34 Assessment and Plan Assessment: 1. End-stage renal disease on hemodialysis on a Sunday with history Sunday schedule. 2. Mild volume overload scheduled for hemodialysis in a.m. 3. A. fib with RVR maintained on Cardizem drip 4. CK D mineral bone disorder Plan: patient will be scheduled for hemodialysis today as he is hypertensive and mildly hypoxic. He will be dialyzed again tomorrow. Continue Renvela Rate control as per cardiology. thank you for the consultation. We will continue to follow the patient with you during his hospitalization.
[2024-07-03 19:45] LABS: Glucose,Whole Blood 91 mg/dL (70-110)
[2024-07-03] MEDS: ATORVASTATIN 20 MG TAB PO SCH (20:13)
--- NOTE | 2024-07-03 20:25 | P.PN ---
Progress Note - Text Progress Note Date: 07/03/24 Chief Complaint: Palpitation tired pleasant 79-year-old patient of Dr. Kj Jiang. Chronic stable medical conditions include CAD with stent, diabetes, end-stage kidney disease on hemodialysis the left upper extremity AV fistula, hypertension, hyperlipidemia, peripheral neuropathy, gout right nephrectomy,' accompanied by his in the ER. Patient had COVID 4 weeks ago. Since then patient is having no energy. Very tired. Increasing shortness of breath. Even walking 15 feet gets very tired. Gets hemodialysis Sunday and Sunday. No edema. Has a left leg ceja wound from local trauma for which she is on Keflex. Also decreased appetite. Has been diagnosed with atrial fibrillation has been on Eliquis. Has not missed any dialysis. No cough no sputum. July 03: Patient seen this afternoon. In the ER. Tired. 87. at the bedside. Patient overnight went into A-fib with rapid ventricular rate. Put on a Cardizem drip. For hemodialysis tomorrow per nephrology. Active Medications Acetaminophen (Acetaminophen Tab 325 Mg Tab) 650 mg PO Q6HR PRN PRN Reason: Mild Pain or Fever > 100.5 Allopurinol (Allopurinol 100 Mg Tab) 100 mg PO BID-W/MEALS [facility] Last Admin: 07/03/24 17:17 Dose: 100 mg Amiodarone HCl (Amiodarone 200 Mg Tab) 400 mg PO TID [facility] Last Admin: 07/03/24 20:13 Dose: 400 mg Apixaban (Apixaban 2.5 Mg Tablet) 2.5 mg PO BID-W/MEALS [facility]; Protocol Last Admin: 07/03/24 17:17 Dose: 2.5 mg Atorvastatin Calcium (Atorvastatin 20 Mg Tab) 20 mg PO HS [facility] Last Admin: 07/03/24 20:13 Dose: 20 mg Cholecalciferol (Cholecalciferol 25 Mcg (1000 Iu) Tablet) 50 mcg PO W/LUNCH [facility] Last Admin: 07/03/24 12:21 Dose: 50 mcg Fenofibrate (Fenofibrate 160 Mg Tab) 160 mg PO QAM [facility] Last Admin: 07/03/24 08:45 Dose: 160 mg Furosemide (Furosemide 20 Mg Tab) 20 mg PO W/SUPPER [facility] Last Admin: 07/03/24 17:17 Dose: 20 mg Gabapentin (Gabapentin 300 Mg Cap) 300 mg PO DAILY [facility] Last Admin: 07/03/24 08:45 Dose: 300 mg Glimepiride (Glimepiride 1 Mg Tab) 1 mg PO AC-BRKFST [facility] Last Admin: 07/03/24 08:44 Dose: 1 mg Diltiazem HCl 125 mg/ Sodium (Chloride) 125 mls @ 5 mls/hr IV .Q24H [facility] Last Admin: 07/03/24 03:38 Dose: 5 mg/hr, 5 mls/hr Linagliptin (Linagliptin 5 Mg Tablet) 5 mg PO W/LUNCH [facility] Last Admin: 07/03/24 12:21 Dose: 5 mg Naloxone HCl (Naloxone 0.4 Mg/Ml 1 Ml Vial) 0.2 mg IV Q2M PRN PRN Reason: Opioid Reversal Ondansetron HCl (Ondansetron 4 Mg/2 Ml Vial) 4 mg IVP Q8HR PRN PRN Reason: Nausea And Vomiting Sevelamer Carbonate (Sevelamer 800 Mg Tab) 800 mg PO AC-TID [facility] Last Admin: 07/03/24 17:17 Dose: 800 mg Past medical history to include: CAD with stent to LAD, diabetes, end-stage kidney disease on hemodialysis left upper extremity AV fistula, hyperlipidemia, hypertension, migraines, varicose veins, peripheral neuropathy, gout, right nephrectomy Social history: smoked for 30 years stopped 25 years ago. Smoked 2 packs a day. Alcohol rarely. . Physical examination: VITAL SIGNS: 97.6, 65, 16, 158 x 66, 96% 2 L GENERAL: , Reclining in bed, tired EYES: Pupils equal. Conjunctiva normal. HEENT: External appearance of nose and ears normal, oral cavity grossly normal. NECK: JVD possibly t raised; masses not palpable. HEART: First and second heart sounds are normal; no edema. LUNGS: Respiratory rate and creased; decreased breath sounds. ABDOMEN: Soft, no tenderness, no guarding rigidity, liver spleen not palpable, no masses palpable. EXTREMITIES: Left upper extremity AV fistula PSYCH: Alert and oriented x3; mood and affect tired. MUSCULOSKELETAL:No Clubbing/cyanosis;muscles-grossly intact. Left leg lower one third upper 2 third junction ceja linear wound. Some surrounding redness. INVESTIGATIONS, reviewed in the clinical context: July 02, 2024: White count 8.9 hemoglobin 11.6 platelets 263 sodium 141 potassium 4.2 BUN 16 creatinine 3.42 Troponin I 0.092, 0.080, 0.0077 EKG tracing personally reviewed by me-normal sinus rhythm. Chest x-ray film personally reviewed by me-cardiomegaly. Venous prominence. Assessment and plan: -Acute congestive heart failure exacerbation from ischemic heart disease. EF not known. Patient had an echocardiogram at his electricians top helper Dr. Cavazos's office 2 weeks ago. Will obtain the report. Fluid restriction. Cardiology following. Hemodialysis. -Atrial fibrillation with rapid ventricular rate IV Miguelangel barba -CAD with stent to LAD in [address] Cavazos -Diabetes mellitus type 2 on oral hypoglycemic, Follow Accu-Cheks. Whit Mcguire -End-stage kidney disease on hemodialysis with left upper extremity AV fistula. Dialysis Sunday nephrology following. For dialysis tomorrow -Hyperlipidemia Tricor -Left lower extremity, linear wound from local trauma. Continue home dose of Keflex. Topical antibiotic -Essential hypertension -Diabetic peripheral neuropathy Neurontin 300 mg a day -Chronic gout -Right nephrectomy -Full code Discussed with patient . 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
[2024-07-04 04:21] LABS: Glucose,Whole Blood 52 mg/dL (70-110)
[2024-07-04 04:48] LABS: Glucose,Whole Blood 78 mg/dL (70-110)
[2024-07-04 05:45] LABS: Glucose,Whole Blood 102 mg/dL (70-110)
--- NOTE | 2024-07-04 10:20 | CA ---
Transthoracic Echo Report Name: Kj Arenas Age: 79 Gender: M : 1945 Exam Date: 07/03/2024 11:44 Exam Location: [facility] Ht (in): 74 Wt (lb): 204 Ordering Physician: Kristy Perez Attending/Referring Phys: [id number], Ana Retail Field Representative Judith Washington, ISMAEL Procedure CPT: Indications: LV function, AF Cardiac Hx: CAD, STENT, DM, HTN Technical Quality: Good Contrast 1: Total Dose (mL): Contrast 2: Total Dose (mL): MEASUREMENTS (Male / Female) Normal Values 2D ECHO LV Diastolic Diameter PLAX 5.7 cm 4.2 - 5.9 / 3.9 - 5.3 cm LV Systolic Diameter PLAX 3.8 cm IVS Diastolic Thickness 1.2 cm 0.6 - 1.0 / 0.6 - 0.9 cm LVPW Diastolic Thickness 1.1 cm 0.6 - 1.0 / 0.6 - 0.9 cm LV Relative Wall Thickness 0.4 RV Internal Dim ED PLAX 3.3 cm LVOT Diameter 2.2 cm LA Systolic Diameter LX 4.4 cm 3.0 - 4.0 / 2.7 - 3.8 cm LV Diastolic Volume MOD 4C 165.7 cm??? LV Systolic Volume MOD 4C 99.9 cm??? LV Ejection Fraction MOD 4C 39.7 % LV Diastolic Length 4C 8.8 cm LV Systolic Length 4C 7.5 cm LV Diastolic Volume MOD 2C 142.4 cm??? LV Systolic Volume MOD 2C 68.5 cm??? LV Ejection Fraction MOD 2C 51.9 % LV Diastolic Length 2C 8.7 cm LV Systolic Length 2C 7.2 cm LA Volume 78.4 cm??? 18 - 58 / 22 - 52 cm??? LA Volume Index 35.5 cm???/m??? 16 - 28 cm???/m??? M-MODE Aortic Root Diameter MM 3.5 cm AV Cusp Separation MM 2.0 cm DOPPLER AV Peak Velocity 200.3 cm/s AV Peak Gradient 16.1 mmHg AV Mean Velocity 140.8 cm/s AV Mean Gradient 9.0 mmHg AV Velocity Time Integral 46.1 cm LVOT Peak Velocity 98.5 cm/s LVOT Peak Gradient 3.9 mmHg LVOT Velocity Time Integral 22.8 cm LVOT Stroke Volume 87.8 cm??? LVOT Stroke Volume Index 40.1 ml/m??? AV Area Cont Eq vti 1.9 cm??? AV Area Cont Eq pk 1.9 cm??? MV Area PHT 4.2 cm??? Mitral E Point Velocity 104.5 cm/s Mitral A Point Velocity 96.5 cm/s Mitral E to A Ratio 1.1 MV Deceleration Time 180.1 ms TR Peak Velocity 301.2 cm/s TR Peak Gradient 36.3 mmHg Right Ventricular Systolic Press 40.6 mmHg FINDINGS Left Ventricle Left ventricular ejection fraction is estimated at 55 %. Left ventricular cavity size normal. Mildly increased septal wall thickness. Normal systolic function. Mild concentric LVH Right Ventricle Mild right ventricular dilatation. Mild pulmonary hypertension. Right Atrium Normal right atrial size. No right atrial thrombus or mass seen. Left Atrium Mildly increased left atrial diameter. Moderately increased left atrial volume. Mildly increased left atrial area. Mitral Valve Mitral valve thickened. Mitral annular calcification. Mild mitral regurgitation. Aortic Valve Trileaflet aortic valve. Aortic valve sclerosis. Mild aortic stenosis with a peak gradient of 16 mmHg and a mean gradient of 9 mmHg. Tricuspid Valve Structurally normal tricuspid valve. Mild tricuspid regurgitation. Pulmonic Valve Structurally normal pulmonic valve. No pulmonic regurgitation. Pericardium No pericardial effusion. Aorta Normal size aortic root and proximal ascending aorta. CONCLUSIONS Normal LV size and systolic function with mild concentric LVH. There is mitral annular calcification and aortic valve sclerosis without significant stenosis. There is mild mitral and tricuspid regurgitation with mild pulmonary hypertension. No pericardial effusion Previewed by: Dr. Mark Lindquist MD (Electronically Signed) Final Date: 04 July 2024 10:19
--- NOTE | 2024-07-04 11:15 | P.PN ---
Subjective HISTORY OF PRESENT ILLNESS: This is a 79-year-old male with a past medical history significant for hypertension, hyperlipidemia, diabetes, end-stage renal disease on hemodialysis, coronary artery disease, and paroxysmal atrial fibrillation. Patient follows in the office with Dr. Arreaga. We have been asked to see the patient in consultation for A-fib with RVR. Patient examined at the bedside in the emergency room. Patient states he had COVID about 4 weeks ago. He states over the past week or 2 he has been feeling short of breath. Patient states he went to hemodialysis yesterday and began to have palpitations. He reports that shortness of breath is improving this morning. He denies chest pain or pressure. Patient was found to be in A-fib/atrial tachycardia and was started on IV Cardizem. IV Cardizem remains infusing at 5 mg an hour. He is maintaining sinus mechanism this morning. DIAGNOSTICS: - EKG reveals 2-1 atrial tachycardia - Chest xray cardiomegaly, pulmonary vascular congestion and bilateral pleural effusions. - Laboratory data: WBC 8.9. Hemoglobin 11.6. Platelet count 263. Sodium 141. Potassium 4.2. BUN 16. Creatinine 3.42. Troponin 0.092. 0.080. 0.077. TSH 1.720. - Current home cardiac medications include Eliquis 2.5 mg twice a day, fenofibrate 200 mg in the morning and Lasix 20 mg at night - Most recent echocardiogram obtained in 2018 revealing normal EF, mild MR -Patient underwent Lexiscan stress test in November 2022 which was negative for ischemia - Cardiac catheterization history: May 2016 with arthrectomy and stenting of the proximal LAD 07/04/2024 Patient examined this morning at the bedside. Patient currently denies chest pain or pressure. He denies shortness of breath. He is undergoing hemodialysis. He is maintaining sinus mechanism this morning. Echocardiogram completed revealing ejection fraction of 55%, mild mitral regurgitation, mild aortic stenosis, mild tricuspid regurgitation PHYSICAL EXAM: VITAL SIGNS: Reviewed. GENERAL: Well-developed in no acute distress. HEENT: Head is normocephalic. Pupils are equal, round. Sclerae anicteric. Mucous membranes of the mouth are moist. Neck supple. No JVD or thyromegaly LUNGS: Respirations even and unlabored. Lungs essentially clear to auscultation bilaterally. HEART: Regular rate and rhythm. S1 and S2 heard. ABDOMEN: Soft. Nondistended. Nontender. EXTREMITIES: Normal range of motion. No clubbing or cyanosis. Peripheral pulses intact. No lower extremity edema NEUROLOGIC: Awake and alert. Oriented x 3. ASSESSMENT: Shortness of breath and palpitations Paroxysmal atrial fibrillation/2-1 atrial tachycardia, currently maintaining sinus mechanism Coronary artery disease with previous stenting of the LAD End-stage renal disease on hemodialysis Hypertension Hyperlipidemia Diabetes PLAN: Continue current cardiac medications Continue oral amiodarone. Oral amiodarone taper at discharge as follows: 400 mg TID for 1 week, then 400mg BID for 1 week, then 400mg daily for 1 week, then 200mg daily Stable for discharge home today from a cardiac standpoint Nurse practitioner note has been reviewed by physician. Signing provider agrees with the documented findings, assessment, and plan of care documented by DRUGLESS PHYSICIAN as a scribe. Objective - Vital Signs Vital signs: Vital Signs Temp 97.9 F 07/04/24 08:00 Pulse 69 07/04/24 08:00 Resp 16 07/04/24 08:00 BP 153/72 07/04/24 08:00 Pulse Ox 94 L 07/04/24 08:00 FiO2 Intake & Output 07/03/24 07/04/24 07/04/24 18:59 06:59 18:59 Intake Total 400 588.084 240 Output Total 4000 Balance -3600 588.084 240 Weight 92.533 kg Intake: Intake, IV Titration 108.084 Amount Diltiazem 125 mg In 108.084 Sodium Chloride 0.9% 100 ml @ 5 MG/HR 5 mls/hr IV .Q24H [facility] Rx#:[id number] Oral 480 240 Hemodialysis 400 Output: Hemodialysis 2200 Hemodialysis Net Amount 1800 Other: Voiding Method Toilet Urinal # Voids 2 - Labs CBC & Chem 7: 07/02/24 09:34 07/02/24 09:34 Labs: Abnormal Lab Results - Last 24 Hours (Table) 07/04/24 Range/Units 04:17 POC Glucose (mg/dL) 52 L (70-110) mg/dL
[2024-07-04 11:31] LABS: Glucose,Whole Blood 94 mg/dL (70-110)
--- NOTE | 2024-07-04 13:36 | P.PN ---
Subjective patient is seen on hemodialysis. Tolerating treatment well. Heart rate is improved and noted to be in the 70s. No complaints of shortness of breath. Patient had hemodialysis yesterday with UF of about 1.8 L. Objective - Vital Signs Vital signs: Vital Signs Temp 97.9 F 07/04/24 08:00 Pulse 87 07/04/24 12:00 Resp 16 07/04/24 12:00 BP 131/79 07/04/24 12:00 Pulse Ox 94 L 07/04/24 08:00 FiO2 Intake & Output 07/03/24 07/04/24 07/04/24 18:59 06:59 18:59 Intake Total 400 588.084 240 Output Total 4000 Balance -3600 588.084 240 Weight 92.533 kg Intake: Intake, IV Titration 108.084 Amount Diltiazem 125 mg In 108.084 Sodium Chloride 0.9% 100 ml @ 5 MG/HR 5 mls/hr IV .Q24H [facility] Rx#:[id number] Oral 480 240 Hemodialysis 400 Output: Hemodialysis 2200 Hemodialysis Net Amount 1800 Other: Voiding Method Toilet Toilet Urinal Urinal # Voids 2 - Exam patient is awake, comfortable, no acute distress. Examination of the heart S1 and S2 Examination of the lungs bilateral breath sounds are heard, Abdomen is soft nontender Examination of the lower extremitiesshows no significant edema REFERRAL MANAGEMENT LIAISON exam grossly intact - Labs CBC & Chem 7: 07/02/24 09:34 07/02/24 09:34 Labs: Abnormal Lab Results - Last 24 Hours (Table) 07/04/24 Range/Units 04:17 POC Glucose (mg/dL) 52 L (70-110) mg/dL Assessment and Plan Assessment: 1. End-stage renal disease on hemodialysis on a Sunday with history Sunday schedule. 2. Mild volume overload improved with hemodialysis 3. A. fib with RVR maintained on Cardizem drip 4. CK D mineral bone disorder Plan: hemodialysis today. Increase home Lasix dose
[2024-07-04 14:22] VITALS: BP 139/73; PULSE 79; RESP 20; TEMP 97.7
--- NOTE | 2024-07-04 16:40 | P.DS ---
Providers Date of admission: 07/02/24 20:48 Expected date of discharge: 07/04/24 Attending physician: Ricardo Freeman Consults: 07/02/24 11:26 Consult Physician Routine Consulting Provider: Elroy Olsen Consult Reason/Comments: A-fib, trop elevated Do you want consulting provider notified?: Yes Consult Physician Routine Consulting Provider: Christina Berg Consult Reason/Comments: ESRD, fluid overload Do you want consulting provider notified?: Yes Primary care physician: Kj Jiang [facility] Course: Chief Complaint: Palpitation tired pleasant 79-year-old patient of Dr. Kj Jiang. Chronic stable medical conditions include CAD with stent, diabetes, end-stage kidney disease on hemodialysis the left upper extremity AV fistula, hypertension, hyperlipidemia, peripheral neuropathy, gout right nephrectomy,' accompanied by his in the ER. Patient had COVID 4 weeks ago. Since then patient is having no energy. Very tired. Increasing shortness of breath. Even walking 15 feet gets very tired. Gets hemodialysis Sunday and Sunday. No edema. Has a left leg ceja wound from local trauma for which she is on Keflex. Also decreased appetite. Has been diagnosed with atrial fibrillation has been on Eliquis. Has not missed any dialysis. No cough no sputum. July 03: Patient seen this afternoon. In the ER. Tired. 87. at the bedside. Patient overnight went into A-fib with rapid ventricular rate. Put on a Cardizem drip. For hemodialysis tomorrow per nephrology. July 04: Patient came back in sinus rhythm. Put on amiodarone by cardiology. Getting hemodialyzed today. No chest pain. No shortness of breath. Keen to go home. Discussed with the patient at the bedside. Questions answered. Past medical history to include: CAD with stent to LAD, diabetes, end-stage kidney disease on hemodialysis left upper extremity AV fistula, hyperlipidemia, hypertension, migraines, varicose veins, peripheral neuropathy, gout, right nephrectomy Social history: smoked for 30 years stopped 25 years ago. Smoked 2 packs a day. Alcohol rarely. . Physical examination: VITAL SIGNS: 97.7, 79, 20, 139/73, 94% room air GENERAL: , Comfortable laying in bed EYES: Pupils equal. Conjunctiva normal. HEENT: External appearance of nose and ears normal, oral cavity grossly normal. NECK: JVD possibly t raised; masses not palpable. HEART: First and second heart sounds are normal; no edema. LUNGS: Respiratory rate normal; decreased breath sounds. ABDOMEN: Soft, no tenderness, no guarding rigidity, liver spleen not palpable, no masses palpable. EXTREMITIES: Left upper extremity AV fistula PSYCH: Alert and oriented x3; mood and affect tired. MUSCULOSKELETAL:No Clubbing/cyanosis;muscles-grossly intact. Left leg lower one third upper 2 third junction ceja linear wound. Some surrounding redness. INVESTIGATIONS, reviewed in the clinical context: 2D echocardiogram: EF 55%. July 02, 2024: White count 8.9 hemoglobin 11.6 platelets 263 sodium 141 potassium 4.2 BUN 16 creatinine 3.42 Troponin I 0.092, 0.080, 0.0077 EKG tracing personally reviewed by me-normal sinus rhythm. Chest x-ray film personally reviewed by me-cardiomegaly. Venous prominence. Assessment and plan: -Acute congestive heart failure exacerbation from ischemic heart disease. Preserved ejection fraction Fluid restriction. Cardiology following. Hemodialysis. -Paroxysmal atrial fibrillation with rapid ventricular rate: Now in sinus rhythm IV Cardizem drip Being discharged on lower loading dose of amiodarone -CAD with stent to LAD in [address] Cavazos -Diabetes mellitus type 2 on oral hypoglycemic, Follow Accu-Cheks. Whit Mcguire -End-stage kidney disease on hemodialysis with left upper extremity AV fistula. Dialysis Sunday nephrology following. Hemodialysis today -Hyperlipidemia Tricor -Left lower extremity, linear wound from local trauma. Complete home dose course Keflex. 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 History of Any Multi-Drug Resistant Organisms: None Reported Past Surgical History: Heart Catheterization With Stent Additional Past Surgical History / Comment(s): Stent to LAD 06/07/16, tonsilitis, right kidney, dialysis fistula- left upper arm Past Anesthesia/Blood Transfusion Reactions: No Reported Reaction Date of Last Stent Placement:: 2015 Past Psychological History: No Psychological Hx Reported Smoking Status: Former smoker Past Alcohol Use History: Rare Past Drug Use History: None Reported Plan - Discharge Summary Discharge Rx Participant: No New Discharge Prescriptions: New Atorvastatin [Lipitor] 20 mg PO HS #30 tab Amiodarone [Cordarone] 400 mg PO DIRECTED #60 tab Continue Glimepiride [Amaryl] 1 mg PO AC-BRKFST Gabapentin [Neurontin] 300 mg PO DAILY Fenofibrate,Micronized [Fenofibrate] 200 mg PO QAM allopurinoL [Zyloprim] 100 mg PO BID-W/MEALS Cholecalciferol [Vitamin D3 (25 Mcg = 1000 Iu)] 50 mcg PO W/LUNCH Cephalexin [Keflex] 500 mg PO TID-W/MEALS sitaGLIPtin PHOSPHATE [Januvia] 25 mg PO W/LUNCH Apixaban [Eliquis] 2.5 mg PO BID-W/MEALS Furosemide [Lasix] 20 mg PO W/SUPPER Sevelamer [Renvela] 800 mg PO AC-TID Discharge Medication List Fenofibrate,Micronized [Fenofibrate] 200 mg PO QAM 05/19/16 [History] Gabapentin [Neurontin] 300 mg PO DAILY 05/19/16 [History] Glimepiride [Amaryl] 1 mg PO AC-BRKFST 05/19/16 [History] allopurinoL [Zyloprim] 100 mg PO BID-W/MEALS 05/19/16 [History] Cholecalciferol [Vitamin D3 (25 Mcg = 1000 Iu)] 50 mcg PO W/LUNCH 01/17/22 [History] sitaGLIPtin PHOSPHATE [Januvia] 25 mg PO W/LUNCH 01/17/22 [History] Apixaban [Eliquis] 2.5 mg PO BID-W/MEALS 07/02/24 [History] Cephalexin [Keflex] 500 mg PO TID-W/MEALS 07/02/24 [History] Furosemide [Lasix] 20 mg PO W/SUPPER 07/02/24 [History] Sevelamer [Renvela] 800 mg PO AC-TID 07/02/24 [History] Amiodarone [Cordarone] 400 mg PO DIRECTED #60 tab 07/04/24 [Rx] Atorvastatin [Lipitor] 20 mg PO HS #30 tab 07/04/24 [Rx] Follow up Appointment(s)/Referral(s): procedures nursedr [Other] - 1 Week Kj Jiang MD [Primary Care Provider] - 1-2 days Patient Instructions/Handouts: Heart Failure (DC) Discharge Disposition: HOME SELF-CARE
[2024-07-04] MEDS ORDERED: FUROSEMIDE 40 MG TAB PO SCH (17:30)
[2024-07-04] MEDS ORDERED: FUROSEMIDE 20 MG TAB PO SCH (17:30)
== END 2024-07-04 14:21 | disposition home or self-care (01) | DRG 291 ==
LOC: EC 09:05 → 3SCARD 11:28 → OBSVTOIN 20:48 → 3SCARD 21:52
PROVIDERS: ADMIT Hospitalist; ATTEND Hospitalist
PROC: 5A1D70Z Performance of Urinary Filtration, Intermittent, Less than 6 Hours Per Day (ICD-10-PCS; principal; 2024-07-03)
DX: I13.2 Hypertensive heart and chronic kidney disease with heart failure and with stage 5 chronic kidney disease, or end stage renal disease (principal); N18.6 End stage renal disease; I47.19 Other supraventricular tachycardia; E11.22 Type 2 diabetes mellitus with diabetic chronic kidney disease; E11.42 Type 2 diabetes mellitus with diabetic polyneuropathy; E78.5 Hyperlipidemia, unspecified; G43.909 Migraine, unspecified, not intractable, without status migrainosus; I25.10 Atherosclerotic heart disease of native coronary artery without angina pectoris; E83.9 Disorder of mineral metabolism, unspecified; I48.0 Paroxysmal atrial fibrillation; I50.9 Heart failure, unspecified; R09.02 Hypoxemia; I83.90 Asymptomatic varicose veins of unspecified lower extremity; M1A.9XX0 Chronic gout, unspecified, without tophus (tophi); M89.8X9 Other specified disorders of bone, unspecified site; Z99.2 Dependence on renal dialysis; Z79.01 Long term (current) use of anticoagulants; Z79.84 Long term (current) use of oral hypoglycemic drugs; Z79.899 Other long term (current) drug therapy; Z86.16 Personal history of COVID-19; Z87.891 Personal history of nicotine dependence; Z90.5 Acquired absence of kidney; Z95.5 Presence of coronary angioplasty implant and graft; Z88.1 Allergy status to other antibiotic agents
CPT/HCPCS: 36415; 71046; 80053; 83735; 84443; 84484; 85025; 85610; 85730; 90935; 93005; 93306; 96365; 96366; 96375; 99291

== ENCOUNTER 2025-05-11 11:17 | Inpatient (IN) | payer MEDICARE ==
--- NOTE | 2025-05-11 11:34 | ED ---
General Adult HPI - General Chief complaint: Weakness Stated complaint: weakness Time Seen by Provider: 05/11/25 11:24 Source: patient, EMS, RN notes reviewed, old records reviewed Mode of arrival: EMS Limitations: no limitations - History of Present Illness Initial comments: 79-year-old male presenting from urgent care with generalized weakness, hypote nsion, hypoxia. Patient has history of end-stage renal disease and he did go to dialysis this morning. He states this was uneventful. He did driven home and when he got home he was quite weak. He was taken to urgent care for evaluation and they sent the patient to the emergency department. He has a history of atrial fibrillation and was noted to be in A-fib with RVR. He was also hypoxic in the 70s requiring supplemental oxygen. Patient states he is on Eliquis. He denies lower extremity pain or swelling. He has had issue with nausea and upset stomach for the past 1 week. - Related Data Home Medications Medication Instructions Recorded Confirmed Fenofibrate,Micronized 200 mg PO DIRECTED 05/19/16 05/11/25 [Fenofibrate] Gabapentin [Neurontin] 300 mg PO W/BRKFST 05/19/16 05/11/25 Glimepiride [Amaryl] 1 mg PO W/BRKFST 05/19/16 05/11/25 allopurinoL [Zyloprim] 100 mg PO BID-W/MEALS 05/19/16 05/11/25 sitaGLIPtin PHOSPHATE [Januvia] 25 mg PO DIRECTED 01/17/22 05/11/25 Apixaban [Eliquis] 2.5 mg PO BID-W/MEALS 07/02/24 05/11/25 Sevelamer [Renvela] 800 mg PO DIRECTED 07/02/24 05/11/25 Amiodarone [Cordarone] 100 mg PO W/LUNCH 05/11/25 05/11/25 Cholecalciferol (Vitamin D3) 50 mcg PO W/LUNCH 05/11/25 05/11/25 [Vitamin D3 (50 Mcg = 2000 Iu)] Docusate [Colace] 100 mg PO W/LUNCH PRN 05/11/25 05/11/25 Ezetimibe [Zetia] 10 mg PO W/SUPPER 05/11/25 05/11/25 Furosemide [Lasix] 40 mg PO DAILY@1000 05/11/25 05/11/25 L.acidoph,Paracasei, B.lactis 1 cap PO W/LUNCH 05/11/25 05/11/25 [Probiotic] Metoprolol Succinate (ER) [Toprol 25 mg PO W/SUPPER 05/11/25 05/11/25 Xl] Simvastatin [Zocor] 20 mg PO W/SUPPER 05/11/25 05/11/25 Allergies Allergy/AdvReac Type Severity Reaction Status Date / Time cefadroxil AdvReac Constipatio Verified 05/11/25 13:06 n clindamycin AdvReac Diarrhea Verified 05/11/25 13:06 Review of Systems ROS Statement: Those systems with pertinent positive or pertinent negative responses have been documented in the HPI. ROS Other: All systems not noted in ROS Statement are negative. 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 History of Any Multi-Drug Resistant Organisms: None Reported Past Surgical History: Appendectomy, Cholecystectomy, Heart Catheterization With Stent Additional Past Surgical History / Comment(s): Stent to LAD 06/07/16, tonsilitis, right kidney removed, dialysis fistula- left upper arm Past Anesthesia/Blood Transfusion Reactions: No Reported Reaction Date of Last Stent Placement:: 2015 Past Psychological History: No Psychological Hx Reported Smoking Status: Former smoker Past Alcohol Use History: Rare Past Drug Use History: None Reported - Past Family History Father Family Medical History: Cancer Additional Family Medical History / Comment(s): Lung General Exam Limitations: no limitations General appearance: alert, in no apparent distress Head exam: Present: atraumatic, normocephalic Eye exam: Present: normal appearance, PERRL ENT exam: Present: mucous membranes dry Neck exam: Present: normal inspection. Absent: tenderness, meningismus Respiratory exam: Present: rales, decreased breath sounds. Absent: respiratory distress Cardiovascular Exam: Present: tachycardia, irregular rhythm GI/Abdominal exam: Present: soft. Absent: distended, tenderness, guarding Extremities exam: Absent: pedal edema Neurological exam: Present: alert, oriented X3, CN II-XII intact. Absent: motor sensory deficit Psychiatric exam: Present: normal affect, normal mood Skin exam: Present: warm, dry, intact. Absent: cyanosis, diaphoretic Course Vital Signs 05/11/25 05/11/25 11:19 12:26 Temperature 97.7 F Pulse Rate 130 H 138 H Respiratory 20 18 Rate Blood Pressure 106/71 101/80 O2 Sat by Pulse 95 99 Oximetry Medical Decision Making - Medical Decision Making Was pt. sent in by a medical professional or institution (NICOLE Conde, BILINGUAL INSTRUCTOR, urgent care, hospital, or half-way...) When possible be specific @ -No Did you speak to anyone other than the patient for history (EMS, parent, family, police, friend...)? What history was obtained from this source @ -No Did you review nursing and triage notes (agree or disagree)? Why? @ -I reviewed and agree with nursing and triage notes Were old charts reviewed (outside hosp., previous admission, EMS record, old EKG, old radiological studies, urgent care reports/EKG's, half-way records)? Report findings @ -No old charts were reviewed Differential Weakness: Hypoglycemia, shock, sepsis, hyponatremia, anemia, infection, [place], ETOH, adverse medicine reaction, overdose, stroke, this is not meant to be an all-inclusive list. EKG interpreted by me (3pts min.). @ -[Atrial fibrillation with RVR rate of 129, QRS duration 106, QTc [address] segment elevation. X-rays interpreted by me (1pt min.). @Chest x-ray shows right-sided pleural effusion with likely pneumonia adjacent. There is a trace left-sided effusion. CT interpreted by me (1pt min.). @ -None done U/S interpreted by me (1pt. min.). @ -None done What testing was considered but not performed or refused? (CT, X-rays, U/S, labs)? Why? @ -None What meds were considered but not given or refused? Why? @ -None Did you discuss the management of the patient with other professionals (professionals i.e. NICOLE Conde, BILINGUAL INSTRUCTOR, lab, RT, psych nurse, bilingual social worker, drill foreman, teacher, corporate compliance officer, caseworker intake)? Give summary @ -Yes, Dr. Freeman will admit Was smoking cessation discussed for >3mins.? @ -No Was critical care preformed (if so, how long)? @ -Yes, 35 minutes Were there social determinants of health that impacted care today? How? (Homelessness, low income, unemployed, alcoholism, drug addiction, solano sportation, low edu. Level, literacy, decrease access to med. care, correction, rehab)? @ -No Was there de-escalation of care discussed even if they declined (Discuss DNR or withdrawal of care, Hospice)? DNR status @ -No What co-morbidities impacted this encounter? (DM, HTN, Smoking, COPD, CAD, Cancer, CVA, ARF, Chemo, Hep., AIDS, mental health diagnosis, sleep apnea, morbid obesity)? @ -End-stage renal disease Was patient admitted / discharged? Hospital course, mention meds given and route, prescriptions, significant lab abnormalities, going to OR and other pertinent info. @79-year-old male presenting with weakness, hypoxia. Patient endorses a cough which is occasionally productive. He was found to be hypoxic in the 70s which responded well to nasal cannula, supplemental oxygen. Patient has had x-ray concerning for effusion and pneumonia on right lower lung field. Started on antibiotics in the emergency department. Patient is also in atrial fibrillation with RVR requiring Cardizem. He is admitted to internal medicine with consults to pulmonology and nephrology. Undiagnosed new problem with uncertain prognosis? @ -No Drug Therapy requiring intensive monitoring for toxicity (Heparin, Nitro, Insulin, Cardizem)? @ -No Were any procedures done? @ -No Diagnosis/symptom? @Pneumonia, A-fib with RVR, end-stage renal disease Acute, or Chronic, or Acute on Chronic? @ -Acute, chronic, chronic Uncomplicated (without systemic symptoms) or Complicated (systemic symptoms)? @ -Default Side effects of treatment? @ -No Exacerbation, Progression, or Severe Exacerbation? @ -No Poses a threat to life or bodily function? How? (Chest pain, [place], FL, pneumonia, PE, COPD, DKA, ARF, appy, cholecystitis, CVA, Diverticulitis, Homicidal, Suicidal, threat to staff... and all critical care pts) @ -Yes, arrhythmia, sepsis, respiratory failure - Lab Data Result diagrams: 05/11/25 11:40 05/11/25 11:40 Lab Results 07/05/11/25 05/11/25 Range/Units 11:33 11:40 11:40 WBC 11.83 H (4.50-10.00) 10*3/uL RBC 3.32 L (4.40-5.60) 10*6/uL Hgb 11.7 L (13.0-17.0) g/dL Hct 35.3 L (39.6-50.0) % MCV 106.3 H (80.0-97.0) fL MCH 35.2 H (27.0-32.0) pg MCHC 33.1 (32.0-37.0) g/dL Plt Count 348 (140-440) 10*3/uL MPV 10.9 (9.5-12.2) fL Immature Gran % (Auto) 0.5 % Neutrophils % 81.3 % Lymphocytes % 5.7 % Monocytes % 8.8 % Eosinophils % 2.3 % Basophils % 1.4 % Immature Gran # 0.06 H (0.00-0.04) 10*3/uL Neutrophils # 9.63 H (1.80-7.70) 10*3/uL Lymphocytes # 0.67 L (0.90-5.00) 10*3/uL Monocytes # 1.04 H (0.20-1.00) 10*3/uL Eosinophils # 0.27 (0.04-0.35) 10*3/uL Basophils # 0.16 H (0.00-0.10) 10*3/uL Manual Slide Review Performed Stomatocytes Present PT 11.9 (10.0-12.5) sec INR 1.1 (<1.2) APTT 27.4 (22.0-30.0) sec Sodium (137-145) mmol/L Potassium (3.5-5.1) mmol/L Chloride (98-107) mmol/L Carbon Dioxide (22-30) mmol/L Anion Gap mmol/L BUN (9-20) mg/dL Creatinine (0.66-1.25) mg/dL Est GFR (CKD-EPI)AfAm (>60 ml/min/1.73 sqM) Est GFR (CKD-EPI)NonAf (>60 ml/min/1.73 sqM) Glucose (74-99) mg/dL POC Glucose (mg/dL) 109 (70-110) mg/dL POC Glu [employer] Sales Representative ID [facility] Plasma Lactic Acid Matthew (0.7-2.0) mmol/L Calcium (8.4-10.2) mg/dL Magnesium (1.6-2.3) mg/dL Total Bilirubin (0.2-1.3) mg/dL AST (17-59) U/L ALT (4-49) U/L Alkaline Phosphatase (38-126) U/L Troponin I (0.000-0.034) ng/mL NT-Pro-B Natriuret Pep pg/mL Total Protein (6.3-8.2) g/dL Albumin (3.5-5.0) g/dL 05/11/25 05/11/25 05/11/25 Range/Units 11:40 12:11 12:11 WBC (4.50-10.00) 10*3/uL RBC (4.40-5.60) 10*6/uL Hgb (13.0-17.0) g/dL Hct (39.6-50.0) % MCV (80.0-97.0) fL MCH (27.0-32.0) pg MCHC (32.0-37.0) g/dL Plt Count (140-440) 10*3/uL MPV (9.5-12.2) fL Immature Gran % (Auto) % Neutrophils % % Lymphocytes % % Monocytes % % Eosinophils % % Basophils % % Immature Gran # (0.00-0.04) 10*3/uL Neutrophils # (1.80-7.70) 10*3/uL Lymphocytes # (0.90-5.00) 10*3/uL Monocytes # (0.20-1.00) 10*3/uL Eosinophils # (0.04-0.35) 10*3/uL Basophils # (0.00-0.10) 10*3/uL Manual Slide Review Stomatocytes PT (10.0-12.5) sec INR (<1.2) APTT (22.0-30.0) sec Sodium 136 L (137-145) mmol/L Potassium 4.7 (3.5-5.1) mmol/L Chloride 98 (98-107) mmol/L Carbon Dioxide 25 (22-30) mmol/L Anion Gap 13 mmol/L BUN 24 H (9-20) mg/dL Creatinine 4.54 H (0.66-1.25) mg/dL Est GFR (CKD-EPI)AfAm 13 (>60 ml/min/1.73 sqM) Est GFR (CKD-EPI)NonAf 11 (>60 ml/min/1.73 sqM) Glucose 130 H (74-99) mg/dL POC Glucose (mg/dL) (70-110) mg/dL POC Glu [employer] Sales Representative ID Plasma Lactic Acid Matthew 1.4 (0.7-2.0) mmol/L Calcium 9.2 (8.4-10.2) mg/dL Magnesium 2.1 (1.6-2.3) mg/dL Total Bilirubin 1.0 (0.2-1.3) mg/dL AST 50 (17-59) U/L ALT 20 (4-49) U/L Alkaline Phosphatase 45 (38-126) U/L Troponin I 0.019 (0.000-0.034) ng/mL NT-Pro-B Natriuret Pep 7900 pg/mL Total Protein 7.3 (6.3-8.2) g/dL Albumin 4.2 (3.5-5.0) g/dL Critical Care Time Critical Care Time: Yes Total Critical Care Time: 35 Disposition Clinical Impression: Atrial fibrillation with rapid ventricular response, PNA (pneumonia) Disposition: ADMITTED IP TO THIS HOSP Condition: Stable Is patient prescribed a controlled substance at d/c from ED?: No Referrals: Kj Jiang MD [Primary Care Provider] - 1-2 days Time of Disposition: 13:27
[2025-05-11 11:35] LABS: Glucose,Whole Blood 109 mg/dL (70-110)
[2025-05-11 11:59] LABS: Basophils # (A) 0.16 10*3/uL (0.00-0.10); Basophils % (A) 1.4 %; Eosinophils # (A) 0.27 10*3/uL (0.04-0.35); Eosinophils % (A) 2.3 %; HCT 35.3 % (39.6-50.0); HGB 11.7 g/dL (13.0-17.0); Lymphocytes # (A) 0.67 10*3/uL (0.90-5.00); Lymphocytes % (A) 5.7 %; MCH 35.2 pg (27.0-32.0); MCHC 33.1 g/dL (32.0-37.0); MCV 106.3 fL (80.0-97.0); Monocytes # (A) 1.04 10*3/uL (0.20-1.00); Monocytes % (A) 8.8 %; Neutrophils # (A) 9.63 10*3/uL (1.80-7.70); Neutrophils % (A) 81.3 %; Platelet Count 348 10*3/uL (140-440); RBC 3.32 10*6/uL (4.40-5.60); RDW 14.0 % (11.5-14.5); WBC 11.83 10*3/uL (4.50-10.00)
[2025-05-11 12:09] LABS: ALT 20 U/L (4-49); African American GFR (CKD) 13 (>60 ml/min/1.73 sqM); Albumin 4.2 g/dL (3.5-5.0); Anion Gap 13 mmol/L; Blood Urea Nitrogen 24 mg/dL (9-20); Calcium 9.2 mg/dL (8.4-10.2); Carbon Dioxide 25 mmol/L (22-30); Chloride 98 mmol/L (98-107); Glucose 130 mg/dL (74-99); Non-African American GFR(CKD) 11 (>60 ml/min/1.73 sqM); Sodium 136 mmol/L (137-145); Total Protein 7.3 g/dL (6.3-8.2)
[2025-05-11 12:16] LABS: AST 50 U/L (17-59); Alkaline Phosphatase 45 U/L (38-126); Magnesium 2.1 mg/dL (1.6-2.3); Potassium 4.7 mmol/L (3.5-5.1)
[2025-05-11 12:18] LABS: NT-Pro-B-Type Natriuretic Pept 7900 pg/mL
[2025-05-11 12:32] LABS: Stomatocytes Present
--- NOTE | 2025-05-11 12:37 | XR ---
EXAMINATION TYPE: XR chest 2V DATE OF EXAM: 05/11/2025 12:03 PM COMPARISON: 04/14/2025 CLINICAL INDICATION: Male, 79 years old with history of Weakness, , TECHNIQUE: AP and lateral views FINDINGS: Heart borderline enlarged. Small to moderate right and trace left pleural effusions. Patchy opacity e xtends up to the right midlung. IMPRESSION: Small to moderate right and trace left pleural effusions. Adjacent atelectasis and/or consolidation e xtending up to the right mid lung level. [facility], Workstation: [facility], 05/11/2025 12:35 PM
[2025-05-11] MEDS: DILTIAZEM 5 MG/ML 5 ML VIAL IVP STA (12:39)
[2025-05-11] MEDS: DILTIAZEM 125 MG in DEXTROSE 5% IN WATER 100 ML IV SCH (12:43)
[2025-05-11 12:56] LABS: INR 1.1 (<1.2); Partial Thromboplastin Time 27.4 sec (22.0-30.0); Prothrombin Time 11.9 sec (10.0-12.5)
[2025-05-11] MEDS ORDERED: NALOXONE 0.4 MG/ML 1 ML VIAL IV PRN (13:20)
[2025-05-11] MEDS ORDERED: ACETAMINOPHEN TAB 325 MG TAB PO PRN (13:20)
[2025-05-11] MEDS: AZITHROMYCIN 500 MG in SODIUM CHLORIDE 0.9% 250 ML IVPB STA (14:38)
[2025-05-11] MEDS ORDERED: DEXTROSE 50% SYRINGE 50 ML IVP PRN ×2 (15:43)
--- NOTE | 2025-05-11 15:46 | P.HPIM ---
History of Present Illness H&P Date: 05/11/25 Chief Complaint: Short of breath pleasant 79-year-old patient of Dr. Kj Jiang. Chronic medical conditions include CAD with stent, diabetes, end-stage kidney disease on hemodialysis the left upper extremity AV fistula, hypertension, hyperlipidemia, peripheral neuropathy, gout right nephrectomy,' previous COVID. A-fib Last couple of days he is feeling some heaviness in the chest. Slightly short of breath. Went for dialysis today. Did complete dialysis. Following that he felt far more short of breath. Cannot make it home. Decided to come to the ER. In the ER found to be in A-fib with rapid rate. Per the EMS blood pressure was down to the 80s systolic. The heart rate in 120s. He was put on a Cardizem drip. While I was talking to him and his . Patient did revert to sinus rhythm. In the ER also found to be in having pneumonia. Put on IV ceftriaxone. Has only a slight cough. Nothing new. Appetite is fair. No fever no chills. Review of systems: GEN.: Tired, EYES: None HEENT: None NECK: None RESPIRATORY: As above CARDIOVASCULAR: No edema GASTROINTESTINAL: None GENITOURINARY: None MUSCULOSKELETAL: Joint pains LYMPHATICS: None HEMATOLOGICAL: None PSYCHIATRY: None NEUROLOGICAL: None Past medical history to include: CAD with stent to LAD, diabetes, end-stage kidney disease on hemodialysis left upper extremity AV fistula, hyperlipidemia, hypertension, migraines, varicose veins, peripheral neuropathy, gout, right nephrectomy Social history: smoked for 30 years stopped 25 years ago. Smoked 2 packs a day. Alcohol rarely. . Physical examination: VITAL SIGNS: 97.7, 130, 20, 106 x 71, 95% 4 L upon presentation GENERAL: , BMI 25.7, lying in bed a bit tired appearing EYES: Pupils equal. Conjunctiva normal. HEENT: External appearance of nose and ears normal, oral cavity grossly normal. NECK: JVD possibly t raised; masses not palpable. HEART: First and second heart sounds are normal; no edema. LUNGS: Respiratory rate normal; decreased breath sounds. ABDOMEN: Soft, no tenderness, no guarding rigidity, liver spleen not palpable, no masses palpable. EXTREMITIES: Left upper extremity AV fistula PSYCH: Alert and oriented x3; mood and affect tired. MUSCULOSKELETAL:No Clubbing/cyanosis;muscles-grossly intact. Left leg lower one third upper 2 third junction ceja linear wound. Some surrounding redness. INVESTIGATIONS, reviewed in the clinical context: May 11, 2025: White count 9.8 hemoglobin 9.7 platelets 348 sodium 136 potassium 4.7. 24 creatinine 4.54 Troponin I 0.019 EKG tracing personally reviewed by me-normal sinus rhythm Chest x-ray film personally reviewed by me-right pleural effusion. Infiltrate. 2D echocardiogram: [May 2024] EF 55%. Assessment and plan: - Probable right basal pneumonia suspect gram-negative organism IV ceftriaxone. Zithromax -Paroxysmal atrial fibrillation with rapid ventricular rate patient seems to be in and out of rapid rate in sinus rhythm. Cardizem drip. 5 mg an hour. Cardiology consulted. Amiodarone. Toprol-XL -Acute congestive heart failure exacerbation from ischemic heart disease. Preserved ejection fraction, precipitated by A-fib with rapid rate Fluid restriction. Cardiology following. Hemodialysis. -CAD with stent to LAD in [address] Cavazos -Diabetes mellitus type 2 on oral hypoglycemic, Follow Accu-Cheks. Whit Mcguire -End-stage kidney disease on hemodialysis with left upper extremity AV fistula. Dialysis Sunday nephrology consulted -Hyperlipidemia Tricor -Left lower extremity, linear wound from local trauma. Complete home dose course Keflex. Topical antibiotic -Essential hypertension Toprol-XL -Diabetic peripheral neuropathy Neurontin 300 mg a day -Chronic gout Allopurinol -Right nephrectomy -Full code Care was discussed with patient at the bedside. Questions answered. 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 History of Any Multi-Drug Resistant Organisms: None Reported Past Surgical History: Appendectomy, Cholecystectomy, Heart Catheterization With Stent Additional Past Surgical History / Comment(s): Stent to LAD 06/07/16, t onsilitis, right kidney removed, dialysis fistula- left upper arm Past Anesthesia/Blood Transfusion Reactions: No Reported Reaction Date of Last Stent Placement:: 2015 Past Psychological History: No Psychological Hx Reported Smoking Status: Former smoker Past Alcohol Use History: Rare Past Drug Use History: None Reported - Past Family History Father Family Medical History: Cancer Additional Family Medical History / Comment(s): Lung Medications and Allergies Home Medications Medication Instructions Recorded Confirmed Type Fenofibrate,Micronized 200 mg PO W/BRKFST 05/19/16 05/11/25 History [Fenofibrate] Gabapentin [Neurontin] 300 mg PO W/BRKFST 05/19/16 05/11/25 History Glimepiride [Amaryl] 1 mg PO W/BRKFST 05/19/16 05/11/25 History allopurinoL [Zyloprim] 100 mg PO BID-W/MEALS 05/19/16 05/11/25 History sitaGLIPtin PHOSPHATE [Januvia] 25 mg PO W/LUNCH 01/17/22 05/11/25 History Apixaban [Eliquis] 2.5 mg PO BID-W/MEALS 07/02/24 05/11/25 History Sevelamer [Renvela] 800 mg PO TID-W/MEALS 07/02/24 05/11/25 History Amiodarone [Cordarone] 100 mg PO W/LUNCH 05/11/25 05/11/25 History Cholecalciferol (Vitamin D3) 50 mcg PO W/LUNCH 05/11/25 05/11/25 History [Vitamin D3 (50 Mcg = 2000 Iu)] Docusate [Colace] 100 mg PO W/LUNCH PRN 05/11/25 05/11/25 History Ezetimibe [Zetia] 10 mg PO W/SUPPER 05/11/25 05/11/25 History Furosemide [Lasix] 40 mg PO DAILY@1000 05/11/25 05/11/25 History L.acidoph,Paracasei, B.lactis 1 cap PO W/LUNCH 05/11/25 05/11/25 History [Probiotic] Metoprolol Succinate (ER) [Toprol 25 mg PO W/SUPPER 05/11/25 05/11/25 History Xl] Simvastatin [Zocor] 20 mg PO W/SUPPER 05/11/25 05/11/25 History Allergies Allergy/AdvReac Type Severity Reaction Status Date / Time cefadroxil AdvReac Constipatio Verified 05/11/25 13:06 n clindamycin AdvReac Diarrhea Verified 05/11/25 13:06 Physical Exam Vitals: Vital Signs Temp Pulse Resp BP Pulse Ox 05/11/25 15:27 74 18 99/53 96 05/11/25 14:41 126 H 18 91/56 96 05/11/25 13:49 113 H 19 104/65 97 05/11/25 12:26 138 H 18 101/80 99 05/11/25 11:19 97.7 F 130 H 20 106/71 95 Intake and Output 05/11/25 05/11/25 05/11/25 06:59 14:59 22:59 Other: Weight 90.718 kg Results CBC & Chem 7: 05/11/25 11:40 05/11/25 11:40 Labs: Abnormal Lab Results - Last 24 Hours (Table) 05/11/25 05/11/25 Range/Units 11:40 11:40 WBC 11.83 H (4.50-10.00) 10*3/uL RBC 3.32 L (4.40-5.60) 10*6/uL Hgb 11.7 L (13.0-17.0) g/dL Hct 35.3 L (39.6-50.0) % MCV 106.3 H (80.0-97.0) fL MCH 35.2 H (27.0-32.0) pg Immature Gran # 0.06 H (0.00-0.04) 10*3/uL Neutrophils # 9.63 H (1.80-7.70) 10*3/uL Lymphocytes # 0.67 L (0.90-5.00) 10*3/uL Monocytes # 1.04 H (0.20-1.00) 10*3/uL Basophils # 0.16 H (0.00-0.10) 10*3/uL Sodium 136 L (137-145) mmol/L BUN 24 H (9-20) mg/dL Creatinine 4.54 H (0.66-1.25) mg/dL Glucose 130 H (74-99) mg/dL
[2025-05-11 17:30] LABS: Glucose,Whole Blood 107 mg/dL (70-110)
[2025-05-11] MEDS: INSULIN LISPRO (HumaLOG) 100 UNIT/ML 10 mL VL SQ SCH (17:30)
[2025-05-11] MEDS: ATORVASTATIN 10 MG TAB PO SCH (17:32)
[2025-05-11] MEDS: APIXABAN 2.5 MG TABLET PO SCH (17:32)
[2025-05-11] MEDS: SEVELAMER 800 MG TAB PO SCH (17:32)
[2025-05-11] MEDS: METOPROLOL SUCCINATE (ER) 25 MG TAB.ER.24H PO SCH (17:32)
[2025-05-11] MEDS: EZETIMIBE 10 MG TAB PO SCH (17:32)
--- NOTE | 2025-05-11 18:12 | P.CRDCN ---
History of Present Illness Consult date: 05/11/25 History of present illness: History of Present Illness: The patient is an 79-year-old male, followed by Dr. Arreaga with a known history of end-stage renal disease for the last 5-1/2 years, history of CAD status post stenting of the LAD in 2016, diabetes, hypertension and hyperlipidemia who presented with evidence of atrial fibrillation. He has a prior history of paroxysmal atrial fibrillation, anticoagulated. Today after dialysis he felt tired, went home and was feeling more short of breath and fatigued with minimal palpitations, came into the emergency room he was in atrial fibrillation with rapid ventricular response that subsequently reverted to sinus mechanism. He is feeling well at this time. He denies any chest discomfort, dizziness or syncope. He has no peripheral edema. He had no symptoms to suggest recurrent ischemic symptoms. He was admitted in 2023 with an episode of paroxysmal atrial fibrillation and his echocardiogram showed a preserved systolic function. In the emergency room his troponin is normal. Medications: Eliquis 2.5 mg twice a day, Januvia, Renvela, fenofibrate, simvastatin 20 mg daily, ezetimibe 10 mg daily, metoprolol succinate 25 mg daily, amiodarone 100 mg daily, furosemide 40 mg daily, Amaryl, Neurontin, Zyloprim Review of Systems: Respiratory: He has mild dyspnea on exertion and occasional cough GI: He had a recent abdominal pain but no diarrhea or bleeding : He has no hematuria, he is status post nephrectomy and end-stage renal disease Nervous System: No stroke or seizure. Physical Examination: 79-year-old male, alert oriented no apparent distress,Blood pressure 113/70, Heart rate 60 Head: Normocephalic. Eyes: Sclerae nonicteric. Neck: Good carotid upstroke, right-sided bruit, no jugular venous distention. Lungs: Clear to auscultation. Heart: Regular rate and rhythm, S1-S2, no S3, no rub. Systolic ejection murmur 3/6. Abdomen: Soft nontender, positive bowel sounds no organomegaly. Extremities: No edema, intact distal pulses. Labs: Troponin 0.019, hemoglobin 11.7, WBC 11.8, BUN 24, creatinine 4.54. NT proBNP 7900. Chest x-ray with small to moderate right pleural effusion EKG: Initial EKG atrial fibrillation at a rate of [address]-T wave changes subsequently sinus mechanism with no acute ST segment changes Impression: 1. Paroxysmal atrial fibrillation, back in sinus mechanism 2. End-stage renal disease on hemodialysis 3. History of CAD status post stenting, no evidence of recurrent ischemia 4. History of diabetes 5. History of hyperlipidemia Plan: 1. Continue anticoagulation 2. Obtain an echocardiogram with Doppler 3. Increase beta-mingo 4. Hold fenofibrate 5. Depending on his progress further recommendations will be made, if stable he may be able to be discharged home in the next 24 to 48 hours. Thank you for this consult we will follow with you. 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 History of Any Multi-Drug Resistant Organisms: None Reported Past Surgical History: Appendectomy, Cholecystectomy, Heart Catheterization With Stent Additional Past Surgical History / Comment(s): Stent to LAD 06/07/16, tonsilit is, right kidney removed, dialysis fistula- left upper arm Past Anesthesia/Blood Transfusion Reactions: No Reported Reaction Date of Last Stent Placement:: 2015 Past Psychological History: No Psychological Hx Reported Smoking Status: Former smoker Past Alcohol Use History: Rare Past Drug Use History: None Reported - Past Family History Father Family Medical History: Cancer Additional Family Medical History / Comment(s): Lung Medications and Allergies Home Medications Medication Instructions Recorded Confirmed Type Fenofibrate,Micronized 200 mg PO W/BRKFST 05/19/16 05/11/25 History [Fenofibrate] Gabapentin [Neurontin] 300 mg PO W/BRKFST 05/19/16 05/11/25 History Glimepiride [Amaryl] 1 mg PO W/BRKFST 05/19/16 05/11/25 History allopurinoL [Zyloprim] 100 mg PO BID-W/MEALS 05/19/16 05/11/25 History sitaGLIPtin PHOSPHATE [Januvia] 25 mg PO W/LUNCH 01/17/22 05/11/25 History Apixaban [Eliquis] 2.5 mg PO BID-W/MEALS 07/02/24 05/11/25 History Sevelamer [Renvela] 800 mg PO TID-W/MEALS 07/02/24 05/11/25 History Amiodarone [Cordarone] 100 mg PO W/LUNCH 05/11/25 05/11/25 History Cholecalciferol (Vitamin D3) 50 mcg PO W/LUNCH 05/11/25 05/11/25 History [Vitamin D3 (50 Mcg = 2000 Iu)] Docusate [Colace] 100 mg PO W/LUNCH PRN 05/11/25 05/11/25 History Ezetimibe [Zetia] 10 mg PO W/SUPPER 05/11/25 05/11/25 History Furosemide [Lasix] 40 mg PO DAILY@1000 05/11/25 05/11/25 History L.acidoph,Paracasei, B.lactis 1 cap PO W/LUNCH 05/11/25 05/11/25 History [Probiotic] Metoprolol Succinate (ER) [Toprol 25 mg PO W/SUPPER 05/11/25 05/11/25 History Xl] Simvastatin [Zocor] 20 mg PO W/SUPPER 05/11/25 05/11/25 History Allergies Allergy/AdvReac Type Severity Reaction Status Date / Time cefadroxil AdvReac Constipatio Verified 05/11/25 13:06 n clindamycin AdvReac Diarrhea Verified 05/11/25 13:06 Physical Exam Vitals: Vital Signs Temp Pulse Resp BP Pulse Ox 05/11/25 16:57 68 18 113/72 96 05/11/25 15:27 74 18 99/53 96 05/11/25 14:41 126 H 18 91/56 96 05/11/25 13:49 113 H 19 104/65 97 05/11/25 12:26 138 H 18 101/80 99 05/11/25 11:19 97.7 F 130 H 20 106/71 95 Intake and Output 05/11/25 05/11/25 05/11/25 06:59 14:59 22:59 Intake Total 13.5 Balance 13.5 Intake: Intake, IV Titration 13.5 Amount Diltiazem 125 mg In 13.5 Dextrose 5% in Water 100 ml @ 5 MG/HR 5 mls/hr IV .Q24H [facility] Rx#:[id number] Other: Weight 90.718 kg Results 05/11/25 11:40 05/11/25 11:40 Cardiac Enzymes 05/11/25 05/11/25 Range/Units 11:40 12:11 AST 50 (17-59) U/L Troponin I 0.019 (0.000-0.034) ng/mL Coagulation 05/11/25 Range/Units 11:40 PT 11.9 (10.0-12.5) sec APTT 27.4 (22.0-30.0) sec CBC 05/11/25 Range/Units 11:40 WBC 11.83 H (4.50-10.00) 10*3/uL RBC 3.32 L (4.40-5.60) 10*6/uL Hgb 11.7 L (13.0-17.0) g/dL Hct 35.3 L (39.6-50.0) % Plt Count 348 (140-440) 10*3/uL Comprehensive Metabolic Panel 05/11/25 Range/Units 11:40 Sodium 136 L (137-145) mmol/L Potassium 4.7 (3.5-5.1) mmol/L Chloride 98 (98-107) mmol/L Carbon Dioxide 25 (22-30) mmol/L BUN 24 H (9-20) mg/dL Creatinine 4.54 H (0.66-1.25) mg/dL Glucose 130 H (74-99) mg/dL Calcium 9.2 (8.4-10.2) mg/dL AST 50 (17-59) U/L ALT 20 (4-49) U/L Alkaline Phosphatase 45 (38-126) U/L Total Protein 7.3 (6.3-8.2) g/dL Albumin 4.2 (3.5-5.0) g/dL Current Medications Generic Name Dose Route Start Last Admin Trade Name Freq PRN Reason Stop Dose Admin Acetaminophen 650 mg 05/11/25 13:20 Acetaminophen Tab 325 Mg Tab PO Q6HR PRN Mild Pain or Fever > 100.5 Allopurinol 100 mg 05/11/25 17:30 05/11/25 17:32 Allopurinol 100 Mg Tab PO 100 mg BID-W/MEALS LEILA Administration Amiodarone HCl 100 mg 05/12/25 12:30 Amiodarone 100 Mg Tab PO W/LUNCH LEILA Apixaban 2.5 mg 05/11/25 17:30 05/11/25 17:32 Apixaban 2.5 Mg Tablet PO 2.5 mg BID-W/MEALS LEILA Administration Protocol Atorvastatin Calcium 10 mg 05/11/25 17:30 05/11/25 17:32 Atorvastatin 10 Mg Tab PO 10 mg W/SUPPER LEILA Administration Azithromycin 500 mg 05/13/25 09:00 Azithromycin 500 Mg Tab PO 05/15/25 09:01 DAILY LEILA Protocol Cholecalciferol 50 mcg 05/12/25 12:30 Cholecalciferol 25 Mcg (1000 Iu) Tablet PO W/LUNCH LEILA Dextrose/Water 25 ml 05/11/25 15:43 Dextrose 50% Syringe 50 Ml IVP PER PROTOCOL PRN Hypoglycemia Protocol Dextrose/Water 50 ml 05/11/25 15:43 Dextrose 50% Syringe 50 Ml IVP PER PROTOCOL PRN Hypoglycemia Protocol Ezetimibe 10 mg 05/11/25 17:30 05/11/25 17:32 Ezetimibe 10 Mg Tab PO 10 mg W/SUPPER LEILA Administration Fenofibrate 160 mg 05/12/25 07:30 Fenofibrate 160 Mg Tab PO W/BRKFST LEILA Furosemide 40 mg 05/12/25 10:00 Furosemide 40 Mg Tab PO DAILY@1000 LEILA Gabapentin 300 mg 05/12/25 07:30 Gabapentin 300 Mg Cap PO W/BRKFST LEILA Glimepiride 1 mg 05/12/25 07:30 Glimepiride 1 Mg Tab PO W/BRKFST LEILA Diltiazem HCl 125 mg/ Dextrose 125 mls @ 5 mls/hr 05/11/25 11:45 05/11/25 15:25 /Water IV 0 mg/hr .Q24H LEILA 0 mls/hr Titration Protocol 5 MG/HR Ceftriaxone Sodium 1 gm/ 50 mls @ 100 mls/hr 05/13/25 09:00 Sodium Chloride IVPB Q24HR [facility] Protocol Insulin Human Lispro 0 unit 05/11/25 17:30 05/11/25 17:30 Insulin Lispro (Humalog) 100 Unit/Ml 10 Ml Vl SQ Not Given AC-TID [facility] Protocol Lactobacillus Acidophilus 1 each 05/12/25 12:30 Lactobacillus Acidophilus/Pect 1 Each Capsule PO W/LUNCH LEILA Linagliptin 5 mg 05/12/25 12:30 Linagliptin 5 Mg Tablet PO W/LUNCH [facility] Metoprolol Succinate 25 mg 05/11/25 17:30 05/11/25 17:32 Metoprolol Succinate (Er) 25 Mg Tab.Er.24h PO 25 mg W/SUPPER LEILA Administration Naloxone HCl 0.2 mg 05/11/25 13:20 Naloxone 0.4 Mg/Ml 1 Ml Vial IV Q2M PRN Opioid Reversal Sevelamer Carbonate 800 mg 05/11/25 17:30 05/11/25 17:32 Sevelamer 800 Mg Tab PO 800 mg TID-W/MEALS LEILA Administration Intake and Output 05/11/25 05/11/25 05/11/25 06:59 14:59 22:59 Intake Total 13.5 Balance 13.5 Intake: Intake, IV Titration 13.5 Amount Diltiazem 125 mg In 13.5 Dextrose 5% in Water 100 ml @ 5 MG/HR 5 mls/hr IV .Q24H [facility] Rx#:[id number] Other: Weight 90.718 kg Patient Weight 05/12/25 06:59 Weight 90.718 kg 05/11/25 11:40 05/11/25 11:40
[2025-05-12] MEDS ORDERED: FENOFIBRATE 160 MG TAB PO SCH (07:30)
[2025-05-12 07:36] LABS: African American GFR (CKD) 8 (>60 ml/min/1.73 sqM); Anion Gap 10 mmol/L; Blood Urea Nitrogen 36 mg/dL (9-20); Calcium 9.3 mg/dL (8.4-10.2); Carbon Dioxide 31 mmol/L (22-30); Chloride 98 mmol/L (98-107); Non-African American GFR(CKD) 7 (>60 ml/min/1.73 sqM); Potassium 4.8 mmol/L (3.5-5.1); Sodium 139 mmol/L (137-145)
[2025-05-12 07:48] LABS: Glucose 49 mg/dL (74-99)
[2025-05-12 07:52] LABS: Glucose,Whole Blood 50 mg/dL (70-110)
[2025-05-12 08:19] LABS: Glucose,Whole Blood 84 mg/dL (70-110)
[2025-05-12] MEDS ORDERED: ONDANSETRON ODT 4 MG TAB PO PRN (08:36)
[2025-05-12] MEDS: ONDANSETRON 4 MG/2 ML VIAL IVP PRN (08:42)
[2025-05-12] MEDS: METOPROLOL SUCCINATE (ER) 25 MG TAB.ER.24H PO SCH (08:46)
[2025-05-12] MEDS: GABAPENTIN 300 MG CAP PO SCH (08:47)
--- NOTE | 2025-05-12 10:36 | P.NPCON ---
History of Present Illness - Reason for Consult end stage renal disease - History of Present Illness Reason for consultation: End-stage renal disease History of present illness: Patient is a 79-year-old male seen in renal consultation for end-stage renal disease. Patient was seen and examined in the emergency room. Patient went to hemodialysis yesterday and completed his treatment. After the treatment he felt quite weak. By the time he got home he could not even get onto his porch. He went to the urgent care and was subsequently sent to the hospital via ambulance. Patient was noted to be in A-fib with RVR and is status post Cardizem drip. Currently heart rate is well-controlled. Denies chest pain. He was shortness of breath yesterday but better now. He does have a history of coronary artery disease with stent placement. Also has history of diabetes. He does make some urine. No vomiting or diarrhea. Oral intake has been fair the last few days. Vital signs are stable. General: No acute distress. HEENT: Head exam is unremarkable. LUNGS: No audible rhonchi or wheezes. HEART: Rate and Rhythm are regular. Kartha ABDOMEN: Nontender. EXTREMITITES: No edema. 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 History of Any Multi-Drug Resistant Organisms: None Reported Past Surgical History: Appendectomy, Cholecystectomy, Heart Catheterization With Stent Additional Past Surgical History / Comment(s): Stent to LAD 06/07/16, tonsilitis, right kidney removed, dialysis fistula- left upper arm Past Anesthesia/Blood Transfusion Reactions: No Reported Reaction Date of Last Stent Placement:: 2015 Past Psychological History: No Psychological Hx Reported Smoking Status: Former smoker Past Alcohol Use History: Rare Past Drug Use History: None Reported - Past Family History Father Family Medical History: Cancer Additional Family Medical History / Comment(s): Lung Medications and Allergies Home Medications Medication Instructions Recorded Confirmed Type Fenofibrate,Micronized 200 mg PO W/BRKFST 05/19/16 05/11/25 History [Fenofibrate] Gabapentin [Neurontin] 300 mg PO W/BRKFST 05/19/16 05/11/25 History Glimepiride [Amaryl] 1 mg PO W/BRKFST 05/19/16 05/11/25 History allopurinoL [Zyloprim] 100 mg PO BID-W/MEALS 05/19/16 05/11/25 History sitaGLIPtin PHOSPHATE [Januvia] 25 mg PO W/LUNCH 01/17/22 05/11/25 History Apixaban [Eliquis] 2.5 mg PO BID-W/MEALS 07/02/24 05/11/25 History Sevelamer [Renvela] 800 mg PO TID-W/MEALS 07/02/24 05/11/25 History Amiodarone [Cordarone] 100 mg PO W/LUNCH 05/11/25 05/11/25 History Cholecalciferol (Vitamin D3) 50 mcg PO W/LUNCH 05/11/25 05/11/25 History [Vitamin D3 (50 Mcg = 2000 Iu)] Docusate [Colace] 100 mg PO W/LUNCH PRN 05/11/25 05/11/25 History Ezetimibe [Zetia] 10 mg PO W/SUPPER 05/11/25 05/11/25 History Furosemide [Lasix] 40 mg PO DAILY@1000 05/11/25 05/11/25 History L.acidoph,Paracasei, B.lactis 1 cap PO W/LUNCH 05/11/25 05/11/25 History [Probiotic] Metoprolol Succinate (ER) [Toprol 25 mg PO W/SUPPER 05/11/25 05/11/25 History Xl] Simvastatin [Zocor] 20 mg PO W/SUPPER 05/11/25 05/11/25 History Allergies Allergy/AdvReac Type Severity Reaction Status Date / Time cefadroxil AdvReac Constipatio Verified 05/11/25 13:06 n clindamycin AdvReac Diarrhea Verified 05/11/25 13:06 Physical Exam Vitals: Vital Signs Temp Pulse Resp BP Pulse Ox 05/12/25 08:49 70 20 120/53 95 05/12/25 07:52 67 18 155/71 96 05/12/25 04:00 59 L 16 140/59 96 05/12/25 00:34 98.6 F 61 18 134/64 96 05/11/25 22:36 80 18 120/99 97 05/11/25 16:57 68 18 113/72 96 05/11/25 15:27 74 18 99/53 96 05/11/25 14:41 126 H 18 91/56 96 05/11/25 13:49 113 H 19 104/65 97 05/11/25 12:26 138 H 18 101/80 99 05/11/25 11:19 97.7 F 130 H 20 106/71 95 Intake and Output 05/11/25 05/12/25 05/12/25 22:59 06:59 14:59 Intake Total 13.5 Balance 13.5 Intake: Intake, IV Titration 13.5 Amount Diltiazem 125 mg In 13.5 Dextrose 5% in Water 100 ml @ 5 MG/HR 5 mls/hr IV .Q24H [facility] Rx#:[id number] Results - Lab Results Most recent lab results Calcium 9.3 mg/dL (8.4-10.2) 05/12/25 06:49 Magnesium 2.1 mg/dL (1.6-2.3) 05/11/25 11:40 05/11/25 11:40 05/12/25 06:49 Assessment and Plan Plan: Assessment: 1. End-stage renal disease maintained on hemodialysis on Sunday schedule. 2. A-fib with RVR status post Cardizem drip. Cardiology following. 3. Chronic kidney disease mineral bone disease maintained on Renvela. 4. Diabetes mellitus. 5. Coronary artery disease status post cardiac stent. 6. Pneumonia on antibiotics. Plan: Hemodialysis tomorrow. Maintain Lasix. Thank you for the consultation. I will continue to follow the patient with you during his hospital stay.
[2025-05-12 11:03] LABS: Glucose,Whole Blood 135 mg/dL (70-110)
[2025-05-12] MEDS: GLIMEPIRIDE 1 MG TAB PO SCH (11:08)
[2025-05-12] MEDS: FUROSEMIDE 40 MG TAB PO SCH (11:18)
--- NOTE | 2025-05-12 11:20 | P.PN ---
Subjective Progress Note Date: 05/12/25 The patient is an 79-year-old male, followed by Dr. Arreaga with a known history of end-stage renal disease for the last 5-1/2 years, history of CAD status post stenting of the LAD in 2015, diabetes, hypertension and hyperlipidemia who presented with evidence of atrial fibrillation. He has a prior history of paroxysmal atrial fibrillation, anticoagulated. Today after dialysis he felt tired, went home and was feeling more short of breath and fatigued with minimal palpitations, came into the emergency room he was in atrial fibrillation with rapid ventricular response that subsequently reverted to sinus mechanism. He is feeling well at this time. He denies any chest discomfort, dizziness or syncope. He has no peripheral edema. He had no symptoms to suggest recurrent ischemic symptoms. He was admitted in 2023 with an episode of paroxysmal atrial fibrillation and his echocardiogram showed a preserved systolic function. In the emergency room his troponin is normal. Medications: Eliquis 2.5 mg twice a day, Januvia, Renvela, fenofibrate, simvastatin 20 mg daily, ezetimibe 10 mg daily, metoprolol succinate 25 mg daily, amiodarone 100 mg daily, furosemide 40 mg daily, Amaryl, Neurontin, Zyloprim 05/12/2025 Patient was seen and examined resting comfortably in bed. Overall feeling better. Did complain of some nausea last night but this is improved. Maintaining sinus mechanism. Physical Examination: 79-year-old male, alert oriented no apparent distress Head: Normocephalic. Eyes: Sclerae nonicteric. Neck: Good carotid upstroke, right-sided bruit, no jugular venous distention. Lungs: Clear to auscultation. Heart: Regular rate and rhythm, S1-S2, no S3, no rub. Systolic ejection murmur 3/6. Abdomen: Soft nontender, positive bowel sounds no organomegaly. Extremities: No edema, intact distal pulses. Labs: Troponin 0.019, hemoglobin 11.7, WBC 11.8, BUN 24, creatinine 4.54. NT proBNP 7900. Chest x-ray with small to moderate right pleural effusion EKG: Initial EKG atrial fibrillation at a rate of [address]-T wave changes subsequently sinus mechanism with no acute ST segment changes Impression: 1. Paroxysmal atrial fibrillation, back in sinus mechanism 2. End-stage renal disease on hemodialysis 3. History of CAD status post stenting, no evidence of recurrent ischemia 4. History of diabetes 5. History of hyperlipidemia Plan: From cardiology's perspective if echocardiogram does not show any significant abnormalities patient may be discharged home follow-up in the office with Dr. Arreaga. ICE PULLER note has been reviewed, I agree with a documented findings and plan of care. Patient was seen and examined. Objective - Vital Signs Vital signs: Vital Signs Temp 98.6 F 05/12/25 00:34 Pulse 64 05/12/25 10:52 Resp 18 05/12/25 10:52 BP 142/63 05/12/25 10:52 Pulse Ox 97 05/12/25 10:52 FiO2 Intake & Output 05/11/25 05/12/25 05/12/25 18:59 06:59 18:59 Intake Total 13.5 Balance 13.5 Weight 90.718 kg Intake: Intake, IV Titration 13.5 Amount Diltiazem 125 mg In 13.5 Dextrose 5% in Water 100 ml @ 5 MG/HR 5 mls/hr IV .Q24H [facility] Rx#:[id number] - Labs CBC & Chem 7: 05/11/25 11:40 05/12/25 06:49 Labs: Abnormal Lab Results - Last 24 Hours (Table) 05/11/25 05/11/25 05/12/25 Range/Units 11:40 11:40 06:49 WBC 11.83 H (4.50-10.00) 10*3/uL RBC 3.32 L (4.40-5.60) 10*6/uL Hgb 11.7 L (13.0-17.0) g/dL Hct 35.3 L (39.6-50.0) % MCV 106.3 H (80.0-97.0) fL MCH 35.2 H (27.0-32.0) pg Immature Gran # 0.06 H (0.00-0.04) 10*3/uL Neutrophils # 9.63 H (1.80-7.70) 10*3/uL Lymphocytes # 0.67 L (0.90-5.00) 10*3/uL Monocytes # 1.04 H (0.20-1.00) 10*3/uL Basophils # 0.16 H (0.00-0.10) 10*3/uL Sodium 136 L (137-145) mmol/L Carbon Dioxide 31 H (22-30) mmol/L BUN 24 H 36 H (9-20) mg/dL Creatinine 4.54 H 6.90 H (0.66-1.25) mg/dL Glucose 130 H 49 L* (74-99) mg/dL POC Glucose (mg/dL) (70-110) mg/dL 05/12/25 05/12/25 Range/Units 07:50 11:02 WBC (4.50-10.00) 10*3/uL RBC (4.40-5.60) 10*6/uL Hgb (13.0-17.0) g/dL Hct (39.6-50.0) % MCV (80.0-97.0) fL MCH (27.0-32.0) pg Immature Gran # (0.00-0.04) 10*3/uL Neutrophils # (1.80-7.70) 10*3/uL Lymphocytes # (0.90-5.00) 10*3/uL Monocytes # (0.20-1.00) 10*3/uL Basophils # (0.00-0.10) 10*3/uL Sodium (137-145) mmol/L Carbon Dioxide (22-30) mmol/L BUN (9-20) mg/dL Creatinine (0.66-1.25) mg/dL Glucose (74-99) mg/dL POC Glucose (mg/dL) 50 L 135 H (70-110) mg/dL
[2025-05-12] MEDS: LACTOBACILLUS ACIDOPHILUS/PECT 1 EACH CAPSULE PO SCH (12:26)
[2025-05-12] MEDS: AMIODARONE 100 MG TAB PO SCH (12:26)
[2025-05-12] MEDS: CHOLECALCIFEROL 25 MCG (1000 IU) TABLET PO SCH (12:26)
[2025-05-12] MEDS: LINAGLIPTIN 5 MG TABLET PO SCH (12:27)
--- NOTE | 2025-05-12 17:38 | P.PN ---
Progress Note - Text Progress Note Date: 05/12/25 Chief Complaint: Short of breath pleasant 79-year-old patient of Dr. Kj Jiang. Chronic medical conditions include CAD with stent, diabetes, end-stage kidney disease on hemodialysis the left upper extremity AV fistula, hypertension, hyperlipidemia, peripheral neurop athy, gout right nephrectomy,' previous COVID. A-fib Last couple of days he is feeling some heaviness in the chest. Slightly short of breath. Went for dialysis today. Did complete dialysis. Following that he felt far more short of breath. Cannot make it home. Decided to come to the ER. In the ER found to be in A-fib with rapid rate. Per the EMS blood pressure was down to the 80s systolic. The heart rate in 120s. He was put on a Cardizem drip. While I was talking to him and his . Patient did revert to sinus rhythm. In the ER also found to be in having pneumonia. Put on IV ceftriaxone. Has only a slight cough. Nothing new. Appetite is fair. No fever no chills. May 12: Breathing better. Has not really ambulated. Remains in sinus rhythm. Toprol-XL 25 mg twice daily. Getting IV ceftriaxone. Breathing is better. 2D echocardiogram done this afternoon. Discussed with the patient . Increase activity. Due for dialysis tomorrow. Hopefully discharge after that. Started to eat better. Patient was hypoglycemic today. Will DC Amaryl. Active Medications Acetaminophen (Acetaminophen Tab 325 Mg Tab) 650 mg PO Q6HR PRN PRN Reason: Mild Pain or Fever > 100.5 Allopurinol (Allopurinol 100 Mg Tab) 100 mg PO BID-W/MEALS [facility] Last Admin: 05/12/25 08:47 Dose: 100 mg Amiodarone HCl (Amiodarone 100 Mg Tab) 100 mg PO W/LUNCH [facility] Last Admin: 05/12/25 12:26 Dose: 100 mg Apixaban (Apixaban 2.5 Mg Tablet) 2.5 mg PO BID-W/MEALS [facility]; Protocol Last Admin: 05/12/25 08:46 Dose: 2.5 mg Atorvastatin Calcium (Atorvastatin 10 Mg Tab) 10 mg PO W/SUPPER [facility] Last Admin: 05/11/25 17:32 Dose: 10 mg Azithromycin (Azithromycin 500 Mg Tab) 500 mg PO DAILY [facility]; Protocol Stop: 05/15/25 09:01 Cholecalciferol (Cholecalciferol 25 Mcg (1000 Iu) Tablet) 50 mcg PO W/LUNCH [facility] Last Admin: 05/12/25 12:26 Dose: 50 mcg Dextrose/Water (Dextrose 50% Syringe 50 Ml) 25 ml IVP PER PROTOCOL PRN; Protocol PRN Reason: Hypoglycemia Dextrose/Water (Dextrose 50% Syringe 50 Ml) 50 ml IVP PER PROTOCOL PRN; Protocol PRN Reason: Hypoglycemia Ezetimibe (Ezetimibe 10 Mg Tab) 10 mg PO W/SUPPER [facility] Last Admin: 05/11/25 17:32 Dose: 10 mg Furosemide (Furosemide 40 Mg Tab) 40 mg PO DAILY@1000 [facility] Last Admin: 05/12/25 11:18 Dose: 40 mg Gabapentin (Gabapentin 300 Mg Cap) 300 mg PO W/BRKFST [facility] Last Admin: 05/12/25 08:47 Dose: 300 mg Glimepiride (Glimepiride 1 Mg Tab) 1 mg PO W/BRKFST [facility] Last Admin: 05/12/25 11:08 Dose: Not Given Ceftriaxone Sodium 1 gm/ (Sodium Chloride) 50 mls @ 100 mls/hr IVPB Q24HR [facility]; Protocol Insulin Human Lispro (Insulin Lispro (Humalog) 100 Unit/Ml 10 Ml Vl) 0 unit SQ AC-TID [facility]; Protocol Last Admin: 05/12/25 12:21 Dose: Not Given Lactobacillus Acidophilus (Lactobacillus Acidophilus/Pect 1 Each Capsule) 1 each PO W/LUNCH [facility] Last Admin: 05/12/25 12:26 Dose: 1 each Linagliptin (Linagliptin 5 Mg Tablet) 5 mg PO W/LUNCH [facility] Last Admin: 05/12/25 12:27 Dose: 5 mg Metoprolol Succinate (Metoprolol Succinate (Er) 25 Mg Tab.Er.24h) 25 mg PO BID- W/MEALS [facility] Last Admin: 05/12/25 08:46 Dose: 25 mg Naloxone HCl (Naloxone 0.4 Mg/Ml 1 Ml Vial) 0.2 mg IV Q2M PRN PRN Reason: Opioid Reversal Ondansetron HCl (Ondansetron Odt 4 Mg Tab) 4 mg PO Q8HR PRN PRN Reason: Nausea And Vomiting Ondansetron HCl (Ondansetron 4 Mg/2 Ml Vial) 4 mg IVP Q8H PRN PRN Reason: Nausea And Vomiting Last Admin: 05/12/25 08:42 Dose: 4 mg Sevelamer Carbonate (Sevelamer 800 Mg Tab) 800 mg PO TID-W/MEALS [facility] Last Admin: 05/12/25 12:26 Dose: 800 mg Past medical history to include: CAD with stent to LAD, diabetes, end-stage kidney disease on hemodialysis left upper extremity AV fistula, hyperlipidemia, hypertension, migraines, varicose veins, peripheral neuropathy, gout, right nephrectomy Social history: smoked for 30 years stopped 25 years ago. Smoked 2 packs a day. Alcohol rarely. . Physical examination: VITAL SIGNS: 98.6, 64, 18, 142 x 63, 97% on 3 L GENERAL: , BMI 25.7, lying in bed more comfortable EYES: Pupils equal. Conjunctiva normal. HEENT: External appearance of nose and ears normal, oral cavity grossly normal. NECK: JVD possibly t raised; masses not palpable. HEART: First and second heart sounds are normal; no edema. LUNGS: Respiratory rate normal; decreased breath sounds. ABDOMEN: Soft, no tenderness, no guarding rigidity, liver spleen not palpable, no masses palpable. EXTREMITIES: Left upper extremity AV fistula PSYCH: Alert and oriented x3; mood and affect tired. MUSCULOSKELETAL:No Clubbing/cyanosis;muscles-grossly intact. Left leg lower one third upper 2 third junction ceja linear wound. Some surrounding redness. INVESTIGATIONS, reviewed in the clinical context: May 11, 2025: White count 9.8 hemoglobin 9.7 platelets 348 sodium 136 potassium 4.7. 24 creatinine 4.54 Troponin I 0.019 EKG tracing personally reviewed by me-normal sinus rhythm Chest x-ray film personally reviewed by me-right pleural effusion. Infiltrate. 2D echocardiogram: [May 2024] EF 55%. Assessment and plan: - Probable right basal pneumonia suspect gram-negative organism: Improving IV ceftriaxone. Zithromax -Paroxysmal atrial fibrillation with rapid ventricular rate patient seems to be in and out of rapid rate in sinus rhythm.: Now sinus rhythm Cardizem drip. 5 mg an hour. Cardiology following Amiodarone. Toprol-XL 25 mg twice daily -Acute congestive heart failure exacerbation from ischemic heart disease. Preserved ejection fraction, precipitated by A-fib with rapid rate: Better Fluid restriction. Cardiology following. Hemodialysis. 2D echo pending -CAD with stent to LAD in [address] Cavazos -Diabetes mellitus type 2 on oral hypoglycemic, uncontrolled with severe hypoglycemia: New diagnosis Follow Accu-Cheks. DC Amaryl Hypoglycemia protocol was used -End-stage kidney disease on hemodialysis with left upper extremity AV fistula. Dialysis Sunday nephrology consulted -Hyperlipidemia Tricor -Essential hypertension Toprol-XL -Diabetic peripheral neuropathy Neurontin 300 mg a day -Chronic gout Allopurinol -Right nephrectomy -Full code DC Amaryl. Hypoglycemia protocol. Pending 2D echo. Increase activity. 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
[2025-05-12 17:50] LABS: Glucose,Whole Blood 105 mg/dL (70-110)
[2025-05-12 20:15] LABS: Glucose,Whole Blood 159 mg/dL (70-110)
[2025-05-13 00:53] LABS: Glucose,Whole Blood 177 mg/dL (70-110)
[2025-05-13 06:20] LABS: Glucose,Whole Blood 80 mg/dL (70-110)
[2025-05-13 07:27] LABS: HCT 33.2 % (39.6-50.0); HGB 10.9 g/dL (13.0-17.0); MCH 35.5 pg (27.0-32.0); MCHC 32.8 g/dL (32.0-37.0); MCV 108.1 fL (80.0-97.0); Platelet Count 377 10*3/uL (140-440); RBC 3.07 10*6/uL (4.40-5.60); RDW 13.8 % (11.5-14.5); WBC 10.36 10*3/uL (4.50-10.00)
[2025-05-13 08:05] LABS: ALT 21 U/L (4-49); AST 37 U/L (17-59); African American GFR (CKD) 6 (>60 ml/min/1.73 sqM); Albumin 3.8 g/dL (3.5-5.0); Alkaline Phosphatase 51 U/L (38-126); Anion Gap 15 mmol/L; Blood Urea Nitrogen 50 mg/dL (9-20); Calcium 9.4 mg/dL (8.4-10.2); Carbon Dioxide 28 mmol/L (22-30); Chloride 97 mmol/L (98-107); Glucose 80 mg/dL (74-99); Non-African American GFR(CKD) 5 (>60 ml/min/1.73 sqM); Potassium 4.7 mmol/L (3.5-5.1); Sodium 140 mmol/L (137-145); Total Protein 6.7 g/dL (6.3-8.2)
[2025-05-13] MEDS: AZITHROMYCIN 500 MG TAB PO SCH (09:47)
--- NOTE | 2025-05-13 10:00 | P.PN ---
Subjective Patient is seen in follow-up for end-stage renal disease. He is maintained on hemodialysis on Sunday schedule. No chest pain or shortness of breath. Heart rate controlled. Scheduled for dialysis today. Vital signs are stable. General: No acute distress. HEENT: Head exam is unremarkable. LUNGS: No audible rhonchi or wheezes. HEART: Rate and Rhythm are regular. ABDOMEN: Nontender. EXTREMITITES: No edema. Objective - Vital Signs Vital signs: Vital Signs Temp 98.0 F 05/13/25 03:40 Pulse 68 05/13/25 03:40 Resp 16 05/13/25 03:40 BP 157/77 05/13/25 03:40 Pulse Ox 93 L 05/13/25 03:40 FiO2 Intake & Output 05/12/25 05/13/25 05/13/25 18:59 06:59 18:59 Intake Total 240 Balance 240 Weight 91.7 kg Intake: Oral 240 Other: Voiding Method Toilet # Voids 0 - Labs CBC & Chem 7: 05/13/25 06:55 05/13/25 06:55 Labs: Abnormal Lab Results - Last 24 Hours (Table) 05/12/25 05/12/25 05/13/25 Range/Units 11:02 20:14 00:52 WBC (4.50-10.00) 10*3/uL RBC (4.40-5.60) 10*6/uL Hgb (13.0-17.0) g/dL Hct (39.6-50.0) % MCV (80.0-97.0) fL MCH (27.0-32.0) pg Chloride (98-107) mmol/L BUN (9-20) mg/dL Creatinine (0.66-1.25) mg/dL POC Glucose (mg/dL) 135 H 159 H 177 H (70-110) mg/dL 05/13/25 05/13/25 Range/Units 06:55 06:55 WBC 10.36 H (4.50-10.00) 10*3/uL RBC 3.07 L (4.40-5.60) 10*6/uL Hgb 10.9 L (13.0-17.0) g/dL Hct 33.2 L (39.6-50.0) % MCV 108.1 H (80.0-97.0) fL MCH 35.5 H (27.0-32.0) pg Chloride 97 L (98-107) mmol/L BUN 50 H (9-20) mg/dL Creatinine 8.72 H* (0.66-1.25) mg/dL POC Glucose (mg/dL) (70-110) mg/dL Microbiology - Last 24 Hours (Table) 05/11/25 13:40 Blood Culture - Preliminary Blood Assessment and Plan Plan: Assessment: 1. End-stage renal disease maintained on hemodialysis on Sunday schedule. 2. A-fib with RVR status post Cardizem drip. Cardiology following. On amiodarone and metoprolol. Also on anticoagulation. 3. Chronic kidney disease mineral bone disease maintained on Renvela. 4. Diabetes mellitus. 5. Coronary artery disease status post cardiac stent. 6. Pneumonia on antibiotics. Plan: Hemodialysis today. Maintain Lasix. Potential discharge after dialysis today if cleared by cardiology.
[2025-05-13 11:20] LABS: Glucose,Whole Blood 136 mg/dL (70-110)
--- NOTE | 2025-05-13 12:21 | CA ---
Transthoracic Echo Report Name: Kj Arenas Age: 79 Gender: M : 1945 Exam Date: 05/12/2025 13:58 Exam Location: [facility] Ht (in): 73 Wt (lb): 200 Ordering Physician: Na Cavazos MD ([id number]) Attending/Referring Phys: Microfilm Machine Operator Saba Laura RDCS Procedure CPT: Indications: afib Cardiac Hx: Technical Quality: Fair Contrast 1: Total Dose (mL): Contrast 2: Total Dose (mL): MEASUREMENTS (Male / Female) Normal Values 2D ECHO LV Diastolic Diameter PLAX 4.9 cm 4.2 - 5.9 / 3.9 - 5.3 cm LV Systolic Diameter PLAX 3.1 cm IVS Diastolic Thickness 1.1 cm 0.6 - 1.0 / 0.6 - 0.9 cm LVPW Diastolic Thickness 1.5 cm 0.6 - 1.0 / 0.6 - 0.9 cm LV Relative Wall Thickness 0.5 RV Internal Dim ED PLAX 2.7 cm LVOT Diameter 2.0 cm LA Systolic Diameter LX 3.9 cm 3.0 - 4.0 / 2.7 - 3.8 cm LV Diastolic Volume MOD BP 77.7 cm??? 67 - 155 / 56 - 104 cm??? LV Systolic Volume MOD BP 18.7 cm??? - / 19 - 49 cm??? LV Ejection Fraction MOD BP 75.9 % >= 55 % LV Cardiac Index MOD BP 1738.4 cm???/min???m??? LV Diastolic Volume MOD 4C 72.8 cm??? LV Systolic Volume MOD 4C 16.5 cm??? LV Ejection Fraction MOD 4C 77.4 % LV Cardiac Index MOD 4C 1660.0 cm???/min???m??? LV Diastolic Length 4C 7.4 cm LV Systolic Length 4C 5.9 cm LV Diastolic Volume MOD 2C 79.3 cm??? LV Systolic Volume MOD 2C 20.0 cm??? LV Ejection Fraction MOD 2C 74.8 % LV Cardiac Index MOD 2C 1747.7 cm???/min???m??? LV Diastolic Length 2C 7.0 cm LV Systolic Length 2C 5.3 cm LA Volume 49.0 cm??? 18 - 58 / 22 - 52 cm??? LA Volume Index 22.6 cm???/m??? 16 - 28 cm???/m??? Ascending Aorta Diameter 4.2 cm M-MODE Aortic Root Diameter MM 3.4 cm AV Cusp Separation MM 2.7 cm DOPPLER AV Peak Velocity 268.4 cm/s AV Peak Gradient 32.0 mmHg AV Mean Velocity 216.4 cm/s AV Mean Gradient 22.0 mmHg AV Velocity Time Integral 74.8 cm LVOT Peak Velocity 124.1 cm/s LVOT Peak Gradient 6.2 mmHg LVOT Velocity Time Integral 33.0 cm LVOT Stroke Volume 105.2 cm??? LVOT Stroke Volume Index 48.9 ml/m??? LVOT Cardiac Index 3098.7 cm???/min???m??? AV Area Cont Eq vti 1.4 cm??? AV Area Cont Eq pk 1.5 cm??? MV Area PHT 3.1 cm??? Mitral E Point Velocity 88.5 cm/s Mitral A Point Velocity 106.8 cm/s Mitral E to A Ratio 0.8 MV Deceleration Time 244.5 ms TR Peak Velocity 300.5 cm/s TR Peak Gradient 36.1 mmHg Right Ventricular Systolic Press 40.1 mmHg FINDINGS Left Ventricle Left ventricular ejection fraction is estimated at 55-60%. Mildly increased septal wall thickness. Normal left ventricular systolic function with no obvious regional wall motion abnormalities. Left ventricular cavity size normal. Right Ventricle Normal right ventricular size and function. Moderate pulmonary hypertension. Right ventricular systolic pressure estimated at 40mm hg. Right Atrium Normal right atrial size. No right atrial thrombus or mass seen. Left Atrium Normal left atrial size. No left atrial thrombus or mass present. Mitral Valve Mitral valve thickened. No mitral stenosis. No mitral regurgitation. Aortic Valve Moderate aortic stenosis with a peak gradient of 32 mmHg and a mean gradient of 22 mmHg. trival aortic regurgitation. Tricuspid Valve Structurally normal tricuspid valve. Mild tricuspid regurgitation. Pulmonic Valve Pulmonic valve not well visualized. Trace pulmonic regurgitation. Pericardium No pericardial effusion. No pleural effusion. Aorta Normal size aortic root and proximal ascending aorta. CONCLUSIONS Normal LV systolic function Trileaflet aortic valve. Aortic sclerosis with moderate stenosis Moderate pulmonary hypertension Previewed by: Dr. Getachew Arreaga MD (Electronically Signed) Final Date: 13 May 2025 12:20
--- NOTE | 2025-05-13 13:29 | P.DS ---
Providers Date of admission: 05/11/25 13:21 Expected date of discharge: 05/13/25 Attending physician: Rciardo Freeman Consults: 05/11/25 13:20 Consult Physician Routine Consulting Provider: Christina Berg Consult Reason/Comments: ESRD Do you want consulting provider notified?: Yes 05/11/25 15:46 Consult Physician Routine Consulting Provider: Manoj Chen Consult Reason/Comments: A-fib Do you want consulting provider notified?: Yes Primary care physician: Kj Jiang [facility] Course: Chief Complaint: Short of breath pleasant 79-year-old patient of Dr. Kj Jiang. Chronic medical conditions include CAD with stent, diabetes, end-stage kidney disease on hemodialysis the left upper extremity AV fistula, hypertension, hyperlipidemia, peripheral neuropathy, gout right nephrectomy,' previous COVID. A-fib Last couple of days he is feeling some heaviness in the chest. Slightly short of breath. Went for dialysis today. Did complete dialysis. Following that he felt far more short of breath. Cannot make it home. Decided to come to the ER. In the ER found to be in A-fib with rapid rate. Per the EMS blood pressure was down to the 80s systolic. The heart rate in 120s. He was put on a Cardizem drip. While I was talking to him and his . Patient did revert to sinus rhythm. In the ER also found to be in having pneumonia. Put on IV ceftriaxone. Has only a slight cough. Nothing new. Appetite is fair. No fever no chills. May 12: Breathing better. Has not really ambulated. Remains in sinus rhythm. Toprol-XL 25 mg twice daily. Getting IV ceftriaxone. Breathing is better. 2D echocardiogram done this afternoon. Discussed with the patient . Increase activity. Due for dialysis tomorrow. Hopefully discharge after that. Started to eat better. Patient was hypoglycemic today. Will DC Amaryl. May 13: Had hemodialysis today. Doing well. Has been in and out of A-fib. Aric rate controlled. 95% room air. Discussed with patient . Past medical history to include: CAD with stent to LAD, diabetes, end-stage kidney disease on hemodialysis left upper extremity AV fistula, hyperlipidemia, hypertension, migraines, varicose veins, peripheral neuropathy, gout, right nephrectomy Social history: smoked for 30 years stopped 25 years ago. Smoked 2 packs a day. Alcohol rarely. . Physical examination: VITAL SIGNS: 97.7, 63, 17, 136 x 63, 95% room air GENERAL: , BMI 25.7, sitting up, comfortable EYES: Pupils equal. Conjunctiva normal. HEENT: External appearance of nose and ears normal, oral cavity grossly normal. NECK: JVD possibly t raised; masses not palpable. HEART: First and second heart sounds are normal; no edema. LUNGS: Respiratory rate normal; decreased breath sounds. ABDOMEN: Soft, no tenderness, no guarding rigidity, liver spleen not palpable, no masses palpable. EXTREMITIES: Left upper extremity AV fistula PSYCH: Alert and oriented x3; mood and affect tired. MUSCULOSKELETAL:No Clubbing/cyanosis;muscles-grossly intact. Left leg lower one third upper 2 third junction ceja linear wound. Some surrounding redness. INVESTIGATIONS, reviewed in the clinical context: 2D echo: EF 55 to 60%. Moderate pulmonary hypertension. No thrombus. Moderate aortic stenosis. May 13: White count 10.3 hemoglobin 10.9 potassium 4.7 creatinine 8.72 May 11, 2025: White count 9.8 hemoglobin 9.7 platelets 348 sodium 136 potassium 4.7. 24 creatinine 4.54 Troponin I 0.019 EKG tracing personally reviewed by me-normal sinus rhythm Chest x-ray film personally reviewed by me-right pleural effusion. Infiltrate. 2D echocardiogram: [May 2024] EF 55%. Assessment and plan: - Probable right basal pneumonia suspect gram-negative organism: Improving IV ceftriaxone. Zithromax Discharge with Ceftin to 50 mg daily for 2 more days -Paroxysmal atrial fibrillation with rapid ventricular rate patient seems to be in and out of rapid rate in sinus rhythm.: Now sinus rhythm Cardizem drip. 5 mg an hour. Cardiology following Amiodarone. Toprol-XL 25 mg twice daily -Acute congestive heart failure exacerbation from ischemic heart disease. Preserved ejection fraction, precipitated by A-fib with rapid rate: Better Fluid restriction. Cardiology following. Hemodialysis. - Moderate aortic stenosis Follow-up with cardiology - Secondary pulmonary hypertension -CAD with stent to LAD in [address] Cavazos -Diabetes mellitus type 2 on oral hypoglycemic, uncontrolled with severe hypoglycemia: Follow Accu-Cheks. DC Amaryl Hypoglycemia protocol was used -End-stage kidney disease on hemodialysis with left upper extremity AV fistula. 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 History of Any Multi-Drug Resistant Organisms: None Reported Past Surgical History: Appendectomy, Cholecystectomy, Heart Catheterization With Stent Additional Past Surgical History / Comment(s): Stent to LAD 06/07/16, tonsilitis, right kidney removed, dialysis fistula- left upper arm Past Anesthesia/Blood Transfusion Reactions: No Reported Reaction Date of Last Stent Placement:: 2015 Past Psychological History: No Psychological Hx Reported Smoking Status: Former smoker Past Alcohol Use History: Rare Past Drug Use History: None Reported Plan - Discharge Summary Discharge Rx Participant: No New Discharge Prescriptions: New Cefuroxime [Ceftin] 250 mg PO DAILY #2 tab Atorvastatin [Lipitor] 10 mg PO W/SUPPER #30 tab Continue Gabapentin [Neurontin] 300 mg PO W/BRKFST allopurinoL [Zyloprim] 100 mg PO BID-W/MEALS L.acidoph,Paracasei, B.lactis [Probiotic] 1 cap PO W/LUNCH Cholecalciferol (Vitamin D3) [Vitamin D3 (50 Mcg = 2000 Iu)] 50 mcg PO W/LUNCH sitaGLIPtin PHOSPHATE [Januvia] 25 mg PO W/LUNCH Apixaban [Eliquis] 2.5 mg PO BID-W/MEALS Sevelamer [Renvela] 800 mg PO TID-W/MEALS Ezetimibe [Zetia] 10 mg PO W/SUPPER Amiodarone [Cordarone] 100 mg PO W/LUNCH Furosemide [Lasix] 40 mg PO DAILY@1000 Changed Metoprolol Succinate (ER) [Toprol XL] 25 mg PO BID #60 Discontinued Glimepiride [Amaryl] 1 mg PO W/BRKFST Fenofibrate,Micronized [Fenofibrate] 200 mg PO W/BRKFST Simvastatin [Zocor] 20 mg PO W/SUPPER Docusate [Colace] 100 mg PO W/LUNCH PRN PRN Reason: Constipation Discharge Medication List Gabapentin [Neurontin] 300 mg PO W/BRKFST 05/19/16 [History] allopurinoL [Zyloprim] 100 mg PO BID-W/MEALS 05/19/16 [History] sitaGLIPtin PHOSPHATE [Januvia] 25 mg PO W/LUNCH 01/17/22 [History] Apixaban [Eliquis] 2.5 mg PO BID-W/MEALS 07/02/24 [History] Sevelamer [Renvela] 800 mg PO TID-W/MEALS 07/02/24 [History] Amiodarone [Cordarone] 100 mg PO W/LUNCH 05/11/25 [History] Cholecalciferol (Vitamin D3) [Vitamin D3 (50 Mcg = 2000 Iu)] 50 mcg PO W/LUNCH 05/11/25 [History] Ezetimibe [Zetia] 10 mg PO W/SUPPER 05/11/25 [History] Furosemide [Lasix] 40 mg PO DAILY@1000 05/11/25 [History] L.acidoph,Paracasei, B.lactis [Probiotic] 1 cap PO W/LUNCH 05/11/25 [History] Atorvastatin [Lipitor] 10 mg PO W/SUPPER #30 tab 05/13/25 [Rx] Cefuroxime [Ceftin] 250 mg PO DAILY #2 tab 05/13/25 [Rx] Metoprolol Succinate (ER) [Toprol XL] 25 mg PO BID #60 05/13/25 [Rx] Follow up Appointment(s)/Referral(s): flor amador [Other] - 1 Week Kj Jiang MD [Primary Care Provider] - 1-2 days
--- NOTE | 2025-05-13 14:19 | P.PN ---
Subjective Progress Note Date: 05/13/25 The patient is an 79-year-old male, followed by Dr. Arreaga with a known history of end-stage renal disease for the last 5-1/2 years, history of CAD status post stenting of the LAD in 2016, diabetes, hypertension and hyperlipidemia who presented with evidence of atrial fibrillation. He has a prior history of paroxysmal atrial fibrillation, anticoagulated. Today after dialysis he felt tired, went home and was feeling more short of breath and fatigued with minimal palpitations, came into the emergency room he was in atrial fibrillation with rapid ventricular response that subsequently reverted to sinus mechanism. He is feeling well at this time. He denies any chest discomfort, dizziness or syncope. He has no peripheral edema. He had no symptoms to suggest recurrent ischemic symptoms. He was admitted in 2023 with an episode of paroxysmal atrial fibrillation and his echocardiogram showed a preserved systolic function. In the emergency room his troponin is normal. Medications: Eliquis 2.5 mg twice a day, Januvia, Renvela, fenofibrate, simvastatin 20 mg daily, ezetimibe 10 mg daily, metoprolol succinate 25 mg daily, amiodarone 100 mg daily, furosemide 40 mg daily, Amaryl, Neurontin, Zylop rim 05/12/2025 Patient was seen and examined resting comfortably in bed. Overall feeling better. Did complain of some nausea last night but this is improved. Maintaining sinus mechanism. Echo: EF 55 to 60%, trileaflet aortic valve, moderate aortic stenosis, moderate pulmonary hypertension. 05/13/2025 Patient seen and examined. Patient remains in a sinus rhythm. Physical Examination: 79-year-old male, alert oriented no apparent distress Head: Normocephalic. Eyes: Sclerae nonicteric. Neck: Good carotid upstroke, right-sided bruit, no jugular venous distention. Lungs: Clear to auscultation. Heart: Regular rate and rhythm, S1-S2, no S3, no rub. Systolic ejection murmur 3/6. Abdomen: Soft nontender, positive bowel sounds no organomegaly. Extremities: No edema, intact distal pulses. Labs: Troponin 0.019, hemoglobin 11.7, WBC 11.8, BUN 24, creatinine 4.54. NT proBNP 7900. Chest x-ray with small to moderate right pleural effusion EKG: Initial EKG atrial fibrillation at a rate of [address]-T wave changes subsequently sinus mechanism with no acute ST segment changes Impression: 1. Paroxysmal atrial fibrillation, back in sinus mechanism 2. End-stage renal disease on hemodialysis 3. History of CAD status post stenting, no evidence of recurrent ischemia 4. History of diabetes 5. History of hyperlipidemia 6. Moderate aortic stenosis Plan: Patient is cleared for discharge and will follow-up in the office with Dr. Arreaga in 1 week. [employer] note has been reviewed, I agree with a documented findings and plan of care. Patient was seen and examined. Objective - Vital Signs Vital signs: Vital Signs Temp 98.0 F 05/13/25 03:40 Pulse 68 05/13/25 03:40 Resp 16 05/13/25 03:40 BP 157/77 05/13/25 03:40 Pulse Ox 93 L 05/13/25 03:40 FiO2 Intake & Output 05/12/25 05/13/25 05/13/25 18:59 06:59 18:59 Intake Total 240 Balance 240 Weight 91.7 kg Intake: Oral 240 Other: Voiding Method Toilet # Voids 0 - Labs CBC & Chem 7: 05/13/25 06:55 05/13/25 06:55 Labs: Abnormal Lab Results - Last 24 Hours (Table) 05/12/25 05/12/25 05/13/25 Range/Units 11:02 20:14 00:52 WBC (4.50-10.00) 10*3/uL RBC (4.40-5.60) 10*6/uL Hgb (13.0-17.0) g/dL Hct (39.6-50.0) % MCV (80.0-97.0) fL MCH (27.0-32.0) pg Chloride (98-107) mmol/L BUN (9-20) mg/dL Creatinine (0.66-1.25) mg/dL POC Glucose (mg/dL) 135 H 159 H 177 H (70-110) mg/dL 05/13/25 05/13/25 Range/Units 06:55 06:55 WBC 10.36 H (4.50-10.00) 10*3/uL RBC 3.07 L (4.40-5.60) 10*6/uL Hgb 10.9 L (13.0-17.0) g/dL Hct 33.2 L (39.6-50.0) % MCV 108.1 H (80.0-97.0) fL MCH 35.5 H (27.0-32.0) pg Chloride 97 L (98-107) mmol/L BUN 50 H (9-20) mg/dL Creatinine 8.72 H* (0.66-1.25) mg/dL POC Glucose (mg/dL) (70-110) mg/dL Microbiology - Last 24 Hours (Table) 05/11/25 13:40 Blood Culture - Preliminary Blood
[2025-05-13 15:46] LABS: Hepatitis B Surface Antigen Nonreactive (Nonreactive)
[2025-05-13 16:04] LABS: Hepatitis B Surface AB- Quant 1000.0 mIU/mL
[2025-05-13 16:06] LABS: Glucose,Whole Blood 86 mg/dL (70-110)
[2025-05-13 17:53] VITALS: PULSE 70
[2025-05-13 18:22] VITALS: BP 101/50; RESP 16; TEMP 98
== END 2025-05-13 18:17 | disposition home or self-care (01) | DRG 308 ==
LOC: EC 11:17 → 3SCARD 13:21
PROVIDERS: ADMIT Hospitalist; ATTEND Hospitalist
PROC: 5A1D70Z Performance of Urinary Filtration, Intermittent, Less than 6 Hours Per Day (ICD-10-PCS; principal; 2025-05-11)
PROC: 3E0F7SF Introduction of Other Gas into Respiratory Tract, Via Natural or Artificial Opening (ICD-10-PCS; 2025-05-11)
DX: I48.0 Paroxysmal atrial fibrillation (principal); J15.69 Pneumonia due to other Gram-negative bacteria; N18.6 End stage renal disease; Z20.822 Contact with and (suspected) exposure to COVID-19; I13.2 Hypertensive heart and chronic kidney disease with heart failure and with stage 5 chronic kidney disease, or end stage renal disease; J44.0 Chronic obstructive pulmonary disease with (acute) lower respiratory infection; I27.20 Pulmonary hypertension, unspecified; Z99.2 Dependence on renal dialysis; E11.22 Type 2 diabetes mellitus with diabetic chronic kidney disease; I35.0 Nonrheumatic aortic (valve) stenosis; I50.9 Heart failure, unspecified; E11.42 Type 2 diabetes mellitus with diabetic polyneuropathy; E11.649 Type 2 diabetes mellitus with hypoglycemia without coma; R09.02 Hypoxemia; I95.9 Hypotension, unspecified; M1A.9XX0 Chronic gout, unspecified, without tophus (tophi); I83.90 Asymptomatic varicose veins of unspecified lower extremity; I25.10 Atherosclerotic heart disease of native coronary artery without angina pectoris; E78.5 Hyperlipidemia, unspecified; G43.909 Migraine, unspecified, not intractable, without status migrainosus; Z79.01 Long term (current) use of anticoagulants; Z79.84 Long term (current) use of oral hypoglycemic drugs; Z79.899 Other long term (current) drug therapy; Z86.16 Personal history of COVID-19; Z87.891 Personal history of nicotine dependence; Z95.5 Presence of coronary angioplasty implant and graft; Z90.5 Acquired absence of kidney; Z88.1 Allergy status to other antibiotic agents
CPT/HCPCS: 36415; 71046; 80048; 80053; 83605; 83735; 83880; 84443; 84484; 85025; 85027; 85610; 85730; 86706; 87040; 87340; 90935; 93005; 93306; 96365; 96366; 96368; 96375; 99291

== ENCOUNTER 2025-05-25 15:30 | Inpatient (IN) | payer MEDICARE ==
[2025-05-25 16:27] LABS: Basophils # (A) 0.12 10*3/uL (0.00-0.10); Basophils % (A) 1.1 %; Eosinophils # (A) 0.33 10*3/uL (0.04-0.35); Eosinophils % (A) 2.9 %; HCT 32.5 % (39.6-50.0); HGB 10.9 g/dL (13.0-17.0); Lymphocytes # (A) 0.80 10*3/uL (0.90-5.00); Lymphocytes % (A) 7.1 %; MCH 35.2 pg (27.0-32.0); MCHC 33.5 g/dL (32.0-37.0); MCV 104.8 fL (80.0-97.0); Monocytes # (A) 1.07 10*3/uL (0.20-1.00); Monocytes % (A) 9.5 %; Neutrophils # (A) 8.95 10*3/uL (1.80-7.70); Neutrophils % (A) 79.0 %; Platelet Count 305 10*3/uL (140-440); RBC 3.10 10*6/uL (4.40-5.60); RDW 14.2 % (11.5-14.5); WBC 11.32 10*3/uL (4.50-10.00)
[2025-05-25] MEDS: FUROSEMIDE 10 MG/ML 4 ML VIAL IV STA (16:31)
--- NOTE | 2025-05-25 16:37 | ED ---
SOB HPI - General Chief Complaint: Shortness of Breath Stated Complaint: SOB Time Seen by Provider: 05/25/25 15:46 Source: patient, family, RN notes reviewed Mode of arrival: ambulatory Limitations: no limitations - History of Present Illness Initial Comments: This is an 80-year-old male with history including atrial fibrillation, CAD, ESRD with dialysis, COPD and DM presenting with from Dr. Terrell's office for shortness of breath x 2 weeks. Patient was admitted to this hospital from 05/11/2025 to 05/13/2025 following diagnosis of A-fib with RVR and pneumonia. Patient states dyspnea "is still bad" since that time with Dr. Terrell advising patient admission due to right pleural effusion - advised to hold on Eliquis use, which he has not taken since this morning. Patient notes worse shortness of breath while supine with recent swelling of his bilateral ankles for the past 2 days. Patient otherwise denies known history of lower extremity edema. Patient endorses transient mid chest pain on his way to the ER lasting 15 minutes without radiation, dizziness, diaphoresis. Otherwise denies any significant chest pain. Denies fever, chills, hemoptysis, pleuritic chest pain, abdominal pain, N/V/D, urinary symptoms. MD Complaint: shortness of breath Onset/Timin -: week(s) Consistency: constant Improves With: upright position Worsens With: lying flat, exertion Known History Of: other (Recent A-fib with RVR and pneumonia) Associated Symptoms: orthopnea, lower abdominal swelling - Related Data Home Medications Medication Instructions Recorded Confirmed Gabapentin [Neurontin] 300 mg PO W/BRKFST 05/19/16 05/25/25 allopurinoL [Zyloprim] 100 mg PO BID-W/MEALS 05/19/16 05/25/25 sitaGLIPtin PHOSPHATE [Januvia] 25 mg PO W/LUNCH 01/17/22 05/25/25 Apixaban [Eliquis] 2.5 mg PO BID-W/MEALS 07/02/24 05/25/25 Sevelamer [Renvela] 800 mg PO TID-W/MEALS 07/02/24 05/25/25 Amiodarone [Cordarone] 100 mg PO W/LUNCH 05/11/25 05/25/25 Cholecalciferol (Vitamin D3) 50 mcg PO W/LUNCH 05/11/25 05/25/25 [Vitamin D3 (50 Mcg = 2000 Iu)] Ezetimibe [Zetia] 10 mg PO W/SUPPER 05/11/25 05/25/25 Furosemide [Lasix] 40 mg PO DAILY@1000 05/11/25 05/25/25 L.acidoph,Paracasei, B.lactis 1 cap PO W/LUNCH 05/11/25 05/25/25 [Probiotic] Docusate [Colace] 100 mg PO W/LUNCH PRN 05/25/25 05/25/25 Glimepiride [Amaryl] 1 mg PO W/BRKFST PRN 05/25/25 05/25/25 Metoprolol Succinate (ER) [Toprol 25 mg PO BID-W/MEALS 05/25/25 05/25/25 XL] Previous Rx's Medication Instructions Recorded Atorvastatin [Lipitor] 10 mg PO W/SUPPER #30 tab 05/13/25 Cefuroxime [Ceftin] 250 mg PO DAILY #2 tab 05/13/25 Allergies Allergy/AdvReac Type Severity Reaction Status Date / Time cefadroxil AdvReac Constipatio Verified 05/25/25 17:08 n clindamycin AdvReac Diarrhea Verified 05/25/25 17:08 Review of Systems ROS Statement: Those systems with pertinent positive or pertinent negative responses have been documented in the HPI. ROS Other: All systems not noted in ROS Statement are negative. Past Medical History Past Medical History: Atrial Fibrillation, Coronary Artery Disease (CAD), Chest Pain / Angina, COPD, Diabetes Mellitus, Dialysis, Hyperlipidemia, Hypertension, Renal Disease Additional Past Medical History / Comment(s): varicose veins, gout, ESRD History of Any Multi-Drug Resistant Organisms: None Reported Past Surgical History: Appendectomy, Cholecystectomy, Heart Catheterization With Stent Additional Past Surgical History / Comment(s): Stent to LAD 06/07/16, tonsilitis, right kidney removed, dialysis fistula- left upper arm Past Anesthesia/Blood Transfusion Reactions: No Reported Reaction Date of Last Stent Placement:: 2015 Past Psychological History: No Psychological Hx Reported Smoking Status: Former smoker Past Alcohol Use History: Rare Past Drug Use History: None Reported - Past Family History Father Family Medical History: Cancer Additional Family Medical History / Comment(s): Lung General Exam Limitations: no limitations General appearance: alert, in no apparent distress Head exam: Present: atraumatic, normocephalic, normal inspection Eye exam: Present: normal appearance, PERRL, EOMI. Absent: scleral icterus, conjunctival injection, periorbital swelling ENT exam: Present: normal exam, mucous membranes moist Neck exam: Present: normal inspection. Absent: tenderness, meningismus, lymphadenopathy Respiratory exam: Present: rales (Rales/crackles auscultated at base of left lower lobe), decreased breath sounds (Absent right lower lobe lung sounds). A bsent: respiratory distress, wheezes, rhonchi, stridor, accessory muscle use, prolonged expiratory Cardiovascular Exam: Present: regular rate, normal rhythm, normal heart sounds. Absent: systolic murmur, diastolic murmur, rubs, gallop, clicks GI/Abdominal exam: Present: soft, normal bowel sounds. Absent: distended, tenderness, guarding, rebound, rigid Extremities exam: Present: normal inspection, full ROM, normal capillary refill, pedal edema (Positive bilateral moderate ankle edema without overlying erythema, stasis dermatitis, open wound, weeping). Absent: tenderness, joint swelling, calf tenderness Back exam: Present: normal inspection Neurological exam: Present: alert, oriented X3, CN II-XII intact Psychiatric exam: Present: normal affect, normal mood Skin exam: Present: warm, dry, intact, normal color. Absent: rash Course Vital Signs 05/25/25 05/25/25 05/25/25 15:40 16:23 17:27 Temperature 97.6 F Pulse Rate 85 70 Respiratory 20 20 18 Rate Blood Pressure 140/89 121/58 O2 Sat by Pulse 93 L 95 Oximetry Medical Decision Making - Medical Decision Making Was pt. sent in by a medical professional or institution (, PA, CASING BUILDER, urgent care, hospital, or long term...) When possible be specific @ -Dr. Terrell Did you speak to anyone other than the patient for history (EMS, parent, family, police, friend...)? What history was obtained from this source @ -No Did you review nursing and triage notes (agree or disagree)? Why? @ -I reviewed and agree with nursing and triage notes Were old charts reviewed (outside hosp., previous admission, EMS record, old EKG, old radiological studies, urgent care reports/EKG's, long term records)? Report findings @ -No old charts were reviewed Differential Diagnosis (chest pain, altered mental status, abdominal pain women, abdominal pain men, vaginal bleeding, weakness, fever, dyspnea, syncope, headache, dizziness, GI bleed, back pain, seizure, CVA, palpatations, mental health, musculoskeletal)? @ -Differential Dyspnea: Coronary syndrome, arrhythmia, tamponade, asthma, COPD, pulmonary embolism, pneumonia, pneumothorax, pulmonary effusion, anaphylaxis, diabetic ketoacidosis, flailed chest, pulmonary contusion, diaphragmatic rupture, anemia, neuromuscular, this is not meant to be an all-inclusive list. EKG interpreted by me (3pts min.). @ -Sinus rhythm with LAD and indeterminant T wave inversion in leads III and aVF. No significant ST deviation. Ventricular rate 85 bpm, ANTOINE 164 ms, QRS 102 ms, QTc 440 ms. X-rays interpreted by me (1pt min.). @ -CXR shows marginally increased moderate right pleural effusion with adjacent atelectasis/consolidation. CT interpreted by me (1pt min.). @ -None done U/S interpreted by me (1pt. min.). @ -None done What testing was considered but not performed or refused? (CT, X-rays, U/S, labs)? Why? @ -None What meds were considered but not given or refused? Why? @ -None Did you discuss the management of the patient with other professionals (professionals i.e. , PA, CASING BUILDER, lab, RT, psych nurse, social security specialist, lcpc, teacher, protective officer, case filler)? Give summary @ -Spoke to Dr. Martinez regarding patient. Spoke to Dr. Ford from [facility] for pa tient admission for pleural effusion and worsening dyspnea. Was smoking cessation discussed for >3mins.? @ -No Was critical care preformed (if so, how long)? @ -No Were there social determinants of health that impacted care today? How? (Homelessness, low income, unemployed, alcoholism, drug addiction, transportation, low edu. Level, literacy, decrease access to med. care, alf, rehab)? @ -No Was there de-escalation of care discussed even if they declined (Discuss DNR or withdrawal of care, Hospice)? DNR status @ -No What co-morbidities impacted this encounter? (DM, HTN, Smoking, COPD, CAD, Cancer, CVA, ARF, Chemo, Hep., AIDS, mental health diagnosis, sleep apnea, morbid obesity)? @ -ESRD Was patient admitted / discharged? Hospital course, mention meds given and route, prescriptions, significant lab abnormalities, going to OR and other pertinent info. @ -Patient provided IV Lasix. Lab work notable for stable hemoglobin 10.9 and ESRD. Glucose 185, WBC 11.32. Troponin WNL 0.032 and BNP 6400, which is slightly improved from 2 weeks ago - 7900. CXR shows marginally increased moderate right pleural effusion with adjacent atelectasis/consolidation. Patient given IV Rocephin. Spoke to Dr. Martinez regarding patient. Spoke to Dr. Ford from [facility] for patient admission for pleural effusion and worsening dyspnea. Discussed patient with Dr. Finch. Undiagnosed new problem with uncertain prognosis? @ -No Drug Therapy requiring intensive monitoring for toxicity (Heparin, Nitro, Insulin, Cardizem)? @ -No Were any procedures done? @ -No Diagnosis/symptom? @ -Right pleural effusion, congestive heart failure Acute, or Chronic, or Acute on Chronic? @ -Acute Uncomplicated (without systemic symptoms) or Complicated (systemic symptoms)? @ -Complicated Side effects of treatment? @ -No Exacerbation, Progression, or Severe Exacerbation? @ -Exacerbation Poses a threat to life or bodily function? How? (Chest pain, USA, ME, pneumonia, PE, COPD, DKA, ARF, appy, cholecystitis, CVA, Diverticulitis, Homicidal, Suicidal, threat to staff... and all critical care pts) @ -No - Lab Data Result diagrams: 05/25/25 16:21 05/25/25 16:21 Lab Results 05/25/25 05/25/25 05/25/25 Range/Units 16:21 16:21 16:21 WBC 11.32 H (4.50-10.00) 10*3/uL RBC 3.10 L (4.40-5.60) 10*6/uL Hgb 10.9 L (13.0-17.0) g/dL Hct 32.5 L (39.6-50.0) % MCV 104.8 H (80.0-97.0) fL MCH 35.2 H (27.0-32.0) pg MCHC 33.5 (32.0-37.0) g/dL Plt Count 305 (140-440) 10*3/uL MPV 10.8 (9.5-12.2) fL Immature Gran % (Auto) 0.4 % Neutrophils % 79.0 % Lymphocytes % 7.1 % Monocytes % 9.5 % Eosinophils % 2.9 % Basophils % 1.1 % Immature Gran # 0.05 H (0.00-0.04) 10*3/uL Neutrophils # 8.95 H (1.80-7.70) 10*3/uL Lymphocytes # 0.80 L (0.90-5.00) 10*3/uL Monocytes # 1.07 H (0.20-1.00) 10*3/uL Eosinophils # 0.33 (0.04-0.35) 10*3/uL Basophils # 0.12 H (0.00-0.10) 10*3/uL PT 11.2 (10.0-12.5) sec INR 1.0 (<1.2) APTT 27.2 (22.0-30.0) sec Sodium 139 (137-145) mmol/L Potassium 4.3 (3.5-5.1) mmol/L Chloride 98 (98-107) mmol/L Carbon Dioxide 27 (22-30) mmol/L Anion Gap 14 mmol/L BUN 33 H (9-20) mg/dL Creatinine 5.59 H (0.66-1.25) mg/dL Est GFR (CKD-EPI)AfAm 10 (>60 ml/min/1.73 sqM) Est GFR (CKD-EPI)NonAf 9 (>60 ml/min/1.73 sqM) Glucose 185 H (74-99) mg/dL Plasma Lactic Acid Matthew (0.7-2.0) mmol/L Calcium 9.4 (8.4-10.2) mg/dL Magnesium 2.3 (1.6-2.3) mg/dL Total Bilirubin 0.5 (0.2-1.3) mg/dL AST 55 (17-59) U/L ALT 27 (4-49) U/L Alkaline Phosphatase 68 (38-126) U/L Troponin I (0.000-0.034) ng/mL NT-Pro-B Natriuret Pep 6400 pg/mL Total Protein 7.1 (6.3-8.2) g/dL Albumin 3.9 (3.5-5.0) g/dL 05/25/25 05/25/25 Range/Units 16:21 16:21 WBC (4.50-10.00) 10*3/uL RBC (4.40-5.60) 10*6/uL Hgb (13.0-17.0) g/dL Hct (39.6-50.0) % MCV (80.0-97.0) fL MCH (27.0-32.0) pg MCHC (32.0-37.0) g/dL Plt Count (140-440) 10*3/uL MPV (9.5-12.2) fL Immature Gran % (Auto) % Neutrophils % % Lymphocytes % % Monocytes % % Eosinophils % % Basophils % % Immature Gran # (0.00-0.04) 10*3/uL Neutrophils # (1.80-7.70) 10*3/uL Lymphocytes # (0.90-5.00) 10*3/uL Monocytes # (0.20-1.00) 10*3/uL Eosinophils # (0.04-0.35) 10*3/uL Basophils # (0.00-0.10) 10*3/uL PT (10.0-12.5) sec INR (<1.2) APTT (22.0-30.0) sec Sodium (137-145) mmol/L Potassium (3.5-5.1) mmol/L Chloride (98-107) mmol/L Carbon Dioxide (22-30) mmol/L Anion Gap mmol/L BUN (9-20) mg/dL Creatinine (0.66-1.25) mg/dL Est GFR (CKD-EPI)AfAm (>60 ml/min/1.73 sqM) Est GFR (CKD-EPI)NonAf (>60 ml/min/1.73 sqM) Glucose (74-99) mg/dL Plasma Lactic Acid Matthew 1.9 (0.7-2.0) mmol/L Calcium (8.4-10.2) mg/dL Magnesium (1.6-2.3) mg/dL Total Bilirubin (0.2-1.3) mg/dL AST (17-59) U/L ALT (4-49) U/L Alkaline Phosphatase (38-126) U/L Troponin I 0.032 (0.000-0.034) ng/mL NT-Pro-B Natriuret Pep pg/mL Total Protein (6.3-8.2) g/dL Albumin (3.5-5.0) g/dL Disposition Clinical Impression: CHF (congestive heart failure), Pleural effusion, right, PNA (pneumonia) Disposition: ADMITTED IP TO THIS HOSP Condition: Fair Referrals: Kj Jiang MD [Primary Care Provider] - 1-2 days Time of Disposition: 17:30 Decision Date: 05/25/25 Decision Time: 17:30
[2025-05-25 16:43] LABS: INR 1.0 (<1.2); Partial Thromboplastin Time 27.2 sec (22.0-30.0); Prothrombin Time 11.2 sec (10.0-12.5)
--- NOTE | 2025-05-25 16:44 | XR ---
EXAMINATION TYPE: XR chest 2V DATE OF EXAM: 05/25/2025 4:40 PM COMPARISON: Multiple radiographs, with the most recent on 05/11/2025 TECHNIQUE: XR chest 2V Frontal and lateral views of the chest. CLINICAL INDICATION:Male, 80 years old with history of difficulty breathing; FINDINGS: Lungs/Pleura: Marginal increased moderate right pleural effusion with adjacent atelectasis and/or con solidation. Left lung is clear. No pneumothorax. Pulmonary vascularity: Unremarkable. Heart/mediastinum: Cardiomediastinal silhouette is prominent in size. Atherosclerotic calcifications are seen in the aorta. Musculoskeletal: No acute osseous pathology. IMPRESSION: Marginal increased moderate right pleural effusion with adjacent atelectasis and/or consolidation. [facility], , 05/25/2025 4:42 PM
[2025-05-25 17:03] LABS: NT-Pro-B-Type Natriuretic Pept 6400 pg/mL
[2025-05-25] MEDS: cefTRIAXone IN SWFI 1,000 MG/10 ML SYRINGE IVP STA (17:23)
[2025-05-25 17:31] LABS: ALT 27 U/L (4-49); AST 55 U/L (17-59); African American GFR (CKD) 10 (>60 ml/min/1.73 sqM); Albumin 3.9 g/dL (3.5-5.0); Alkaline Phosphatase 68 U/L (38-126); Anion Gap 14 mmol/L; Blood Urea Nitrogen 33 mg/dL (9-20); Calcium 9.4 mg/dL (8.4-10.2); Carbon Dioxide 27 mmol/L (22-30); Chloride 98 mmol/L (98-107); Glucose 185 mg/dL (74-99); Magnesium 2.3 mg/dL (1.6-2.3); Non-African American GFR(CKD) 9 (>60 ml/min/1.73 sqM); Potassium 4.3 mmol/L (3.5-5.1); Sodium 139 mmol/L (137-145); Total Protein 7.1 g/dL (6.3-8.2)
[2025-05-25] MEDS ORDERED: HYDROmorphone 0.5 MG/0.5 ML SYRINGE IVP PRN (18:23)
[2025-05-25] MEDS ORDERED: NALOXONE 0.4 MG/ML 1 ML VIAL IV PRN (18:23)
[2025-05-25] MEDS ORDERED: GLIMEPIRIDE 1 MG TAB PO PRN (18:25)
[2025-05-26 00:45] LABS: Glucose,Whole Blood 85 mg/dL (70-110)
[2025-05-26] MEDS: METOPROLOL SUCCINATE (ER) 25 MG TAB.ER.24H PO SCH (06:03)
[2025-05-26] MEDS: GABAPENTIN 300 MG CAP PO SCH (06:03)
--- NOTE | 2025-05-26 06:26 | P.CNPUL ---
History of Present Illness Consult date: 05/26/25 Reason for consult: pleural effusion Chief complaint: Increasing shortness of breath History of present illness: Patient is an 80-year-old male with past medical history significant for hypertension, hyperlipidemia, diabetes mellitus, CAD with previous stent, heart failure, atrial fibrillation anticoagulated on Eliquis, previous right nephrectomy, end-stage renal disease maintained on a Sunday, Sunday, Sunday schedule. Seen by Dr. Logan in the pulmonary office yesterday for increasing worsening shortness of breath. He was found to have a large moderate-sized right-sided pleural effusion. He was directed to the emergency department for thoracentesis. Patient has had increased work of breathing. No significant lower extremity edema. Of note, recently hospitalized with atrial fibrillation with RVR earlier this month. Echocardiogram from this hospitalization estimating a left ventricular ejection fraction of 55 to 60%. Moderate aortic stenosis and moderate pulmonary hypertension. Patient reportedly not anuric, and does take Lasix on outpatient basis. He is also maintained on a Sunday, Sunday, Sunday schedule for his hemodialysis and denies missing any treatments. Denies any cough, sputum production, hemoptysis, pleurisy. Labs including a CBC with a WBC count 11.3, hemoglobin 10.9, platelets 305. CMP: Sodium 139, potassium 4.3, chloride 98, serum bicarb 27, BUN 33, creatinine 5.59, glucose 185. Lactic 1.9. Troponin 0.032. NT-proBNP 6400. EKG sinus rhythm without acute ST elevations or T wave inversions. Patient currently being evaluated on the sixth floor. He is on 2 L/min nasal cannula. Not in any respiratory distress. States he has previously had a thoracentesis on the left but not on the right. This was back in 2020. Fluid cytology was negative for malignant cells at that time. His last dose of Eliquis was yesterday evening. This is now on hold. Follow-up chest x- ray showing a moderate right-sided pleural effusion with adjacent atelectasis. Was given an empiric dose of Rocephin in the ED. Also, restarted on his home Lasix Review of Systems REVIEW OF SYSTEMS: CONSTITUTIONAL: Denies any recent significant weight loss or weight gain. EYES: Denies change in vision. EARS, NOSE, MOUTH, THROAT: Denies headaches, denies sore throat. CARDIOVASCULAR: Denies chest pain, palpitations or syncopal episodes. RESPIRATORY: See HPI GASTROINTESTINAL: Denies change in appetite, abdominal pain, nausea and vomiting, or diarrhea GENITOURINARY: Denies hematuria, denies infections. MUSKULOSKELETAL: Denies pain, denies swelling. INTEGUMENTARY: Denies rash, denies eczema. NEUROLOGICAL: Denies recent memory loss, no recent seizure activity. PSYCHIATRIC: Denies anxiety, denies depression. HEMATOLOGIC/LYMPHATIC: Denies anemia, denies enlarged lymph node Past Medical History Past Medical History: Atrial Fibrillation, Coronary Artery Disease (CAD), Chest Pain / Angina, COPD, Diabetes Mellitus, Dialysis, Hyperlipidemia, Hypertension, Renal Disease Additional Past Medical History / Comment(s): varicose veins, gout, ESRD History of Any Multi-Drug Resistant Organisms: None Reported Past Surgical History: Appendectomy, Cholecystectomy, Heart Catheterization With Stent Additional Past Surgical History / Comment(s): Stent to LAD 06/07/16, tonsilitis, right kidney removed, dialysis fistula- left upper arm Past Anesthesia/Blood Transfusion Reactions: No Reported Reaction Date of Last Stent Placement:: 2015 Past Psychological History: No Psychological Hx Reported Additional Psychological History / Comment(s): R/T family deaths Smoking Status: Former smoker Past Alcohol Use History: Rare Additional Past Alcohol Use History / Comment(s): smoked for 20-30 yrs, quit 22 yrs ago, smoked 2 PPD Past Drug Use History: None Reported - Past Family History Father Family Medical History: Cancer Additional Family Medical History / Comment(s): Lung Medications and Allergies Home Medications Medication Instructions Recorded Confirmed Type Gabapentin [Neurontin] 300 mg PO W/BRKFST 05/19/16 05/25/25 History allopurinoL [Zyloprim] 100 mg PO BID-W/MEALS 05/19/16 05/25/25 History sitaGLIPtin PHOSPHATE [Januvia] 25 mg PO W/LUNCH 01/17/22 05/25/25 History Apixaban [Eliquis] 2.5 mg PO BID-W/MEALS 07/02/24 05/25/25 History Sevelamer [Renvela] 800 mg PO TID-W/MEALS 07/02/24 05/25/25 History Amiodarone [Cordarone] 100 mg PO W/LUNCH 05/11/25 05/25/25 History Cholecalciferol (Vitamin D3) 50 mcg PO W/LUNCH 05/11/25 05/25/25 History [Vitamin D3 (50 Mcg = 2000 Iu)] Ezetimibe [Zetia] 10 mg PO W/SUPPER 05/11/25 05/25/25 History Furosemide [Lasix] 40 mg PO DAILY@1000 05/11/25 05/25/25 History L.acidoph,Paracasei, B.lactis 1 cap PO W/LUNCH 05/11/25 05/25/25 History [Probiotic] Atorvastatin [Lipitor] 10 mg PO W/SUPPER #30 tab 05/13/25 05/25/25 Rx Docusate [Colace] 100 mg PO W/LUNCH PRN 05/25/25 05/25/25 History Glimepiride [Amaryl] 1 mg PO W/BRKFST PRN 05/25/25 05/25/25 History Metoprolol Succinate (ER) [Toprol 25 mg PO BID-W/MEALS 05/25/25 05/25/25 History XL] Allergies Allergy/AdvReac Type Severity Reaction Status Date / Time cefadroxil AdvReac Constipatio Verified 05/25/25 17:08 n clindamycin AdvReac Diarrhea Verified 05/25/25 17:08 Physical Exam Vitals: Vital Signs Temp Pulse Pulse Resp BP BP Pulse Ox 05/26/25 02:00 97.4 F L 64 19 158/61 98 05/26/25 01:25 82 20 150/64 99 05/26/25 00:00 69 20 146/64 97 05/25/25 23:00 69 20 102/89 97 05/25/25 22:00 71 20 148/64 97 05/25/25 21:00 72 18 132/62 97 05/25/25 20:00 71 20 127/56 97 05/25/25 19:00 73 20 111/49 98 05/25/25 18:33 99 05/25/25 18:31 72 22 121/55 85 L 05/25/25 17:27 70 18 121/58 95 05/25/25 16:23 20 05/25/25 15:40 97.6 F 85 20 140/89 93 L Intake and Output 05/25/25 05/25/25 05/26/25 14:59 22:59 06:59 Output Total 450 Balance -450 Output: Urine 450 Other: Weight 90.718 kg 90.718 kg GENERAL EXAM: Alert, 80-year-old male, comfortable in no apparent distress. HEAD: Normocephalic and atraumatic EYES: Normal reaction of pupils, equal size. NOSE: Clear with pink turbinates. THROAT: No erythema or exudates. NECK: No masses, no JVD. CHEST: No chest wall deformity. LUNGS: Equal air entry with diminished right basilar lung sounds. On 2 L/min nasal cannula. No conversational dyspnea or accessory muscle use.. CVS: S1 and S2 normal with soft systolic murmur, regular rhythm. No other extra heart sounds ABDOMEN: No hepatosplenomegaly, active bowel sounds, no guarding or rigidity. SPINE: No scoliosis or deformity SKIN: No rashes CENTRAL NERVOUS SYSTEM: No focal deficits, tone is normal in all 4 extremities. EXTREMITIES: Right arm fistula with positive thrill and bruit. There is no peripheral edema, clubbing, or cyanosis. Peripheral pulses are intact. Results - Laboratory Findings CBC and BMP: 05/25/25 16:21 05/25/25 16:21 PT/INR, D-dimer PT 11.2 sec (10.0-12.5) 05/25/25 16:21 INR 1.0 (<1.2) 05/25/25 16:21 Abnormal lab findings: Abnormal Labs 05/25/25 05/25/25 16:21 16:21 WBC 11.32 H RBC 3.10 L Hgb 10.9 L Hct 32.5 L MCV 104.8 H MCH 35.2 H Immature Gran # 0.05 H Neutrophils # 8.95 H Lymphocytes # 0.80 L Monocytes # 1.07 H Basophils # 0.12 H BUN 33 H Creatinine 5.59 H Glucose 185 H - Diagnostic Findings Chest x-ray: image reviewed Assessment and Plan Assessment: Moderate right sided pleural effusion Acute hypoxemic respiratory failure, currently on 2 L/min nasal cannula, secondary to above End-stage renal disease, maintained on a Sunday, Sunday, Sunday schedule Heart failure with preserved ejection fraction, recent available echocardiogram from earlier this month estimating a left ventricular ejection fraction of 55 to 60%. Moderate aortic stenosis and moderate pulmonary hypertension. Moderate aortic stenosis Paroxysmal atrial fibrillation, on amiodarone and previously anticoagulated on Eliquis, currently sinus mechanism Hypertension History of hyperlipidemia Diabetes mellitus type 2 History of coronary disease with previous stent History of right-sided nephrectomy secondary to cyst Plan: Patient's medications, labs, chest x-ray reviewed Moderate right-sided pleural effusion Obtain chest ultrasound Continue to hold Eliquis Plan for right-sided thoracentesis I have personally seen and examined the patient, performed the documentation and the assessment and plan as written. Number of minutes spent on the visit:20 This dictation was produced using [employer] dictation software please excuse grammatical errors Time with Patient: Greater than 30
[2025-05-26 07:07] LABS: Bilirubin,Urine Negative (Negative); Blood,Urine Moderate (Negative); Color,Urine Yellow; Glucose,Urine (UA) Trace (Negative); Ketones,Urine Negative (Negative); Leukocyte Esterase,Urine Large (Negative); Nitrite,Urine Negative (Negative); PH, Urine 6.5 (5.0-8.0); Protein,Urine 2+ (Negative); RBC,Urine 27 /hpf (0-5); Specific Gravity,Urine 1.016 (1.001-1.035); Squamous Epithelial Cell,Urine 16 /hpf (0-4); Urobilinogen,Urine <2.0 mg/dL (<2.0); WBC,Urine 60 /hpf (0-5)
--- NOTE | 2025-05-26 07:24 | US ---
EXAMINATION TYPE: US chest DATE OF EXAM: 05/26/2025 COMPARISON: XR(05/25/2025) CLINICAL INDICATION: Male, 80 years old with history of right pleural effusion; TECHNIQUE: Grayscale imaging of the chest. Targeted ultrasound of the posterior lower right hemithor ax FINDINGS: EXAM MEASUREMENTS: Right Pleural Effusion pocket size: 8.0 cm Right skin surface to fluid distance: 2.7 cm Skin to lung tissue: 6.7cm Right side marked for possible thoracentesis outside the dept. Pulmonologists are able to review the images in the patient?s EMR. IMPRESSIONS: Moderate size right pleural effusion. [facility], , 05/26/2025 7:22 AM
[2025-05-26 07:40] LABS: Glucose,Whole Blood 105 mg/dL (70-110)
[2025-05-26] MEDS: FUROSEMIDE 40 MG TAB PO SCH (08:44)
[2025-05-26] MEDS: SEVELAMER 800 MG TAB PO SCH (08:44)
[2025-05-26] MEDS ORDERED: CEFUROXIME 250 MG PO SCH (09:00)
--- NOTE | 2025-05-26 09:02 | XR ---
EXAMINATION TYPE: XR chest 1V DATE OF EXAM: 05/26/2025 COMPARISON: 05/25/2025 CLINICAL INDICATION: Male, 80 years old with history of Post right thoracentesis; , TECHNIQUE: XR chest 1V views of the chest. FINDINGS: Right lower lobe consolidation and small bilateral pleural effusion greater on the right. Could been the basis of compressive atelectasis. Mass or pneumonia not excluded. Heart size is enlarged. Atheros clerotic change aorta. Osteopenia, degenerative change of the spine and arthropathy of the shoulders. IMPRESSION: 1. No sizable pneumothorax. 2. Small bilateral pleural effusion and consolidation stable. [facility], , 05/26/2025 8:59 AM
[2025-05-26] MEDS ORDERED: DEXTROSE 50% SYRINGE 50 ML IVP PRN ×2 (09:42)
[2025-05-26 10:16] LABS: Total Protein 6.3 g/dL (6.3-8.2)
[2025-05-26 10:20] LABS: LDH 152.0 U/L (120-246)
--- NOTE | 2025-05-26 11:04 | P.CRDCN ---
History of Present Illness History of present illness: HISTORY OF PRESENT ILLNESS: This is a 80-year-old male with a past medical history significant for atrial fibrillation, coronary artery disease with previous stenting, hypertension, hyperlipidemia, congestive heart failure, and end-stage renal disease on hemodialysis. Patient follows in the office with Dr. Arreaga. We have been asked to see the patient in consultation for congestive heart failure. Patient examined at the bedside. Patient spouse is present. Patient was recently admitted to the hospital secondary to A-fib with RVR and congestive heart failure. He was discharged home in stable condition. He states he was feeling okay for about 2 to 3 days after discharge but then his symptoms returned and continued to get worse. He does report shortness of breath and lower extremity edema. He reports a mild cough. He states he has been unable to lay flat at home secondary to shortness of breath. He denies any chest pain or pressure. He denies any shortness of breath. Patient does have a history of end-stage renal disease and is on hemodialysis Sunday and Sunday. He states he has been compliant with hemodialysis and has not missed any sessions. Patient did undergo right-sided thoracentesis this morning with pulmonary medicine. Patient states this is the second time he is had to undergo thoracentesis. DIAGNOSTICS: - EKG reveals sinus mechanism with no signs of acute ischemia. - Chest xray marginal increased moderate right pleural effusion with adjacent atelectasis and/or consolidation. - Laboratory data: Troponin negative x 1. proBNP 6400. - Current home cardiac medications include amiodarone 100 mg daily, Eliquis 2.5 mg twice a day, Lipitor 10 mg daily, Zetia 10 mg daily, Lasix 40 mg daily, metoprolol succinate 25 mg twice a day. - Most recent echocardiogram obtained in April 2025 revealed ejection fraction 55 to 60%, moderate pulmonary hypertension, RVSP 40 mmHg, moderate aortic stenosis with peak gradient 32 mmHg and mean gradient 22 mmHg, trivial aortic regurgitation, mild tricuspid regurgitation. -Patient underwent Cardiolite stress test in November 2022 which was negative for stress-induced ischemia - Cardiac catheterization history: 2016 with arthrectomy and stenting of the proximal LAD REVIEW OF SYSTEMS: At the time of my exam: CONSTITUTIONAL: Denies fever or chills. HEENT: Denies blurred vision, vision changes, or eye pain. Denies hemoptysis CARDIOVASCULAR: Denies chest pain. Denies orthopnea. Denies PND. Denies pal pitations RESPIRATORY: Denies shortness of breath. GASTROINTESTINAL: Denies abdominal pain. Denies nausea or vomiting. HEMATOLOGIC: Denies bleeding disorders. GENITOURINARY: Denies any blood in urine. SKIN: Denies pruitis. Denies rash. PHYSICAL EXAM: VITAL SIGNS: Reviewed. GENERAL: Well-developed in no acute distress. HEENT: Head is normocephalic. Pupils are equal, round. Sclerae anicteric. Mucous membranes of the mouth are moist. Neck supple. No JVD or thyromegaly LUNGS: Respirations even and unlabored. Lungs diminished on the right HEART: Regular rate and rhythm. S1 and S2 heard. Systolic murmur noted ABDOMEN: Soft. Nondistended. Nontender. EXTREMITIES: Normal range of motion. No clubbing or cyanosis. Peripheral pulses intact. Trace bilateral lower extremity edema NEUROLOGIC: Awake and alert. Oriented x 3. ASSESSMENT: Shortness of breath Acute on chronic heart failure with preserved EF 55 to 60% Right-sided pleural effusion, status post thoracentesis Moderate pulmonary hypertension End-stage renal disease on hemodialysis Sunday Coronary artery disease with previous stenting Hypertension Hyperlipidemia PLAN: No need to repeat echocardiogram as this was performed in April 2025 Resume Eliquis Continue additional cardiac medications Hemodialysis per nephrology Continue telemetry monitoring Further recommendations pending patient course Nurse practitioner note has been reviewed by physician. Signing provider agrees with the documented findings, assessment, and plan of care documented by PEGA DEVELOPER as a scribe. Past Medical History Past Medical History: Atrial Fibrillation, Coronary Artery Disease (CAD), Chest Pain / Angina, COPD, Diabetes Mellitus, Dialysis, Hyperlipidemia, Hypertension, Renal Disease Additional Past Medical History / Comment(s): varicose veins, gout, ESRD History of Any Multi-Drug Resistant Organisms: None Reported Past Surgical History: Appendectomy, Cholecystectomy, Heart Catheterization With Stent Additional Past Surgical History / Comment(s): Stent to LAD 06/07/16, tonsilitis, right kidney removed, dialysis fistula- left upper arm Past Anesthesia/Blood Transfusion Reactions: No Reported Reaction Date of Last Stent Placement:: 2015 Past Psychological History: No Psychological Hx Reported Additional Psychological History / Comment(s): R/T family deaths Smoking Status: Former smoker Past Alcohol Use History: Rare Additional Past Alcohol Use History / Comment(s): smoked for 20-30 yrs, quit 22 yrs ago, smoked 2 PPD Past Drug Use History: None Reported - Past Family History Father Family Medical History: Cancer Additional Family Medical History / Comment(s): Lung Medications and Allergies Home Medications Medication Instructions Recorded Confirmed Type Gabapentin [Neurontin] 300 mg PO W/BRKFST 05/19/16 05/25/25 History allopurinoL [Zyloprim] 100 mg PO BID-W/MEALS 05/19/16 05/25/25 History sitaGLIPtin PHOSPHATE [Januvia] 25 mg PO W/LUNCH 01/17/22 05/25/25 History Apixaban [Eliquis] 2.5 mg PO BID-W/MEALS 07/02/24 05/25/25 History Sevelamer [Renvela] 800 mg PO TID-W/MEALS 07/02/24 05/25/25 History Amiodarone [Cordarone] 100 mg PO W/LUNCH 05/11/25 05/25/25 History Cholecalciferol (Vitamin D3) 50 mcg PO W/LUNCH 05/11/25 05/25/25 History [Vitamin D3 (50 Mcg = 2000 Iu)] Ezetimibe [Zetia] 10 mg PO W/SUPPER 05/11/25 05/25/25 History Furosemide [Lasix] 40 mg PO DAILY@1000 05/11/25 05/25/25 History L.acidoph,Paracasei, B.lactis 1 cap PO W/LUNCH 05/11/25 05/25/25 History [Probiotic] Atorvastatin [Lipitor] 10 mg PO W/SUPPER #30 tab 05/13/25 05/25/25 Rx Docusate [Colace] 100 mg PO W/LUNCH PRN 05/25/25 05/25/25 History Glimepiride [Amaryl] 1 mg PO W/BRKFST PRN 05/25/25 05/25/25 History Metoprolol Succinate (ER) [Toprol 25 mg PO BID-W/MEALS 05/25/25 05/25/25 History XL] Allergies Allergy/AdvReac Type Severity Reaction Status Date / Time cefadroxil AdvReac Constipatio Verified 05/25/25 17:08 n clindamycin AdvReac Diarrhea Verified 05/25/25 17:08 Physical Exam Vitals: Vital Signs Temp Pulse Pulse Resp BP BP Pulse Ox 05/26/25 07:26 97.7 F 67 19 153/60 95 05/26/25 02:00 97.4 F L 64 19 158/61 98 05/26/25 01:25 82 20 150/64 99 05/26/25 00:00 69 20 146/64 97 05/25/25 23:00 69 20 102/89 97 05/25/25 22:00 71 20 148/64 97 05/25/25 21:00 72 18 132/62 97 05/25/25 20:00 71 20 127/56 97 05/25/25 19:00 73 20 111/49 98 05/25/25 18:33 99 05/25/25 18:31 72 22 121/55 85 L 05/25/25 17:27 70 18 121/58 95 05/25/25 16:23 20 05/25/25 15:40 97.6 F 85 20 140/89 93 L Intake and Output 05/25/25 05/26/25 05/26/25 22:59 06:59 14:59 Intake Total 240 Output Total 550 Balance -550 240 Intake: Oral 240 Output: Urine 550 Other: Weight 90.718 kg 90.718 kg Results 05/25/25 16:21 05/25/25 16:21 Cardiac Enzymes 05/25/25 05/25/25 05/26/25 Range/Units 16:21 16:21 09:17 AST 55 (17-59) U/L Lactate Dehydrogenase 152 (120-246) U/L Troponin I 0.032 (0.000-0.034) ng/mL Coagulation 05/25/25 Range/Units 16:21 PT 11.2 (10.0-12.5) sec APTT 27.2 (22.0-30.0) sec CBC 05/25/25 Range/Units 16:21 WBC 11.32 H (4.50-10.00) 10*3/uL RBC 3.10 L (4.40-5.60) 10*6/uL Hgb 10.9 L (13.0-17.0) g/dL Hct 32.5 L (39.6-50.0) % Plt Count 305 (140-440) 10*3/uL Comprehensive Metabolic Panel 05/25/25 05/26/25 Range/Units 16:21 09:17 Sodium 139 (137-145) mmol/L Potassium 4.3 (3.5-5.1) mmol/L Chloride 98 (98-107) mmol/L Carbon Dioxide 27 (22-30) mmol/L BUN 33 H (9-20) mg/dL Creatinine 5.59 H (0.66-1.25) mg/dL Glucose 185 H (74-99) mg/dL Calcium 9.4 (8.4-10.2) mg/dL AST 55 (17-59) U/L ALT 27 (4-49) U/L Alkaline Phosphatase 68 (38-126) U/L Total Protein 7.1 6.3 (6.3-8.2) g/dL Albumin 3.9 (3.5-5.0) g/dL Current Medications Generic Name Dose Route Start Last Admin Trade Name Freq PRN Reason Stop Dose Admin Allopurinol 100 mg 05/26/25 07:30 05/26/25 06:03 Allopurinol 100 Mg Tab PO 100 mg BID-W/MEALS LEILA Administration Amiodarone HCl 100 mg 05/26/25 12:30 Amiodarone 100 Mg Tab PO W/LUNCH LEILA Atorvastatin Calcium 10 mg 05/26/25 17:30 Atorvastatin 10 Mg Tab PO W/SUPPER LEILA Dextrose/Water 25 ml 05/26/25 09:42 Dextrose 50% Syringe 50 Ml IVP PER PROTOCOL PRN Hypoglycemia Protocol Dextrose/Water 50 ml 05/26/25 09:42 Dextrose 50% Syringe 50 Ml IVP PER PROTOCOL PRN Hypoglycemia Protocol Ezetimibe 10 mg 05/26/25 17:30 Ezetimibe 10 Mg Tab PO W/SUPPER LEILA Furosemide 40 mg 05/26/25 10:00 05/26/25 08:44 Furosemide 40 Mg Tab PO 40 mg DAILY@1000 LEILA Administration Gabapentin 300 mg 05/26/25 07:30 05/26/25 06:03 Gabapentin 300 Mg Cap PO 300 mg W/BRKFST LEILA Administration Glimepiride 1 mg 05/25/25 18:25 Glimepiride 1 Mg Tab PO W/BRKFST PRN BS over 200 Hydromorphone HCl 0.5 mg 05/25/25 18:23 Hydromorphone 0.5 Mg/0.5 Ml Syringe IVP Q3HR PRN Moderate Pain (Scale 4 to 6) Insulin Human Lispro 0 unit 05/26/25 12:30 Insulin Lispro (Humalog) 100 Unit/Ml 10 Ml Vl SQ ACHS [facility] Protocol Linagliptin 5 mg 05/26/25 12:30 Linagliptin 5 Mg Tablet PO W/LUNCH LEILA Metoprolol Succinate 25 mg 05/26/25 07:30 05/26/25 06:03 Metoprolol Succinate (Er) 25 Mg Tab.Er.24h PO 25 mg BID-W/MEALS LEILA Administration Naloxone HCl 0.2 mg 05/25/25 18:23 Naloxone 0.4 Mg/Ml 1 Ml Vial IV Q2M PRN Opioid Reversal Ondansetron HCl 2 mg 05/25/25 18:23 Ondansetron 4 Mg/2 Ml Vial IVP Q8HR PRN Nausea And Vomiting Sevelamer Carbonate 800 mg 05/26/25 07:30 05/26/25 08:44 Sevelamer 800 Mg Tab PO 800 mg TID-W/MEALS LEILA Administration Intake and Output 05/25/25 05/26/25 05/26/25 22:59 06:59 14:59 Intake Total 240 Output Total 550 Balance -550 240 Intake: Oral 240 Output: Urine 550 Other: Weight 90.718 kg 90.718 kg 05/25/25 16:21 05/25/25 16:21
--- NOTE | 2025-05-26 11:05 | P.NPCON ---
History of Present Illness - Reason for Consult Consult date: 05/26/25 end stage renal disease - Chief Complaint Shortness of breath - History of Present Illness Patient is an 80-year-old male with past medical history of ESRD on hemodialysis MWF, paroxysmal A-fib, CAD, HFpEF, COPD, diabetes mellitus, hypertension, comes to the ED for evaluation of shortness of breath. Patient has been hospitalized on 05/11 - 05/13 for A fib and pneumonia . Patient seen at Dr. Terrell's office yesterday for increased exertional dyspnea and bilateral leg edema. In the ED, chest x-ray showed moderate right pleural effusion and consolidation. Patient had thoracentesis this morning. We were consulted for the management of his dialysis. Patient didn't miss his dialysis yesterday, and he had 0.7L removed. No fever, no cough, no abdominal pain, diarrhea, or vomiting. 05/26 Intake 240 mL, Output 550 mL K 4.3 on admission. Past Medical History Past Medical History: Atrial Fibrillation, Coronary Artery Disease (CAD), Chest Pain / Angina, COPD, Diabetes Mellitus, Dialysis, Hyperlipidemia, Hypertension, Renal Disease Additional Past Medical History / Comment(s): varicose veins, gout, ESRD History of Any Multi-Drug Resistant Organisms: None Reported Past Surgical History: Appendectomy, Cholecystectomy, Heart Catheterization With Stent Additional Past Surgical History / Comment(s): Stent to LAD 06/07/16, to nsilitis, right kidney removed, dialysis fistula- left upper arm Past Anesthesia/Blood Transfusion Reactions: No Reported Reaction Date of Last Stent Placement:: 2015 Past Psychological History: No Psychological Hx Reported Additional Psychological History / Comment(s): R/T family deaths Smoking Status: Former smoker Past Alcohol Use History: Rare Additional Past Alcohol Use History / Comment(s): smoked for 20-30 yrs, quit 22 yrs ago, smoked 2 PPD Past Drug Use History: None Reported - Past Family History Father Family Medical History: Cancer Additional Family Medical History / Comment(s): Lung Medications and Allergies Home Medications Medication Instructions Recorded Confirmed Type Gabapentin [Neurontin] 300 mg PO W/BRKFST 05/19/16 05/25/25 History allopurinoL [Zyloprim] 100 mg PO BID-W/MEALS 05/19/16 05/25/25 History sitaGLIPtin PHOSPHATE [Januvia] 25 mg PO W/LUNCH 01/17/22 05/25/25 History Apixaban [Eliquis] 2.5 mg PO BID-W/MEALS 07/02/24 05/25/25 History Sevelamer [Renvela] 800 mg PO TID-W/MEALS 07/02/24 05/25/25 History Amiodarone [Cordarone] 100 mg PO W/LUNCH 05/11/25 05/25/25 History Cholecalciferol (Vitamin D3) 50 mcg PO W/LUNCH 05/11/25 05/25/25 History [Vitamin D3 (50 Mcg = 2000 Iu)] Ezetimibe [Zetia] 10 mg PO W/SUPPER 05/11/25 05/25/25 History Furosemide [Lasix] 40 mg PO DAILY@1000 05/11/25 05/25/25 History L.acidoph,Paracasei, B.lactis 1 cap PO W/LUNCH 05/11/25 05/25/25 History [Probiotic] Atorvastatin [Lipitor] 10 mg PO W/SUPPER #30 tab 05/13/25 05/25/25 Rx Docusate [Colace] 100 mg PO W/LUNCH PRN 05/25/25 05/25/25 History Glimepiride [Amaryl] 1 mg PO W/BRKFST PRN 05/25/25 05/25/25 History Metoprolol Succinate (ER) [Toprol 25 mg PO BID-W/MEALS 05/25/25 05/25/25 History XL] Allergies Allergy/AdvReac Type Severity Reaction Status Date / Time cefadroxil AdvReac Constipatio Verified 05/25/25 17:08 n clindamycin AdvReac Diarrhea Verified 05/25/25 17:08 Physical Exam Vitals: Vital Signs Temp Pulse Pulse Resp BP BP Pulse Ox 05/26/25 07:26 97.7 F 67 19 153/60 95 05/26/25 02:00 97.4 F L 64 19 158/61 98 05/26/25 01:25 82 20 150/64 99 05/26/25 00:00 69 20 146/64 97 05/25/25 23:00 69 20 102/89 97 05/25/25 22:00 71 20 148/64 97 05/25/25 21:00 72 18 132/62 97 07/28/25 20:00 71 20 127/56 97 05/25/25 19:00 73 20 111/49 98 05/25/25 18:33 99 05/25/25 18:31 72 22 121/55 85 L 05/25/25 17:27 70 18 121/58 95 05/25/25 16:23 20 05/25/25 15:40 97.6 F 85 20 140/89 93 L Intake and Output 05/25/25 05/26/25 05/26/25 22:59 06:59 14:59 Intake Total 240 Output Total 550 Balance -550 240 Intake: Oral 240 Output: Urine 550 Other: Weight 90.718 kg 90.718 kg General: Mild distress, fatigued Derm: warm, dry, and well perfused. Head: normocephalic and atraumatic ENT: nose and ears atraumatic Neck: supple Mouth: no lip lesion Cardiovascular: normal S1S2, soft systolic murmur, no edema Lungs: clear to auscultation bilaterally, no wheezes or crackles or rhonchi Abdominal: soft, nontender to palpation, no guarding, no rebound, no appreciable organomegaly Psych: Alert, oriented x3 Results - Lab Results Most recent lab results WBC 11.32 10*3/uL (4.50-10.00) H 05/25/25 16:21 RBC 3.10 10*6/uL (4.40-5.60) L 05/25/25 16:21 Hgb 10.9 g/dL (13.0-17.0) L 05/25/25 16:21 Hct 32.5 % (39.6-50.0) L 05/25/25 16:21 MCV 104.8 fL (80.0-97.0) H 05/25/25 16:21 MCH 35.2 pg (27.0-32.0) H 05/25/25 16:21 MCHC 33.5 g/dL (32.0-37.0) 05/25/25 16:21 Plt Count 305 10*3/uL (140-440) 05/25/25 16:21 MPV 10.8 fL (9.5-12.2) 05/25/25 16:21 Immature Gran % (Auto) 0.4 % 05/25/25 16:21 Neutrophils % 79.0 % 05/25/25 16:21 Lymphocytes % 7.1 % 05/25/25 16:21 Monocytes % 9.5 % 05/25/25 16:21 Eosinophils % 2.9 % 05/25/25 16:21 Basophils % 1.1 % 05/25/25 16:21 Immature Gran # 0.05 10*3/uL (0.00-0.04) H 05/25/25 16:21 Neutrophils # 8.95 10*3/uL (1.80-7.70) H 05/25/25 16:21 Lymphocytes # 0.80 10*3/uL (0.90-5.00) L 05/25/25 16:21 Monocytes # 1.07 10*3/uL (0.20-1.00) H 05/25/25 16:21 Eosinophils # 0.33 10*3/uL (0.04-0.35) 05/25/25 16:21 Basophils # 0.12 10*3/uL (0.00-0.10) H 05/25/25 16:21 PT 11.2 sec (10.0-12.5) 05/25/25 16:21 INR 1.0 (<1.2) 05/25/25 16:21 APTT 27.2 sec (22.0-30.0) 05/25/25 16:21 Sodium 139 mmol/L (137-145) 05/25/25 16:21 Potassium 4.3 mmol/L (3.5-5.1) 05/25/25 16:21 Chloride 98 mmol/L (98-107) 05/25/25 16:21 Carbon Dioxide 27 mmol/L (22-30) 05/25/25 16:21 Anion Gap 14 mmol/L 05/25/25 16:21 BUN 33 mg/dL (9-20) H 05/25/25 16:21 Creatinine 5.59 mg/dL (0.66-1.25) H 05/25/25 16:21 Est GFR (CKD-EPI)AfAm 10 (>60 ml/min/1.73 sqM) 05/25/25 16:21 Est GFR (CKD-EPI)NonAf 9 (>60 ml/min/1.73 sqM) 05/25/25 16:21 Glucose 185 mg/dL (74-99) H 05/25/25 16:21 POC Glucose (mg/dL) 105 mg/dL (70-110) 05/26/25 07:29 POC Glu [employer] Painter ID BRENNAN STILES 05/26/25 07:29 Plasma Lactic Acid Matthew 1.9 mmol/L (0.7-2.0) 05/25/25 16:21 Calcium 9.4 mg/dL (8.4-10.2) 05/25/25 16:21 Magnesium 2.3 mg/dL (1.6-2.3) 05/25/25 16:21 Total Bilirubin 0.5 mg/dL (0.2-1.3) 05/25/25 16:21 AST 55 U/L (17-59) 05/25/25 16:21 ALT 27 U/L (4-49) 05/25/25 16:21 Alkaline Phosphatase 68 U/L (38-126) 05/25/25 16:21 Lactate Dehydrogenase 152 U/L (120-246) 05/26/25 09:17 Troponin I 0.032 ng/mL (0.000-0.034) 05/25/25 16:21 NT-Pro-B Natriuret Pep 6400 pg/mL 05/25/25 16:21 Total Protein 6.3 g/dL (6.3-8.2) 05/26/25 09:17 Albumin 3.9 g/dL (3.5-5.0) 05/25/25 16:21 Urine Color Yellow 05/26/25 06:43 Urine Appearance Cloudy (Clear) 05/26/25 06:43 Urine pH 6.5 (5.0-8.0) 05/26/25 06:43 Ur Specific [place] 1.016 (1.001-1.035) 05/26/25 06:43 Urine Protein 2+ (Negative) H 05/26/25 06:43 Urine Glucose (UA) Trace (Negative) H 05/26/25 06:43 Urine Ketones Negative (Negative) 05/26/25 06:43 Urine Blood Moderate (Negative) H 05/26/25 06:43 Urine Nitrite Negative (Negative) 05/26/25 06:43 Urine Bilirubin Negative (Negative) 05/26/25 06:43 Urine Urobilinogen <2.0 mg/dL (<2.0) 05/26/25 06:43 Ur Leukocyte Esterase Large (Negative) H 05/26/25 06:43 Urine RBC 27 /hpf (0-5) H 05/26/25 06:43 Urine WBC 60 /hpf (0-5) H 05/26/25 06:43 Ur Squamous Epith Cells 16 /hpf (0-4) H 05/26/25 06:43 05/25/25 16:21 05/25/25 16:21 Assessment and Plan Assessment: 1. ESRD on hemodialysis, Sunday via L arm fistula 2. Right pleural effusion s/p thoracentesis 3. Anemia due to chronic kidney disease, Macrocytic 4. Hypertension 5. Fluid overload 6. CKD mineral bone disorder maintained on Ranvela Plan: extra treatment of hemodialysis today check folic acid and B12 levels, serum and urine immunofixation as workup for macrocytic anemia increase lasix dose to 60 mg BID for fluid overload continue Sevelamer Carbonate 800 mg TID with meals Okay for discharge from nephrology standpoint after dialysis today. Patient is seen and examined. Agree with resident's findings, assessment and plan.
[2025-05-26] MEDS: LINAGLIPTIN 5 MG TABLET PO SCH (12:03)
[2025-05-26] MEDS: AMIODARONE 100 MG TAB PO SCH (12:03)
[2025-05-26 12:17] LABS: Glucose,Whole Blood 133 mg/dL (70-110)
[2025-05-26] MEDS: INSULIN LISPRO (HumaLOG) 100 UNIT/ML 10 mL VL SQ SCH (12:26)
--- NOTE | 2025-05-26 12:49 | OP ---
OPERATIVE REPORT DATE OF SERVICE : PROCEDURE: Right-sided thoracentesis. PREOPERATIVE DIAGNOSIS: Right pleural effusion. POSTOPERATIVE DIAGNOSIS: Right pleural effusion. FIRST NAPRAPATH: Dr. Asuncion Garcia. DESCRIPTION OF PROCEDURE: There was informed consent and universal timeout. The patient's procedure took place in room 634. The posterior chest was marked by ultrasound. A time-out was completed verifying correct patient, procedure, site, positioning , and implant (s) or special equipment if applicable. Ultrasound guidance was/was not used and appropriate fluid pocket was identified and marked. Patient was positioned, prepped and draped in usual sterile fashion. Lidocaine was used to anesthetize the area. A Thoracentesis catheter was introduced into the pleural space and fluid was removed. Blood loss was none. A chest x-ray was ordered to evaluate for pneumothorax. Total Fluid Removed: Roughly 1 L of bloody fluid was removed from the right pleural space. Color of Fluid: Bloody. The fluid will be sent for analysis including cytology, microbiology, and chemistry. The patient tolerated the procedure well. There was no immediate complication. A chest x-ray was ordered. A chest x-ray was ordered after the procedure. No additional recommendations are made. Again, there was no immediate complication. The patient tolerated the procedure well without difficulty. MMODL / IJN: [id number] /
--- NOTE | 2025-05-26 14:59 | P.HPIM ---
History of Present Illness H&P Date: 05/26/25 History of present illness; 80-year-old gentleman past medical history significant for end-stage renal disease on dialysis, coronary disease, atrial fibrillation presented to the ER because of worsening shortness of breath. Patient stated that for the last couple of days he has been noticing worsening shortness of breath. Shortness of breath is present on rest as on exertion. Patient also complaining of swelling of lower extremities. Patient was complaining orthopnea as well. There is no complaint of PND. Patient had an appointment with his store promoter who told him to come to the ER. En route to the ER patient did have an episode of chest pain that was transient, central location, nonradiating, no aggravating or relieving factors associated with chest pain. Patient denies any palpitation. Denies any nausea, vomiting abdominal pain. Patient denies any complaint of dizziness. There is no complaint of headache. Initial lab work done in the ER showed WBC 9.32, hemoglobin 9.9, platelet count 305, sodium 139, potassium 4.3, BUN 33, creatinine 5.59 glucose 185, lactate 1.9, calcium 9.4, magnesium 2.3, total bilirubin 0.5, AST 55, ALT 77, proBNP 6400 UA done showed large amount of leukocyte Estrace, urine WBC 60 EKG done in the ER showed heart rate of 85, no ST segment elevation or depression seen, no T-wave inversions seen. Chest x-ray done in the ER marginally increased moderate right pleural effusion with adjacent atelectasis Patient admitted to internal medicine service REVIEW OF SYSTEMS: CONSTITUTIONAL: No fever, no malaise, no fatigue. HEENT: No recent visual problems or hearing problems. Denied any sore throat. CARDIOVASCULAR: Mentioned above PULMONARY: Mentioned above GASTROINTESTINAL: No diarrhea, no nausea, no vomiting, no abdominal pain. NEUROLOGICAL: No headaches, no weakness, no numbness. HEMATOLOGICAL: Denies any bleeding or petechiae. GENITOURINARY: Denies any burning micturition, frequency, or urgency. MUSCULOSKELETAL/RHEUMATOLOGICAL: Denies any joint pain, swelling, or any muscle pain. ENDOCRINE: Denies any polyuria or polydipsia. The rest of the 14-point review of systems is negative. PHYSICAL EXAMINATION: GENERAL: The patient is alert and oriented x3, not in any acute distress. Well developed, well nourished. HEENT: Pupils are round and equally reacting to light. EOMI. No scleral icterus. No conjunctival pallor. Normocephalic, atraumatic. No pharyngeal erythema. No thyromegaly. CARDIOVASCULAR: S1 and S2 present. No murmurs, rubs, or gallops. PULMONARY: Chest is clear to auscultation, no wheezing or crackles. ABDOMEN: Soft, nontender, nondistended, normoactive bowel sounds. No palpable organomegaly. MUSCULOSKELETAL: No joint swelling or deformity. EXTREMITIES: No cyanosis, clubbing, or pedal edema. NEUROLOGICAL: Gross neurological examination did not reveal any focal deficits. SKIN: No rashes. Assessment and plan Acute hypoxic respiratory failure Right-sided pleural effusion Acute on chronic diastolic heart failure Moderate aortic stenosis Paroxysmal atrial fibrillation, on amiodarone and previously anticoagulated on Eliquis, currently sinus mechanism Hypertension History of hyperlipidemia Diabetes mellitus type 2 History of coronary disease with previous stent History of right-sided nephrectomy secondary to cyst Monitor vital signs Monitor CBC Monitor CMP Continue telemetry monitoring Strict I's and O's Daily weights Low-salt diet IV Lasix Hold Eliquis Chest Ultrasound ordered. Continue amiodarone Continue Toprol Ordered blood sugar monitoring, ordered sliding scale insulin Pulmonology consulted, planning right-sided thoracentesis Nephrology consult Labs and medication were reviewed.. Continue same treatment. Continue with symptomatic treatment. Resume home medication. Monitor labs and vitals. DVT and GI prophylaxis. Further recommendations as per clinical course of the pat ient Dictation was produced using [employer] dictation software. please excuse any grammatical, word or spelling errors. Past Medical History Past Medical History: Atrial Fibrillation, Coronary Artery Disease (CAD), Chest Pain / Angina, COPD, Diabetes Mellitus, Dialysis, Hyperlipidemia, Hypertension, Renal Disease Additional Past Medical History / Comment(s): varicose veins, gout, ESRD History of Any Multi-Drug Resistant Organisms: None Reported Past Surgical History: Appendectomy, Cholecystectomy, Heart Catheterization With Stent Additional Past Surgical History / Comment(s): Stent to LAD 06/07/16, tonsilitis, right kidney removed, dialysis fistula- left upper arm Past Anesthesia/Blood Transfusion Reactions: No Reported Reaction Date of Last Stent Placement:: 2015 Past Psychological History: No Psychological Hx Reported Additional Psychological History / Comment(s): R/T family deaths Smoking Status: Former smoker Past Alcohol Use History: Rare Additional Past Alcohol Use History / Comment(s): smoked for 20-30 yrs, quit 22 yrs ago, smoked 2 PPD Past Drug Use History: None Reported - Past Family History Father Family Medical History: Cancer Additional Family Medical History / Comment(s): Lung Medications and Allergies Home Medications Medication Instructions Recorded Confirmed Type Gabapentin [Neurontin] 300 mg PO W/BRKFST 05/19/16 05/25/25 History allopurinoL [Zyloprim] 100 mg PO BID-W/MEALS 05/19/16 05/25/25 History sitaGLIPtin PHOSPHATE [Januvia] 25 mg PO W/LUNCH 01/17/22 05/25/25 History Apixaban [Eliquis] 2.5 mg PO BID-W/MEALS 07/02/24 05/25/25 History Sevelamer [Renvela] 800 mg PO TID-W/MEALS 07/02/24 05/25/25 History Amiodarone [Cordarone] 100 mg PO W/LUNCH 05/11/25 05/25/25 History Cholecalciferol (Vitamin D3) 50 mcg PO W/LUNCH 05/11/25 05/25/25 History [Vitamin D3 (50 Mcg = 2000 Iu)] Ezetimibe [Zetia] 10 mg PO W/SUPPER 05/11/25 05/25/25 History Furosemide [Lasix] 40 mg PO DAILY@1000 05/11/25 05/25/25 History L.acidoph,Paracasei, B.lactis 1 cap PO W/LUNCH 05/11/25 05/25/25 History [Probiotic] Atorvastatin [Lipitor] 10 mg PO W/SUPPER #30 tab 05/13/25 05/25/25 Rx Docusate [Colace] 100 mg PO W/LUNCH PRN 05/25/25 05/25/25 History Glimepiride [Amaryl] 1 mg PO W/BRKFST PRN 05/25/25 05/25/25 History Metoprolol Succinate (ER) [Toprol 25 mg PO BID-W/MEALS 05/25/25 05/25/25 History XL] Allergies Allergy/AdvReac Type Severity Reaction Status Date / Time cefadroxil AdvReac Constipatio Verified 05/25/25 17:08 n clindamycin AdvReac Diarrhea Verified 05/25/25 17:08 Physical Exam Vitals: Vital Signs Temp Pulse Pulse Resp BP BP Pulse Ox 05/26/25 07:26 97.7 F 67 19 153/60 95 05/26/25 02:00 97.4 F L 64 19 158/61 98 05/26/25 01:25 82 20 150/64 99 05/26/25 00:00 69 20 146/64 97 05/25/25 23:00 69 20 102/89 97 05/25/25 22:00 71 20 148/64 97 05/25/25 21:00 72 18 132/62 97 05/25/25 20:00 71 20 127/56 97 05/25/25 19:00 73 20 111/49 98 05/25/25 18:33 99 05/25/25 18:31 72 22 121/55 85 L 05/25/25 17:27 70 18 121/58 95 05/25/25 16:23 20 05/25/25 15:40 97.6 F 85 20 140/89 93 L Intake and Output 05/25/25 05/26/25 05/26/25 22:59 06:59 14:59 Output Total 550 Balance -550 Output: Urine 550 Other: Weight 90.718 kg 90.718 kg Results CBC & Chem 7: 05/25/25 16:21 05/25/25 16:21 Labs: Abnormal Lab Results - Last 24 Hours (Table) 05/25/25 05/25/25 05/26/25 Range/Units 16:21 16:21 06:43 WBC 11.32 H (4.50-10.00) 10*3/uL RBC 3.10 L (4.40-5.60) 10*6/uL Hgb 10.9 L (13.0-17.0) g/dL Hct 32.5 L (39.6-50.0) % MCV 104.8 H (80.0-97.0) fL MCH 35.2 H (27.0-32.0) pg Immature Gran # 0.05 H (0.00-0.04) 10*3/uL Neutrophils # 8.95 H (1.80-7.70) 10*3/uL Lymphocytes # 0.80 L (0.90-5.00) 10*3/uL Monocytes # 1.07 H (0.20-1.00) 10*3/uL Basophils # 0.12 H (0.00-0.10) 10*3/uL BUN 33 H (9-20) mg/dL Creatinine 5.59 H (0.66-1.25) mg/dL Glucose 185 H (74-99) mg/dL Urine Protein 2+ H (Negative) Urine Glucose (UA) Trace H (Negative) Urine Blood Moderate H (Negative) Ur Leukocyte Esterase Large H (Negative) Urine RBC 27 H (0-5) /hpf Urine WBC 60 H (0-5) /hpf Ur Squamous Epith Cells 16 H (0-4) /hpf Thrombosis Risk Factor Assmnt - Choose All That Apply Each Factor Represents 1 point: Obesity (BMI >25), Swollen legs (current) Each Risk Factor Represents 3 Points: Age 75 years or older Thrombosis Risk Factor Assessment Total Risk Factor Score: 5 Thrombosis Risk Factor Assessment Level: High Risk
[2025-05-26 17:18] LABS: Glucose,Whole Blood 86 mg/dL (70-110)
[2025-05-26] MEDS: APIXABAN 2.5 MG TABLET PO SCH (18:09)
[2025-05-26] MEDS: ATORVASTATIN 10 MG TAB PO SCH (18:09)
[2025-05-26] MEDS: EZETIMIBE 10 MG TAB PO SCH (18:09)
[2025-05-26 21:14] LABS: Glucose,Whole Blood 130 mg/dL (70-110)
[2025-05-27 04:10] LABS: Appearance,BF Grossly Bloody (Clear)
[2025-05-27 05:02] LABS: Glucose, BF Source Pleural fluid; Glucose, Body Fluid 67 mg/dL; LDH, Body Fluid Source Pleural fluid; T. Protein, Body Fluid Source Pleural fluid; Total Protein, Body Fluid >3600 mg/dL
[2025-05-27 05:54] LABS: Glucose,Whole Blood 93 mg/dL (70-110)
[2025-05-27 08:29] LABS: Hepatitis B Surface Antigen Nonreactive (Nonreactive)
[2025-05-27 08:50] LABS: Hepatitis B Surface AB- Quant >1000.0 mIU/mL
--- NOTE | 2025-05-27 09:19 | P.PN ---
Subjective Progress Note Date: 05/27/25 Principal diagnosis: Right pleural effusion No acute events overnight. Patient is laying down comfortably with no signs of acute distress. Patient examined at bedside with no sign of leg edema. Today, he is still having some shortness of breath on 2L NC. Patient on MWF dialysis schedule. He had leg edema, short of breath yesterday, and went for an extra dialysis with 1.1L removed. Denied muscle cramps, dizziness, lightheadedness, chest pain, abdominal pain. Patient is having dialysis today as well. Objective - Vital Signs Vital signs: Vital Signs Temp 98.1 F 05/27/25 02:00 Pulse 68 05/27/25 02:00 Resp 16 05/27/25 02:00 BP 138/59 05/27/25 02:00 Pulse Ox 98 05/27/25 02:00 FiO2 Intake & Output 05/26/25 05/27/25 05/27/25 18:59 06:59 18:59 Intake Total 760 Output Total 2600 Balance -1840 Intake: Oral 360 Hemodialysis 400 Output: Hemodialysis 1500 Hemodialysis Net Amount 1100 Other: Voiding Method Toilet Urinal # Voids 1 0 # Bowel Movements 0 - Exam Vital signs reviewed General: Mild distress, fatigued Derm: warm, dry, and well perfused. Head: normocephalic and atraumatic ENT: nose and ears atraumatic Neck: supple Mouth: no lip lesion Cardiovascular: normal S1S2, soft systolic murmur, no edema Lungs: clear to auscultation bilaterally, no wheezes or crackles or rhonchi Abdominal: soft, nontender to palpation, no guarding, no rebound, no appreciable organomegaly Psych: Alert, oriented x3 - Labs CBC & Chem 7: 05/25/25 16:21 05/25/25 16:21 Labs: Abnormal Lab Results - Last 24 Hours (Table) 05/26/25 05/26/25 05/26/25 Range/Units 08:30 12:10 21:12 POC Glucose (mg/dL) 133 H 130 H (70-110) mg/dL Fluid Appearance Grossly Bloody A (Clear) Microbiology - Last 24 Hours (Table) 05/26/25 08:30 Gram Stain - Preliminary Pleural Fluid 05/25/25 17:27 Blood Culture - Preliminary Blood Assessment and Plan Assessment: 1. ESRD on hemodialysis, Sunday via L arm AV fistula 2. Right pleural effusion s/p thoracentesis on 05/26, unknown volume of pleural fluid removed. 3. Anemia due to chronic kidney disease, Macrocytic. 4. Hypertension 5. CKD mineral bone disorder maintained on Ranvela Plan: Plan for hemodialysis today. Had an extra session yesterday with 1.1L removed. Normal B12 levels. Follow up on folic acid levels, serum and urine immunofixati on results for macrocytic anemia Follow up on iron studies Fluid overload improved. Continue lasix 60 mg daily Continue Sevelamer Carbonate 800 mg TID Okay for discharge from nephrology standpoint after dialysis today I have seen and examined the patient with resident and agree with A&P as writ ten. Seen while on HD. BP improved post 250 cc bolus - trying for net 1L UF.
[2025-05-27 09:57] LABS: Free Kappa Lt Chain Qnt, Serum 16.78 mg/dL (0.33-1.94); Free Lambda Lt Chain Qnt, Seru 12.1 mg/dL (0.57-2.63)
--- NOTE | 2025-05-27 10:58 | P.PN ---
Subjective HISTORY OF PRESENT ILLNESS: This is a 80-year-old male with a past medical history significant for atrial fibrillation, coronary artery disease with previous stenting, hypertension, hyperlipidemia, congestive heart failure, and end-stage renal disease on hemodialysis. Patient follows in the office with Dr. Arreaga. We have been asked to see the patient in consultation for congestive heart failure. Patient examined at the bedside. Patient spouse is present. Patient was recently admitted to the hospital secondary to A-fib with RVR and congestive heart failure. He was discharged home in stable condition. He states he was feeling okay for about 2 to 3 days after discharge but then his symptoms returned and continued to get worse. He does report shortness of breath and lower extremity edema. He reports a mild cough. He states he has been unable to lay flat at home secondary to shortness of breath. He denies any chest pain or pressure. He denies any shortness of breath. Patient does have a history of end-stage renal disease and is on hemodialysis Sunday and Sunday. He states he has been compliant with hemodialysis and has not missed any sessions. Patient did undergo right-sided thoracentesis this morning with pulmonary medicine. Patient states this is the second time he is had to undergo thoracentesis. DIAGNOSTICS: - EKG reveals sinus mechanism with no signs of acute ischemia. - Chest xray marginal increased moderate right pleural effusion with adjacent atelectasis and/or consolidation. - Laboratory data: Troponin negative x 1. proBNP 6400. - Current home cardiac medications include amiodarone 100 mg daily, Eliquis 2.5 mg twice a day, Lipitor 10 mg daily, Zetia 10 mg daily, Lasix 40 mg daily, metoprolol succinate 25 mg twice a day. - Most recent echocardiogram obtained in April 2025 revealed ejection fraction 55 to 60%, moderate pulmonary hypertension, RVSP 40 mmHg, moderate aortic stenosis with peak gradient 32 mmHg and mean gradient 22 mmHg, trivial aortic regurgitation, mild tricuspid regurgitation. -Patient underwent Cardiolite stress test in November 2022 which was negative for stress-induced ischemia - Cardiac catheterization history: 2016 with arthrectomy and stenting of the proximal LAD 05/27/2025 Patient examined this morning at the bedside. Patient currently denies any chest pain or pressure. He reports continued shortness of breath with ambulation. Patient is currently receiving hemodialysis at the time of examination. PHYSICAL EXAM: VITAL SIGNS: Reviewed. GENERAL: Well-developed in no acute distress. HEENT: Head is normocephalic. Pupils are equal, round. Sclerae anicteric. Mucous membranes of the mouth are moist. Neck supple. No JVD or thyromegaly LUNGS: Respirations even and unlabored. Lungs diminished on the right HEART: Regular rate and rhythm. S1 and S2 heard. Systolic murmur noted ABDOMEN: Soft. Nondistended. Nontender. EXTREMITIES: Normal range of motion. No clubbing or cyanosis. Peripheral pulses intact. Trace bilateral lower extremity edema NEUROLOGIC: Awake and alert. Oriented x 3. ASSESSMENT: Shortness of breath Acute on chronic heart failure with preserved EF 55 to 60% Right-sided pleural effusion, status post thoracentesis Moderate pulmonary hypertension End-stage renal disease on hemodialysis Sunday Coronary artery disease with previous stenting Hypertension Hyperlipidemia PLAN: No need to repeat echocardiogram as this was performed in April 2025 Continue anticoagulation with Eliquis Continue additional cardiac medications Hemodialysis per nephrology Continue telemetry monitoring Patient is currently stable from a cardiology perspective Further recommendations pending patient course Nurse practitioner note has been reviewed by physician. Signing provider agrees with the documented findings, assessment, and plan of care documented by POWER PLANT ENGINEER as a scribe. Objective - Vital Signs Vital signs: Vital Signs Temp 98.0 F 05/27/25 07:25 Pulse 65 05/27/25 07:25 Resp 16 05/27/25 08:00 BP 138/68 05/27/25 07:25 Pulse Ox 98 05/27/25 07:25 FiO2 Intake & Output 05/26/25 05/27/25 05/27/25 18:59 06:59 18:59 Intake Total 760 Output Total 2600 Balance -1840 Intake: Oral 360 Hemodialysis 400 Output: Hemodialysis 1500 Hemodialysis Net Amount 1100 Other: Voiding Method Toilet Toilet Urinal Urinal # Voids 1 0 # Bowel Movements 0 - Labs CBC & Chem 7: 05/25/25 16:21 05/25/25 16:21 Labs: Abnormal Lab Results - Last 24 Hours (Table) 05/26/25 05/26/25 05/26/25 Range/Units 08:30 12:10 21:12 POC Glucose (mg/dL) 133 H 130 H (70-110) mg/dL Fluid Appearance Grossly Bloody A (Clear) Free [place] LC, Quant (0.33-1.94) mg/dL Free [place] LC, Quant (0.57-2.63) mg/dL 05/27/25 Range/Units 05:15 POC Glucose (mg/dL) (70-110) mg/dL Fluid Appearance (Clear) Free [place] LC, Quant 16.78 H (0.33-1.94) mg/dL Free [place] LC, Quant 12.10 H (0.57-2.63) mg/dL Microbiology - Last 24 Hours (Table) 05/26/25 06:43 Urine Culture - Final Urine,Voided 05/26/25 08:30 Gram Stain - Preliminary Pleural Fluid 05/25/25 17:27 Blood Culture - Preliminary Blood
[2025-05-27 12:30] LABS: Glucose,Whole Blood 105 mg/dL (70-110)
[2025-05-27] MEDS: FUROSEMIDE 20 MG TAB PO SCH (13:31)
--- NOTE | 2025-05-27 13:42 | XR ---
EXAMINATION TYPE: XR chest 2V DATE OF EXAM: 05/27/2025 1:37 PM COMPARISON: 05/26/2025 CLINICAL INDICATION: Male, 80 years old with history of SOB, COMPARE WITH PREVIOUS XRAY: Shortness of breath TECHNIQUE: XR chest 2V views of the chest are obtained. FINDINGS: Scattered senescent parenchymal changes noted. Hyperinflation compatible with COPD. Right basilar infiltrate and/or effusion. Tiny left effusion noted as well. Overall stable appearance Heart size is stable. Mediastinal structures are stable and grossly unremarkable. No evidence for hilar prominence. Degenerative changes dorsal spine. IMPRESSION: 1. Right basilar infiltrate and/or effusion. Tiny left effusion noted as well. Overall stable appeara nce [facility], , 05/27/2025 1:40 PM
[2025-05-27 13:58] LABS: Glucose,Whole Blood 121 mg/dL (70-110)
--- NOTE | 2025-05-27 14:33 | P.PN ---
Subjective Progress Note Date: 05/27/25 80-year-old gentleman past medical history significant for end-stage renal disease on dialysis, coronary disease, atrial fibrillation presented to the ER because of worsening shortness of breath. Patient stated that for the last couple of days he has been noticing worsening shortness of breath. Shortness of breath is present on rest as on exertion. Patient also complaining of swelling of lower extremities. Patient was complaining orthopnea as well. There is no complaint of PND. Patient had an appointment with his tool lathe operator who told him to come to the ER. En route to the ER patient did have an episode of chest pain that was transient, central location, nonradiating, no aggravating or reli eving factors associated with chest pain. Patient denies any palpitation. Denies any nausea, vomiting abdominal pain. Patient denies any complaint of dizziness. There is no complaint of headache. Initial lab work done in the ER showed WBC 9.32, hemoglobin 9.9, platelet count 305, sodium 139, potassium 4.3, BUN 33, creatinine 5.59 glucose 185, lactate 1.9, calcium 9.4, magnesium 2.3, total bilirubin 0.5, AST 55, ALT 77, proBNP 6400 UA done showed large amount of leukocyte Estrace, urine WBC 60 EKG done in the ER showed heart rate of 85, no ST segment elevation or depression seen, no T-wave inversions seen. Chest x-ray done in the ER marginally increased moderate right pleural effusion with adjacent atelectasis Patient admitted to internal medicine service 05/27. Patient seen examined. Patient is currently undergoing dialysis, states he feels very tired today. Patient is lethargic. Denies any shortness of breath at rest. REVIEW OF SYSTEMS: CONSTITUTIONAL: No fever, no malaise,. CARDIOVASCULAR: No chest pain, no palpitations, no syncope. PULMONARY: Denies shortness of breath GASTROINTESTINAL: No diarrhea, no nausea, no vomiting, no abdominal pain. NEUROLOGICAL: No headaches, no weakness, PHYSICAL EXAMINATION: GENERAL: The patient is alert and oriented x3, ill looking HEENT: Pupils are round and equally reacting to light. EOMI. No scleral icterus. No conjunctival pallor. Normocephalic, atraumatic. No pharyngeal erythema. No thyromegaly. CARDIOVASCULAR: S1 and S2 present. No murmurs, rubs, or gallops. PULMONARY: Chest is clear to auscultation, no wheezing or crackles. ABDOMEN: Soft, nontender, nondistended, normoactive bowel sounds. No palpable organomegaly. MUSCULOSKELETAL: No joint swelling or deformity. EXTREMITIES: No cyanosis, clubbing, or pedal edema. NEUROLOGICAL: Gross neurological examination did not reveal any focal deficits. SKIN: No rashes. Assessment and plan Acute hypoxic respiratory failure Right-sided pleural effusion Acute on chronic diastolic heart failure Moderate aortic stenosis Paroxysmal atrial fibrillation, on amiodarone and previously anticoagulated on Eliquis, currently sinus mechanism Hypertension History of hyperlipidemia Diabetes mellitus type 2 History of coronary disease with previous stent History of right-sided nephrectomy secondary to cyst Monitor vital signs Monitor CBC Monitor CMP Continue telemetry monitoring Strict I's and O's Daily weights Low-salt diet S/p thoracentesis with removal of 1 L of fluid from the right side, pleural fluid analysis suspicious for exudative Continue amiodarone Continue Toprol Continue blood sugar monitoring, sliding scale insulin Pulmonology following Nephrology following Labs and medication were reviewed.. Continue same treatment. Continue with symptomatic treatment. Resume home medication. Monitor labs and vitals. DVT and GI prophylaxis. Further recommendations as per clinical course of the patient Dictation was produced using [employer] dictation software. please excuse any grammatical, word or spelling errors. Objective - Vital Signs Vital signs: Vital Signs Temp 96.9 F L 05/27/25 13:55 Pulse 87 05/27/25 13:55 Resp 20 05/27/25 14:00 BP 104/57 05/27/25 14:00 Pulse Ox 98 05/27/25 07:25 FiO2 Intake & Output 05/26/25 05/27/25 05/27/25 18:59 06:59 18:59 Intake Total 760 500 Output Total 2600 2908 Balance -1840 -2408 Intake: Oral 360 Hemodialysis 400 500 Output: Hemodialysis 1500 1704 Hemodialysis Net Amount 1100 1204 Other: Voiding Method Toilet Toilet Urinal Urinal # Voids 1 0 # Bowel Movements 0 - Labs CBC & Chem 7: 05/25/25 16:21 05/25/25 16:21 Labs: Abnormal Lab Results - Last 24 Hours (Table) 05/26/25 05/26/25 05/27/25 Range/Units 08:30 21:12 05:15 POC Glucose (mg/dL) 130 H (70-110) mg/dL Fluid Appearance Grossly Bloody A (Clear) Free [place] LC, Quant 16.78 H (0.33-1.94) mg/dL Free [place]ambda LC, Quant 12.10 H (0.57-2.63) mg/dL 05/27/25 Range/Units 13:56 POC Glucose (mg/dL) 121 H (70-110) mg/dL Fluid Appearance (Clear) Free [place] LC, Quant (0.33-1.94) mg/dL Free [place]ambda LC, Quant (0.57-2.63) mg/dL Microbiology - Last 24 Hours (Table) 05/26/25 06:43 Urine Culture - Final Urine,Voided 05/26/25 08:30 Gram Stain - Preliminary Pleural Fluid 05/25/25 17:27 Blood Culture - Preliminary Blood
[2025-05-27] MEDS: ONDANSETRON 4 MG/2 ML VIAL IVP PRN (15:31)
[2025-05-27 17:38] LABS: Glucose,Whole Blood 117 mg/dL (70-110)
[2025-05-27 20:17] LABS: Glucose,Whole Blood 140 mg/dL (70-110)
[2025-05-27 23:23] LABS: Glucose,Whole Blood 120 mg/dL (70-110)
[2025-05-28 06:22] LABS: Glucose,Whole Blood 118 mg/dL (70-110)
--- NOTE | 2025-05-28 08:39 | P.PN ---
Subjective Progress Note Date: 05/28/25 Principal diagnosis: Right pleural effusion No acute events overnight. Patient is comfortable with no sign of acute distress. He stated today his breathing is better, and he is saturating well on room air. Feeling well after his dialysis session yesterday. Blood pressure stable. Denied fever, dizziness, lightheadedness, muscle cramping, diarrhea, vomiting. Objective - Vital Signs Vital signs: Vital Signs Temp 98.2 F 05/28/25 07:12 Pulse 69 05/28/25 07:12 Resp 16 05/28/25 07:12 BP 120/67 05/28/25 07:12 Pulse Ox 100 05/28/25 07:12 FiO2 Intake & Output 05/27/25 05/28/25 05/28/25 18:59 06:59 18:59 Intake Total 600 118 Output Total 3008 Balance -2408 118 Intake: Oral 100 118 Hemodialysis 500 Output: Urine 100 Hemodialysis 1704 Hemodialysis Net Amount 1204 Other: Voiding Method Toilet Toilet Urinal Urinal # Voids 1 - Exam Vital signs reviewed General: Mild distress, fatigued Derm: warm, dry, and well perfused. Head: normocephalic and atraumatic ENT: nose and ears atraumatic Neck: supple Mouth: no lip lesion Cardiovascular: normal S1S2, soft systolic murmur, no edema Lungs: clear to auscultation bilaterally, no wheezes or crackles or rhonchi Abdominal: soft, nontender to palpation, no guarding, no rebound, no apprec iable organomegaly Psych: Alert, oriented x3 - Labs CBC & Chem 7: 05/25/25 16:21 05/25/25 16:21 Labs: Abnormal Lab Results - Last 24 Hours (Table) 05/27/25 05/27/25 05/27/25 Range/Units 05:15 13:56 17:33 POC Glucose (mg/dL) 121 H 117 H (70-110) mg/dL Free [place] LC, Quant 16.78 H (0.33-1.94) mg/dL Free Lambda LC, Quant 12.10 H (0.57-2.63) mg/dL 05/27/25 05/27/25 05/28/25 Range/Units 20:16 23:22 06:21 POC Glucose (mg/dL) 140 H 120 H 118 H (70-110) mg/dL Free [place] LC, Quant (0.33-1.94) mg/dL Free Lambda LC, Quant (0.57-2.63) mg/dL Microbiology - Last 24 Hours (Table) 05/26/25 08:30 Acid Fast Bacilli Smear - Preliminary Pleural Fluid 05/25/25 17:27 Blood Culture - Preliminary Blood 05/26/25 06:43 Urine Culture - Final Urine,Voided 05/26/25 08:30 Gram Stain - Preliminary Pleural Fluid Assessment and Plan Assessment: 1. ESRD on hemodialysis, Sunday via L arm AV fistula 2. Right pleural effusion s/p thoracentesis on 05/26, unmeasured volume of pleural fluid removed. 3. Anemia due to chronic kidney disease, Macrocytic. 4. Hypertension with ESRD 5. CKD mineral bone disorder maintained on Ranvela Plan: Plan for dialysis tomorrow if not discharged. Had hemodialysis session yesterday with 1.2 L removed. Normal B12 levels. Follow up on folic acid levels for macrocytic anemia Follow up on iron studies Continue lasix 60 mg daily Continue Sevelamer Carbonate 800 mg TID Okay for discharge from nephrology standpoint. I have seen and examined the patient with resident and agree with A&P as written.
[2025-05-28 12:12] LABS: Glucose,Whole Blood 170 mg/dL (70-110)
--- NOTE | 2025-05-28 13:12 | P.PN ---
Subjective HISTORY OF PRESENT ILLNESS: This is a 80-year-old male with a past medical history significant for atrial fibrillation, coronary artery disease with previous stenting, hypertension, hyperlipidemia, congestive heart failure, and end-stage renal disease on hemodialysis. Patient follows in the office with Dr. Arreaga. We have been asked to see the patient in consultation for congestive heart failure. Patient examined at the bedside. Patient spouse is present. Patient was recently admitted to the hospital secondary to A-fib with RVR and congestive heart failure. He was discharged home in stable condition. He states he was feeling okay for about 2 to 3 days after discharge but then his symptoms returned and continued to get worse. He does report shortness of breath and lower extremity edema. He reports a mild cough. He states he has been unable to lay flat at home secondary to shortness of breath. He denies any chest pain or pressure. He denies any shortness of breath. Patient does have a history of end-stage renal disease and is on hemodialysis Sunday and Sunday. He states he has been compliant with hemodialysis and has not missed any sessions. Patient did undergo right-sided thoracentesis this morning with pulmonary medicine. Patient states this is the second time he is had to undergo thoracentesis. DIAGNOSTICS: - EKG reveals sinus mechanism with no signs of acute ischemia. - Chest xray marginal increased moderate right pleural effusion with adjacent atelectasis and/or consolidation. - Laboratory data: Troponin negative x 1. proBNP 6400. - Current home cardiac medications include amiodarone 100 mg daily, Eliquis 2.5 mg twice a day, Lipitor 10 mg daily, Zetia 10 mg daily, Lasix 40 mg daily, metoprolol succinate 25 mg twice a day. - Most recent echocardiogram obtained in April 2025 revealed ejection fraction 55 to 60%, moderate pulmonary hypertension, RVSP 40 mmHg, moderate aortic stenosis with peak gradient 32 mmHg and mean gradient 22 mmHg, trivial aortic regurgitation, mild tricuspid regurgitation. -Patient underwent Cardiolite stress test in November 2022 which was negative for stress-induced ischemia - Cardiac catheterization history: 2016 with arthrectomy and stenting of the proximal LAD 05/27/2025 Patient examined this morning at the bedside. Patient currently denies any chest pain or pressure. He reports continued shortness of breath with ambulation. Patient is currently receiving hemodialysis at the time of examination. 05/28/2025 Patient examined this morning to bedside. Patient currently denies chest pain or pressure. He reports continued improvement in his shortness of breath. Patient underwent hemodialysis yesterday with removal of 1.2 L. Vital signs are stable. PHYSICAL EXAM: VITAL SIGNS: Reviewed. GENERAL: Well-developed in no acute distress. HEENT: Head is normocephalic. Pupils are equal, round. Sclerae anicteric. Mucous membranes of the mouth are moist. Neck supple. No JVD or thyromegaly LUNGS: Respirations even and unlabored. Lungs diminished on the right HEART: Regular rate and rhythm. S1 and S2 heard. Systolic murmur noted ABDOMEN: Soft. Nondistended. Nontender. EXTREMITIES: Normal range of motion. No clubbing or cyanosis. Peripheral pul ses intact. Trace bilateral lower extremity edema NEUROLOGIC: Awake and alert. Oriented x 3. ASSESSMENT: Shortness of breath Acute on chronic heart failure with preserved EF 55 to 60% Right-sided pleural effusion, status post thoracentesis Moderate pulmonary hypertension End-stage renal disease on hemodialysis Sunday Coronary artery disease with previous stenting Hypertension Hyperlipidemia PLAN: No need to repeat echocardiogram as this was performed in April 2025 Continue anticoagulation with Eliquis Continue additional cardiac medications Hemodialysis per nephrology Continue telemetry monitoring Patient is currently stable from a cardiology perspective Further recommendations pending patient course Nurse practitioner note has been reviewed by physician. Signing provider agrees with the documented findings, assessment, and plan of care documented by [employer] as a scribe. Objective - Vital Signs Vital signs: Vital Signs Temp 98.2 F 05/28/25 07:12 Pulse 69 05/28/25 07:12 Resp 16 05/28/25 09:07 BP 120/67 05/28/25 07:12 Pulse Ox 100 05/28/25 07:12 FiO2 Intake & Output 05/27/25 05/28/25 05/28/25 18:59 06:59 18:59 Intake Total 600 118 70 Output Total 3008 Balance -2408 118 70 Intake: Oral 100 118 70 Hemodialysis 500 Output: Urine 100 Hemodialysis 1704 Hemodialysis Net Amount 1204 Other: Voiding Method Toilet Toilet Toilet Urinal Urinal Urinal # Voids 1 - Labs CBC & Chem 7: 05/25/25 16:21 05/25/25 16:21 Labs: Abnormal Lab Results - Last 24 Hours (Table) 05/27/25 05/27/25 05/27/25 Range/Units 13:56 17:33 20:16 POC Glucose (mg/dL) 121 H 117 H 140 H (70-110) mg/dL 05/27/25 05/28/25 05/28/25 Range/Units 23:22 06:21 12:00 POC Glucose (mg/dL) 120 H 118 H 170 H (70-110) mg/dL Microbiology - Last 24 Hours (Table) 05/26/25 08:30 Gram Stain - Preliminary Pleural Fluid Body Fluid Culture - Preliminary 05/26/25 08:30 Acid Fast Bacilli Smear - Preliminary Pleural Fluid 05/25/25 17:27 Blood Culture - Preliminary Blood 05/26/25 06:43 Urine Culture - Final Urine,Voided
--- NOTE | 2025-05-28 14:19 | P.DS ---
Providers Date of admission: 05/25/25 18:27 Expected date of discharge: 05/28/25 Attending physician: Caio Ford Consults: 05/25/25 18:23 Consult Physician Stat Consulting Provider: Everardo Martinez Consult Reason/Comments: Right pleural effusion Do you want consulting provider notified?: Already Contacted Consult Physician Stat Consulting Provider: Getachew Arreaga Consult Reason/Comments: CHF, pleural effusion Do you want consulting provider notified?: Yes, Notify in am 05/26/25 09:38 Consult Physician Routine Consulting Provider: Scotty Mckeon Consult Reason/Comments: End-stage renal disease Do you want consulting provider notified?: Yes Primary care physician: [facility] Course: Discharge diagnoses; Acute hypoxic respiratory failure Right-sided pleural effusion Acute on chronic diastolic heart failure Moderate aortic stenosis Paroxysmal atrial fibrillation, on amiodarone and previously anticoagulated on Eliquis, currently sinus mechanism Hypertension History of hyperlipidemia Diabetes mellitus type 2 History of coronary disease with previous stent History of right-sided nephrectomy secondary to cyst Hospital course; 80-year-old gentleman past medical history significant for end-stage renal disease on dialysis, coronary disease, atrial fibrillation presented to the ER because of worsening shortness of breath. Patient stated that for the last couple of days he has been noticing worsening shortness of breath. Shortness of breath is present on rest as on exertion. Patient also complaining of swelling of lower extremities. Patient was complaining orthopnea as well. There is no complaint of PND. Patient had an appointment with his auditing specialist who told him to come to the ER. En route to the ER patient did have an episode of chest pain that was transient, central location, nonradiating, no aggravating or relieving factors associated with chest pain. Patient denies any palpitation. Denies any nausea, vomiting abdominal pain. Patient denies any complaint of dizziness. There is no complaint of headache. Initial lab work done in the ER showed WBC 9.32, hemoglobin 9.9, platelet count 305, sodium 139, potassium 4.3, BUN 33, creatinine 5.59 glucose 185, lactate 1.9, calcium 9.4, magnesium 2.3, total bilirubin 0.5, AST 55, ALT 77, proBNP 6400 UA done showed large amount of leukocyte Estrace, urine WBC 60 EKG done in the ER showed heart rate of 85, no ST segment elevation or depression seen, no T-wave inversions seen. Chest x-ray done in the ER marginally increased moderate right pleural effusion with adjacent atelectasis Patient admitted to internal medicine service 05/27. Patient seen examined. Patient is currently undergoing dialysis, states he feels very tired today. Patient is lethargic. Denies any shortness of breath at rest. S/p thoracentesis with removal of 1 L of fluid from the right side, pleural fluid analysis suspicious for exudative 04/30 1. Patient seen examined. States he feels better. Being discharged to follow-up outpatient with pulmonology and PCP PHYSICAL EXAMINATION: GENERAL: The patient is alert and oriented x3, not in any acute distress. Well developed, well nourished. HEENT: Pupils are round and equally reacting to light. EOMI. No scleral icterus. No conjunctival pallor. Normocephalic, atraumatic. No pharyngeal erythema. No thyromegaly. CARDIOVASCULAR: S1 and S2 present. No murmurs, rubs, or gallops. PULMONARY: Chest is clear to auscultation, no wheezing or crackles. ABDOMEN: Soft, nontender, nondistended, normoactive bowel sounds. No palpable organomegaly. MUSCULOSKELETAL: No joint swelling or deformity. EXTREMITIES: No cyanosis, clubbing, or pedal edema. NEUROLOGICAL: Gross neurological examination did not reveal any focal deficits. SKIN: No rashes. Dictation was produced using [employer] dictation software. please excuse any grammatical, word or spelling errors. Patient Condition at Discharge: Fair Plan - Discharge Summary New Discharge Prescriptions: Continue Gabapentin [Neurontin] 300 mg PO W/BRKFST allopurinoL [Zyloprim] 100 mg PO BID-W/MEALS L.acidoph,Paracasei, B.lactis [Probiotic] 1 cap PO W/LUNCH Cholecalciferol (Vitamin D3) [Vitamin D3 (50 Mcg = 2000 Iu)] 50 mcg PO W/LUNCH Docusate [Colace] 100 mg PO W/LUNCH PRN PRN Reason: Constipation sitaGLIPtin PHOSPHATE [Januvia] 25 mg PO W/LUNCH Apixaban [Eliquis] 2.5 mg PO BID-W/MEALS Sevelamer [Renvela] 800 mg PO TID-W/MEALS Ezetimibe [Zetia] 10 mg PO W/SUPPER Amiodarone [Cordarone] 100 mg PO W/LUNCH Furosemide [Lasix] 40 mg PO DAILY@1000 Atorvastatin [Lipitor] 10 mg PO W/SUPPER #30 tab Glimepiride [Amaryl] 1 mg PO W/BRKFST PRN PRN Reason: BS over 200 Metoprolol Succinate (ER) [Toprol XL] 25 mg PO BID-W/MEALS Discharge Medication List Gabapentin [Neurontin] 300 mg PO W/BRKFST 05/19/16 [History] allopurinoL [Zyloprim] 100 mg PO BID-W/MEALS 05/19/16 [History] sitaGLIPtin PHOSPHATE [Januvia] 25 mg PO W/LUNCH 01/17/22 [History] Apixaban [Eliquis] 2.5 mg PO BID-W/MEALS 07/02/24 [History] Sevelamer [Renvela] 800 mg PO TID-W/MEALS 07/02/24 [History] Amiodarone [Cordarone] 100 mg PO W/LUNCH 05/11/25 [History] Cholecalciferol (Vitamin D3) [Vitamin D3 (50 Mcg = 2000 Iu)] 50 mcg PO W/LUNCH 05/11/25 [History] Ezetimibe [Zetia] 10 mg PO W/SUPPER 05/11/25 [History] Furosemide [Lasix] 40 mg PO DAILY@1000 05/11/25 [History] L.acidoph,Paracasei, B.lactis [Probiotic] 1 cap PO W/LUNCH 05/11/25 [History] Atorvastatin [Lipitor] 10 mg PO W/SUPPER #30 tab 05/13/25 [Rx] Docusate [Colace] 100 mg PO W/LUNCH PRN 05/25/25 [History] Glimepiride [Amaryl] 1 mg PO W/BRKFST PRN 05/25/25 [History] Metoprolol Succinate (ER) [Toprol XL] 25 mg PO BID-W/MEALS 05/25/25 [History] Follow up Appointment(s)/Referral(s): Kj Jiang MD [Primary Care Provider] - 1-2 days Everardo Martinez DO [Doctor of Osteopathic Medicine] - 1 Week Activity/Diet/Wound Care/Special Instructions: if pt is d/c over the weekend nurse or case manger to call Eddie Brewer and notify them of pt d/c. phone number Discharge Disposition: HOME SELF-CARE
[2025-05-28 15:05] LABS: Ferritin 1126.0 ng/mL (22.0-322.0); Total Iron Binding Capacity 234.0 UG/DL (228-460)
[2025-05-28 15:17] VITALS: BP 107/61; RESP 17; TEMP 98
[2025-05-28 15:23] VITALS: PULSE 76
[2025-05-28 15:49] LABS: Iron 71.0 UG/DL (65-175)
== END 2025-05-28 16:15 | disposition home or self-care (01) | DRG 291 ==
LOC: EC 15:30 → 6NMEDSUR 18:26 → OBSVTOIN 18:27 → 6NMEDSUR 22:16
PROVIDERS: ADMIT Internal Medicine; ATTEND Internal Medicine
PROC: 5A1D70Z Performance of Urinary Filtration, Intermittent, Less than 6 Hours Per Day (ICD-10-PCS; 2025-05-25)
PROC: 0W993ZZ Drainage of Right Pleural Cavity, Percutaneous Approach (ICD-10-PCS; principal; 2025-05-26)
DX: I13.2 Hypertensive heart and chronic kidney disease with heart failure and with stage 5 chronic kidney disease, or end stage renal disease (principal); I50.33 Acute on chronic diastolic (congestive) heart failure; J96.01 Acute respiratory failure with hypoxia; N18.6 End stage renal disease; J91.8 Pleural effusion in other conditions classified elsewhere; I27.20 Pulmonary hypertension, unspecified; D63.1 Anemia in chronic kidney disease; Z99.2 Dependence on renal dialysis; E11.22 Type 2 diabetes mellitus with diabetic chronic kidney disease; J44.9 Chronic obstructive pulmonary disease, unspecified; I35.0 Nonrheumatic aortic (valve) stenosis; J98.11 Atelectasis; I48.0 Paroxysmal atrial fibrillation; E78.5 Hyperlipidemia, unspecified; I25.10 Atherosclerotic heart disease of native coronary artery without angina pectoris; Z79.01 Long term (current) use of anticoagulants; Z95.5 Presence of coronary angioplasty implant and graft; Z90.5 Acquired absence of kidney; Z88.1 Allergy status to other antibiotic agents; Z91.048 Other nonmedicinal substance allergy status; Z87.891 Personal history of nicotine dependence; Z79.84 Long term (current) use of oral hypoglycemic drugs; Z79.899 Other long term (current) drug therapy
CPT/HCPCS: 36415; 71045; 71046; 76604; 80053; 81001; 82607; 82728; 82747; 82945; 83036; 83540; 83550; 83605; 83615; 83735; 83880; 83883; 84155; 84157; 84484; 85025; 85610; 85730; 86706; 87040; 87070; 87086; 87102; 87116; 87205; 87206; 87340; 88108; 88305; 89050; 90935; 93005; 96374; 96375; 99285